=== PATIENT | male | born 1955 | race African-American/Black ===

== ENCOUNTER 2018-12-01 14:27 | Inpatient (IN) | payer MEDICARE, MEDICAID ==
[~2018-12-01] VITALS: Ht 172.7 cm; Wt 87.5 kg
[~2018-12-01 14:27] MED LIST: ALBU18HF2 IH; AMIT25TA9 PO; ASPI-1158 PO; ATEN-42 PO; BACL-141 PO; BENA1TAB19 PO; DORZ10DR8 EACHEYE; ELBA1TAB PO; GABA-290 PO; HUM100IN SUBCUT; KETO15CR2 TP; METF-414 PO
[2018-12-01 15:19] LABS: BASOPHILS % 0.2 % (0.0-2.0); EOSINOPHILS % 0.3 % (0.0-5.0); HEMATOCRIT. 34.9 % (42.0-52.0); HEMOGLOBIN. 11.4 g/dL (14.0-18.0); LYMPHOCYTES % 9.9 % (20.0-50.0); MEAN CORPUSCULAR HEMOGLOBIN 27.2 pg (28.0-32.0); MEAN CORPUSCULAR VOLUME 83.6 fL (80.0-94.0); MEAN PLATELET VOLUME 8.3 fl (7.4-10.4); NEUTROPHILS % 81.6 % (40.0-76.0); PLATELET 315 x1000/uL (130-400); RED BLOOD CELL COUNT 4.18 mill/uL (4.7-6.1); RED CELL DISTRIBUTION WIDTH 13.6 % (11.6-14.6)
[2018-12-01 15:20] LABS: CHLORIDE 111 mEq/L (98-107)
[2018-12-01] MEDS ORDERED: SODIUM CHLORIDE 0.9% 1,000 ML IV ONE (15:45)
[2018-12-01 16:19] LABS: CREATINE KINASE 1036 IU/L (39-308)
[2018-12-01 16:41] LABS: BG BASE EXCESS -9.4 mmol/L (-2.0-2.0); BG CARBOXYHEMOGLOBIN 0.4 % (0.5-1.5); BG DEOXYHEMOGLOBIN 6.4 % (0.0-5.0); BG FRACTION INSPIRED OXYGEN 21; BG HCO3 ACT 16.3 mmol/L (22.0-26.0); BG METHEMOGLOBIN 0.2 % (0.0-1.5); BG OXYGEN SATURATION 93.6 % (92.0-98.5); BG PCO2 34.9 mmHg (35.0-45.0); BG PH 7.288 (7.350-7.450); BG PO2 75.7 mmHg (75.0-100.0); BG SAMPLE SITE RIGHT RADIAL; BG VENT MODE ROOM AIR
[2018-12-01] MEDS ORDERED: ACETAMINOPHEN 325MG TABLET PO PRN (16:45)
[2018-12-01] MEDS ORDERED: NITROGLYCERIN 0.4MG TABLET SL SL PRN (16:45)
[2018-12-01] MEDS ORDERED: GUAIFENESIN 200MG/10ML SUGAR FREE UDC PO PRN (16:45)
[2018-12-01] MEDS ORDERED: DEXTROSE 50% WATER 50ML SYRINGE IV PRN (16:45)
[2018-12-01] MEDS ORDERED: DOCUSATE SODIUM 100MG CAPSULE PO PRN (16:45)
[2018-12-01] MEDS ORDERED: ONDANSETRON HCL 4MG/2ML INJ IV PRN (16:45)
[2018-12-01] MEDS ORDERED: IPRATROPIUM/ALBUTEROL 0.5-3(2.5)MG/3ML NEB HHN PRN (16:45)
[2018-12-01] MEDS ORDERED: MAGNESIUM/ALUMINUM HYDROXIDE/SIMETHICONE 30ML UDC PO PRN (16:45)
[2018-12-01 16:50] LABS: *AMPHETAMINES SCREEN URINE NEGATIVE (NEGATIVE); *BARBITURATES SCREEN URINE NEGATIVE (NEGATIVE)
[2018-12-01 16:51] LABS: *BENZODIAZEPINES SCREEN URINE NEGATIVE (NEGATIVE); *COCAINE SCREEN URINE NEGATIVE (NEGATIVE); CANNABINOID URINE SCREEN NEGATIVE (NEGATIVE); METHADONE URINE SCREEN NEGATIVE (NEGATIVE); OPIATES URINE SCREEN NEGATIVE (NEGATIVE); PHENCYCLIDINE URINE SCREEN NEGATIVE (NEGATIVE)
[2018-12-01 17:07] LABS: ETHANOL BLOOD < 10 mg/dL
[2018-12-01] MEDS ORDERED: MORPHINE SULFATE 2 MG/ML CPJ (NOT FOR IM USE) IV PRN (17:07)
[2018-12-01 17:09] LABS: LDL CHOLESTEROL 116 mg/dL (5-100); TOTAL IRON BINDING CAPACITY 389 ug/dL (250-450)
[2018-12-01 17:11] LABS: HDL CHOLESTEROL 48 mg/dL (40-59)
[2018-12-01 17:12] LABS: T4 FREE 0.73 ng/dL (0.76-1.46)
[2018-12-01 17:23] LABS: FOLIC ACID (FOLATE) SERUM >20 ng/mL ng/mL (>5.38)
[2018-12-01 17:34] LABS: VITAMIN B12 SERUM 1585 pg/mL (211-911)
[2018-12-01] MEDS ORDERED: LEVOFLOXACIN 500MG PREMIX 100 ML IV SCH (17:45)
[2018-12-01 18:53] LABS: HEPATITIS B SURFACE ANTIGEN NEGATIVE
[2018-12-01 19:23] LABS: HEPATITIS A AB IGM NEGATIVE (NEGATIVE)
[2018-12-01] MEDS: CLONIDINE 0.1MG TABLET PO PRN (20:46)
[2018-12-01] MEDS ORDERED: FAMOTIDINE 20MG TABLET PO SCH (21:00)
[2018-12-01] MEDS ORDERED: ZOLPIDEM TARTRATE 5MG TABLET PO PRN (21:00)
[2018-12-01] MEDS: BLOOD SUGAR DIAGNOSTIC STRIP TEST SCH (22:00)
[2018-12-01] MEDS: INSULIN LISPRO 100 UNITS/ML SUBCUT SCH (22:00)
[2018-12-01] MEDS ORDERED: CEFTRIAXONE 1 G PREMIX 50 ML IV SCH (22:00)
[2018-12-01] MEDS: SODIUM CHLORIDE 0.9% 1,000 ML IV SCH (23:25)
[2018-12-01] MEDS: FUROSEMIDE 40MG/4ML VIAL IVP SCH (23:25)
[2018-12-01] MEDS: ASCORBIC ACID 500 MG TABLET PO SCH (23:26)
[2018-12-01] MEDS: SPIRONOLACTONE 25MG TABLET PO SCH (23:47)
[2018-12-01] MEDS: LEVOFLOXACIN 250MG PREMIX 50 ML IV SCH (23:48)
[2018-12-02] VITALS (7 sets, daily range): BP systolic 141–184; BP diastolic 85–103
[2018-12-02 00:01] LABS: CREATINE KINASE MB FRACTION 16.6 ng/mL (0.5-3.6)
[2018-12-02 00:12] LABS: CREATINE KINASE 1262 IU/L (39-308)
[2018-12-02] MEDS: BLOOD SUGAR DIAGNOSTIC STRIP TEST SCH ×4 (07:20→21:00)
[2018-12-02 07:48] LABS: CREATINE KINASE MB FRACTION 14.3 ng/mL (0.5-3.6)
[2018-12-02] MEDS: INSULIN LISPRO 100 UNITS/ML SUBCUT SCH ×4 (07:50→21:00)
[2018-12-02 07:58] LABS: CREATINE KINASE 1316 IU/L (39-308)
[2018-12-02] MEDS: ASPIRIN 325MG EC TABLET PO SCH (09:21)
[2018-12-02] MEDS: FAMOTIDINE 20MG TABLET PO SCH (09:21)
[2018-12-02] MEDS: FUROSEMIDE 40MG/4ML VIAL IVP SCH ×2 (09:21→23:08)
[2018-12-02] MEDS: SPIRONOLACTONE 25MG TABLET PO SCH ×2 (09:21→23:07)
[2018-12-02] MEDS: AMLODIPINE 10MG TABLET PO SCH (09:22)
[2018-12-02] MEDS: ASCORBIC ACID 500 MG TABLET PO SCH ×2 (09:22→23:07)
[2018-12-02] MEDS: ZINC SULFATE 220 MG ( 50 ) CAPSULE PO SCH (09:23)
[2018-12-02] MEDS: ENOXAPARIN 40MG/0.4ML SYR SUBCUT SCH (09:25)
[2018-12-02] MEDS: GABAPENTIN 100MG CAPSULE PO SCH ×2 (13:12→23:07)
[2018-12-02] MEDS: LEVOFLOXACIN 250MG PREMIX 50 ML IV SCH (23:08)
[2018-12-02] MEDS: SODIUM CHLORIDE 0.9% 1,000 ML IV SCH (23:09)
[2018-12-03] VITALS (7 sets, daily range): BP systolic 130–167; BP diastolic 90–104
[2018-12-03] MEDS ORDERED: CEFTRIAXONE 1 G PREMIX 50 ML IV SCH
[2018-12-03] MEDS: CLONIDINE 0.1MG TABLET PO PRN (00:38)
[2018-12-03] MEDS: GABAPENTIN 100MG CAPSULE PO SCH ×2 (06:53→14:50)
[2018-12-03] MEDS: BLOOD SUGAR DIAGNOSTIC STRIP TEST SCH ×3 (06:53→17:52)
[2018-12-03 07:07] LABS: HIV SCREEN 4G Non Reactive (Non Reactive)
[2018-12-03] MEDS: INSULIN LISPRO 100 UNITS/ML SUBCUT SCH ×3 (07:50→17:50)
[2018-12-03] MEDS: ASCORBIC ACID 500 MG TABLET PO SCH (08:38)
[2018-12-03] MEDS: ZINC SULFATE 220 MG ( 50 ) CAPSULE PO SCH (08:39)
[2018-12-03] MEDS: ASPIRIN 325MG EC TABLET PO SCH (08:39)
[2018-12-03] MEDS: TRAMADOL 50MG TABLET PO PRN ×2 (08:39→17:08)
[2018-12-03] MEDS: AMLODIPINE 10MG TABLET PO SCH (08:39)
[2018-12-03] MEDS: FAMOTIDINE 20MG TABLET PO SCH (08:40)
[2018-12-03] MEDS: FUROSEMIDE 40MG/4ML VIAL IVP SCH (11:55)
[2018-12-03] MEDS ORDERED: XALAO EACHEYE ×2 (11:55)
[2018-12-03] MEDS: SPIRONOLACTONE 25MG TABLET PO SCH (12:00)
[2018-12-03] MEDS: ENOXAPARIN 40MG/0.4ML SYR SUBCUT SCH (12:04)
[2018-12-03] MEDS ORDERED: INFLUENZA VIRUS VACCINE(AFLURIA) 0.5ML SYR IM ONE (13:30)
[2018-12-03] MEDS ORDERED: THIAMINE HCL 100MG TABLET PO SCH (17:00)
[2018-12-03] MEDS ORDERED: FOLIC ACID 1MG TABLET PO SCH (17:00)
== END 2018-12-03 18:43 | disposition home health service (06) | DRG 871 ==
LOC: ER 14:27 → 6WST 15:53 → EDBEDREQ 16:03 → SUPCPDRO 16:33 → ENRESERV 20:19
PROVIDERS: ADMIT Internal Medicine; ATTEND Internal Medicine
DX: A41.9 Sepsis, unspecified organism (principal); G92 Toxic encephalopathy; N17.0 Acute kidney failure with tubular necrosis; I63.9 Cerebral infarction, unspecified; M62.82 Rhabdomyolysis; D64.9 Anemia, unspecified; E11.65 Type 2 diabetes mellitus with hyperglycemia; D50.9 Iron deficiency anemia, unspecified; E11.42 Type 2 diabetes mellitus with diabetic polyneuropathy; E78.00 Pure hypercholesterolemia, unspecified; I10 Essential (primary) hypertension; B19.20 Unspecified viral hepatitis C without hepatic coma; R26.9 Unspecified abnormalities of gait and mobility; Z79.899 Other long term (current) drug therapy; Z79.4 Long term (current) use of insulin; Z79.82 Long term (current) use of aspirin
CPT/HCPCS: 36415; 36600; 70551; 71045; 76770; 80048; 80061; 80305; 80320; 82140; 82375; 82550; 82553; 82607; 82746; 82805; 82962; 83036; 83540; 83550; 83605; 83880; 84439; 84443; 84484; 86705; 86709; 86803; 87340; 87389; 90686; 93005; 93306; 93970; 97162; 97166; 99291; J0696; J1650; J1815; J1940; J1956; J2405; J7030; G0480

== ENCOUNTER 2019-09-28 02:37 | Inpatient (IN) | payer MEDICARE, MEDICAID ==
[~2019-09-28] VITALS: Ht 182.9 cm; Wt 93.0 kg
[2019-09-28] VITALS (28 sets, daily range): BP systolic 107–186; BP diastolic 59–92
[~2019-09-28 02:37] MED LIST changes: -AMIT25TA9 PO; +AMLO5TAB88 PO; -BACL-141 PO; -BENA1TAB19 PO; +CLON0.2T12 PO; -ELBA1TAB PO; +HYDR100T26 PO; +LEVO500T2 MT; -METF-414 PO; +XALAO EACHEYE
[2019-09-28 03:13] LABS: BASOPHILS % 0.6 % (0.0-2.0); EOSINOPHILS % 2.1 % (0.0-5.0); HEMOGLOBIN. 9.2 g/dL (14.0-18.0); LYMPHOCYTES % 17.3 % (20.0-50.0); MEAN CORPUSCULAR VOLUME 82.3 fL (80.0-94.0); MEAN PLATELET VOLUME 7.3 fl (7.4-10.4); MONOCYTES % 11.2 % (2.0-8.0); NEUTROPHILS % 68.8 % (40.0-76.0); PLATELET 423 x1000/uL (130-400); RED CELL DISTRIBUTION WIDTH 14.1 % (11.6-14.6)
[2019-09-28 03:16] LABS: CHLORIDE 108 mEq/L (98-107)
[2019-09-28 03:19] LABS: PROTHROMBIN TIME 10.9 sec (9.6-11.0)
[2019-09-28 03:20] LABS: ETHANOL BLOOD < 10 mg/dL
[2019-09-28 03:22] LABS: CLARITY URINE CLOUDY (CLEAR); COLOR URINE DARK YELLOW (YELLOW); KETONES URINE TRACE (NEGATIVE); LEUKOCYTE ESTERASE URINE NEGATIVE (NEGATIVE); NITRITE URINE NEGATIVE (NEGATIVE); OCCULT BLOOD URINE NEGATIVE (NEGATIVE); PROTEIN URINE 3+ (NEGATIVE); UROBILINOGEN URINE 0.2 E.U./dL (0.2-1.0)
[2019-09-28 03:24] LABS: CREATINE KINASE 55 IU/L (39-308)
[2019-09-28 03:36] LABS: *AMPHETAMINES SCREEN URINE NEGATIVE (NEGATIVE); *BARBITURATES SCREEN URINE NEGATIVE (NEGATIVE)
[2019-09-28 03:37] LABS: *BENZODIAZEPINES SCREEN URINE NEGATIVE (NEGATIVE); *COCAINE SCREEN URINE NEGATIVE (NEGATIVE); CANNABINOID URINE SCREEN NEGATIVE (NEGATIVE); METHADONE URINE SCREEN NEGATIVE (NEGATIVE); OPIATES URINE SCREEN NEGATIVE (NEGATIVE); PHENCYCLIDINE URINE SCREEN NEGATIVE (NEGATIVE)
[2019-09-28] MEDS ORDERED: LORAZEPAM 2MG/ML CPJ ONE ×2 (10:27→10:33)
[2019-09-28] MEDS ORDERED: ATROPINE SULFATE 1MG/10ML SYR ONE (10:37)
[2019-09-28] MEDS ORDERED: SUCCINYLCHOLINE CHLORIDE 200MG/10ML IV ONE ×2 (10:37→10:45)
[2019-09-28] MEDS ORDERED: ETOMIDATE 2MG/ML 10ML VIAL IV ONE ×2 (10:37→10:45)
[2019-09-28] MEDS ORDERED: PROPOFOL 10MG/ML 100ML 100 ML IV ONE (10:45)
[2019-09-28] MEDS ORDERED: ONDANSETRON HCL 4MG/2ML INJ IV PRN (11:00)
[2019-09-28] MEDS: SODIUM CHLORIDE 0.45% 1,000 ML IV SCH ×2 (11:00→15:27)
[2019-09-28] MEDS ORDERED: DEXTROSE 50% WATER 50ML SYRINGE IV PRN (11:00)
[2019-09-28] MEDS: PANTOPRAZOLE SODIUM 40 MG/VIAL IV SCH ×2 (11:15→12:30)
[2019-09-28 11:22] LABS: BG BASE EXCESS -3.4 mmol/L (-2.0-2.0); BG CARBOXYHEMOGLOBIN 0.3 % (0.5-1.5); BG DEOXYHEMOGLOBIN 0.3 % (0.0-5.0); BG FRACTION INSPIRED OXYGEN 100; BG METHEMOGLOBIN 0.4 % (0.0-1.5); BG OXYGEN SATURATION 99.7 % (92.0-98.5); BG PCO2 41.2 mmHg (35.0-45.0); BG PH 7.346 (7.350-7.450); BG SAMPLE SITE RIGHT RADIAL; BG TIDAL VOLUME(mL) 500 mL; BG TOTAL HEMOGLOBIN 9.4 g/dL (12.0-18.0); BG VENT MODE VENT - A/C; BG VENT RATE 14 set
[2019-09-28] MEDS: IPRATROPIUM/ALBUTEROL 0.5-3(2.5)MG/3ML NEB HHN SCH ×3 (12:50→21:10)
[2019-09-28] MEDS: BLOOD SUGAR DIAGNOSTIC STRIP TEST SCH ×3 (13:00→21:11)
[2019-09-28] MEDS: INSULIN LISPRO 100 UNITS/ML SUBCUT SCH ×3 (13:20→21:00)
[2019-09-28 13:21] LABS: BASOPHILS % 0.7 % (0.0-2.0); EOSINOPHILS % 2.6 % (0.0-5.0); HEMATOCRIT. 27.7 % (42.0-52.0); HEMOGLOBIN. 9.2 g/dL (14.0-18.0); MEAN CORPUSCULAR HEMOGLOBIN 27.9 pg (28.0-32.0); MEAN CORPUSCULAR VOLUME 83.7 fL (80.0-94.0); MEAN PLATELET VOLUME 7.9 fl (7.4-10.4); MONOCYTES % 13.3 % (2.0-8.0); NEUTROPHILS % 50.4 % (40.0-76.0); PLATELET 386 x1000/uL (130-400); RED BLOOD CELL COUNT 3.31 mill/uL (4.7-6.1); RED CELL DISTRIBUTION WIDTH 14.5 % (11.6-14.6)
[2019-09-28] MEDS ORDERED: PIPERACILLIN/TAZ 3.375G PREMIX 50 ML IV SCH (15:15)
[2019-09-28] MEDS: LEVETIRACETAM 500MG PREMIX 100 ML IV SCH ×2 (15:27→22:37)
[2019-09-28 16:36] LABS: BG BASE EXCESS -2.1 mmol/L (-2.0-2.0); BG CARBOXYHEMOGLOBIN 0.1 % (0.5-1.5); BG DEOXYHEMOGLOBIN 5.5 % (0.0-5.0); BG FRACTION INSPIRED OXYGEN 40; BG HCO3 ACT 21.6 mmol/L (22.0-26.0); BG METHEMOGLOBIN 0.3 % (0.0-1.5); BG OXYGEN SATURATION 94.5 % (92.0-98.5); BG OXYHEMOGLOBIN 94.1 % (94.0-97.0); BG PCO2 32.5 mmHg (35.0-45.0); BG PEEP (cmH2O) 0 cmH2O; BG PO2 69.7 mmHg (75.0-100.0); BG SAMPLE SITE RIGHT RADIAL; BG TIDAL VOLUME(mL) 500 mL; BG TOTAL HEMOGLOBIN 9.5 g/dL (12.0-18.0); BG VENT MODE VENT - A/C; BG VENT RATE 18 set
[2019-09-28] MEDS: PIPERACILLIN/TAZOBACTAM 2.25 G in DEXTROSE 5% WATER 50 ML IV SCH ×2 (17:21→23:41)
[2019-09-28] MEDS: HYDRALAZINE 20MG/ML VIAL IV PRN (17:34)
[2019-09-29] VITALS (78 sets, daily range): BP systolic 106–185; BP diastolic 65–112
[2019-09-29] MEDS: IPRATROPIUM/ALBUTEROL 0.5-3(2.5)MG/3ML NEB HHN SCH ×4 (00:59→19:55)
[2019-09-29] MEDS: PROPOFOL 10MG/ML 100ML 100 ML IV PRN ×4 (02:57→20:59)
[2019-09-29] MEDS: PIPERACILLIN/TAZOBACTAM 2.25 G in DEXTROSE 5% WATER 50 ML IV SCH ×4 (05:09→23:48)
[2019-09-29 05:50] LABS: HEMATOCRIT. 29.3 % (42.0-52.0); HEMOGLOBIN. 9.5 g/dL (14.0-18.0); MEAN CORPUSCULAR VOLUME 83.1 fL (80.0-94.0); MEAN PLATELET VOLUME 7.4 fl (7.4-10.4); PLATELET 378 x1000/uL (130-400); RED BLOOD CELL COUNT 3.52 mill/uL (4.7-6.1); RED CELL DISTRIBUTION WIDTH 14.3 % (11.6-14.6)
[2019-09-29] MEDS: BLOOD SUGAR DIAGNOSTIC STRIP TEST SCH ×4 (06:07→21:04)
[2019-09-29] MEDS: HYDRALAZINE 20MG/ML VIAL IV PRN ×2 (06:08→16:16)
[2019-09-29] MEDS: INSULIN LISPRO 100 UNITS/ML SUBCUT SCH ×4 (06:47→21:00)
[2019-09-29 07:42] LABS: PLATELET ESTIMATE NORMAL
[2019-09-29 08:46] LABS: BG CARBOXYHEMOGLOBIN 0.2 % (0.5-1.5); BG FRACTION INSPIRED OXYGEN 50; BG OXYHEMOGLOBIN 98.8 % (94.0-97.0); BG PCO2 39.8 mmHg (35.0-45.0); BG PH 7.379 (7.350-7.450); BG PO2 198.8 mmHg (75.0-100.0); BG SAMPLE SITE RIGHT RADIAL; BG TIDAL VOLUME(mL) 500 mL; BG TOTAL HEMOGLOBIN 10.4 g/dL (12.0-18.0); BG VENT MODE VENT - A/C; BG VENT RATE 18 set
[2019-09-29] MEDS: PANTOPRAZOLE SODIUM 40 MG/VIAL IV SCH (08:50)
[2019-09-29] MEDS: LEVETIRACETAM 500MG PREMIX 100 ML IV SCH ×2 (08:50→21:04)
[2019-09-29] MEDS: SODIUM CHLORIDE 0.45% 1,000 ML IV SCH (10:32)
[2019-09-29] MEDS ORDERED: LORAZEPAM 2MG/ML CPJ IV PRN (13:45)
[2019-09-29] MEDS ORDERED: LEVETIRACETAM 500 MG in SODIUM CHLORIDE 0.9% 100 ML IV SCH (13:45)
[2019-09-30] VITALS (107 sets, daily range): BP systolic 88–193; BP diastolic 55–107
[2019-09-30] MEDS: HYDRALAZINE 20MG/ML VIAL IV PRN ×3 (00:27→21:10)
[2019-09-30] MEDS: PROPOFOL 10MG/ML 100ML 100 ML IV PRN ×6 (01:24→21:23)
[2019-09-30] MEDS: IPRATROPIUM/ALBUTEROL 0.5-3(2.5)MG/3ML NEB HHN SCH ×4 (05:24→20:35)
[2019-09-30] MEDS: PIPERACILLIN/TAZOBACTAM 2.25 G in DEXTROSE 5% WATER 50 ML IV SCH ×4 (05:32→23:45)
[2019-09-30 05:48] LABS: BASOPHILS % 0.5 % (0.0-2.0); EOSINOPHILS % 3.1 % (0.0-5.0); HEMATOCRIT. 28.6 % (42.0-52.0); HEMOGLOBIN. 9.5 g/dL (14.0-18.0); LYMPHOCYTES % 17.8 % (20.0-50.0); MEAN CORPUSCULAR HEMOGLOBIN 27.5 pg (28.0-32.0); MEAN CORPUSCULAR VOLUME 82.9 fL (80.0-94.0); MEAN PLATELET VOLUME 7.4 fl (7.4-10.4); MONOCYTES % 12.2 % (2.0-8.0); NEUTROPHILS % 66.4 % (40.0-76.0); PLATELET 402 x1000/uL (130-400); RED BLOOD CELL COUNT 3.45 mill/uL (4.7-6.1); RED CELL DISTRIBUTION WIDTH 14.1 % (11.6-14.6)
[2019-09-30] MEDS: BLOOD SUGAR DIAGNOSTIC STRIP TEST SCH ×4 (06:11→21:00)
[2019-09-30] MEDS: INSULIN LISPRO 100 UNITS/ML SUBCUT SCH ×4 (06:13→21:00)
[2019-09-30] MEDS: KCL 20MEQ/100ML PREMIX 100 ML IV SCH ×3 (08:24→12:06)
[2019-09-30] MEDS: LEVETIRACETAM 500MG PREMIX 100 ML IV SCH ×2 (08:24→20:40)
[2019-09-30] MEDS: PANTOPRAZOLE SODIUM 40 MG/VIAL IV SCH (08:24)
[2019-09-30 09:06] LABS: BG BASE EXCESS -3.8 mmol/L (-2.0-2.0); BG CARBOXYHEMOGLOBIN 0.3 % (0.5-1.5); BG DEOXYHEMOGLOBIN 1.5 % (0.0-5.0); BG FRACTION INSPIRED OXYGEN 40; BG HCO3 ACT 21.2 mmol/L (22.0-26.0); BG METHEMOGLOBIN 0.3 % (0.0-1.5); BG OXYGEN SATURATION 98.5 % (92.0-98.5); BG OXYHEMOGLOBIN 97.9 % (94.0-97.0); BG PCO2 38.3 mmHg (35.0-45.0); BG PH 7.361 (7.350-7.450); BG PO2 130.3 mmHg (75.0-100.0); BG SAMPLE SITE RIGHT RADIAL; BG TIDAL VOLUME(mL) 500 mL; BG TOTAL HEMOGLOBIN 10.2 g/dL (12.0-18.0); BG VENT MODE VENT - A/C; BG VENT RATE 16 set
[2019-09-30] MEDS ORDERED: POTASSIUM CHLORIDE 20MEQ TABLET SR PO NR (10:45)
[2019-09-30] MEDS: SODIUM CHLORIDE 0.45% 1,000 ML IV SCH (12:10)
[2019-09-30] MEDS: METOPROLOL TARTRATE 50MG TABLET NG SCH ×2 (15:04→23:41)
[2019-10-01] VITALS (90 sets, daily range): BP systolic 126–175; BP diastolic 67–122
[2019-10-01] MEDS: ACETAMINOPHEN 325MG TABLET PO PRN (00:01)
[2019-10-01] MEDS: IPRATROPIUM/ALBUTEROL 0.5-3(2.5)MG/3ML NEB HHN SCH ×4 (02:17→20:21)
[2019-10-01] MEDS: PROPOFOL 10MG/ML 100ML 100 ML IV PRN ×2 (05:13→08:53)
[2019-10-01 05:46] LABS: BASOPHILS % 0.6 % (0.0-2.0); EOSINOPHILS % 2.8 % (0.0-5.0); HEMATOCRIT. 26.4 % (42.0-52.0); HEMOGLOBIN. 8.6 g/dL (14.0-18.0); LYMPHOCYTES % 17.9 % (20.0-50.0); MEAN CORPUSCULAR HEMOGLOBIN 27.2 pg (28.0-32.0); MEAN CORPUSCULAR VOLUME 83.4 fL (80.0-94.0); MEAN PLATELET VOLUME 8.1 fl (7.4-10.4); NEUTROPHILS % 66.7 % (40.0-76.0); PLATELET 390 x1000/uL (130-400); RED BLOOD CELL COUNT 3.17 mill/uL (4.7-6.1); RED CELL DISTRIBUTION WIDTH 14.3 % (11.6-14.6)
[2019-10-01] MEDS: PIPERACILLIN/TAZOBACTAM 2.25 G in DEXTROSE 5% WATER 50 ML IV SCH ×3 (06:28→17:39)
[2019-10-01] MEDS: BLOOD SUGAR DIAGNOSTIC STRIP TEST SCH ×4 (06:28→20:37)
[2019-10-01] MEDS: INSULIN LISPRO 100 UNITS/ML SUBCUT SCH ×4 (06:29→20:38)
[2019-10-01] MEDS: LEVETIRACETAM 500MG PREMIX 100 ML IV SCH ×2 (08:50→20:37)
[2019-10-01] MEDS: PANTOPRAZOLE SODIUM 40 MG/VIAL IV SCH (08:50)
[2019-10-01 09:09] LABS: BG CARBOXYHEMOGLOBIN 0.3 % (0.5-1.5); BG DEOXYHEMOGLOBIN 6.5 % (0.0-5.0); BG FRACTION INSPIRED OXYGEN 40; BG HCO3 ACT 22.2 mmol/L (22.0-26.0); BG METHEMOGLOBIN 0.3 % (0.0-1.5); BG OXYGEN SATURATION 93.5 % (92.0-98.5); BG OXYHEMOGLOBIN 92.9 % (94.0-97.0); BG PCO2 35.8 mmHg (35.0-45.0); BG PH 7.411 (7.350-7.450); BG PO2 65.7 mmHg (75.0-100.0); BG SAMPLE SITE RIGHT RADIAL; BG TIDAL VOLUME(mL) 500 mL; BG TOTAL HEMOGLOBIN 9.1 g/dL (12.0-18.0); BG VENT MODE VENT - A/C; BG VENT RATE 16 set
[2019-10-01] MEDS: SODIUM CHLORIDE 0.45% 1,000 ML IV SCH (09:25)
[2019-10-01] MEDS: METOPROLOL TARTRATE 50MG TABLET NG SCH ×2 (09:25→20:47)
[2019-10-01] MEDS: AMLODIPINE 10MG TABLET PO SCH (11:59)
[2019-10-01] MEDS: HYDRALAZINE 20MG/ML VIAL IV PRN (18:13)
[2019-10-02] VITALS (85 sets, daily range): BP systolic 120–181; BP diastolic 68–107
[2019-10-02] MEDS: PIPERACILLIN/TAZOBACTAM 2.25 G in DEXTROSE 5% WATER 50 ML IV SCH ×4 (00:13→17:31)
[2019-10-02] MEDS: IPRATROPIUM/ALBUTEROL 0.5-3(2.5)MG/3ML NEB HHN SCH ×2 (02:10→08:50)
[2019-10-02] MEDS: ACETAMINOPHEN 325MG TABLET PO PRN ×2 (03:34→15:44)
[2019-10-02] MEDS: PROPOFOL 10MG/ML 100ML 100 ML IV PRN ×2 (03:43→08:32)
[2019-10-02] MEDS: BLOOD SUGAR DIAGNOSTIC STRIP TEST SCH ×4 (05:34→21:02)
[2019-10-02 05:47] LABS: BASOPHILS % 0.8 % (0.0-2.0); EOSINOPHILS % 3.6 % (0.0-5.0); HEMATOCRIT. 26.2 % (42.0-52.0); HEMOGLOBIN. 8.6 g/dL (14.0-18.0); LYMPHOCYTES % 15.1 % (20.0-50.0); MEAN CORPUSCULAR HEMOGLOBIN 27.3 pg (28.0-32.0); MEAN CORPUSCULAR VOLUME 83.2 fL (80.0-94.0); MEAN PLATELET VOLUME 7.7 fl (7.4-10.4); MONOCYTES % 11.3 % (2.0-8.0); NEUTROPHILS % 69.2 % (40.0-76.0); PLATELET 352 x1000/uL (130-400); RED BLOOD CELL COUNT 3.14 mill/uL (4.7-6.1); RED CELL DISTRIBUTION WIDTH 13.8 % (11.6-14.6)
[2019-10-02] MEDS: INSULIN LISPRO 100 UNITS/ML SUBCUT SCH ×4 (06:53→21:00)
[2019-10-02] MEDS: METOPROLOL TARTRATE 50MG TABLET NG SCH ×2 (08:31→21:01)
[2019-10-02] MEDS: LEVETIRACETAM 500MG PREMIX 100 ML IV SCH ×2 (08:31→20:59)
[2019-10-02] MEDS: PANTOPRAZOLE SODIUM 40 MG/VIAL IV SCH (08:32)
[2019-10-02] MEDS: AMLODIPINE 10MG TABLET PO SCH (08:32)
[2019-10-02] MEDS: LORAZEPAM 2MG/ML CPJ IV PRN (11:20)
[2019-10-02 13:35] LABS: BG CARBOXYHEMOGLOBIN 0.3 % (0.5-1.5); BG DEOXYHEMOGLOBIN 1.4 % (0.0-5.0); BG FRACTION INSPIRED OXYGEN 40; BG HCO3 ACT 22.6 mmol/L (22.0-26.0); BG METHEMOGLOBIN 0.1 % (0.0-1.5); BG OXYGEN SATURATION 98.6 % (92.0-98.5); BG OXYHEMOGLOBIN 98.2 % (94.0-97.0); BG PCO2 37.7 mmHg (35.0-45.0); BG PH 7.395 (7.350-7.450); BG PO2 143.9 mmHg (75.0-100.0); BG PRESSURE SUPPORT 8; BG SAMPLE SITE RIGHT RADIAL; BG TOTAL HEMOGLOBIN 9.8 g/dL (12.0-18.0); BG VENT MODE VENT - CPAP
[2019-10-02] MEDS: HYDRALAZINE 20MG/ML VIAL IV PRN (15:45)
[2019-10-02] MEDS: SODIUM CHLORIDE 0.45% 1,000 ML IV SCH (16:39)
[2019-10-03] VITALS (26 sets, daily range): BP systolic 141–181; BP diastolic 67–118
[2019-10-03] MEDS: IPRATROPIUM/ALBUTEROL 0.5-3(2.5)MG/3ML NEB HHN SCH ×4 (01:08→20:49)
[2019-10-03 05:13] LABS: BASOPHILS % 0.5 % (0.0-2.0); EOSINOPHILS % 2.5 % (0.0-5.0); HEMATOCRIT. 26.5 % (42.0-52.0); HEMOGLOBIN. 8.9 g/dL (14.0-18.0); LYMPHOCYTES % 14.1 % (20.0-50.0); MEAN CORPUSCULAR HEMOGLOBIN 27.6 pg (28.0-32.0); MEAN CORPUSCULAR VOLUME 82.2 fL (80.0-94.0); MEAN PLATELET VOLUME 7.5 fl (7.4-10.4); MONOCYTES % 11.8 % (2.0-8.0); NEUTROPHILS % 71.1 % (40.0-76.0); PLATELET 354 x1000/uL (130-400); RED BLOOD CELL COUNT 3.23 mill/uL (4.7-6.1); RED CELL DISTRIBUTION WIDTH 14.1 % (11.6-14.6)
[2019-10-03] MEDS: PIPERACILLIN/TAZOBACTAM 2.25 G in DEXTROSE 5% WATER 50 ML IV SCH ×5 (06:38→19:05)
[2019-10-03] MEDS: INSULIN LISPRO 100 UNITS/ML SUBCUT SCH ×4 (06:39→20:15)
[2019-10-03] MEDS: BLOOD SUGAR DIAGNOSTIC STRIP TEST SCH ×4 (06:39→20:15)
[2019-10-03] MEDS: LEVETIRACETAM 500MG PREMIX 100 ML IV SCH (08:24)
[2019-10-03] MEDS: PANTOPRAZOLE SODIUM 40 MG/VIAL IV SCH (08:24)
[2019-10-03] MEDS: AMLODIPINE 10MG TABLET PO SCH (08:53)
[2019-10-03] MEDS: METOPROLOL TARTRATE 50MG TABLET NG SCH ×2 (08:53→20:14)
[2019-10-03] MEDS: HYDRALAZINE 20MG/ML VIAL IV PRN (11:15)
[2019-10-03] MEDS ORDERED: HYDRALAZINE HCL 100MG TABLET PO NR (11:45)
[2019-10-03] MEDS: SODIUM CHLORIDE 0.45% 1,000 ML IV SCH (12:15)
[2019-10-03] MEDS: LEVETIRACETAM 250MG TABLET PO SCH (20:14)
[2019-10-03] MEDS: FAMOTIDINE 20MG TABLET PO SCH (20:14)
[2019-10-03] MEDS: HYDRALAZINE HCL 100MG TABLET PO SCH (21:35)
[2019-10-03] MEDS: GABAPENTIN 300MG CAPSULE PO SCH (21:35)
[2019-10-04] VITALS (12 sets, daily range): BP systolic 147–189; BP diastolic 76–101
[2019-10-04] MEDS: IPRATROPIUM/ALBUTEROL 0.5-3(2.5)MG/3ML NEB HHN SCH ×4 (00:53→21:10)
[2019-10-04] MEDS: HYDRALAZINE 20MG/ML VIAL IV PRN ×3 (02:50→17:36)
[2019-10-04] MEDS: GABAPENTIN 300MG CAPSULE PO SCH ×3 (05:44→21:31)
[2019-10-04] MEDS: HYDRALAZINE HCL 100MG TABLET PO SCH ×3 (05:45→21:31)
[2019-10-04] MEDS: SODIUM CHLORIDE 0.45% 1,000 ML IV SCH (07:22)
[2019-10-04] MEDS: FAMOTIDINE 20MG TABLET PO SCH ×2 (07:58→21:30)
[2019-10-04] MEDS: LEVETIRACETAM 250MG TABLET PO SCH ×2 (07:58→21:30)
[2019-10-04] MEDS: METOPROLOL TARTRATE 50MG TABLET NG SCH (07:59)
[2019-10-04] MEDS: AMLODIPINE 10MG TABLET PO SCH (07:59)
[2019-10-04] MEDS: INSULIN LISPRO 100 UNITS/ML SUBCUT SCH ×4 (08:00→21:00)
[2019-10-04] MEDS: BLOOD SUGAR DIAGNOSTIC STRIP TEST SCH ×4 (08:00→21:00)
[2019-10-04] MEDS ORDERED: POTASSIUM CHLORIDE 20MEQ TABLET SR PO SCH (13:45)
[2019-10-04] MEDS: ACETAMINOPHEN 325MG TABLET PO PRN (17:36)
[2019-10-04] MEDS: METOPROLOL TARTRATE 100MG TABLET NG SCH (21:31)
[2019-10-05] VITALS (12 sets, daily range): BP systolic 152–182; BP diastolic 75–101
[2019-10-05] MEDS: SODIUM CHLORIDE 0.45% 1,000 ML IV SCH (02:52)
[2019-10-05] MEDS: IPRATROPIUM/ALBUTEROL 0.5-3(2.5)MG/3ML NEB HHN SCH ×3 (02:59→14:18)
[2019-10-05] MEDS: LORAZEPAM 2MG/ML CPJ IV PRN (03:01)
[2019-10-05] MEDS: GABAPENTIN 300MG CAPSULE PO SCH ×3 (05:38→21:12)
[2019-10-05] MEDS: HYDRALAZINE HCL 100MG TABLET PO SCH ×3 (05:39→21:12)
[2019-10-05] MEDS: BLOOD SUGAR DIAGNOSTIC STRIP TEST SCH ×4 (07:30→20:37)
[2019-10-05] MEDS: INSULIN LISPRO 100 UNITS/ML SUBCUT SCH ×4 (08:00→20:48)
[2019-10-05] MEDS: AMLODIPINE 10MG TABLET PO SCH (08:45)
[2019-10-05] MEDS: METOPROLOL TARTRATE 100MG TABLET NG SCH ×2 (08:46→20:37)
[2019-10-05] MEDS: LEVETIRACETAM 250MG TABLET PO SCH ×2 (08:46→20:37)
[2019-10-05] MEDS: FAMOTIDINE 20MG TABLET PO SCH ×2 (08:46→20:37)
[2019-10-05] MEDS: HYDRALAZINE 20MG/ML VIAL IV PRN ×2 (11:00→17:11)
[2019-10-05] MEDS ORDERED: IPRATROPIUM/ALBUTEROL 0.5-3(2.5)MG/3ML NEB HHN PRN (15:15)
[2019-10-05] MEDS: CLONIDINE 0.1MG TABLET PO SCH (21:13)
[2019-10-06] VITALS (8 sets, daily range): BP systolic 144–195; BP diastolic 69–115
[2019-10-06] MEDS: GABAPENTIN 300MG CAPSULE PO SCH ×3 (05:48→20:52)
[2019-10-06] MEDS: HYDRALAZINE HCL 100MG TABLET PO SCH ×3 (05:49→20:52)
[2019-10-06] MEDS: CLONIDINE 0.1MG TABLET PO SCH (05:49)
[2019-10-06] MEDS: BLOOD SUGAR DIAGNOSTIC STRIP TEST SCH ×4 (06:45→19:48)
[2019-10-06] MEDS: INSULIN LISPRO 100 UNITS/ML SUBCUT SCH ×4 (06:45→19:49)
[2019-10-06] MEDS: LEVETIRACETAM 250MG TABLET PO SCH ×2 (09:15→19:54)
[2019-10-06] MEDS: FAMOTIDINE 20MG TABLET PO SCH ×2 (09:15→19:54)
[2019-10-06] MEDS: AMLODIPINE 10MG TABLET PO SCH (09:18)
[2019-10-06] MEDS: METOPROLOL TARTRATE 100MG TABLET NG SCH ×2 (12:17→19:54)
[2019-10-06] MEDS ORDERED: METO100T16 NG (12:21)
[2019-10-06] MEDS ORDERED: KEPP250 PO (12:21)
[2019-10-06] MEDS ORDERED: HYDR100T26 PO (12:21)
[2019-10-06] MEDS ORDERED: CLON0.2T12 PO (12:21)
[2019-10-06] MEDS ORDERED: AMLO10TA80 PO (12:21)
[2019-10-06] MEDS: CLONIDINE 0.2MG TABLET PO SCH ×2 (13:57→20:52)
[2019-10-06] MEDS: HYDRALAZINE 20MG/ML VIAL IV PRN (17:30)
[2019-10-07] MEDS ORDERED: MULTIVITAMINS,THER W-MINERALS TABLET PO SCH (09:00)
[2019-10-07] MEDS ORDERED: THIAMINE HCL 100MG TABLET PO SCH (09:00)
== END 2019-10-06 21:26 | disposition short-term general hospital (02) | DRG 870 ==
LOC: ER 02:37 → MICUNO 05:36 → EDBEDREQSVC 05:38 → EDBEDREQ 05:38 → EDBEDREQTM 05:38 → EDBEDREQSVC 10:46 → EDBEDREQTM 10:47 → ENRESERV 12:13 → 5EST 10-03 09:29 → 5WST 10-06 03:17
PROVIDERS: ADMIT Internal Medicine; ATTEND Internal Medicine
PROC: 5A1955Z Respiratory Ventilation, Greater than 96 Consecutive Hours (ICD-10-PCS; principal; 2019-09-28)
PROC: 0BH17EZ Insertion of Endotracheal Airway into Trachea, Via Natural or Artificial Opening (ICD-10-PCS; 2019-09-28)
PROC: B54BZZA Ultrasonography of Right Lower Extremity Veins, Guidance (ICD-10-PCS; 2019-09-28)
PROC: 06HY33Z Insertion of Infusion Device into Lower Vein, Percutaneous Approach (ICD-10-PCS; 2019-09-28)
PROC: 4A00X4Z Measurement of Central Nervous Electrical Activity, External Approach (ICD-10-PCS; 2019-09-29)
DX: A41.9 Sepsis, unspecified organism (principal); J96.00 Acute respiratory failure, unspecified whether with hypoxia or hypercapnia; J69.0 Pneumonitis due to inhalation of food and vomit; G93.41 Metabolic encephalopathy; N17.9 Acute kidney failure, unspecified; I50.32 Chronic diastolic (congestive) heart failure; E44.1 Mild protein-calorie malnutrition; I13.0 Hypertensive heart and chronic kidney disease with heart failure and stage 1 through stage 4 chronic kidney disease, or unspecified chronic kidney disease; G40.901 Epilepsy, unspecified, not intractable, with status epilepticus; E11.65 Type 2 diabetes mellitus with hyperglycemia; N18.3 Chronic kidney disease, stage 3 (moderate); D63.8 Anemia in other chronic diseases classified elsewhere; E66.9 Obesity, unspecified; E87.8 Other disorders of electrolyte and fluid balance, not elsewhere classified; E11.22 Type 2 diabetes mellitus with diabetic chronic kidney disease; Z79.2 Long term (current) use of antibiotics; Z79.4 Long term (current) use of insulin; Z79.899 Other long term (current) drug therapy; Z79.82 Long term (current) use of aspirin; Z68.27 Body mass index [BMI] 27.0-27.9, adult; F03.90 Unspecified dementia, unspecified severity, without behavioral disturbance, psychotic disturbance, mood disturbance, and anxiety
CPT/HCPCS: 36415; 36600; 70551; 71045; 74176; 80048; 80053; 80305; 80320; 81003; 82140; 82375; 82550; 82805; 82962; 83880; 84478; 84484; 85025; 87070; 92610; 93005; 94002; 94003; 94640; 97116; 97162; 97166; 97530; 99291; C9113; J0330; J0360; J0461; J1815; J1953; J2060; J2543; J2704; J3480; J3490; J7060; G0480

== ENCOUNTER 2019-10-29 15:45 | Inpatient (IN) | payer MEDICARE, MEDICAID ==
[~2019-10-29] VITALS: Ht 170.2 cm; Wt 97.1 kg
[~2019-10-29 15:45] MED LIST changes: +AMLO10TA80 PO; -ATEN-42 PO; +KEPP250 PO; -LEVO500T2 MT; +METO100T16 NG
[2019-10-29] MEDS ORDERED: LORAZEPAM 2MG/ML CPJ IV ONE (16:00)
[2019-10-29] MEDS ORDERED: LEVETIRACETAM 1000MG/100ML 100 ML IV ONE (16:00)
[2019-10-29 16:47] LABS: CHLORIDE 106 mEq/L (98-107)
[2019-10-29 16:48] LABS: BASOPHILS % 1.2 % (0.0-2.0); EOSINOPHILS % 1.5 % (0.0-5.0); HEMATOCRIT. 28.3 % (42.0-52.0); HEMOGLOBIN. 9.5 g/dL (14.0-18.0); LYMPHOCYTES % 21.1 % (20.0-50.0); MEAN CORPUSCULAR HEMOGLOBIN 27.2 pg (28.0-32.0); MEAN CORPUSCULAR VOLUME 80.8 fL (80.0-94.0); MEAN PLATELET VOLUME 7.7 fl (7.4-10.4); MONOCYTES % 10.1 % (2.0-8.0); NEUTROPHILS % 66.1 % (40.0-76.0); PLATELET 389 x1000/uL (130-400); RED CELL DISTRIBUTION WIDTH 14.4 % (11.6-14.6)
[2019-10-29 16:51] LABS: ETHANOL BLOOD < 10 mg/dL
[2019-10-29 17:33] LABS: CLARITY URINE CLEAR (CLEAR); COLOR URINE YELLOW (YELLOW); KETONES URINE NEGATIVE (NEGATIVE); LEUKOCYTE ESTERASE URINE NEGATIVE (NEGATIVE); NITRITE URINE NEGATIVE (NEGATIVE); OCCULT BLOOD URINE NEGATIVE (NEGATIVE); PROTEIN URINE 3+ (NEGATIVE); SPECIFIC GRAVITY URINE 1.021 (1.005-1.030); UROBILINOGEN URINE 0.2 E.U./dL (0.2-1.0)
[2019-10-29 17:56] LABS: *AMPHETAMINES SCREEN URINE NEGATIVE (NEGATIVE); *BARBITURATES SCREEN URINE NEGATIVE (NEGATIVE); *BENZODIAZEPINES SCREEN URINE NEGATIVE (NEGATIVE); *COCAINE SCREEN URINE NEGATIVE (NEGATIVE)
[2019-10-29 17:57] LABS: CANNABINOID URINE SCREEN NEGATIVE (NEGATIVE); METHADONE URINE SCREEN NEGATIVE (NEGATIVE); OPIATES URINE SCREEN NEGATIVE (NEGATIVE); PHENCYCLIDINE URINE SCREEN NEGATIVE (NEGATIVE)
[2019-10-29 21:40] VITALS: BP 199/114
[2019-10-29] MEDS ORDERED: ONDANSETRON HCL 4MG/2ML INJ IV PRN (22:30)
[2019-10-29] MEDS ORDERED: HYDROCODONE/ACETAMINOPHEN 5/325MG TABLET PO PRN (22:30)
[2019-10-29] MEDS ORDERED: DOCUSATE SODIUM 100MG CAPSULE PO PRN (22:30)
[2019-10-29] MEDS ORDERED: ACETAMINOPHEN 325MG TABLET PO PRN ×2 (22:30)
[2019-10-29] MEDS ORDERED: IPRATROPIUM/ALBUTEROL 0.5-3(2.5)MG/3ML NEB HHN PRN (22:30)
[2019-10-29] MEDS ORDERED: KEPPRA 750 MG XX SCH (22:30)
[2019-10-29] MEDS: HYDRALAZINE 20MG/ML VIAL IV PRN (22:57)
[2019-10-29] MEDS: LEVETIRACETAM 750 MG in SODIUM CHLORIDE 0.9% 100 ML IV SCH (23:22)
[2019-10-29] MEDS: SODIUM CHLORIDE 0.9% 1,000 ML IV SCH (23:26)
[2019-10-30] VITALS (7 sets, daily range): BP systolic 142–199; BP diastolic 101–112
[2019-10-30] MEDS: LORAZEPAM 2MG/ML CPJ IV PRN ×3 (01:32→13:24)
[2019-10-30 07:12] LABS: BASOPHILS % 0.7 % (0.0-2.0); HEMATOCRIT. 27.1 % (42.0-52.0); LYMPHOCYTES % 15.7 % (20.0-50.0); MEAN CORPUSCULAR VOLUME 81.2 fL (80.0-94.0); MEAN PLATELET VOLUME 7.7 fl (7.4-10.4); MONOCYTES % 9.1 % (2.0-8.0); NEUTROPHILS % 73.5 % (40.0-76.0); PLATELET 348 x1000/uL (130-400); RED BLOOD CELL COUNT 3.33 mill/uL (4.7-6.1); RED CELL DISTRIBUTION WIDTH 14.5 % (11.6-14.6)
[2019-10-30 07:38] LABS: PHOSPHORUS 3.9 mg/dL (2.5-4.9)
[2019-10-30] MEDS: AMLODIPINE 5MG TABLET PO SCH ×2 (08:02→21:19)
[2019-10-30] MEDS: HYDRALAZINE 20MG/ML VIAL IV PRN ×2 (08:15→14:21)
[2019-10-30] MEDS: SODIUM CHLORIDE 0.9% 1,000 ML IV SCH ×2 (08:15→17:38)
[2019-10-30] MEDS: LEVETIRACETAM 750 MG in SODIUM CHLORIDE 0.9% 100 ML IV SCH ×2 (09:22→22:34)
[2019-10-30] MEDS ORDERED: HALOPERIDOL LACTATE 5MG/ML VIAL IM PRN (10:45)
[2019-10-30] MEDS ORDERED: LABETALOL HCL 20MG/4ML CARPUJECT IV SCH (18:00)
[2019-10-31] VITALS: BP 116/70
[2019-10-31] MEDS: CLONIDINE 0.1MG TABLET PO PRN ×3 (00:34→16:58)
[2019-10-31] MEDS: HYDRALAZINE 20MG/ML VIAL IV PRN (02:01)
[2019-10-31 04:00] VITALS: BP 179/83
[2019-10-31] MEDS: SODIUM CHLORIDE 0.9% 1,000 ML IV SCH ×2 (05:51→15:40)
[2019-10-31 07:36] LABS: BASOPHILS % 0.9 % (0.0-2.0); EOSINOPHILS % 2.8 % (0.0-5.0); HEMATOCRIT. 27.8 % (42.0-52.0); HEMOGLOBIN. 9.3 g/dL (14.0-18.0); LYMPHOCYTES % 14.4 % (20.0-50.0); MEAN CORPUSCULAR VOLUME 80.6 fL (80.0-94.0); MEAN PLATELET VOLUME 7.9 fl (7.4-10.4); MONOCYTES % 9.4 % (2.0-8.0); NEUTROPHILS % 72.5 % (40.0-76.0); PLATELET 363 x1000/uL (130-400); RED BLOOD CELL COUNT 3.45 mill/uL (4.7-6.1); RED CELL DISTRIBUTION WIDTH 14.4 % (11.6-14.6)
[2019-10-31 08:00] VITALS: BP 176/103
[2019-10-31 08:18] LABS: CHLORIDE 115 mEq/L (98-107)
[2019-10-31] MEDS: LEVETIRACETAM 750 MG in SODIUM CHLORIDE 0.9% 100 ML IV SCH (09:49)
[2019-10-31] MEDS: ASPIRIN 81MG EC TABLET PO SCH (09:49)
[2019-10-31] MEDS: AMLODIPINE 5MG TABLET PO SCH ×2 (09:50→20:45)
[2019-10-31] MEDS: LEVETIRACETAM 250MG TABLET PO SCH ×2 (09:52→20:45)
[2019-10-31] MEDS: METOPROLOL TARTRATE 100MG TABLET NG SCH ×2 (09:52→20:45)
[2019-10-31] MEDS ORDERED: GABAPENTIN 300MG CAPSULE PO SCH (10:00)
[2019-10-31] MEDS: DORZOLAMIDE 2% OPHTH 10 ML BOTTLE EACHEYE SCH (11:39)
[2019-10-31 12:00] VITALS: BP 146/91
[2019-10-31] MEDS: CLONIDINE 0.2MG TABLET PO SCH (14:46)
[2019-10-31] MEDS: HYDRALAZINE HCL 100MG TABLET PO SCH (14:46)
[2019-10-31 16:00] VITALS: BP 169/92
[2019-10-31 20:00] VITALS: BP 143/78
[2019-10-31] MEDS: LATANOPROST 0.005% OPHTH DROPS 2.5ML EACHEYE SCH (20:44)
[2019-10-31] MEDS: GABAPENTIN 300MG CAPSULE PO SCH (21:59)
[2019-11-01] VITALS: BP 162/90
[2019-11-01] MEDS: HYDRALAZINE HCL 100MG TABLET PO SCH ×4 (00:45→21:54)
[2019-11-01] MEDS: SODIUM CHLORIDE 0.9% 1,000 ML IV SCH ×3 (00:46→21:55)
[2019-11-01] MEDS: CLONIDINE 0.2MG TABLET PO SCH ×4 (00:46→21:55)
[2019-11-01 04:00] VITALS: BP 166/94
[2019-11-01] MEDS: GABAPENTIN 300MG CAPSULE PO SCH ×3 (06:26→21:54)
[2019-11-01 08:00] VITALS: BP 151/87
[2019-11-01] MEDS: LEVETIRACETAM 250MG TABLET PO SCH ×2 (08:53→21:00)
[2019-11-01] MEDS: DORZOLAMIDE 2% OPHTH 10 ML BOTTLE EACHEYE SCH (08:54)
[2019-11-01] MEDS: AMLODIPINE 5MG TABLET PO SCH ×2 (08:54→21:00)
[2019-11-01] MEDS: ASPIRIN 81MG EC TABLET PO SCH (08:54)
[2019-11-01] MEDS: METOPROLOL TARTRATE 100MG TABLET NG SCH ×2 (08:54→21:00)
[2019-11-01 11:27] LABS: BASOPHILS % 0.7 % (0.0-2.0); EOSINOPHILS % 5.5 % (0.0-5.0); HEMATOCRIT. 27.9 % (42.0-52.0); HEMOGLOBIN. 9.2 g/dL (14.0-18.0); LYMPHOCYTES % 24.7 % (20.0-50.0); MEAN CORPUSCULAR HEMOGLOBIN 26.8 pg (28.0-32.0); MEAN CORPUSCULAR VOLUME 81.4 fL (80.0-94.0); MEAN PLATELET VOLUME 7.5 fl (7.4-10.4); MONOCYTES % 10.6 % (2.0-8.0); NEUTROPHILS % 58.5 % (40.0-76.0); PLATELET 323 x1000/uL (130-400); RED BLOOD CELL COUNT 3.43 mill/uL (4.7-6.1); RED CELL DISTRIBUTION WIDTH 14.7 % (11.6-14.6)
[2019-11-01 12:00] VITALS: BP 117/81
[2019-11-01 12:10] LABS: CHLORIDE 112 mEq/L (98-107)
[2019-11-01 16:00] VITALS: BP 132/78
[2019-11-01 20:00] VITALS: BP 156/85
[2019-11-01] MEDS: LATANOPROST 0.005% OPHTH DROPS 2.5ML EACHEYE SCH (21:01)
[2019-11-02] VITALS: BP 139/88
[2019-11-02 04:00] VITALS: BP 153/84
[2019-11-02] MEDS: GABAPENTIN 300MG CAPSULE PO SCH ×3 (05:21→20:47)
[2019-11-02] MEDS: CLONIDINE 0.2MG TABLET PO SCH ×3 (05:22→20:46)
[2019-11-02] MEDS: HYDRALAZINE HCL 100MG TABLET PO SCH ×3 (05:22→20:46)
[2019-11-02] MEDS: SODIUM CHLORIDE 0.9% 1,000 ML IV SCH (06:42)
[2019-11-02 08:00] VITALS: BP 159/86
[2019-11-02] MEDS: ASPIRIN 81MG EC TABLET PO SCH (08:46)
[2019-11-02] MEDS: METOPROLOL TARTRATE 100MG TABLET NG SCH ×2 (08:46→20:47)
[2019-11-02] MEDS: LEVETIRACETAM 250MG TABLET PO SCH ×2 (08:46→20:46)
[2019-11-02] MEDS: DORZOLAMIDE 2% OPHTH 10 ML BOTTLE EACHEYE SCH (08:47)
[2019-11-02] MEDS: AMLODIPINE 5MG TABLET PO SCH ×2 (08:47→20:49)
[2019-11-02 12:00] VITALS: BP 130/77
[2019-11-02 16:00] VITALS: BP 119/65
[2019-11-02 20:00] VITALS: BP 125/75
[2019-11-02] MEDS: LATANOPROST 0.005% OPHTH DROPS 2.5ML EACHEYE SCH (20:47)
[2019-11-03] VITALS: BP 134/74
[2019-11-03 04:00] VITALS: BP 138/74
[2019-11-03] MEDS: GABAPENTIN 300MG CAPSULE PO SCH ×2 (06:17→14:16)
[2019-11-03] MEDS: CLONIDINE 0.2MG TABLET PO SCH ×2 (06:18→14:17)
[2019-11-03] MEDS: HYDRALAZINE HCL 100MG TABLET PO SCH ×2 (06:18→14:17)
[2019-11-03 08:00] VITALS: BP 133/75
[2019-11-03] MEDS: LEVETIRACETAM 250MG TABLET PO SCH (09:27)
[2019-11-03] MEDS: DORZOLAMIDE 2% OPHTH 10 ML BOTTLE EACHEYE SCH (09:28)
[2019-11-03] MEDS: AMLODIPINE 5MG TABLET PO SCH (09:28)
[2019-11-03] MEDS: ASPIRIN 81MG EC TABLET PO SCH (09:28)
[2019-11-03] MEDS: METOPROLOL TARTRATE 100MG TABLET NG SCH (09:28)
[2019-11-03 12:00] VITALS: BP 138/78
[2019-11-03 16:00] VITALS: BP 148/75
[2019-11-03 18:53] VITALS: BP 148/75
[2019-11-03] MEDS: CLONIDINE 0.1MG TABLET PO PRN (19:58)
== END 2019-11-03 20:30 | DRG 77 ==
LOC: ER 15:45 → 5WST 17:27 → EDBEDREQ 17:55 → EDBEDREQTM 17:55 → ENRESERV 20:25
PROVIDERS: ADMIT Internal Medicine; ATTEND Internal Medicine
DX: I67.4 Hypertensive encephalopathy (principal); N17.0 Acute kidney failure with tubular necrosis; I16.0 Hypertensive urgency; G40.909 Epilepsy, unspecified, not intractable, without status epilepticus; N18.9 Chronic kidney disease, unspecified; D63.8 Anemia in other chronic diseases classified elsewhere; J44.9 Chronic obstructive pulmonary disease, unspecified; E11.22 Type 2 diabetes mellitus with diabetic chronic kidney disease; K72.90 Hepatic failure, unspecified without coma; Z20.828 Contact with and (suspected) exposure to other viral communicable diseases; F03.90 Unspecified dementia, unspecified severity, without behavioral disturbance, psychotic disturbance, mood disturbance, and anxiety; I12.9 Hypertensive chronic kidney disease with stage 1 through stage 4 chronic kidney disease, or unspecified chronic kidney disease; R26.89 Other abnormalities of gait and mobility; R94.4 Abnormal results of kidney function studies; Z79.4 Long term (current) use of insulin; Z78.1 Physical restraint status
CPT/HCPCS: 36415; 70551; 71045; 76700; 76937; 80048; 80053; 80061; 80305; 80320; 81003; 82542; 82962; 83605; 83735; 84100; 85025; 87635; 92610; 93005; 97162; 99285; C1725; J0360; J1630; J1953; J2060; J3490; J7030; J7050; G0480

== ENCOUNTER 2020-05-24 05:12 | Inpatient (IN) | payer MEDICARE, OTHER ==
[~2020-05-24] VITALS: Ht 154.9 cm; Wt 108.9 kg
[~2020-05-24 05:12] MED LIST changes: -AMLO10TA80 PO; -ASPI-1158 PO; +ASPI-1406 PO; +ATOR20TA MT; -METO100T16 NG
[2020-05-24 06:39] LABS: BASOPHILS % 0.4 % (0.0-2.0); EOSINOPHILS % 4.2 % (0.0-5.0); HEMATOCRIT. 30.9 % (42.0-52.0); MEAN CORPUSCULAR HEMOGLOBIN 27.3 pg (28.0-32.0); MEAN CORPUSCULAR VOLUME 84.8 fL (80.0-94.0); MEAN PLATELET VOLUME 7.9 fl (7.4-10.4); MONOCYTES % 10.3 % (2.0-8.0); NEUTROPHILS % 54.1 % (40.0-76.0); PLATELET 276 x1000/uL (130-400); RED BLOOD CELL COUNT 3.65 mill/uL (4.7-6.1); RED CELL DISTRIBUTION WIDTH 13.8 % (11.6-14.6)
[2020-05-24 06:49] LABS: CHLORIDE 108 mEq/L (98-107)
[2020-05-24 06:53] LABS: PROTHROMBIN TIME 10.6 sec (9.6-11.0)
[2020-05-24 08:59] LABS: BG BASE EXCESS -5.8 mmol/L (-2.0-2.0); BG CARBOXYHEMOGLOBIN 0.2 % (0.5-1.5); BG DEOXYHEMOGLOBIN 3.1 % (0.0-5.0); BG FRACTION INSPIRED OXYGEN 21; BG HCO3 ACT 20.8 mmol/L (22.0-26.0); BG METHEMOGLOBIN 0.3 % (0.0-1.5); BG OXYGEN SATURATION 96.9 % (92.0-98.5); BG OXYHEMOGLOBIN 96.4 % (94.0-97.0); BG PCO2 45.9 mmHg (35.0-45.0); BG PH 7.274 (7.350-7.450); BG PO2 105.2 mmHg (75.0-100.0); BG SAMPLE SITE RIGHT RADIAL; BG TOTAL HEMOGLOBIN 9.5 g/dL (12.0-18.0); BG VENT MODE ROOM AIR
[2020-05-24] MEDS: SODIUM CHLORIDE 0.45% 1,000 ML IV SCH (09:30)
[2020-05-24] MEDS ORDERED: ONDANSETRON HCL 4MG/2ML INJ IV PRN (09:30)
[2020-05-24] MEDS ORDERED: ACETAMINOPHEN 325MG TABLET PO PRN (09:30)
[2020-05-24] MEDS: LEVETIRACETAM 500MG TABLET PO SCH ×2 (10:00→21:55)
[2020-05-24 11:09] LABS: CREATINE KINASE 69 IU/L (39-308)
[2020-05-24 11:52] VITALS: BP 161/99
[2020-05-24 12:00] VITALS: BP 161/99
[2020-05-24] MEDS ORDERED: IPRATROPIUM/ALBUTEROL 0.5-3(2.5)MG/3ML NEB HHN PRN (13:45)
[2020-05-24 16:14] VITALS: BP 179/110
[2020-05-24] MEDS: CLONIDINE 0.1MG TABLET PO PRN (16:56)
[2020-05-24 17:07] LABS: VITAMIN B12 SERUM 1321 pg/mL (211-911)
[2020-05-24 20:00] VITALS: BP 163/99
[2020-05-24] MEDS: HYDRALAZINE HCL 100MG TABLET PO SCH (21:50)
[2020-05-25] MEDS: SODIUM CHLORIDE 0.45% 1,000 ML IV SCH (00:11)
[2020-05-25 00:19] VITALS: BP 155/81
[2020-05-25] MEDS: HYDRALAZINE HCL 100MG TABLET PO SCH ×3 (05:49→21:53)
[2020-05-25] MEDS: CLONIDINE 0.1MG TABLET PO PRN (05:56)
[2020-05-25 06:57] LABS: BASOPHILS % 0.4 % (0.0-2.0); EOSINOPHILS % 3.2 % (0.0-5.0); HEMATOCRIT. 31.6 % (42.0-52.0); HEMOGLOBIN. 10.4 g/dL (14.0-18.0); LYMPHOCYTES % 20.4 % (20.0-50.0); MEAN CORPUSCULAR HEMOGLOBIN 27.7 pg (28.0-32.0); MEAN CORPUSCULAR VOLUME 84.5 fL (80.0-94.0); MEAN PLATELET VOLUME 8.3 fl (7.4-10.4); MONOCYTES % 9.8 % (2.0-8.0); NEUTROPHILS % 66.2 % (40.0-76.0); PLATELET 272 x1000/uL (130-400); RED BLOOD CELL COUNT 3.74 mill/uL (4.7-6.1); RED CELL DISTRIBUTION WIDTH 13.9 % (11.6-14.6)
[2020-05-25 07:17] VITALS: BP 162/80
[2020-05-25 08:16] VITALS: BP 183/92
[2020-05-25 08:44] LABS: CLARITY URINE CLEAR (CLEAR); COLOR URINE YELLOW (YELLOW); KETONES URINE NEGATIVE (NEGATIVE); LEUKOCYTE ESTERASE URINE NEGATIVE (NEGATIVE); NITRITE URINE NEGATIVE (NEGATIVE); OCCULT BLOOD URINE NEGATIVE (NEGATIVE); PROTEIN URINE 2+ (NEGATIVE); SPECIFIC GRAVITY URINE 1.009 (1.005-1.030); UROBILINOGEN URINE 0.2 E.U./dL (0.2-1.0)
[2020-05-25] MEDS: LEVETIRACETAM 500MG TABLET PO SCH ×2 (09:10→21:54)
[2020-05-25] MEDS: AMLODIPINE 10MG TABLET PO SCH (09:13)
[2020-05-25 09:25] LABS: *BARBITURATES SCREEN URINE NEGATIVE (NEGATIVE); *BENZODIAZEPINES SCREEN URINE NEGATIVE (NEGATIVE); *COCAINE SCREEN URINE NEGATIVE (NEGATIVE); METHADONE URINE SCREEN NEGATIVE (NEGATIVE); OPIATES URINE SCREEN NEGATIVE (NEGATIVE)
[2020-05-25 09:26] LABS: *AMPHETAMINES SCREEN URINE NEGATIVE (NEGATIVE)
[2020-05-25 09:27] LABS: CANNABINOID URINE SCREEN NEGATIVE (NEGATIVE)
[2020-05-25 09:28] LABS: PHENCYCLIDINE URINE SCREEN NEGATIVE (NEGATIVE)
[2020-05-25 11:40] VITALS: BP 165/90
[2020-05-25] MEDS: CLONIDINE 0.1MG TABLET PO SCH ×2 (14:04→21:53)
[2020-05-25 16:03] VITALS: BP 138/80
[2020-05-25 20:00] VITALS: BP 184/92
[2020-05-26] VITALS (7 sets, daily range): BP systolic 155–192; BP diastolic 79–102
[2020-05-26] MEDS: HYDRALAZINE HCL 100MG TABLET PO SCH ×2 (06:29→16:20)
[2020-05-26] MEDS: CLONIDINE 0.1MG TABLET PO SCH (06:30)
[2020-05-26] MEDS: AMLODIPINE 10MG TABLET PO SCH (10:04)
[2020-05-26] MEDS: LEVETIRACETAM 500MG TABLET PO SCH (10:04)
[2020-05-26] MEDS ORDERED: CLON0.2T MT (12:49)
[2020-05-26] MEDS ORDERED: HYDR100T26 PO (12:49)
[2020-05-26] MEDS ORDERED: KEPP250 PO (12:49)
[2020-05-26] MEDS ORDERED: CLONIDINE 0.2MG TABLET PO SCH (14:00)
[2020-05-26] MEDS: CLONIDINE 0.1MG TABLET PO PRN (16:20)
[2020-05-26] MEDS ORDERED: RIVA20TA MT (18:04)
[2020-05-26] MEDS ORDERED: CLONIDINE 0.3MG TABLET PO SCH (22:00)
== END 2020-05-26 18:42 | disposition home or self-care (01) | DRG 70 ==
LOC: ER 05:12 → 6WST 08:58 → EDBEDREQSVC 09:35 → EDBEDREQTM 09:35 → EDBEDREQ 09:35 → ENRESERV 10:38
PROVIDERS: ADMIT Internal Medicine; ATTEND Internal Medicine
PROC: 4A10X4Z Monitoring of Central Nervous Electrical Activity, External Approach (ICD-10-PCS; principal; 2020-05-26)
DX: G93.41 Metabolic encephalopathy (principal); N17.0 Acute kidney failure with tubular necrosis; E44.1 Mild protein-calorie malnutrition; I50.32 Chronic diastolic (congestive) heart failure; Z68.42 Body mass index [BMI] 45.0-49.9, adult; F03.90 Unspecified dementia, unspecified severity, without behavioral disturbance, psychotic disturbance, mood disturbance, and anxiety; E11.9 Type 2 diabetes mellitus without complications; E87.5 Hyperkalemia; G40.909 Epilepsy, unspecified, not intractable, without status epilepticus; D64.9 Anemia, unspecified; I11.0 Hypertensive heart disease with heart failure; J44.9 Chronic obstructive pulmonary disease, unspecified; E78.00 Pure hypercholesterolemia, unspecified; E66.01 Morbid (severe) obesity due to excess calories
CPT/HCPCS: 36415; 36600; 71045; 80048; 80053; 80305; 81003; 82140; 82375; 82542; 82550; 82607; 82805; 82962; 83605; 83880; 84145; 84443; 84484; 85025; 93005; 93970; 95816; 97162; 99285

== ENCOUNTER 2020-08-02 16:46 | Inpatient (IN) | payer MEDICARE, OTHER ==
[~2020-08-02] VITALS: Ht 177.8 cm; Wt 87.7 kg
[~2020-08-02 16:46] MED LIST changes: -ASPI-1406 PO; +CLON0.2T MT; +DOCU250C14 MT; +FERR325T23 PO
[2020-08-02] MEDS ORDERED: MORPHINE SULFATE 4 MG/ML CPJ (NOT FOR IM USE) IV STA (16:50)
[2020-08-02] MEDS ORDERED: ONDANSETRON HCL 4MG/2ML INJ IV STA (16:50)
[2020-08-02] MEDS ORDERED: CLONIDINE 0.2MG TABLET PO ONE (17:00)
[2020-08-02] MEDS ORDERED: SODIUM CHLORIDE 0.9% 1,000 ML IV ONE (17:00)
[2020-08-02 17:44] LABS: BASOPHILS % 0.5 % (0.0-2.0); EOSINOPHILS % 3.9 % (0.0-5.0); HEMATOCRIT. 44.6 % (42.0-52.0); HEMOGLOBIN. 14.2 g/dL (14.0-18.0); LYMPHOCYTES % 24.8 % (20.0-50.0); MEAN CORPUSCULAR HEMOGLOBIN 26.2 pg (28.0-32.0); MEAN CORPUSCULAR VOLUME 82.1 fL (80.0-94.0); MEAN PLATELET VOLUME 7.4 fl (7.4-10.4); MONOCYTES % 14.4 % (2.0-8.0); NEUTROPHILS % 56.4 % (40.0-76.0); PLATELET 301 x1000/uL (130-400); RED BLOOD CELL COUNT 5.43 mill/uL (4.7-6.1); RED CELL DISTRIBUTION WIDTH 15.9 % (11.6-14.6)
[2020-08-02 17:51] LABS: CHLORIDE 117 mEq/L (98-107)
[2020-08-02 17:55] LABS: PARTIAL THROMBOPLASTIN TIME 29.1 sec (23.4-31.0); PROTHROMBIN TIME 10.9 sec (9.6-11.0)
[2020-08-02] MEDS ORDERED: ASPIRIN 325MG EC TABLET PO ONE (18:15)
[2020-08-02 20:00] VITALS: BP 195/130
[2020-08-02 22:00] VITALS: BP 195/130
[2020-08-02] MEDS ORDERED: DEXTROSE 50% WATER 50ML SYRINGE IV PRN (23:00)
[2020-08-03] VITALS (9 sets, daily range): BP systolic 108–196; BP diastolic 73–108
[2020-08-03] MEDS ORDERED: HYDRALAZINE 20MG/ML VIAL IV SCH
[2020-08-03] MEDS ORDERED: HYDRALAZINE 20MG/ML VIAL IV PRN (01:00)
[2020-08-03] MEDS: CLONIDINE 0.1MG TABLET PO SCH ×2 (05:27)
[2020-08-03] MEDS: BLOOD SUGAR DIAGNOSTIC STRIP TEST SCH ×4 (05:50→20:05)
[2020-08-03] MEDS: INSULIN LISPRO 100 UNITS/ML SUBCUT SCH ×4 (07:15→20:24)
[2020-08-03 07:18] LABS: BASOPHILS % 0.8 % (0.0-2.0); EOSINOPHILS % 3.6 % (0.0-5.0); HEMATOCRIT. 44.8 % (42.0-52.0); HEMOGLOBIN. 14.3 g/dL (14.0-18.0); LYMPHOCYTES % 21.1 % (20.0-50.0); MEAN CORPUSCULAR HEMOGLOBIN 26.2 pg (28.0-32.0); MEAN PLATELET VOLUME 7.9 fl (7.4-10.4); MONOCYTES % 12.8 % (2.0-8.0); NEUTROPHILS % 61.7 % (40.0-76.0); PLATELET 312 x1000/uL (130-400); RED BLOOD CELL COUNT 5.46 mill/uL (4.7-6.1)
[2020-08-03] MEDS: GABAPENTIN 300MG CAPSULE PO SCH (08:17)
[2020-08-03] MEDS: LEVETIRACETAM 250MG TABLET PO SCH ×2 (08:18→20:04)
[2020-08-03] MEDS: HEPARIN 5000 UNITS/ML VIAL SUBCUT SCH ×2 (08:18→20:05)
[2020-08-03] MEDS ORDERED: LABETALOL 5MG/ML SYR 20 MG/4 ML SYRINGE IV PRN (10:15)
[2020-08-03] MEDS: HYDRALAZINE HCL 100MG TABLET PO SCH ×2 (13:23→20:05)
[2020-08-03] MEDS: ATORVASTATIN CALCIUM 20MG TABLET PO SCH (13:24)
[2020-08-03] MEDS ORDERED: DILTIAZEM HCL 30MG TABLET PO SCH (14:00)
[2020-08-03] MEDS: DILTIAZEM HCL 90MG TABLET PO SCH ×2 (14:21→18:26)
[2020-08-03] MEDS: DORZOLAMIDE 2% OPHTH 10 ML BOTTLE EACHEYE SCH (14:21)
[2020-08-03] MEDS: METOPROLOL TARTRATE 25MG TABLET PO SCH (16:24)
[2020-08-03] MEDS: LABETALOL 5MG/ML SYR 20 MG/4 ML SYRINGE IV PRN (18:27)
[2020-08-03] MEDS ORDERED: METOPROLOL TARTRATE 25MG TABLET PO SCH (21:00)
[2020-08-04 04:00] VITALS: BP 176/92
[2020-08-04] MEDS: METOPROLOL TARTRATE 25MG TABLET PO SCH ×2 (04:46→16:34)
[2020-08-04] MEDS: HYDRALAZINE HCL 100MG TABLET PO SCH ×3 (05:55→20:35)
[2020-08-04] MEDS: DILTIAZEM HCL 90MG TABLET PO SCH ×4 (05:55→18:16)
[2020-08-04] MEDS: INSULIN LISPRO 100 UNITS/ML SUBCUT SCH ×4 (06:04→20:36)
[2020-08-04] MEDS: BLOOD SUGAR DIAGNOSTIC STRIP TEST SCH ×4 (06:04→20:36)
[2020-08-04 08:00] VITALS: BP 168/87
[2020-08-04] MEDS: GABAPENTIN 300MG CAPSULE PO SCH (08:52)
[2020-08-04] MEDS: CHLORTHALIDONE 25MG TABLET PO SCH (08:52)
[2020-08-04] MEDS: LEVETIRACETAM 250MG TABLET PO SCH ×2 (08:52→20:35)
[2020-08-04] MEDS: DORZOLAMIDE 2% OPHTH 10 ML BOTTLE EACHEYE SCH (08:53)
[2020-08-04] MEDS: HEPARIN 5000 UNITS/ML VIAL SUBCUT SCH ×2 (08:53→21:49)
[2020-08-04] MEDS ORDERED: CLONIDINE 0.1MG TABLET PO SCH (10:00)
[2020-08-04] MEDS: ATORVASTATIN CALCIUM 20MG TABLET PO SCH (10:22)
[2020-08-04] MEDS ORDERED: ATOR40TA70 MT (10:35)
[2020-08-04] MEDS ORDERED: CLON0.1T PO ×2 (10:35)
[2020-08-04] MEDS ORDERED: CHLO25TA2 PO (10:35)
[2020-08-04] MEDS ORDERED: METO25TA6 PO ×2 (10:35)
[2020-08-04] MEDS ORDERED: DILT360T13 MT ×2 (10:35)
[2020-08-04] MEDS ORDERED: HYDR100T26 PO (10:36)
[2020-08-04 12:00] VITALS: BP 185/97
[2020-08-04 15:04] VITALS: BP 177/87
[2020-08-04] MEDS ORDERED: LOSA50TA41 MT ×2 (15:57)
[2020-08-04] MEDS ORDERED: CLON0.2T MT ×2 (15:57)
[2020-08-04] MEDS ORDERED: CLONIDINE 0.1MG TABLET PO NR (16:00)
[2020-08-04] MEDS: LOSARTAN POTASSIUM 50 MG TABLET PO SCH (16:33)
[2020-08-04 18:40] VITALS: BP 159/85
[2020-08-04 20:00] VITALS: BP 187/96
[2020-08-04] MEDS: CLONIDINE 0.2MG TABLET PO SCH (21:24)
[2020-08-05] VITALS (9 sets, daily range): BP systolic 158–186; BP diastolic 83–98
[2020-08-05] MEDS: DILTIAZEM HCL 90MG TABLET PO SCH ×2 (00:31→05:24)
[2020-08-05] MEDS: METOPROLOL TARTRATE 25MG TABLET PO SCH (04:52)
[2020-08-05] MEDS: HYDRALAZINE HCL 100MG TABLET PO SCH ×3 (04:53→21:15)
[2020-08-05] MEDS: CLONIDINE 0.2MG TABLET PO SCH ×3 (05:24→21:15)
[2020-08-05] MEDS: BLOOD SUGAR DIAGNOSTIC STRIP TEST SCH ×4 (05:58→21:16)
[2020-08-05] MEDS: INSULIN LISPRO 100 UNITS/ML SUBCUT SCH ×4 (06:11→21:16)
[2020-08-05] MEDS: LABETALOL 5MG/ML SYR 20 MG/4 ML SYRINGE IV PRN ×2 (06:34→18:56)
[2020-08-05] MEDS: ATORVASTATIN CALCIUM 20MG TABLET PO SCH (09:35)
[2020-08-05] MEDS: LOSARTAN POTASSIUM 50 MG TABLET PO SCH (09:35)
[2020-08-05] MEDS: HEPARIN 5000 UNITS/ML VIAL SUBCUT SCH ×2 (09:35→21:16)
[2020-08-05] MEDS: CHLORTHALIDONE 25MG TABLET PO SCH (09:35)
[2020-08-05] MEDS: LEVETIRACETAM 250MG TABLET PO SCH ×2 (09:35→21:15)
[2020-08-05] MEDS: GABAPENTIN 300MG CAPSULE PO SCH (09:35)
[2020-08-05] MEDS: DILTIAZEM HCL 120MG CAPSULE CD 24HR PO SCH ×2 (11:52→17:03)
[2020-08-05] MEDS: FUROSEMIDE 40MG TABLET PO SCH (11:53)
[2020-08-05] MEDS: DORZOLAMIDE 2% OPHTH 10 ML BOTTLE EACHEYE SCH (13:58)
[2020-08-06] VITALS (8 sets, daily range): BP systolic 154–172; BP diastolic 82–96
[2020-08-06] MEDS: CLONIDINE 0.2MG TABLET PO SCH ×2 (06:38→13:03)
[2020-08-06] MEDS: HYDRALAZINE HCL 100MG TABLET PO SCH ×3 (06:38→22:49)
[2020-08-06] MEDS: BLOOD SUGAR DIAGNOSTIC STRIP TEST SCH ×4 (06:38→21:00)
[2020-08-06] MEDS: INSULIN LISPRO 100 UNITS/ML SUBCUT SCH ×4 (06:38→21:00)
[2020-08-06] MEDS: LOSARTAN POTASSIUM 100 MG TABLET PO SCH (09:03)
[2020-08-06] MEDS: LEVETIRACETAM 250MG TABLET PO SCH ×2 (09:03→20:57)
[2020-08-06] MEDS: ATORVASTATIN CALCIUM 20MG TABLET PO SCH (09:03)
[2020-08-06] MEDS: FUROSEMIDE 40MG TABLET PO SCH (09:04)
[2020-08-06] MEDS: DILTIAZEM HCL 120MG CAPSULE CD 24HR PO SCH ×2 (09:04→20:57)
[2020-08-06] MEDS: GABAPENTIN 300MG CAPSULE PO SCH (09:04)
[2020-08-06] MEDS: DORZOLAMIDE 2% OPHTH 10 ML BOTTLE EACHEYE SCH (09:04)
[2020-08-06] MEDS: HEPARIN 5000 UNITS/ML VIAL SUBCUT SCH ×2 (09:05→21:00)
[2020-08-06] MEDS: HYDROCODONE/ACETAMINOPHEN 5/325MG TABLET PO PRN (13:03)
[2020-08-06] MEDS: CLONIDINE 0.3MG TABLET PO SCH ×2 (15:56→22:49)
[2020-08-07] VITALS: BP 131/77
[2020-08-07] MEDS: HYDROCODONE/ACETAMINOPHEN 5/325MG TABLET PO PRN ×2 (00:18→18:19)
[2020-08-07 04:00] VITALS: BP 147/82
[2020-08-07] MEDS: CLONIDINE 0.3MG TABLET PO SCH ×3 (06:15→22:34)
[2020-08-07] MEDS: HYDRALAZINE HCL 100MG TABLET PO SCH ×3 (06:15→22:34)
[2020-08-07] MEDS: BLOOD SUGAR DIAGNOSTIC STRIP TEST SCH ×4 (06:15→21:09)
[2020-08-07] MEDS: INSULIN LISPRO 100 UNITS/ML SUBCUT SCH ×4 (06:16→21:00)
[2020-08-07 07:14] LABS: BASOPHILS % 0.5 % (0.0-2.0); EOSINOPHILS % 5.8 % (0.0-5.0); HEMATOCRIT. 43.3 % (42.0-52.0); HEMOGLOBIN. 14.1 g/dL (14.0-18.0); LYMPHOCYTES % 18.3 % (20.0-50.0); MEAN CORPUSCULAR HEMOGLOBIN 26.1 pg (28.0-32.0); MEAN CORPUSCULAR VOLUME 80.3 fL (80.0-94.0); MEAN PLATELET VOLUME 8.3 fl (7.4-10.4); MONOCYTES % 12.2 % (2.0-8.0); NEUTROPHILS % 63.2 % (40.0-76.0); PLATELET 253 x1000/uL (130-400); RED BLOOD CELL COUNT 5.39 mill/uL (4.7-6.1); RED CELL DISTRIBUTION WIDTH 15.8 % (11.6-14.6)
[2020-08-07 08:00] VITALS: BP 171/91
[2020-08-07] MEDS: LOSARTAN POTASSIUM 100 MG TABLET PO SCH (08:33)
[2020-08-07] MEDS: FUROSEMIDE 40MG TABLET PO SCH (08:33)
[2020-08-07] MEDS: ATORVASTATIN CALCIUM 20MG TABLET PO SCH (08:33)
[2020-08-07] MEDS: GABAPENTIN 300MG CAPSULE PO SCH (08:33)
[2020-08-07] MEDS: DILTIAZEM HCL 120MG CAPSULE CD 24HR PO SCH ×2 (08:34→21:17)
[2020-08-07] MEDS: HEPARIN 5000 UNITS/ML VIAL SUBCUT SCH ×2 (08:34→21:19)
[2020-08-07] MEDS: DORZOLAMIDE 2% OPHTH 10 ML BOTTLE EACHEYE SCH (08:35)
[2020-08-07] MEDS ORDERED: POTASSIUM CHLORIDE 20MEQ/PACKET PO NR (09:00)
[2020-08-07] MEDS: LEVETIRACETAM 250MG TABLET PO SCH ×2 (10:24→21:17)
[2020-08-07] MEDS: LABETALOL 5MG/ML SYR 20 MG/4 ML SYRINGE IV PRN (11:55)
[2020-08-07 12:00] VITALS: BP 163/85
[2020-08-07 16:00] VITALS: BP 147/82
[2020-08-07 20:00] VITALS: BP 151/72
[2020-08-07] MEDS ORDERED: ZOLPIDEM TARTRATE 5MG TABLET PO PRN (22:00)
[2020-08-08] VITALS: BP 135/74
[2020-08-08 04:00] VITALS: BP 147/83
[2020-08-08 05:29] LABS: BASOPHILS % 0.6 % (0.0-2.0); EOSINOPHILS % 6.5 % (0.0-5.0); HEMATOCRIT. 49.5 % (42.0-52.0); HEMOGLOBIN. 15.7 g/dL (14.0-18.0); LYMPHOCYTES % 14.3 % (20.0-50.0); MEAN CORPUSCULAR HEMOGLOBIN 25.7 pg (28.0-32.0); MEAN CORPUSCULAR VOLUME 80.9 fL (80.0-94.0); MONOCYTES % 9.3 % (2.0-8.0); NEUTROPHILS % 69.3 % (40.0-76.0); PLATELET 288 x1000/uL (130-400); RED BLOOD CELL COUNT 6.12 mill/uL (4.7-6.1); RED CELL DISTRIBUTION WIDTH 16.1 % (11.6-14.6)
[2020-08-08] MEDS: BLOOD SUGAR DIAGNOSTIC STRIP TEST SCH ×4 (06:01→20:53)
[2020-08-08] MEDS: INSULIN LISPRO 100 UNITS/ML SUBCUT SCH ×4 (06:02→20:55)
[2020-08-08] MEDS: HYDRALAZINE HCL 100MG TABLET PO SCH ×3 (06:07→22:23)
[2020-08-08] MEDS: CLONIDINE 0.3MG TABLET PO SCH ×3 (06:07→22:22)
[2020-08-08 08:00] VITALS: BP 150/76
[2020-08-08] MEDS ORDERED: POTASSIUM CHLORIDE 20MEQ TABLET SR PO NR (08:15)
[2020-08-08] MEDS: DILTIAZEM HCL 120MG CAPSULE CD 24HR PO SCH ×2 (08:59→20:52)
[2020-08-08] MEDS: FUROSEMIDE 40MG TABLET PO SCH (08:59)
[2020-08-08] MEDS: GABAPENTIN 300MG CAPSULE PO SCH ×3 (08:59→22:22)
[2020-08-08] MEDS: HEPARIN 5000 UNITS/ML VIAL SUBCUT SCH ×2 (09:00→20:53)
[2020-08-08] MEDS: ATORVASTATIN CALCIUM 20MG TABLET PO SCH (09:00)
[2020-08-08] MEDS: LEVETIRACETAM 250MG TABLET PO SCH ×2 (09:00→20:51)
[2020-08-08] MEDS: DORZOLAMIDE 2% OPHTH 10 ML BOTTLE EACHEYE SCH (09:01)
[2020-08-08] MEDS: LOSARTAN POTASSIUM 100 MG TABLET PO SCH (09:08)
[2020-08-08 11:30] LABS: CLARITY URINE CLEAR (CLEAR); COLOR URINE YELLOW (YELLOW); KETONES URINE TRACE (NEGATIVE); LEUKOCYTE ESTERASE URINE NEGATIVE (NEGATIVE); NITRITE URINE NEGATIVE (NEGATIVE); OCCULT BLOOD URINE NEGATIVE (NEGATIVE); PH URINE 5.5 (4.5-8.0); PROTEIN URINE 3+ (NEGATIVE); SPECIFIC GRAVITY URINE 1.016 (1.005-1.030)
[2020-08-08 12:00] VITALS: BP 153/83
[2020-08-08 16:00] VITALS: BP 152/81
[2020-08-08 20:00] VITALS: BP 135/64
[2020-08-09] VITALS: BP 125/72
[2020-08-09 04:00] VITALS: BP 143/79
[2020-08-09] MEDS: CLONIDINE 0.3MG TABLET PO SCH (06:40)
[2020-08-09] MEDS: HYDRALAZINE HCL 100MG TABLET PO SCH (06:40)
[2020-08-09] MEDS: GABAPENTIN 300MG CAPSULE PO SCH (06:40)
[2020-08-09] MEDS: BLOOD SUGAR DIAGNOSTIC STRIP TEST SCH ×2 (06:55→11:36)
[2020-08-09] MEDS: INSULIN LISPRO 100 UNITS/ML SUBCUT SCH ×2 (06:56→11:36)
[2020-08-09 07:04] LABS: BASOPHILS % 0.6 % (0.0-2.0); EOSINOPHILS % 5.8 % (0.0-5.0); HEMATOCRIT. 45.6 % (42.0-52.0); HEMOGLOBIN. 14.7 g/dL (14.0-18.0); LYMPHOCYTES % 19.3 % (20.0-50.0); MEAN CORPUSCULAR HEMOGLOBIN 25.6 pg (28.0-32.0); MEAN PLATELET VOLUME 8.9 fl (7.4-10.4); MONOCYTES % 12.9 % (2.0-8.0); NEUTROPHILS % 61.4 % (40.0-76.0); PLATELET 260 x1000/uL (130-400); RED BLOOD CELL COUNT 5.77 mill/uL (4.7-6.1); RED CELL DISTRIBUTION WIDTH 15.4 % (11.6-14.6)
[2020-08-09 08:00] VITALS: BP 139/83
[2020-08-09] MEDS: DORZOLAMIDE 2% OPHTH 10 ML BOTTLE EACHEYE SCH (09:08)
[2020-08-09] MEDS: LEVETIRACETAM 250MG TABLET PO SCH (09:08)
[2020-08-09] MEDS: LOSARTAN POTASSIUM 100 MG TABLET PO SCH (09:09)
[2020-08-09] MEDS: DILTIAZEM HCL 120MG CAPSULE CD 24HR PO SCH (09:09)
[2020-08-09] MEDS: FUROSEMIDE 40MG TABLET PO SCH (09:09)
[2020-08-09] MEDS: ATORVASTATIN CALCIUM 20MG TABLET PO SCH (09:09)
[2020-08-09] MEDS: HEPARIN 5000 UNITS/ML VIAL SUBCUT SCH (09:10)
[2020-08-09] MEDS ORDERED: DILT120C88 PO (11:53)
[2020-08-09] MEDS ORDERED: LOSA100T3 PO (11:53)
[2020-08-09] MEDS ORDERED: CLON0.3T PO (11:53)
[2020-08-09 12:00] VITALS: BP 121/75
[2020-08-09 14:06] VITALS: BP 121/75
== END 2020-08-09 13:00 | disposition home or self-care (01) | DRG 305 ==
LOC: ER 16:46 → 5WST 19:26 → EDBEDREQ 19:46 → EDBEDREQTM 19:46 → ENRESERV 21:08
PROVIDERS: ADMIT Internal Medicine; ATTEND Internal Medicine
DX: I16.1 Hypertensive emergency (principal); N17.9 Acute kidney failure, unspecified; I12.9 Hypertensive chronic kidney disease with stage 1 through stage 4 chronic kidney disease, or unspecified chronic kidney disease; E11.42 Type 2 diabetes mellitus with diabetic polyneuropathy; I07.1 Rheumatic tricuspid insufficiency; R00.0 Tachycardia, unspecified; N18.2 Chronic kidney disease, stage 2 (mild); M79.604 Pain in right leg; I27.20 Pulmonary hypertension, unspecified; R56.9 Unspecified convulsions; B18.2 Chronic viral hepatitis C; E11.22 Type 2 diabetes mellitus with diabetic chronic kidney disease; F03.90 Unspecified dementia, unspecified severity, without behavioral disturbance, psychotic disturbance, mood disturbance, and anxiety; Z86.718 Personal history of other venous thrombosis and embolism; Z91.19 Patient's noncompliance with other medical treatment and regimen; Z86.19 Personal history of other infectious and parasitic diseases; Z79.4 Long term (current) use of insulin; Z79.01 Long term (current) use of anticoagulants; M79.605 Pain in left leg; R77.8 Other specified abnormalities of plasma proteins
CPT/HCPCS: 36415; 71045; 76770; 80048; 80053; 80061; 81003; 82088; 82575; 82962; 83036; 83880; 84244; 84443; 84484; 85025; 85379; 93005; 93306; 93970; 93976; 99285; J0360; J1644; J1815; J2270; J2405; J3490; J7030

== ENCOUNTER 2020-12-09 09:42 | Inpatient (IN) | payer MEDICARE, OTHER ==
[~2020-12-09] VITALS: Ht 165.1 cm; Wt 84.5 kg
[~2020-12-09 09:42] MED LIST changes: -AMLO5TAB88 PO; -ATOR20TA MT; +ATOR40TA70 MT; +CHLO25TA2 PO; -CLON0.2T MT; -CLON0.2T12 PO; +CLON0.3T PO; +DILT120C88 PO; +LOSA100T3 PO
[2020-12-09 10:14] LABS: BASOPHILS % 0.7 % (0.0-2.0); EOSINOPHILS % 3.6 % (0.0-5.0); HEMATOCRIT. 27.8 % (42.0-52.0); HEMOGLOBIN. 9.3 g/dL (14.0-18.0); LYMPHOCYTES % 33.7 % (20.0-50.0); MEAN CORPUSCULAR HEMOGLOBIN 27.5 pg (28.0-32.0); MEAN CORPUSCULAR VOLUME 81.8 fL (80.0-94.0); MEAN PLATELET VOLUME 7.1 fl (7.4-10.4); MONOCYTES % 12.9 % (2.0-8.0); NEUTROPHILS % 49.1 % (40.0-76.0); PLATELET 319 x1000/uL (130-400); RED CELL DISTRIBUTION WIDTH 17.2 % (11.6-14.6)
[2020-12-09] MEDS ORDERED: NALOXONE HCL 1 MG/ML 2ML VIAL IV ONE (10:15)
[2020-12-09 10:21] LABS: CHLORIDE 115 mEq/L (98-107)
[2020-12-09 10:25] LABS: INR 1.1; PROTHROMBIN TIME 11.3 sec (9.6-11.0)
[2020-12-09 10:48] LABS: BG BASE EXCESS -7.5 mmol/L (-2.0-2.0); BG CARBOXYHEMOGLOBIN 0.2 % (0.5-1.5); BG DEOXYHEMOGLOBIN 1.1 % (0.0-5.0); BG FRACTION INSPIRED OXYGEN 28; BG HCO3 ACT 18.4 mmol/L (22.0-26.0); BG METHEMOGLOBIN 0.4 % (0.0-1.5); BG OXYGEN SATURATION 98.9 % (92.0-98.5); BG OXYHEMOGLOBIN 98.3 % (94.0-97.0); BG PCO2 38.5 mmHg (35.0-45.0); BG PH 7.297 (7.350-7.450); BG PO2 193.6 mmHg (75.0-100.0); BG SAMPLE SITE LEFT RADIAL; BG TOTAL HEMOGLOBIN 10.5 g/dL (12.0-18.0); BG VENT MODE NASAL CANNULA
[2020-12-09] MEDS ORDERED: SODIUM CHLORIDE 0.9% 1,000 ML IV ONE (11:00)
[2020-12-09 11:31] LABS: CLARITY URINE CLEAR (CLEAR); COLOR URINE YELLOW (YELLOW); KETONES URINE NEGATIVE (NEGATIVE); LEUKOCYTE ESTERASE URINE NEGATIVE (NEGATIVE); NITRITE URINE NEGATIVE (NEGATIVE); OCCULT BLOOD URINE NEGATIVE (NEGATIVE); PH URINE 5.5 (4.5-8.0); PROTEIN URINE 2+ (NEGATIVE); UROBILINOGEN URINE 0.2 E.U./dL (0.2-1.0)
[2020-12-09 11:59] LABS: *AMPHETAMINES SCREEN URINE NEGATIVE (NEGATIVE); *BARBITURATES SCREEN URINE NEGATIVE (NEGATIVE); *BENZODIAZEPINES SCREEN URINE NEGATIVE (NEGATIVE); *COCAINE SCREEN URINE NEGATIVE (NEGATIVE); CANNABINOID URINE SCREEN NEGATIVE (NEGATIVE); METHADONE URINE SCREEN NEGATIVE (NEGATIVE); OPIATES URINE SCREEN NEGATIVE (NEGATIVE); PHENCYCLIDINE URINE SCREEN NEGATIVE (NEGATIVE)
[2020-12-09] MEDS ORDERED: HYDRALAZINE 20MG/ML VIAL IV PRN (13:45)
[2020-12-09] MEDS ORDERED: HYDRALAZINE HCL 100MG TABLET PO NR (16:00)
[2020-12-09] MEDS ORDERED: ONDANSETRON HCL 4MG/2ML INJ IV PRN (16:00)
[2020-12-09] MEDS: AMLODIPINE 10MG TABLET PO SCH (16:00)
[2020-12-09] MEDS ORDERED: ACETAMINOPHEN 325MG TABLET PO PRN (16:00)
[2020-12-09] MEDS: SODIUM CHLORIDE 0.45% 1,000 ML IV SCH (17:01)
[2020-12-09] MEDS: HYDRALAZINE 20MG/ML VIAL IV SCH (18:12)
[2020-12-09 22:00] VITALS: BP 135/91
[2020-12-09] MEDS ORDERED: HYDRALAZINE HCL 100MG TABLET PO SCH (22:00)
[2020-12-09] MEDS: LEVETIRACETAM 500MG TABLET PO SCH (22:12)
[2020-12-10] VITALS (12 sets, daily range): BP systolic 132–196; BP diastolic 68–106
[2020-12-10] MEDS: HYDRALAZINE 20MG/ML VIAL IV SCH ×5 (01:17→23:45)
[2020-12-10 09:59] LABS: BASOPHILS % 0.4 % (0.0-2.0); EOSINOPHILS % 1.3 % (0.0-5.0); HEMATOCRIT. 30.3 % (42.0-52.0); HEMOGLOBIN. 10.5 g/dL (14.0-18.0); LYMPHOCYTES % 12.4 % (20.0-50.0); MEAN CORPUSCULAR HEMOGLOBIN 27.8 pg (28.0-32.0); MEAN CORPUSCULAR VOLUME 80.4 fL (80.0-94.0); MEAN PLATELET VOLUME 7.3 fl (7.4-10.4); NEUTROPHILS % 74.9 % (40.0-76.0); PLATELET 377 x1000/uL (130-400); RED BLOOD CELL COUNT 3.77 mill/uL (4.7-6.1); RED CELL DISTRIBUTION WIDTH 17.1 % (11.6-14.6)
[2020-12-10] MEDS: LEVETIRACETAM 500MG TABLET PO SCH ×2 (10:00→20:04)
[2020-12-10] MEDS: AMLODIPINE 10MG TABLET PO SCH (10:00)
[2020-12-10 10:58] LABS: VITAMIN B12 SERUM 1833 pg/mL (211-911)
[2020-12-10] MEDS: SODIUM CHLORIDE 0.45% 1,000 ML IV SCH (13:21)
[2020-12-10] MEDS: CLONIDINE 0.1MG TABLET PO PRN (20:32)
[2020-12-10] MEDS ORDERED: HYDRALAZINE 20MG/ML VIAL IV PRN (21:15)
[2020-12-11] VITALS (9 sets, daily range): BP systolic 155–190; BP diastolic 86–105
[2020-12-11] MEDS: HYDRALAZINE 20MG/ML VIAL IV SCH (06:08)
[2020-12-11] MEDS: AMLODIPINE 10MG TABLET PO SCH (08:35)
[2020-12-11] MEDS: LEVETIRACETAM 500MG TABLET PO SCH (08:35)
[2020-12-11] MEDS: CLONIDINE 0.1MG TABLET PO PRN (08:36)
[2020-12-11] MEDS: SODIUM CHLORIDE 0.45% 1,000 ML IV SCH (08:37)
[2020-12-11] MEDS ORDERED: CLONIDINE 0.2MG TABLET PO NR (10:15)
[2020-12-11] MEDS ORDERED: LOSARTAN POTASSIUM 100 MG TABLET PO SCH (12:30)
[2020-12-11] MEDS ORDERED: LABETALOL 5MG/ML SYR 20 MG/4 ML SYRINGE IV NR (12:30)
[2020-12-11] MEDS ORDERED: CLONIDINE 0.2MG TABLET PO SCH (14:00)
[2020-12-14] MEDS ORDERED: LEVE750T4 MT (10:29)
[2020-12-20] MEDS ORDERED: NIFE60TA78 MT (12:26)
[2020-12-20] MEDS ORDERED: CEPH500T MT (12:26)
[2020-12-20] MEDS ORDERED: ZONI100C34 PO (12:27)
== END 2020-12-11 15:04 | disposition home health service (06) | DRG 70 ==
LOC: ER 09:42 → EDBEDREQSVC 11:00 → EDBEDREQTM 11:00 → EDBEDREQ 11:00 → 3WST 12:21 → EDBEDREQSVC 12:30 → EDBEDREQ 12:30 → EDBEDREQTM 12:30 → ENRESERV 20:14
PROVIDERS: ADMIT Internal Medicine; ATTEND Internal Medicine
PROC: 4A00X4Z Measurement of Central Nervous Electrical Activity, External Approach (ICD-10-PCS; principal; 2020-12-10)
DX: G93.41 Metabolic encephalopathy (principal); N17.0 Acute kidney failure with tubular necrosis; E44.1 Mild protein-calorie malnutrition; G40.909 Epilepsy, unspecified, not intractable, without status epilepticus; D64.9 Anemia, unspecified; I10 Essential (primary) hypertension; E11.9 Type 2 diabetes mellitus without complications; E66.9 Obesity, unspecified; E87.8 Other disorders of electrolyte and fluid balance, not elsewhere classified; Z68.31 Body mass index [BMI] 31.0-31.9, adult; Z91.011 Allergy to milk products
CPT/HCPCS: 36415; 36600; 70551; 71045; 80048; 80053; 80305; 81003; 82375; 82542; 82607; 82805; 82962; 83605; 84145; 84443; 84484; 85025; 92610; 93005; 95816; 97162; 99285; J0360; J2310; J3490; J7030

== ENCOUNTER 2020-12-27 09:21 | Inpatient (IN) | payer MEDICARE, MEDICAID ==
[~2020-12-27] VITALS: Ht 182.9 cm; Wt 84.8 kg
[~2020-12-27 09:21] MED LIST changes: +CEPH500T MT; +LEVE750T4 MT; +NIFE60TA78 MT; +ZONI100C34 PO
[2020-12-27] MEDS ORDERED: LORAZEPAM 2MG/ML CPJ IM STA (09:27)
[2020-12-27] MEDS ORDERED: LEVETIRACETAM 1000MG PREMIX 100 ML IV ONE (09:30)
[2020-12-27 10:17] LABS: BASOPHILS % 0.7 % (0.0-2.0); EOSINOPHILS % 2.9 % (0.0-5.0); HEMATOCRIT. 31.3 % (42.0-52.0); HEMOGLOBIN. 10.5 g/dL (14.0-18.0); LYMPHOCYTES % 18.5 % (20.0-50.0); MEAN CORPUSCULAR VOLUME 83.7 fL (80.0-94.0); MEAN PLATELET VOLUME 7.7 fl (7.4-10.4); MONOCYTES % 8.7 % (2.0-8.0); NEUTROPHILS % 69.2 % (40.0-76.0); PLATELET 440 x1000/uL (130-400); RED BLOOD CELL COUNT 3.74 mill/uL (4.7-6.1); RED CELL DISTRIBUTION WIDTH 15.1 % (11.6-14.6)
[2020-12-27 10:53] LABS: CHLORIDE 114 mEq/L (98-107)
[2020-12-27 10:54] LABS: ETHANOL BLOOD < 10 mg/dL
[2020-12-27 15:45] LABS: CLARITY URINE CLEAR (CLEAR); COLOR URINE YELLOW (YELLOW); KETONES URINE NEGATIVE (NEGATIVE); LEUKOCYTE ESTERASE URINE NEGATIVE (NEGATIVE); NITRITE URINE NEGATIVE (NEGATIVE); OCCULT BLOOD URINE TRACE (NEGATIVE); PROTEIN URINE 1+ (NEGATIVE); SPECIFIC GRAVITY URINE 1.012 (1.005-1.030); UROBILINOGEN URINE 0.2 E.U./dL (0.2-1.0)
[2020-12-27] MEDS ORDERED: LEVETIRACETAM 500MG PREMIX 100 ML IV ONE (15:45)
[2020-12-27 16:17] LABS: *AMPHETAMINES SCREEN URINE NEGATIVE (NEGATIVE); CANNABINOID URINE SCREEN NEGATIVE (NEGATIVE); OPIATES URINE SCREEN NEGATIVE (NEGATIVE); PHENCYCLIDINE URINE SCREEN NEGATIVE (NEGATIVE)
[2020-12-27 16:18] LABS: *BARBITURATES SCREEN URINE NEGATIVE (NEGATIVE); *BENZODIAZEPINES SCREEN URINE NEGATIVE (NEGATIVE); *COCAINE SCREEN URINE NEGATIVE (NEGATIVE); METHADONE URINE SCREEN NEGATIVE (NEGATIVE)
[2020-12-27 16:45] VITALS: BP 141/100
[2020-12-27] MEDS ORDERED: LACOSAMIDE 100 MG TABLET PO SCH (17:00)
[2020-12-27] MEDS ORDERED: LORAZEPAM 2MG/ML CPJ IV PRN (18:30)
[2020-12-27 18:48] VITALS: BP 153/99
[2020-12-27 20:00] VITALS: BP 180/105
[2020-12-27] MEDS ORDERED: MAGNESIUM/ALUMINUM HYDROXIDE/SIMETHICONE 30ML UDC PO PRN (20:00)
[2020-12-27] MEDS ORDERED: HYDROCODONE/ACETAMINOPHEN 5/325MG TABLET PO PRN (20:00)
[2020-12-27] MEDS ORDERED: ACETAMINOPHEN 325MG TABLET PO PRN (20:00)
[2020-12-27] MEDS ORDERED: DEXTROSE 50% WATER 50ML SYRINGE IV PRN ×2 (20:00)
[2020-12-27] MEDS ORDERED: DOCUSATE SODIUM 100MG CAPSULE PO PRN (20:00)
[2020-12-27] MEDS ORDERED: ENOXAPARIN 40MG/0.4ML SYR SUBCUT SCH (20:00)
[2020-12-27] MEDS ORDERED: ONDANSETRON HCL 4MG/2ML INJ IV PRN (20:00)
[2020-12-27] MEDS ORDERED: LEVETIRACETAM 1,000 MG in SODIUM CHLORIDE 0.9% 100 ML IV SCH (21:00)
[2020-12-27] MEDS: LACOSAMIDE 100 MG TABLET PO SCH (21:00)
[2020-12-27] MEDS ORDERED: ENOXAPARIN 30MG/0.3ML SYR SUBCUT SCH (21:00)
[2020-12-27] MEDS: BLOOD SUGAR DIAGNOSTIC STRIP TEST SCH (21:00)
[2020-12-27] MEDS ORDERED: LORAZEPAM 2MG/ML CPJ IV NR (21:00)
[2020-12-27] MEDS: INSULIN LISPRO 100 UNITS/ML SUBCUT SCH (21:00)
[2020-12-27] MEDS: HYDRALAZINE 20MG/ML VIAL IV PRN (21:24)
[2020-12-28] VITALS (7 sets, daily range): BP systolic 135–198; BP diastolic 94–106
[2020-12-28] MEDS: INSULIN LISPRO 100 UNITS/ML SUBCUT SCH ×4 (05:58→21:00)
[2020-12-28] MEDS: BLOOD SUGAR DIAGNOSTIC STRIP TEST SCH ×4 (05:58→21:02)
[2020-12-28] MEDS: HYDRALAZINE 20MG/ML VIAL IV PRN (06:21)
[2020-12-28 06:31] LABS: BASOPHILS % 0.5 % (0.0-2.0); EOSINOPHILS % 1.4 % (0.0-5.0); HEMOGLOBIN. 11.9 g/dL (14.0-18.0); LYMPHOCYTES % 12.4 % (20.0-50.0); MEAN CORPUSCULAR HEMOGLOBIN 27.7 pg (28.0-32.0); MEAN CORPUSCULAR VOLUME 85.6 fL (80.0-94.0); MEAN PLATELET VOLUME 7.9 fl (7.4-10.4); MONOCYTES % 9.5 % (2.0-8.0); NEUTROPHILS % 76.2 % (40.0-76.0); PLATELET 452 x1000/uL (130-400); RED BLOOD CELL COUNT 4.31 mill/uL (4.7-6.1); RED CELL DISTRIBUTION WIDTH 15.2 % (11.6-14.6)
[2020-12-28 06:51] LABS: PHOSPHORUS 3.8 mg/dL (2.5-4.9)
[2020-12-28] MEDS: LACOSAMIDE 100 MG TABLET PO SCH ×2 (09:36→21:02)
[2020-12-28] MEDS: CLONIDINE 0.1MG TABLET PO PRN ×2 (09:37→20:38)
[2020-12-28] MEDS: PANTOPRAZOLE SODIUM 40 MG/VIAL IV SCH (09:37)
[2020-12-28] MEDS ORDERED: NALOXONE HCL 0.4MG/ML VIAL IV PRN (10:00)
[2020-12-28] MEDS ORDERED: SODIUM CHLORIDE 0.45% 1,000 ML IV SCH (10:00)
[2020-12-28] MEDS ORDERED: LEVETIRACETAM 1,000 MG in SODIUM CHLORIDE 0.9% 100 ML IV SCH (11:30)
[2020-12-28] MEDS: CITRIC ACID/SODIUM CITRATE SOLN 30ML UDC PO SCH ×2 (15:49→18:36)
[2020-12-28] MEDS: LEVETIRACETAM 500MG TABLET PO SCH ×2 (15:49→21:01)
[2020-12-28] MEDS ORDERED: CHLORTHALIDONE 25MG TABLET PO SCH (18:00)
[2020-12-28] MEDS: LOSARTAN POTASSIUM 100 MG TABLET PO SCH (18:36)
[2020-12-28] MEDS: ZONISAMIDE 100MG CAPSULE PO SCH (18:36)
[2020-12-28] MEDS ORDERED: ENOXAPARIN 40MG/0.4ML SYR SUBCUT SCH (21:00)
[2020-12-28] MEDS ORDERED: LATANOPROST 0.005% OPHTH DROPS 2.5ML EACHEYE SCH (21:00)
[2020-12-28] MEDS: ATORVASTATIN CALCIUM 40MG TABLET PO SCH (21:01)
[2020-12-28] MEDS: HYDRALAZINE HCL 100MG TABLET PO SCH (22:25)
[2020-12-28] MEDS: CLONIDINE 0.3MG TABLET PO SCH (22:26)
[2020-12-29] VITALS (7 sets, daily range): BP systolic 142–189; BP diastolic 89–112
[2020-12-29] MEDS: CLONIDINE 0.3MG TABLET PO SCH ×2 (05:14→13:20)
[2020-12-29] MEDS: HYDRALAZINE HCL 100MG TABLET PO SCH ×2 (05:14→13:21)
[2020-12-29] MEDS: BLOOD SUGAR DIAGNOSTIC STRIP TEST SCH ×3 (05:40→16:27)
[2020-12-29 06:11] LABS: BASOPHILS % 0.8 % (0.0-2.0); EOSINOPHILS % 2.2 % (0.0-5.0); HEMATOCRIT. 36.2 % (42.0-52.0); HEMOGLOBIN. 11.5 g/dL (14.0-18.0); LYMPHOCYTES % 25.9 % (20.0-50.0); MEAN CORPUSCULAR HEMOGLOBIN 27.5 pg (28.0-32.0); MEAN CORPUSCULAR VOLUME 86.3 fL (80.0-94.0); MEAN PLATELET VOLUME 7.6 fl (7.4-10.4); MONOCYTES % 13.5 % (2.0-8.0); NEUTROPHILS % 57.6 % (40.0-76.0); PLATELET 441 x1000/uL (130-400); RED BLOOD CELL COUNT 4.19 mill/uL (4.7-6.1); RED CELL DISTRIBUTION WIDTH 15.4 % (11.6-14.6)
[2020-12-29] MEDS: INSULIN LISPRO 100 UNITS/ML SUBCUT SCH ×3 (06:23→16:27)
[2020-12-29] MEDS: FERROUS SULFATE 325MG TABLET PO SCH ×3 (06:28→16:17)
[2020-12-29 06:32] LABS: PHOSPHORUS 3.6 mg/dL (2.5-4.9)
[2020-12-29] MEDS: DOCUSATE SODIUM 250MG CAPSULE PO SCH ×2 (08:57→16:17)
[2020-12-29] MEDS: CITRIC ACID/SODIUM CITRATE SOLN 30ML UDC PO SCH ×3 (08:57→16:16)
[2020-12-29] MEDS: LEVETIRACETAM 500MG TABLET PO SCH (08:57)
[2020-12-29] MEDS: LOSARTAN POTASSIUM 100 MG TABLET PO SCH (08:57)
[2020-12-29] MEDS: LACOSAMIDE 100 MG TABLET PO SCH (08:58)
[2020-12-29] MEDS: ZONISAMIDE 100MG CAPSULE PO SCH (08:58)
[2020-12-29] MEDS: PANTOPRAZOLE SODIUM 40 MG/VIAL IV SCH (08:59)
[2020-12-29] MEDS ORDERED: GABAPENTIN 300MG CAPSULE PO SCH (09:00)
[2020-12-29] MEDS ORDERED: DORZOLAMIDE 2% OPHTH 10 ML BOTTLE EACHEYE SCH (09:00)
[2020-12-29] MEDS ORDERED: NIFEDIPINE XL 60MG TAB PO SCH (09:00)
[2020-12-29] MEDS: ATORVASTATIN CALCIUM 40MG TABLET PO SCH (09:02)
[2020-12-29] MEDS ORDERED: DILTIAZEM HCL 120MG CAPSULE CD 24HR PO SCH (10:17)
[2020-12-29] MEDS: HYDRALAZINE 20MG/ML VIAL IV PRN (16:19)
[2020-12-30] MEDS ORDERED: FAMOTIDINE 20MG TABLET PO SCH (09:00)
== END 2020-12-29 20:45 | disposition home health service (06) | DRG 682 ==
LOC: ER 09:21 → 7EST 11:37 → CANRESERV 14:08 → ENRESERV 14:08
PROVIDERS: ADMIT Internal Medicine; ATTEND Internal Medicine
DX: N17.9 Acute kidney failure, unspecified (principal); R65.11 Systemic inflammatory response syndrome (SIRS) of non-infectious origin with acute organ dysfunction; G40.419 Other generalized epilepsy and epileptic syndromes, intractable, without status epilepticus; I12.9 Hypertensive chronic kidney disease with stage 1 through stage 4 chronic kidney disease, or unspecified chronic kidney disease; D64.9 Anemia, unspecified; E11.22 Type 2 diabetes mellitus with diabetic chronic kidney disease; E87.5 Hyperkalemia; N18.30 Chronic kidney disease, stage 3 unspecified; B19.20 Unspecified viral hepatitis C without hepatic coma; Z87.01 Personal history of pneumonia (recurrent); Z91.011 Allergy to milk products; Z79.4 Long term (current) use of insulin; Z79.899 Other long term (current) drug therapy; R00.1 Bradycardia, unspecified
CPT/HCPCS: 36415; 80048; 80053; 80305; 80320; 80339; 81003; 82962; 83036; 83735; 84100; 84132; 85025; 93970; 99291; C1893; C9113; J0360; J1650; J1953; J2060; J7040; J7050; G0480

== ENCOUNTER 2020-12-30 15:11 | Inpatient (IN) | payer MEDICARE, MEDICAID ==
[~2020-12-30] VITALS: Ht 167.6 cm; Wt 120.3 kg
[2020-12-30 16:14] LABS: BASOPHILS % 0.4 % (0.0-2.0); EOSINOPHILS % 2.1 % (0.0-5.0); HEMATOCRIT. 26.1 % (42.0-52.0); HEMOGLOBIN. 8.8 g/dL (14.0-18.0); LYMPHOCYTES % 16.3 % (20.0-50.0); MEAN CORPUSCULAR HEMOGLOBIN 28.8 pg (28.0-32.0); MEAN CORPUSCULAR VOLUME 85.2 fL (80.0-94.0); MEAN PLATELET VOLUME 7.5 fl (7.4-10.4); MONOCYTES % 12.5 % (2.0-8.0); NEUTROPHILS % 68.7 % (40.0-76.0); PLATELET 348 x1000/uL (130-400); RED BLOOD CELL COUNT 3.07 mill/uL (4.7-6.1); RED CELL DISTRIBUTION WIDTH 14.7 % (11.6-14.6)
[2020-12-30 16:16] LABS: CHLORIDE 112 mEq/L (98-107)
[2020-12-30 19:25] LABS: CLARITY URINE CLEAR (CLEAR); COLOR URINE YELLOW (YELLOW); KETONES URINE NEGATIVE (NEGATIVE); LEUKOCYTE ESTERASE URINE NEGATIVE (NEGATIVE); NITRITE URINE NEGATIVE (NEGATIVE); OCCULT BLOOD URINE NEGATIVE (NEGATIVE); PROTEIN URINE 3+ (NEGATIVE); SPECIFIC GRAVITY URINE 1.019 (1.005-1.030); UROBILINOGEN URINE 0.2 E.U./dL (0.2-1.0)
[2020-12-30 20:18] LABS: BG BASE EXCESS -6.6 mmol/L (-2.0-2.0); BG CARBOXYHEMOGLOBIN 0.3 % (0.5-1.5); BG DEOXYHEMOGLOBIN 6.4 % (0.0-5.0); BG FRACTION INSPIRED OXYGEN 21; BG HCO3 ACT 19.6 mmol/L (22.0-26.0); BG METHEMOGLOBIN 0.2 % (0.0-1.5); BG OXYGEN SATURATION 93.6 % (92.0-98.5); BG OXYHEMOGLOBIN 93.1 % (94.0-97.0); BG PCO2 42.3 mmHg (35.0-45.0); BG PH 7.284 (7.350-7.450); BG PO2 78.7 mmHg (75.0-100.0); BG SAMPLE SITE LEFT RADIAL; BG TOTAL HEMOGLOBIN 8.8 g/dL (12.0-18.0)
[2020-12-30] MEDS ORDERED: LORAZEPAM 2MG/ML CPJ IV PRN (21:15)
[2020-12-30] MEDS ORDERED: DOCUSATE SODIUM 100MG CAPSULE PO PRN (21:15)
[2020-12-30] MEDS ORDERED: HYDROCODONE/ACETAMINOPHEN 5/325MG TABLET PO PRN (21:15)
[2020-12-30] MEDS ORDERED: IPRATROPIUM/ALBUTEROL 0.5-3(2.5)MG/3ML NEB NEB PRN (21:15)
[2020-12-30] MEDS ORDERED: GUAIFENESIN 200MG/10ML SUGAR FREE UDC PO PRN (21:15)
[2020-12-30] MEDS ORDERED: MAGNESIUM/ALUMINUM HYDROXIDE/SIMETHICONE 30ML UDC PO PRN (21:15)
[2020-12-30] MEDS ORDERED: ALBUMIN HUMAN 25GM/500ML (5%) IV NR (21:45)
[2020-12-30] MEDS: NALOXONE HCL 0.4MG/ML VIAL IV PRN (22:01)
[2020-12-30 23:48] LABS: CHLORIDE 114 mEq/L (98-107)
[2020-12-30 23:57] LABS: CREATINE KINASE MB FRACTION 1.1 ng/mL (0.5-3.6)
[2020-12-30 23:59] LABS: CREATINE KINASE 190 IU/L (39-308)
[2020-12-31] MEDS ORDERED: LEVETIRACETAM 1,000 MG in SODIUM CHLORIDE 0.9% 100 ML IV SCH (01:00)
[2020-12-31] MEDS ORDERED: LEVETIRACETAM 1000MG PREMIX 100 ML IV NR (01:15)
[2020-12-31] MEDS: NALOXONE HCL 0.4MG/ML VIAL IV PRN ×3 (02:14→02:45)
[2020-12-31] MEDS ORDERED: NALOXONE 8 MG in DEXT 5% WATER 242 ML IV PRN (03:30)
[2020-12-31] MEDS ORDERED: SODIUM CHLORIDE 0.9% 10ML VIAL ONE (09:05)
[2020-12-31] MEDS ORDERED: VECURONIUM BROMIDE 10 MG/VIAL IV ONE (09:05)
[2020-12-31] MEDS ORDERED: ETOMIDATE 2MG/ML 10ML VIAL IV ONE (09:05)
[2020-12-31 09:40] LABS: *AMPHETAMINES SCREEN URINE NEGATIVE (NEGATIVE); *BARBITURATES SCREEN URINE NEGATIVE (NEGATIVE); *BENZODIAZEPINES SCREEN URINE NEGATIVE (NEGATIVE); *COCAINE SCREEN URINE NEGATIVE (NEGATIVE); METHADONE URINE SCREEN NEGATIVE (NEGATIVE)
[2020-12-31 09:41] LABS: CANNABINOID URINE SCREEN NEGATIVE (NEGATIVE); OPIATES URINE SCREEN NEGATIVE (NEGATIVE); PHENCYCLIDINE URINE SCREEN NEGATIVE (NEGATIVE)
[2020-12-31] MEDS ORDERED: DEXTROSE 50% WATER 50ML SYRINGE IV NR (11:31)
[2020-12-31] MEDS ORDERED: INSULIN REGULAR (HUMULIN R) 300UNITS/3ML VIAL IV NR (11:32)
[2020-12-31] MEDS ORDERED: SODIUM BICARBONATE 8.4% 1 MEQ/ML 50ML SYR IV NR (11:33)
[2020-12-31] MEDS ORDERED: SODIUM POLYSTYRENE SULFONATE 15 G/60 ML BOT PR NR (11:35)
[2020-12-31] MEDS: HYDRALAZINE 20MG/ML VIAL IV PRN ×2 (11:45→16:21)
[2020-12-31] MEDS ORDERED: SODIUM BICARBONATE 100 MEQ in DEXTROSE 5% WATER 1,000 ML IV SCH (12:00)
[2020-12-31] MEDS ORDERED: LORAZEPAM 2MG/ML CPJ IV SCH (12:15)
[2020-12-31] MEDS: ONDANSETRON HCL 4MG/2ML INJ IV PRN ×2 (16:08→23:52)
[2020-12-31] MEDS ORDERED: LABETALOL HCL 20MG/4ML CARPUJECT IV PRN (21:00)
[2020-12-31] MEDS ORDERED: FENTANYL CITRATE/PF 500 MCG in SODIUM CHLORIDE 0.9% 40 ML IV PRN (21:45)
[2020-12-31] MEDS ORDERED: PROPOFOL 10MG/ML 100ML 100 ML IV NR (21:45)
[2020-12-31] MEDS ORDERED: FENTANYL CITRATE 2,500 MCG in SODIUM CHLORIDE 0.9% 200 ML IV PRN (22:00)
[2020-12-31 22:51] LABS: BG BASE EXCESS 1.2 mmol/L (-2.0-2.0); BG CARBOXYHEMOGLOBIN 0.3 % (0.5-1.5); BG DEOXYHEMOGLOBIN 1.1 % (0.0-5.0); BG FRACTION INSPIRED OXYGEN 60; BG HCO3 ACT 26.2 mmol/L (22.0-26.0); BG METHEMOGLOBIN 0.3 % (0.0-1.5); BG OXYGEN SATURATION 98.9 % (92.0-98.5); BG OXYHEMOGLOBIN 98.3 % (94.0-97.0); BG PCO2 43.2 mmHg (35.0-45.0); BG PH 7.401 (7.350-7.450); BG PO2 175.9 mmHg (75.0-100.0); BG SAMPLE SITE LEFT RADIAL; BG TOTAL HEMOGLOBIN 12.6 g/dL (12.0-18.0); BG VENT MODE VENT - AC
[2020-12-31 23:22] LABS: BASOPHILS % 0.4 % (0.0-2.0); EOSINOPHILS % 1.2 % (0.0-5.0); HEMATOCRIT. 29.4 % (42.0-52.0); HEMOGLOBIN. 9.9 g/dL (14.0-18.0); LYMPHOCYTES % 7.1 % (20.0-50.0); MEAN CORPUSCULAR HEMOGLOBIN 27.8 pg (28.0-32.0); MEAN CORPUSCULAR VOLUME 82.9 fL (80.0-94.0); MONOCYTES % 7.2 % (2.0-8.0); NEUTROPHILS % 84.1 % (40.0-76.0); PLATELET 369 x1000/uL (130-400); RED BLOOD CELL COUNT 3.55 mill/uL (4.7-6.1); RED CELL DISTRIBUTION WIDTH 14.7 % (11.6-14.6)
[2020-12-31 23:32] LABS: CHLORIDE 109 mEq/L (98-107)
[2021-01-01] VITALS (65 sets, daily range): BP systolic 116–187; BP diastolic 71–118
[2021-01-01] MEDS ORDERED: SODIUM CHLORIDE 0.45% 1,000 ML IV SCH (01:15)
[2021-01-01] MEDS ORDERED: LEVETIRACETAM 500MG PREMIX 100 ML IV NR (01:15)
[2021-01-01] MEDS ORDERED: LEVETIRACETAM 1000MG PREMIX 100 ML IV NR (01:30)
[2021-01-01] MEDS ORDERED: LEVETIRACETAM 500MG PREMIX 100 ML IV ONE (01:44)
[2021-01-01] MEDS: HYDRALAZINE 20MG/ML VIAL IV PRN (02:25)
[2021-01-01 03:25] LABS: HEMATOCRIT. 29.9 % (42.0-52.0); HEMOGLOBIN. 9.8 g/dL (14.0-18.0); MEAN CORPUSCULAR HEMOGLOBIN 27.5 pg (28.0-32.0); MEAN CORPUSCULAR VOLUME 83.9 fL (80.0-94.0); MEAN PLATELET VOLUME 7.1 fl (7.4-10.4); PLATELET 370 x1000/uL (130-400); RED BLOOD CELL COUNT 3.56 mill/uL (4.7-6.1); RED CELL DISTRIBUTION WIDTH 14.6 % (11.6-14.6)
[2021-01-01 03:55] LABS: PLATELET ESTIMATE NORMAL
[2021-01-01] MEDS ORDERED: NICARDIPINE 40MG/200ML PREMIX 200 ML IV PRN (04:15)
[2021-01-01] MEDS ORDERED: NICARDIPINE 40MG/200ML PREMIX 200 ML IV ONE (07:52)
[2021-01-01] MEDS: KCL 20MEQ/100ML PREMIX 100 ML IV SCH ×2 (08:56→10:04)
[2021-01-01] MEDS ORDERED: POTASSIUM CHLORIDE INJ 40 MEQ in DEXT 5% WATER 250 ML IV SCH (09:00)
[2021-01-01] MEDS: PROPOFOL 10MG/ML 100ML 100 ML IV PRN ×4 (10:03→23:28)
[2021-01-01] MEDS ORDERED: PANTOPRAZOLE SODIUM 40 MG/VIAL IV SCH (10:30)
[2021-01-01] MEDS: NICARDIPINE 50 MG in SODIUM CHLORIDE 0.9% 250 ML IV PRN ×2 (10:47→18:33)
[2021-01-01 12:01] LABS: CREATINE KINASE MB FRACTION 1.4 ng/mL (0.5-3.6)
[2021-01-01] MEDS: PANTOPRAZOLE SODIUM 40 MG/VIAL IV SCH ×2 (12:54→17:48)
[2021-01-01] MEDS ORDERED: DEXTROSE 50% WATER 50ML SYRINGE IV PRN (14:15)
[2021-01-01] MEDS: DEXT 5%/0.45% NACL 1000ML 1,000 ML IV SCH (14:29)
[2021-01-01 16:46] LABS: FOLIC ACID (FOLATE) SERUM >20 ng/mL ng/mL (>5.38)
[2021-01-01 16:47] LABS: FERRITIN 162 ng/mL (22-322)
[2021-01-01 16:49] LABS: TOTAL IRON BINDING CAPACITY 234 ug/dL (250-450)
[2021-01-01 16:53] LABS: BG BASE EXCESS -1.1 mmol/L (-2.0-2.0); BG CARBOXYHEMOGLOBIN 0.3 % (0.5-1.5); BG DEOXYHEMOGLOBIN 2.2 % (0.0-5.0); BG FRACTION INSPIRED OXYGEN 40; BG HCO3 ACT 23.8 mmol/L (22.0-26.0); BG METHEMOGLOBIN 0.3 % (0.0-1.5); BG OXYGEN SATURATION 97.8 % (92.0-98.5); BG OXYHEMOGLOBIN 97.2 % (94.0-97.0); BG PCO2 40.5 mmHg (35.0-45.0); BG PH 7.387 (7.350-7.450); BG PO2 113.5 mmHg (75.0-100.0); BG SAMPLE SITE LEFT RADIAL; BG TOTAL HEMOGLOBIN 10.1 g/dL (12.0-18.0); BG TOTAL RESPIRATORY RATE 14 b/min; BG VENT MODE VENT - AC
[2021-01-01 16:57] LABS: VITAMIN B12 SERUM >2000 pg/mL pg/mL (211-911)
[2021-01-01] MEDS: INSULIN LISPRO 100 UNITS/ML SUBCUT SCH (17:47)
[2021-01-01] MEDS: BLOOD SUGAR DIAGNOSTIC STRIP TEST SCH (17:47)
[2021-01-01] MEDS: LEVETIRACETAM 1,500 MG in SODIUM CHLORIDE 0.9% 100 ML IV SCH (17:55)
[2021-01-01 18:45] LABS: HEMATOCRIT 29.8 % (42.0-52.0)
[2021-01-01] MEDS: PHENYTOIN SODIUM 100MG/2ML VIAL IV SCH (21:38)
[2021-01-02] VITALS (92 sets, daily range): BP systolic 120–175; BP diastolic 75–97
[2021-01-02] MEDS: BLOOD SUGAR DIAGNOSTIC STRIP TEST SCH ×4 (00:08→17:21)
[2021-01-02 01:32] LABS: HEMATOCRIT 27.7 % (42.0-52.0); HEMOGLOBIN 9.2 g/dL (14.0-18.0)
[2021-01-02] MEDS: HYDRALAZINE 20MG/ML VIAL IV PRN ×2 (02:34→16:20)
[2021-01-02] MEDS: PROPOFOL 10MG/ML 100ML 100 ML IV PRN ×3 (04:19→12:56)
[2021-01-02] MEDS: LABETALOL 5MG/ML SYR 20 MG/4 ML SYRINGE IV PRN (04:32)
[2021-01-02] MEDS: NICARDIPINE 50 MG in SODIUM CHLORIDE 0.9% 250 ML IV PRN ×2 (05:14→12:28)
[2021-01-02] MEDS: DEXT 5%/0.45% NACL 1000ML 1,000 ML IV SCH ×2 (05:19→16:29)
[2021-01-02] MEDS: INSULIN LISPRO 100 UNITS/ML SUBCUT SCH ×4 (06:00→17:20)
[2021-01-02 06:06] LABS: HEMATOCRIT. 27.4 % (42.0-52.0); MEAN CORPUSCULAR VOLUME 85.1 fL (80.0-94.0); MEAN PLATELET VOLUME 7.7 fl (7.4-10.4); PLATELET 343 x1000/uL (130-400); RED BLOOD CELL COUNT 3.23 mill/uL (4.7-6.1); RED CELL DISTRIBUTION WIDTH 14.9 % (11.6-14.6)
[2021-01-02 06:23] LABS: PHOSPHORUS 4.4 mg/dL (2.5-4.9)
[2021-01-02] MEDS: PHENYTOIN SODIUM 100MG/2ML VIAL IV SCH ×3 (06:31→21:14)
[2021-01-02] MEDS: LEVETIRACETAM 1,500 MG in SODIUM CHLORIDE 0.9% 100 ML IV SCH ×2 (07:15→17:22)
[2021-01-02] MEDS: PANTOPRAZOLE SODIUM 40 MG/VIAL IV SCH ×2 (08:45→16:28)
[2021-01-02] MEDS: POLYETHYLENE GLYCOL 3350 (17GM) 1 DOSE PACK PO SCH (08:46)
[2021-01-02] MEDS: DOCUSATE SODIUM SUGAR FREE 100MG/10ML UDC NG SCH (08:47)
[2021-01-02 08:56] LABS: BG BASE EXCESS 2.7 mmol/L (-2.0-2.0); BG CARBOXYHEMOGLOBIN 0.3 % (0.5-1.5); BG DEOXYHEMOGLOBIN 2.5 % (0.0-5.0); BG FRACTION INSPIRED OXYGEN 40; BG HCO3 ACT 27.9 mmol/L (22.0-26.0); BG METHEMOGLOBIN 0.3 % (0.0-1.5); BG OXYGEN SATURATION 97.5 % (92.0-98.5); BG OXYHEMOGLOBIN 96.9 % (94.0-97.0); BG PCO2 45.8 mmHg (35.0-45.0); BG PH 7.402 (7.350-7.450); BG PO2 100.1 mmHg (75.0-100.0); BG SAMPLE SITE LEFT RADIAL; BG TOTAL HEMOGLOBIN 9.6 g/dL (12.0-18.0); BG TOTAL RESPIRATORY RATE 14 b/min; BG VENT MODE VENT - AC
[2021-01-02] MEDS ORDERED: PROPOFOL 10MG/ML 100ML 100 ML IV PRN (12:00)
[2021-01-02 13:07] LABS: PLATELET ESTIMATE NORMAL
[2021-01-02] MEDS: CLONIDINE 0.1MG TABLET PO PRN (19:10)
[2021-01-02 21:00] LABS: HEMATOCRIT 27.9 % (42.0-52.0); HEMOGLOBIN 9.1 g/dL (14.0-18.0)
[2021-01-02] MEDS: IRON SUCROSE COMPLEX 100 MG/5 ML ML IV SCH (21:14)
[2021-01-03] VITALS (89 sets, daily range): BP systolic 109–182; BP diastolic 54–99
[2021-01-03] MEDS: NICARDIPINE 50 MG in SODIUM CHLORIDE 0.9% 250 ML IV PRN ×3 (00:49→08:26)
[2021-01-03 02:03] LABS: HEMATOCRIT 28.3 % (42.0-52.0)
[2021-01-03] MEDS: HYDRALAZINE 20MG/ML VIAL IV PRN (02:36)
[2021-01-03] MEDS: PROPOFOL 10MG/ML 100ML 100 ML IV PRN ×2 (02:41→09:11)
[2021-01-03] MEDS: CLONIDINE 0.1MG TABLET PO PRN (04:38)
[2021-01-03] MEDS: DEXT 5%/0.45% NACL 1000ML 1,000 ML IV SCH ×2 (05:50→19:50)
[2021-01-03 05:55] LABS: HEMATOCRIT 27.6 % (42.0-52.0); HEMOGLOBIN 8.9 g/dL (14.0-18.0)
[2021-01-03] MEDS: INSULIN LISPRO 100 UNITS/ML SUBCUT SCH ×4 (06:00→17:47)
[2021-01-03] MEDS: BLOOD SUGAR DIAGNOSTIC STRIP TEST SCH ×4 (06:01→17:47)
[2021-01-03] MEDS: PHENYTOIN SODIUM 100MG/2ML VIAL IV SCH ×3 (06:03→21:42)
[2021-01-03] MEDS: LEVETIRACETAM 1,500 MG in SODIUM CHLORIDE 0.9% 100 ML IV SCH ×2 (06:57→17:55)
[2021-01-03] MEDS: PANTOPRAZOLE SODIUM 40 MG/VIAL IV SCH ×2 (08:00→16:23)
[2021-01-03] MEDS: DOCUSATE SODIUM SUGAR FREE 100MG/10ML UDC NG SCH (08:00)
[2021-01-03] MEDS: POLYETHYLENE GLYCOL 3350 (17GM) 1 DOSE PACK PO SCH (08:01)
[2021-01-03 08:44] LABS: BG BASE EXCESS -1.6 mmol/L (-2.0-2.0); BG CARBOXYHEMOGLOBIN 0.3 % (0.5-1.5); BG DEOXYHEMOGLOBIN 1.4 % (0.0-5.0); BG FRACTION INSPIRED OXYGEN 40; BG METHEMOGLOBIN 0.6 % (0.0-1.5); BG OXYGEN SATURATION 98.6 % (92.0-98.5); BG OXYHEMOGLOBIN 97.7 % (94.0-97.0); BG PO2 146.1 mmHg (75.0-100.0); BG SAMPLE SITE RIGHT RADIAL; BG TOTAL HEMOGLOBIN 9.5 g/dL (12.0-18.0); BG VENT MODE VENT - AC
[2021-01-03 10:51] LABS: BASOPHILS % 0.1 % (0.0-2.0); HEMATOCRIT. 25.5 % (42.0-52.0); HEMOGLOBIN. 8.1 g/dL (14.0-18.0); LYMPHOCYTES % 8.1 % (20.0-50.0); MEAN CORPUSCULAR HEMOGLOBIN 27.5 pg (28.0-32.0); MEAN CORPUSCULAR VOLUME 86.3 fL (80.0-94.0); MEAN PLATELET VOLUME 7.5 fl (7.4-10.4); MONOCYTES % 7.9 % (2.0-8.0); NEUTROPHILS % 82.9 % (40.0-76.0); PLATELET 339 x1000/uL (130-400); RED BLOOD CELL COUNT 2.95 mill/uL (4.7-6.1); RED CELL DISTRIBUTION WIDTH 14.6 % (11.6-14.6)
[2021-01-03] MEDS ORDERED: LIDOCAINE HCL 1% 10 MG/ML 10ML VIAL ONE (10:57)
[2021-01-03 12:52] LABS: HEMATOCRIT 24.5 % (42.0-52.0); HEMOGLOBIN 7.9 g/dL (14.0-18.0)
[2021-01-03] MEDS: MIDAZOLAM HCL 100 MG in SODIUM CHLORIDE 0.9% 80 ML IV PRN (13:37)
[2021-01-03] MEDS: FENTANYL CITRATE/PF 2,500 MCG in SODIUM CHLORIDE 0.9% 200 ML IV PRN (13:38)
[2021-01-03] MEDS: CEFEPIME 1,000 MG in DEXTROSE 5% WATER 50 ML IV SCH (13:56)
[2021-01-03] MEDS: METRONIDAZOLE 500MG TABLET PO SCH ×2 (13:56→21:42)
[2021-01-03] MEDS: IRON SUCROSE COMPLEX 100 MG/5 ML ML IV SCH (17:55)
[2021-01-03 19:13] LABS: HEMATOCRIT 24.5 % (42.0-52.0); HEMOGLOBIN 7.9 g/dL (14.0-18.0)
[2021-01-03] MEDS: IPRATROPIUM/ALBUTEROL 0.5-3(2.5)MG/3ML NEB HHN SCH (20:36)
[2021-01-04] VITALS (94 sets, daily range): BP systolic 122–166; BP diastolic 63–87
[2021-01-04] MEDS: IPRATROPIUM/ALBUTEROL 0.5-3(2.5)MG/3ML NEB HHN SCH ×6 (00:20→20:07)
[2021-01-04] MEDS: METOCLOPRAMIDE HCL 10MG/2ML VIAL IV SCH ×4 (00:36→17:17)
[2021-01-04] MEDS: CEFEPIME 1,000 MG in DEXTROSE 5% WATER 50 ML IV SCH ×2 (01:03→12:14)
[2021-01-04] MEDS: NICARDIPINE 50 MG in SODIUM CHLORIDE 0.9% 250 ML IV PRN ×6 (01:52→23:07)
[2021-01-04 02:17] LABS: HEMATOCRIT 22.7 % (42.0-52.0); HEMOGLOBIN 7.2 g/dL (14.0-18.0)
[2021-01-04] MEDS: METRONIDAZOLE 500MG TABLET PO SCH ×3 (05:27→21:57)
[2021-01-04] MEDS: PHENYTOIN SODIUM 100MG/2ML VIAL IV SCH ×3 (05:27→21:57)
[2021-01-04] MEDS: LEVETIRACETAM 1,500 MG in SODIUM CHLORIDE 0.9% 100 ML IV SCH ×2 (05:38→17:17)
[2021-01-04] MEDS: BLOOD SUGAR DIAGNOSTIC STRIP TEST SCH ×4 (05:38→17:16)
[2021-01-04] MEDS: INSULIN LISPRO 100 UNITS/ML SUBCUT SCH ×4 (05:47→17:16)
[2021-01-04 06:05] LABS: HEMATOCRIT. 25.7 % (42.0-52.0); HEMOGLOBIN. 8.3 g/dL (14.0-18.0); MEAN CORPUSCULAR HEMOGLOBIN 28.4 pg (28.0-32.0); MEAN CORPUSCULAR VOLUME 87.6 fL (80.0-94.0); MEAN PLATELET VOLUME 7.5 fl (7.4-10.4); PLATELET 301 x1000/uL (130-400); RED BLOOD CELL COUNT 2.93 mill/uL (4.7-6.1); RED CELL DISTRIBUTION WIDTH 14.1 % (11.6-14.6)
[2021-01-04] MEDS: PANTOPRAZOLE SODIUM 40 MG/VIAL IV SCH ×2 (08:55→17:17)
[2021-01-04] MEDS: POLYETHYLENE GLYCOL 3350 (17GM) 1 DOSE PACK PO SCH (08:55)
[2021-01-04] MEDS: DOCUSATE SODIUM SUGAR FREE 100MG/10ML UDC NG SCH (08:55)
[2021-01-04] MEDS: DEXT 5%/0.45% NACL 1000ML 1,000 ML IV SCH (08:56)
[2021-01-04] MEDS: MIDAZOLAM HCL 100 MG in SODIUM CHLORIDE 0.9% 80 ML IV PRN (09:06)
[2021-01-04 12:18] LABS: BG BASE EXCESS -2.4 mmol/L (-2.0-2.0); BG CARBOXYHEMOGLOBIN 0.2 % (0.5-1.5); BG DEOXYHEMOGLOBIN 2.3 % (0.0-5.0); BG FRACTION INSPIRED OXYGEN 40; BG HCO3 ACT 23.6 mmol/L (22.0-26.0); BG METHEMOGLOBIN 0.6 % (0.0-1.5); BG OXYGEN SATURATION 97.7 % (92.0-98.5); BG OXYHEMOGLOBIN 96.9 % (94.0-97.0); BG PCO2 45.8 mmHg (35.0-45.0); BG PH 7.329 (7.350-7.450); BG PO2 115.4 mmHg (75.0-100.0); BG SAMPLE SITE LEFT RADIAL; BG TOTAL HEMOGLOBIN 9.8 g/dL (12.0-18.0); BG VENT MODE VENT - AC
[2021-01-04 17:26] LABS: PLATELET ESTIMATE NORMAL
[2021-01-04] MEDS: IRON SUCROSE COMPLEX 100 MG/5 ML ML IV SCH (18:58)
[2021-01-04] MEDS: PHENYTOIN 100 MG/4 ML UDC NG SCH ×2 (19:54→21:57)
[2021-01-05] VITALS (97 sets, daily range): BP systolic 122–183; BP diastolic 67–108
[2021-01-05] MEDS: IPRATROPIUM/ALBUTEROL 0.5-3(2.5)MG/3ML NEB HHN SCH ×6 (00:18→20:28)
[2021-01-05] MEDS: BLOOD SUGAR DIAGNOSTIC STRIP TEST SCH ×4 (00:42→17:38)
[2021-01-05] MEDS: CEFEPIME 1,000 MG in DEXTROSE 5% WATER 50 ML IV SCH ×2 (00:45→13:36)
[2021-01-05] MEDS: METOCLOPRAMIDE HCL 10MG/2ML VIAL IV SCH ×4 (00:45→17:38)
[2021-01-05] MEDS: NICARDIPINE 50 MG in SODIUM CHLORIDE 0.9% 250 ML IV PRN ×3 (04:42→16:30)
[2021-01-05] MEDS: METRONIDAZOLE 500MG TABLET PO SCH ×3 (05:10→22:18)
[2021-01-05] MEDS: PHENYTOIN SODIUM 100MG/2ML VIAL IV SCH ×3 (05:10→22:18)
[2021-01-05] MEDS: LEVETIRACETAM 1,500 MG in SODIUM CHLORIDE 0.9% 100 ML IV SCH ×2 (05:10→19:00)
[2021-01-05] MEDS: INSULIN LISPRO 100 UNITS/ML SUBCUT SCH ×4 (05:33→17:38)
[2021-01-05 06:10] LABS: BASOPHILS % 0.4 % (0.0-2.0); EOSINOPHILS % 3.1 % (0.0-5.0); HEMATOCRIT. 24.5 % (42.0-52.0); LYMPHOCYTES % 8.8 % (20.0-50.0); MEAN CORPUSCULAR HEMOGLOBIN 27.9 pg (28.0-32.0); MEAN CORPUSCULAR VOLUME 85.8 fL (80.0-94.0); MEAN PLATELET VOLUME 7.4 fl (7.4-10.4); MONOCYTES % 13.3 % (2.0-8.0); NEUTROPHILS % 74.4 % (40.0-76.0); PLATELET 315 x1000/uL (130-400); RED BLOOD CELL COUNT 2.86 mill/uL (4.7-6.1)
[2021-01-05] MEDS: LORAZEPAM 2MG/ML CPJ IV PRN ×2 (07:03→18:38)
[2021-01-05] MEDS: FENTANYL CITRATE/PF 2,500 MCG in SODIUM CHLORIDE 0.9% 200 ML IV PRN (08:05)
[2021-01-05 08:21] LABS: BG BASE EXCESS -3.8 mmol/L (-2.0-2.0); BG CARBOXYHEMOGLOBIN 0.3 % (0.5-1.5); BG DEOXYHEMOGLOBIN 1.6 % (0.0-5.0); BG FRACTION INSPIRED OXYGEN 40; BG HCO3 ACT 22.4 mmol/L (22.0-26.0); BG METHEMOGLOBIN 0.7 % (0.0-1.5); BG OXYGEN SATURATION 98.4 % (92.0-98.5); BG OXYHEMOGLOBIN 97.4 % (94.0-97.0); BG PCO2 46.3 mmHg (35.0-45.0); BG PH 7.303 (7.350-7.450); BG PO2 140.1 mmHg (75.0-100.0); BG SAMPLE SITE RIGHT RADIAL; BG TOTAL HEMOGLOBIN 8.2 g/dL (12.0-18.0); BG VENT MODE VENT - AC
[2021-01-05] MEDS: POLYETHYLENE GLYCOL 3350 (17GM) 1 DOSE PACK PO SCH (08:54)
[2021-01-05] MEDS: PANTOPRAZOLE SODIUM 40 MG/VIAL IV SCH ×2 (08:54→17:38)
[2021-01-05] MEDS: DOCUSATE SODIUM SUGAR FREE 100MG/10ML UDC NG SCH (08:54)
[2021-01-05] MEDS: AMLODIPINE 10MG TABLET PO SCH (11:57)
[2021-01-05] MEDS: HYDRALAZINE HCL 25MG TABLET PO SCH ×2 (13:16→22:19)
[2021-01-05] MEDS: LABETALOL 5MG/ML SYR 20 MG/4 ML SYRINGE IV PRN (21:01)
[2021-01-06] VITALS (60 sets, daily range): BP systolic 129–175; BP diastolic 63–110
[2021-01-06] MEDS: METOCLOPRAMIDE HCL 10MG/2ML VIAL IV SCH ×4 (00:12→18:48)
[2021-01-06] MEDS: CEFEPIME 1,000 MG in DEXTROSE 5% WATER 50 ML IV SCH ×2 (00:12→12:59)
[2021-01-06] MEDS: CLONIDINE 0.1MG TABLET PO PRN ×2 (00:12→05:50)
[2021-01-06] MEDS: IPRATROPIUM/ALBUTEROL 0.5-3(2.5)MG/3ML NEB HHN SCH ×6 (00:17→20:52)
[2021-01-06] MEDS: BLOOD SUGAR DIAGNOSTIC STRIP TEST SCH ×4 (00:28→17:58)
[2021-01-06] MEDS: LORAZEPAM 2MG/ML CPJ IV PRN ×3 (00:55→23:47)
[2021-01-06] MEDS: PHENYTOIN SODIUM 100MG/2ML VIAL IV SCH ×3 (05:43→22:00)
[2021-01-06] MEDS: METRONIDAZOLE 500MG TABLET PO SCH ×3 (05:43→22:00)
[2021-01-06] MEDS: LEVETIRACETAM 1,500 MG in SODIUM CHLORIDE 0.9% 100 ML IV SCH ×2 (05:43→19:38)
[2021-01-06] MEDS: HYDRALAZINE HCL 25MG TABLET PO SCH ×3 (05:44→22:00)
[2021-01-06] MEDS: HYDRALAZINE 20MG/ML VIAL IV PRN (05:51)
[2021-01-06] MEDS: INSULIN LISPRO 100 UNITS/ML SUBCUT SCH ×4 (06:10→17:58)
[2021-01-06 07:43] LABS: BASOPHILS % 0.7 % (0.0-2.0); EOSINOPHILS % 3.7 % (0.0-5.0); HEMATOCRIT. 26.4 % (42.0-52.0); HEMOGLOBIN. 8.6 g/dL (14.0-18.0); LYMPHOCYTES % 11.2 % (20.0-50.0); MEAN CORPUSCULAR HEMOGLOBIN 28.1 pg (28.0-32.0); MEAN CORPUSCULAR VOLUME 85.7 fL (80.0-94.0); MEAN PLATELET VOLUME 7.4 fl (7.4-10.4); NEUTROPHILS % 72.4 % (40.0-76.0); PLATELET 387 x1000/uL (130-400); RED BLOOD CELL COUNT 3.07 mill/uL (4.7-6.1); RED CELL DISTRIBUTION WIDTH 13.7 % (11.6-14.6)
[2021-01-06 08:01] LABS: BG BASE EXCESS -2.2 mmol/L (-2.0-2.0); BG CARBOXYHEMOGLOBIN 0.3 % (0.5-1.5); BG DEOXYHEMOGLOBIN 1.7 % (0.0-5.0); BG FRACTION INSPIRED OXYGEN 40; BG HCO3 ACT 24.2 mmol/L (22.0-26.0); BG METHEMOGLOBIN 0.4 % (0.0-1.5); BG OXYGEN SATURATION 98.3 % (92.0-98.5); BG OXYHEMOGLOBIN 97.6 % (94.0-97.0); BG PCO2 49.4 mmHg (35.0-45.0); BG PH 7.308 (7.350-7.450); BG PO2 121.4 mmHg (75.0-100.0); BG SAMPLE SITE LEFT RADIAL; BG TOTAL HEMOGLOBIN 9.3 g/dL (12.0-18.0); BG TOTAL RESPIRATORY RATE 19 b/min; BG VENT MODE VENT - AC
[2021-01-06] MEDS: FENTANYL CITRATE/PF 2,500 MCG in SODIUM CHLORIDE 0.9% 200 ML IV PRN ×2 (08:06→22:18)
[2021-01-06] MEDS: PANTOPRAZOLE SODIUM 40 MG/VIAL IV SCH ×2 (09:17→18:47)
[2021-01-06] MEDS: DOCUSATE SODIUM SUGAR FREE 100MG/10ML UDC NG SCH (09:17)
[2021-01-06] MEDS: AMLODIPINE 10MG TABLET PO SCH (09:18)
[2021-01-06] MEDS: POLYETHYLENE GLYCOL 3350 (17GM) 1 DOSE PACK PO SCH (09:22)
[2021-01-06] MEDS: LABETALOL 5MG/ML SYR 20 MG/4 ML SYRINGE IV PRN (09:32)
[2021-01-06] MEDS: DILTIAZEM HCL 90MG TABLET PO SCH ×2 (12:59→18:47)
[2021-01-06] MEDS: NICARDIPINE 50 MG in SODIUM CHLORIDE 0.9% 250 ML IV PRN ×2 (13:03→22:20)
[2021-01-06] MEDS: LACTULOSE 20G/30ML UDC PO SCH ×2 (14:55→22:00)
[2021-01-06] MEDS: CLONIDINE 0.1MG TABLET PO SCH ×2 (14:56→22:00)
[2021-01-06] MEDS: METOPROLOL TARTRATE 25MG TABLET PO SCH ×2 (14:57→21:00)
[2021-01-07] VITALS (75 sets, daily range): BP systolic 109–198; BP diastolic 34–136
[2021-01-07] MEDS: IPRATROPIUM/ALBUTEROL 0.5-3(2.5)MG/3ML NEB HHN SCH ×6 (00:35→20:33)
[2021-01-07] MEDS: CEFEPIME 1,000 MG in DEXTROSE 5% WATER 50 ML IV SCH ×2 (00:59→12:12)
[2021-01-07] MEDS: NICARDIPINE 50 MG in SODIUM CHLORIDE 0.9% 250 ML IV PRN ×4 (03:08→23:08)
[2021-01-07] MEDS: INSULIN LISPRO 100 UNITS/ML SUBCUT SCH ×4 (06:00→17:41)
[2021-01-07] MEDS: BLOOD SUGAR DIAGNOSTIC STRIP TEST SCH ×5 (06:00→23:51)
[2021-01-07] MEDS: PHENYTOIN SODIUM 100MG/2ML VIAL IV SCH ×3 (06:03→20:45)
[2021-01-07] MEDS: METOCLOPRAMIDE HCL 10MG/2ML VIAL IV SCH ×5 (06:03→23:50)
[2021-01-07] MEDS: HYDRALAZINE HCL 25MG TABLET PO SCH ×3 (06:04→20:45)
[2021-01-07] MEDS: DILTIAZEM HCL 90MG TABLET PO SCH ×5 (06:05→23:50)
[2021-01-07] MEDS: CLONIDINE 0.1MG TABLET PO SCH ×2 (06:05→13:12)
[2021-01-07] MEDS: METRONIDAZOLE 500MG TABLET PO SCH ×3 (06:06→20:45)
[2021-01-07] MEDS: LACTULOSE 20G/30ML UDC PO SCH ×3 (06:06→17:40)
[2021-01-07] MEDS: LEVETIRACETAM 1,500 MG in SODIUM CHLORIDE 0.9% 100 ML IV SCH ×2 (06:07→17:41)
[2021-01-07 06:42] LABS: BASOPHILS % 0.8 % (0.0-2.0); EOSINOPHILS % 3.7 % (0.0-5.0); HEMATOCRIT. 24.8 % (42.0-52.0); LYMPHOCYTES % 9.3 % (20.0-50.0); MEAN CORPUSCULAR HEMOGLOBIN 27.4 pg (28.0-32.0); MONOCYTES % 12.3 % (2.0-8.0); NEUTROPHILS % 73.9 % (40.0-76.0); PLATELET 353 x1000/uL (130-400); RED BLOOD CELL COUNT 2.91 mill/uL (4.7-6.1); RED CELL DISTRIBUTION WIDTH 13.6 % (11.6-14.6)
[2021-01-07 08:34] LABS: BG BASE EXCESS -4.6 mmol/L (-2.0-2.0); BG CARBOXYHEMOGLOBIN 0.3 % (0.5-1.5); BG DEOXYHEMOGLOBIN 3.7 % (0.0-5.0); BG FRACTION INSPIRED OXYGEN 40; BG HCO3 ACT 21.9 mmol/L (22.0-26.0); BG METHEMOGLOBIN 0.5 % (0.0-1.5); BG OXYGEN SATURATION 96.3 % (92.0-98.5); BG OXYHEMOGLOBIN 95.5 % (94.0-97.0); BG PCO2 47.4 mmHg (35.0-45.0); BG PH 7.283 (7.350-7.450); BG PO2 89.7 mmHg (75.0-100.0); BG SAMPLE SITE LEFT RADIAL; BG TOTAL HEMOGLOBIN 8.2 g/dL (12.0-18.0); BG TOTAL RESPIRATORY RATE 14 b/min; BG VENT MODE VENT - AC
[2021-01-07] MEDS: FENTANYL CITRATE/PF 2,500 MCG in SODIUM CHLORIDE 0.9% 200 ML IV PRN (08:42)
[2021-01-07] MEDS: POLYETHYLENE GLYCOL 3350 (17GM) 1 DOSE PACK PO SCH (09:37)
[2021-01-07] MEDS: METOPROLOL TARTRATE 25MG TABLET PO SCH (09:37)
[2021-01-07] MEDS: PANTOPRAZOLE SODIUM 40 MG/VIAL IV SCH ×2 (09:37→16:44)
[2021-01-07] MEDS: DOCUSATE SODIUM SUGAR FREE 100MG/10ML UDC NG SCH (09:37)
[2021-01-07] MEDS: ENOXAPARIN 40MG/0.4ML SYR SUBCUT SCH (09:38)
[2021-01-07] MEDS ORDERED: NA PHOS,M-B/NA PHOS,DI-BA ENEMA 118ML PR NR (09:45)
[2021-01-07 13:17] LABS: BG BASE EXCESS -4.3 mmol/L (-2.0-2.0); BG CARBOXYHEMOGLOBIN 0.3 % (0.5-1.5); BG DEOXYHEMOGLOBIN 3.9 % (0.0-5.0); BG HCO3 ACT 22.7 mmol/L (22.0-26.0); BG METHEMOGLOBIN 0.5 % (0.0-1.5); BG OXYGEN SATURATION 96.1 % (92.0-98.5); BG OXYHEMOGLOBIN 95.3 % (94.0-97.0); BG PCO2 51.1 mmHg (35.0-45.0); BG PH 7.266 (7.350-7.450); BG PO2 88.7 mmHg (75.0-100.0); BG SAMPLE SITE RIGHT RADIAL; BG TOTAL HEMOGLOBIN 9.6 g/dL (12.0-18.0); BG VENT MODE VENT - CPAP
[2021-01-07] MEDS: CLONIDINE 0.2MG TABLET PO SCH ×2 (14:00→21:02)
[2021-01-07] MEDS ORDERED: BISACODYL 10MG SUPP PR NR (16:00)
[2021-01-07] MEDS: LABETALOL 5MG/ML SYR 20 MG/4 ML SYRINGE IV PRN (17:40)
[2021-01-07] MEDS: METOPROLOL TARTRATE 50MG TABLET PO SCH (20:44)
[2021-01-07] MEDS: SENNOSIDES/DOCUSATE SOD 8.6/50MG TABLET PO SCH (20:45)
[2021-01-07] MEDS: LORAZEPAM 2MG/ML CPJ IV PRN (20:49)
[2021-01-08] VITALS (96 sets, daily range): BP systolic 104–184; BP diastolic 49–107
[2021-01-08] MEDS: CEFEPIME 1,000 MG in DEXTROSE 5% WATER 50 ML IV SCH ×2 (00:07→12:14)
[2021-01-08] MEDS: LACTULOSE 20G/30ML UDC PO SCH ×4 (00:07→17:12)
[2021-01-08] MEDS: IPRATROPIUM/ALBUTEROL 0.5-3(2.5)MG/3ML NEB HHN SCH ×6 (01:04→23:52)
[2021-01-08] MEDS: FENTANYL CITRATE/PF 2,500 MCG in SODIUM CHLORIDE 0.9% 200 ML IV PRN ×3 (01:52→14:42)
[2021-01-08] MEDS: LORAZEPAM 2MG/ML CPJ IV PRN ×4 (03:30→23:56)
[2021-01-08] MEDS: CLONIDINE 0.2MG TABLET PO SCH ×3 (05:11→21:26)
[2021-01-08] MEDS: METOCLOPRAMIDE HCL 10MG/2ML VIAL IV SCH ×3 (05:11→17:12)
[2021-01-08] MEDS: BLOOD SUGAR DIAGNOSTIC STRIP TEST SCH ×3 (05:11→17:24)
[2021-01-08] MEDS: DILTIAZEM HCL 90MG TABLET PO SCH ×3 (05:11→17:13)
[2021-01-08] MEDS: HYDRALAZINE HCL 25MG TABLET PO SCH ×3 (05:11→21:26)
[2021-01-08] MEDS: PHENYTOIN SODIUM 100MG/2ML VIAL IV SCH ×3 (05:11→21:26)
[2021-01-08] MEDS: METRONIDAZOLE 500MG TABLET PO SCH (05:13)
[2021-01-08] MEDS: INSULIN LISPRO 100 UNITS/ML SUBCUT SCH ×4 (06:00→17:24)
[2021-01-08] MEDS: LEVETIRACETAM 1,500 MG in SODIUM CHLORIDE 0.9% 100 ML IV SCH ×2 (06:32→21:41)
[2021-01-08] MEDS: NICARDIPINE 50 MG in SODIUM CHLORIDE 0.9% 250 ML IV PRN ×3 (06:32→23:57)
[2021-01-08 06:52] LABS: BASOPHILS % 0.7 % (0.0-2.0); EOSINOPHILS % 1.1 % (0.0-5.0); HEMATOCRIT. 24.2 % (42.0-52.0); HEMOGLOBIN. 7.9 g/dL (14.0-18.0); LYMPHOCYTES % 10.2 % (20.0-50.0); MEAN CORPUSCULAR HEMOGLOBIN 27.8 pg (28.0-32.0); MEAN CORPUSCULAR VOLUME 85.3 fL (80.0-94.0); PLATELET 395 x1000/uL (130-400); RED BLOOD CELL COUNT 2.84 mill/uL (4.7-6.1); RED CELL DISTRIBUTION WIDTH 13.8 % (11.6-14.6)
[2021-01-08 07:17] LABS: PHOSPHORUS 5.6 mg/dL (2.5-4.9)
[2021-01-08 08:17] LABS: BG BASE EXCESS -8.3 mmol/L (-2.0-2.0); BG CARBOXYHEMOGLOBIN 0.3 % (0.5-1.5); BG DEOXYHEMOGLOBIN 13.1 % (0.0-5.0); BG FRACTION INSPIRED OXYGEN 40; BG HCO3 ACT 18.4 mmol/L (22.0-26.0); BG METHEMOGLOBIN 0.6 % (0.0-1.5); BG OXYGEN SATURATION 86.8 % (92.0-98.5); BG PCO2 43.3 mmHg (35.0-45.0); BG PH 7.246 (7.350-7.450); BG PO2 56.6 mmHg (75.0-100.0); BG SAMPLE SITE RIGHT RADIAL; BG TOTAL HEMOGLOBIN 8.6 g/dL (12.0-18.0); BG VENT MODE VENT - AC
[2021-01-08] MEDS: POLYETHYLENE GLYCOL 3350 (17GM) 1 DOSE PACK PO SCH (09:02)
[2021-01-08] MEDS: PANTOPRAZOLE SODIUM 40 MG/VIAL IV SCH ×2 (09:02→17:23)
[2021-01-08] MEDS: ENOXAPARIN 40MG/0.4ML SYR SUBCUT SCH (09:03)
[2021-01-08] MEDS: METOPROLOL TARTRATE 50MG TABLET PO SCH ×3 (09:03→21:20)
[2021-01-08] MEDS: DOCUSATE SODIUM SUGAR FREE 100MG/10ML UDC NG SCH (09:13)
[2021-01-08 13:57] LABS: BG BASE EXCESS -8.4 mmol/L (-2.0-2.0); BG CARBOXYHEMOGLOBIN 0.3 % (0.5-1.5); BG DEOXYHEMOGLOBIN 8.5 % (0.0-5.0); BG FRACTION INSPIRED OXYGEN 40; BG HCO3 ACT 18.2 mmol/L (22.0-26.0); BG METHEMOGLOBIN 0.6 % (0.0-1.5); BG OXYGEN SATURATION 91.4 % (92.0-98.5); BG OXYHEMOGLOBIN 90.6 % (94.0-97.0); BG PCO2 42.4 mmHg (35.0-45.0); BG PH 7.251 (7.350-7.450); BG PO2 70.5 mmHg (75.0-100.0); BG SAMPLE SITE LEFT RADIAL; BG TOTAL HEMOGLOBIN 8.7 g/dL (12.0-18.0); BG VENT MODE VENT - AC
[2021-01-08] MEDS: DEXT 5%/0.45% NACL 1000ML 1,000 ML IV SCH (17:12)
[2021-01-08] MEDS: SENNOSIDES/DOCUSATE SOD 8.6/50MG TABLET PO SCH (21:04)
[2021-01-09] VITALS (89 sets, daily range): BP systolic 130–195; BP diastolic 71–110
[2021-01-09] MEDS: FENTANYL CITRATE/PF 2,500 MCG in SODIUM CHLORIDE 0.9% 200 ML IV PRN ×3 (00:10→17:39)
[2021-01-09] MEDS: METOCLOPRAMIDE HCL 10MG/2ML VIAL IV SCH ×3 (00:22→12:56)
[2021-01-09] MEDS: BISACODYL 10MG SUPP PR PRN (00:23)
[2021-01-09] MEDS: DILTIAZEM HCL 90MG TABLET PO SCH ×5 (00:23→18:17)
[2021-01-09] MEDS: LACTULOSE 20G/30ML UDC PO SCH ×4 (00:23→12:55)
[2021-01-09] MEDS: BLOOD SUGAR DIAGNOSTIC STRIP TEST SCH ×4 (00:28→18:18)
[2021-01-09] MEDS: IPRATROPIUM/ALBUTEROL 0.5-3(2.5)MG/3ML NEB HHN SCH ×4 (04:06→20:51)
[2021-01-09] MEDS: LORAZEPAM 2MG/ML CPJ IV PRN ×2 (05:10→18:51)
[2021-01-09] MEDS: HYDRALAZINE HCL 25MG TABLET PO SCH ×2 (06:00→06:10)
[2021-01-09] MEDS: CLONIDINE 0.2MG TABLET PO SCH ×4 (06:00→21:20)
[2021-01-09] MEDS: INSULIN LISPRO 100 UNITS/ML SUBCUT SCH ×4 (06:00→18:00)
[2021-01-09] MEDS: PHENYTOIN SODIUM 100MG/2ML VIAL IV SCH ×3 (06:09→21:20)
[2021-01-09 06:28] LABS: BASOPHILS % 0.6 % (0.0-2.0); EOSINOPHILS % 2.9 % (0.0-5.0); HEMATOCRIT. 23.5 % (42.0-52.0); HEMOGLOBIN. 7.9 g/dL (14.0-18.0); LYMPHOCYTES % 10.8 % (20.0-50.0); MEAN CORPUSCULAR HEMOGLOBIN 28.4 pg (28.0-32.0); MEAN PLATELET VOLUME 7.2 fl (7.4-10.4); MONOCYTES % 11.1 % (2.0-8.0); NEUTROPHILS % 74.6 % (40.0-76.0); PLATELET 413 x1000/uL (130-400); RED BLOOD CELL COUNT 2.77 mill/uL (4.7-6.1); RED CELL DISTRIBUTION WIDTH 13.7 % (11.6-14.6)
[2021-01-09] MEDS: LABETALOL 5MG/ML SYR 20 MG/4 ML SYRINGE IV PRN (06:43)
[2021-01-09] MEDS: LEVETIRACETAM 1,500 MG in SODIUM CHLORIDE 0.9% 100 ML IV SCH ×2 (09:43→21:20)
[2021-01-09] MEDS: POLYETHYLENE GLYCOL 3350 (17GM) 1 DOSE PACK PO SCH (09:44)
[2021-01-09] MEDS: DOCUSATE SODIUM SUGAR FREE 100MG/10ML UDC NG SCH (09:44)
[2021-01-09] MEDS: PANTOPRAZOLE SODIUM 40 MG/VIAL IV SCH ×2 (09:44→17:00)
[2021-01-09] MEDS: ENOXAPARIN 40MG/0.4ML SYR SUBCUT SCH (09:45)
[2021-01-09] MEDS: METOPROLOL TARTRATE 50MG TABLET PO SCH ×2 (09:45→20:02)
[2021-01-09] MEDS: NICARDIPINE 50 MG in SODIUM CHLORIDE 0.9% 250 ML IV PRN ×2 (09:57→17:38)
[2021-01-09] MEDS: HYDRALAZINE HCL 100MG TABLET PO SCH ×2 (14:05→21:20)
[2021-01-09 16:18] LABS: BG BASE EXCESS -7.1 mmol/L (-2.0-2.0); BG CARBOXYHEMOGLOBIN 0.3 % (0.5-1.5); BG DEOXYHEMOGLOBIN 4.4 % (0.0-5.0); BG FRACTION INSPIRED OXYGEN 40; BG HCO3 ACT 18.9 mmol/L (22.0-26.0); BG METHEMOGLOBIN 0.3 % (0.0-1.5); BG OXYGEN SATURATION 95.6 % (92.0-98.5); BG PCO2 40.5 mmHg (35.0-45.0); BG PH 7.288 (7.350-7.450); BG PO2 86.6 mmHg (75.0-100.0); BG SAMPLE SITE LEFT RADIAL; BG TOTAL HEMOGLOBIN 8.6 g/dL (12.0-18.0); BG VENT MODE VENT - AC
[2021-01-09] MEDS: DEXT 5%/0.45% NACL 1000ML 1,000 ML IV SCH (16:22)
[2021-01-09] MEDS: NEO/POLYMYX B SULF/DEXAMETH OPHTH OINT 3.5GM LEFTEYE SCH (17:00)
[2021-01-09] MEDS: POLYVINYL ALCOHOL OPHTH DROPS 15ML BOTHEYE SCH (18:16)
[2021-01-09] MEDS: PREDNISOLONE ACETATE 1% OPHTH DROPS 5ML LEFTEYE SCH (18:16)
[2021-01-09] MEDS: CLONIDINE 0.1MG TABLET PO PRN (18:52)
[2021-01-10] VITALS (88 sets, daily range): BP systolic 108–187; BP diastolic 58–97
[2021-01-10] MEDS: PREDNISOLONE ACETATE 1% OPHTH DROPS 5ML LEFTEYE SCH ×4 (00:27→17:05)
[2021-01-10] MEDS: POLYVINYL ALCOHOL OPHTH DROPS 15ML BOTHEYE SCH ×4 (00:27→17:05)
[2021-01-10] MEDS: DILTIAZEM HCL 90MG TABLET PO SCH ×4 (00:27→17:04)
[2021-01-10] MEDS: BLOOD SUGAR DIAGNOSTIC STRIP TEST SCH ×4 (00:31→17:01)
[2021-01-10] MEDS: LABETALOL 5MG/ML SYR 20 MG/4 ML SYRINGE IV PRN ×2 (00:34→07:10)
[2021-01-10] MEDS: IPRATROPIUM/ALBUTEROL 0.5-3(2.5)MG/3ML NEB HHN SCH ×6 (00:52→20:30)
[2021-01-10] MEDS: NICARDIPINE 50 MG in SODIUM CHLORIDE 0.9% 250 ML IV PRN ×3 (00:52→08:04)
[2021-01-10] MEDS: FENTANYL CITRATE/PF 2,500 MCG in SODIUM CHLORIDE 0.9% 200 ML IV PRN ×3 (01:34→20:46)
[2021-01-10] MEDS: CLONIDINE 0.1MG TABLET PO PRN ×2 (02:29→16:29)
[2021-01-10] MEDS: LORAZEPAM 2MG/ML CPJ IV PRN (02:29)
[2021-01-10] MEDS: PHENYTOIN SODIUM 100MG/2ML VIAL IV SCH ×2 (05:45→13:59)
[2021-01-10] MEDS: CLONIDINE 0.2MG TABLET PO SCH ×3 (05:46→21:53)
[2021-01-10] MEDS: INSULIN LISPRO 100 UNITS/ML SUBCUT SCH ×4 (05:47→17:01)
[2021-01-10] MEDS: HYDRALAZINE HCL 100MG TABLET PO SCH ×3 (05:47→21:48)
[2021-01-10 05:55] LABS: BASOPHILS % 0.6 % (0.0-2.0); EOSINOPHILS % 1.7 % (0.0-5.0); HEMATOCRIT. 22.9 % (42.0-52.0); HEMOGLOBIN. 7.5 g/dL (14.0-18.0); LYMPHOCYTES % 8.6 % (20.0-50.0); MEAN CORPUSCULAR HEMOGLOBIN 28.5 pg (28.0-32.0); MEAN CORPUSCULAR VOLUME 86.3 fL (80.0-94.0); MONOCYTES % 8.7 % (2.0-8.0); NEUTROPHILS % 80.4 % (40.0-76.0); PLATELET 394 x1000/uL (130-400); RED BLOOD CELL COUNT 2.65 mill/uL (4.7-6.1); RED CELL DISTRIBUTION WIDTH 13.6 % (11.6-14.6)
[2021-01-10] MEDS: PROPOFOL 10MG/ML 100ML 100 ML IV PRN ×3 (08:04→18:06)
[2021-01-10] MEDS: PANTOPRAZOLE SODIUM 40 MG/VIAL IV SCH ×2 (09:00→17:04)
[2021-01-10] MEDS ORDERED: KCL 20MEQ/100ML PREMIX 100 ML IV ONE (10:00)
[2021-01-10] MEDS: LEVETIRACETAM 1,500 MG in SODIUM CHLORIDE 0.9% 100 ML IV SCH (10:59)
[2021-01-10] MEDS: DEXTROSE 5% WATER 1,000 ML IV SCH (10:59)
[2021-01-10] MEDS: NEO/POLYMYX B SULF/DEXAMETH OPHTH OINT 3.5GM LEFTEYE SCH ×2 (11:01→17:05)
[2021-01-10] MEDS: METOPROLOL TARTRATE 50MG TABLET PO SCH ×2 (11:02→20:25)
[2021-01-10] MEDS: DOCUSATE SODIUM SUGAR FREE 100MG/10ML UDC NG SCH (11:02)
[2021-01-10] MEDS: ENOXAPARIN 40MG/0.4ML SYR SUBCUT SCH (11:02)
[2021-01-10] MEDS ORDERED: PROPOFOL 10MG/ML 100ML 100 ML IV PRN (14:15)
[2021-01-10] MEDS: LEVETIRACETAM 500MG/5ML CUP PO SCH (20:24)
[2021-01-11] VITALS (88 sets, daily range): BP systolic 125–183; BP diastolic 70–111
[2021-01-11] MEDS: POLYVINYL ALCOHOL OPHTH DROPS 15ML BOTHEYE SCH ×5 (00:11→23:55)
[2021-01-11] MEDS: DILTIAZEM HCL 90MG TABLET PO SCH ×5 (00:11→23:56)
[2021-01-11] MEDS: PREDNISOLONE ACETATE 1% OPHTH DROPS 5ML LEFTEYE SCH ×5 (00:11→23:56)
[2021-01-11] MEDS: BLOOD SUGAR DIAGNOSTIC STRIP TEST SCH ×5 (00:12→23:56)
[2021-01-11] MEDS: IPRATROPIUM/ALBUTEROL 0.5-3(2.5)MG/3ML NEB HHN SCH ×6 (00:21→20:16)
[2021-01-11] MEDS: CLONIDINE 0.1MG TABLET PO PRN (01:19)
[2021-01-11] MEDS: HYDRALAZINE HCL 100MG TABLET PO SCH ×3 (05:11→21:30)
[2021-01-11] MEDS: CLONIDINE 0.2MG TABLET PO SCH ×3 (05:11→21:31)
[2021-01-11] MEDS: INSULIN LISPRO 100 UNITS/ML SUBCUT SCH ×5 (05:39→23:56)
[2021-01-11 06:23] LABS: CHLORIDE 115 mEq/L (98-107)
[2021-01-11 06:25] LABS: MEAN CORPUSCULAR HEMOGLOBIN 28.9 pg (28.0-32.0); MEAN CORPUSCULAR VOLUME 84.9 fL (80.0-94.0); MEAN PLATELET VOLUME 7.3 fl (7.4-10.4); PLATELET 407 x1000/uL (130-400); RED BLOOD CELL COUNT 2.39 mill/uL (4.7-6.1); RED CELL DISTRIBUTION WIDTH 13.8 % (11.6-14.6)
[2021-01-11 06:46] LABS: HEMATOCRIT. 20.3 % (42.0-52.0); HEMOGLOBIN. 6.9 g/dL (14.0-18.0)
[2021-01-11] MEDS: FENTANYL CITRATE/PF 2,500 MCG in SODIUM CHLORIDE 0.9% 200 ML IV PRN ×2 (07:30→16:38)
[2021-01-11] MEDS ORDERED: POTASSIUM CHLORIDE 20MEQ/PACKET PO NR (08:00)
[2021-01-11 08:06] LABS: BG BASE EXCESS -5.1 mmol/L (-2.0-2.0); BG CARBOXYHEMOGLOBIN 0.3 % (0.5-1.5); BG DEOXYHEMOGLOBIN 1.3 % (0.0-5.0); BG FRACTION INSPIRED OXYGEN 40; BG METHEMOGLOBIN 0.5 % (0.0-1.5); BG OXYGEN SATURATION 98.7 % (92.0-98.5); BG OXYHEMOGLOBIN 97.9 % (94.0-97.0); BG PCO2 25.9 mmHg (35.0-45.0); BG PH 7.459 (7.350-7.450); BG PO2 137.8 mmHg (75.0-100.0); BG SAMPLE SITE LEFT RADIAL; BG TOTAL HEMOGLOBIN 7.6 g/dL (12.0-18.0); BG TOTAL RESPIRATORY RATE 26 b/min; BG VENT MODE VENT - AC
[2021-01-11] MEDS: METOPROLOL TARTRATE 50MG TABLET PO SCH (09:02)
[2021-01-11] MEDS: LEVETIRACETAM 500MG/5ML CUP PO SCH ×2 (09:03→21:02)
[2021-01-11] MEDS: DOCUSATE SODIUM SUGAR FREE 100MG/10ML UDC NG SCH (09:03)
[2021-01-11] MEDS: PHENYTOIN 100 MG/4 ML UDC NG SCH ×2 (09:04→18:38)
[2021-01-11] MEDS: NEO/POLYMYX B SULF/DEXAMETH OPHTH OINT 3.5GM LEFTEYE SCH ×2 (09:07→18:39)
[2021-01-11] MEDS: PANTOPRAZOLE SODIUM 40 MG/VIAL IV SCH ×2 (09:07→18:39)
[2021-01-11] MEDS ORDERED: POTASSIUM CHLORIDE INJ 40 MEQ in DEXT 5% WATER 250 ML IV SCH (10:00)
[2021-01-11] MEDS ORDERED: DIATR MEGLU/DIATRIZOATE SOLN 30ML PO SCH (12:00)
[2021-01-11] MEDS: NICARDIPINE 50 MG in SODIUM CHLORIDE 0.9% 250 ML IV PRN ×2 (12:38→23:38)
[2021-01-11] MEDS: DEXTROSE 5% WATER 1,000 ML IV SCH (12:50)
[2021-01-11] MEDS: PROPOFOL 10MG/ML 100ML 100 ML IV PRN ×3 (13:08→23:23)
[2021-01-11] MEDS ORDERED: DIATR MEGLU/DIATRIZOATE SOLN 30ML PO NR (13:45)
[2021-01-11 15:26] LABS: PLATELET ESTIMATE NORMAL
[2021-01-11] MEDS: METOPROLOL TARTRATE 100MG TABLET PO SCH (21:00)
[2021-01-12] VITALS (95 sets, daily range): BP systolic 131–186; BP diastolic 66–152
[2021-01-12] MEDS: IPRATROPIUM/ALBUTEROL 0.5-3(2.5)MG/3ML NEB HHN SCH ×6 (00:25→20:44)
[2021-01-12] MEDS: FENTANYL CITRATE/PF 2,500 MCG in SODIUM CHLORIDE 0.9% 200 ML IV PRN ×3 (02:38→21:16)
[2021-01-12] MEDS: PROPOFOL 10MG/ML 100ML 100 ML IV PRN ×5 (04:45→21:15)
[2021-01-12] MEDS: NICARDIPINE 50 MG in SODIUM CHLORIDE 0.9% 250 ML IV PRN ×3 (05:42→21:17)
[2021-01-12] MEDS: DILTIAZEM HCL 90MG TABLET PO SCH ×3 (05:53→17:53)
[2021-01-12] MEDS: BLOOD SUGAR DIAGNOSTIC STRIP TEST SCH ×3 (05:54→18:00)
[2021-01-12] MEDS: CLONIDINE 0.2MG TABLET PO SCH ×3 (05:54→21:22)
[2021-01-12] MEDS: HYDRALAZINE HCL 100MG TABLET PO SCH ×3 (05:54→21:18)
[2021-01-12] MEDS: INSULIN LISPRO 100 UNITS/ML SUBCUT SCH ×3 (05:54→18:00)
[2021-01-12] MEDS: PREDNISOLONE ACETATE 1% OPHTH DROPS 5ML LEFTEYE SCH ×3 (05:56→17:53)
[2021-01-12] MEDS: POLYVINYL ALCOHOL OPHTH DROPS 15ML BOTHEYE SCH ×3 (05:56→17:53)
[2021-01-12 06:02] LABS: BASOPHILS % 0.6 % (0.0-2.0); CHLORIDE 114 mEq/L (98-107); EOSINOPHILS % 3.7 % (0.0-5.0); HEMATOCRIT. 23.3 % (42.0-52.0); HEMOGLOBIN. 7.6 g/dL (14.0-18.0); LYMPHOCYTES % 8.6 % (20.0-50.0); MEAN CORPUSCULAR HEMOGLOBIN 27.2 pg (28.0-32.0); MEAN CORPUSCULAR VOLUME 83.4 fL (80.0-94.0); MEAN PLATELET VOLUME 7.1 fl (7.4-10.4); MONOCYTES % 9.1 % (2.0-8.0); PLATELET 524 x1000/uL (130-400); RED BLOOD CELL COUNT 2.79 mill/uL (4.7-6.1); RED CELL DISTRIBUTION WIDTH 13.7 % (11.6-14.6)
[2021-01-12 06:12] LABS: PHOSPHORUS 2.8 mg/dL (2.5-4.9)
[2021-01-12 08:12] LABS: BG BASE EXCESS -8.5 mmol/L (-2.0-2.0); BG CARBOXYHEMOGLOBIN 0.3 % (0.5-1.5); BG FRACTION INSPIRED OXYGEN 40; BG HCO3 ACT 16.3 mmol/L (22.0-26.0); BG METHEMOGLOBIN 0.3 % (0.0-1.5); BG OXYHEMOGLOBIN 96.4 % (94.0-97.0); BG PCO2 30.6 mmHg (35.0-45.0); BG PH 7.343 (7.350-7.450); BG PO2 99.6 mmHg (75.0-100.0); BG SAMPLE SITE LEFT RADIAL; BG TOTAL HEMOGLOBIN 8.7 g/dL (12.0-18.0); BG TOTAL RESPIRATORY RATE 21 b/min; BG VENT MODE VENT - AC
[2021-01-12] MEDS: PANTOPRAZOLE SODIUM 40 MG/VIAL IV SCH ×2 (10:13→17:51)
[2021-01-12] MEDS: LEVETIRACETAM 500MG/5ML CUP PO SCH ×2 (10:13→21:18)
[2021-01-12] MEDS: DOCUSATE SODIUM SUGAR FREE 100MG/10ML UDC NG SCH (10:13)
[2021-01-12] MEDS: PHENYTOIN 100 MG/4 ML UDC NG SCH ×2 (10:13→17:50)
[2021-01-12] MEDS: METOPROLOL TARTRATE 100MG TABLET PO SCH ×2 (10:14→21:19)
[2021-01-12] MEDS: DEXTROSE 5% WATER 1,000 ML IV SCH (10:14)
[2021-01-12] MEDS: NEO/POLYMYX B SULF/DEXAMETH OPHTH OINT 3.5GM LEFTEYE SCH ×2 (10:15→17:53)
[2021-01-12] MEDS: DOXAZOSIN MESYLATE 2MG TABLET PO SCH ×2 (10:33→21:18)
[2021-01-12] MEDS: BISACODYL 10MG SUPP PR PRN (17:03)
[2021-01-12] MEDS: LACTULOSE 20G/30ML UDC PO SCH (21:29)
[2021-01-13] VITALS (96 sets, daily range): BP systolic 119–196; BP diastolic 62–129
[2021-01-13] MEDS: BLOOD SUGAR DIAGNOSTIC STRIP TEST SCH ×4 (00:03→17:39)
[2021-01-13] MEDS: DILTIAZEM HCL 90MG TABLET PO SCH ×4 (00:15→17:37)
[2021-01-13] MEDS: METOCLOPRAMIDE HCL 10MG/2ML VIAL IV SCH ×4 (00:15→17:37)
[2021-01-13] MEDS: PROPOFOL 10MG/ML 100ML 100 ML IV PRN ×4 (00:16→22:52)
[2021-01-13] MEDS: PREDNISOLONE ACETATE 1% OPHTH DROPS 5ML LEFTEYE SCH ×4 (00:17→17:38)
[2021-01-13] MEDS: POLYVINYL ALCOHOL OPHTH DROPS 15ML BOTHEYE SCH ×4 (00:17→17:38)
[2021-01-13] MEDS: IPRATROPIUM/ALBUTEROL 0.5-3(2.5)MG/3ML NEB HHN SCH ×6 (00:23→20:03)
[2021-01-13] MEDS: INSULIN LISPRO 100 UNITS/ML SUBCUT SCH ×4 (05:39→17:39)
[2021-01-13] MEDS: LACTULOSE 20G/30ML UDC PO SCH ×3 (06:05→21:20)
[2021-01-13] MEDS: FENTANYL CITRATE/PF 2,500 MCG in SODIUM CHLORIDE 0.9% 200 ML IV PRN ×2 (06:06→14:11)
[2021-01-13] MEDS: CLONIDINE 0.2MG TABLET PO SCH ×3 (06:07→21:21)
[2021-01-13] MEDS: HYDRALAZINE HCL 100MG TABLET PO SCH ×3 (06:07→21:21)
[2021-01-13 06:20] LABS: CHLORIDE 120 mEq/L (98-107)
[2021-01-13 06:24] LABS: HEMOGLOBIN. 7.4 g/dL (14.0-18.0)
[2021-01-13 06:31] LABS: BASOPHILS % 0.7 % (0.0-2.0); EOSINOPHILS % 3.1 % (0.0-5.0); HEMATOCRIT. 22.5 % (42.0-52.0); MEAN CORPUSCULAR HEMOGLOBIN 27.3 pg (28.0-32.0); MEAN CORPUSCULAR VOLUME 83.3 fL (80.0-94.0); MEAN PLATELET VOLUME 6.9 fl (7.4-10.4); MONOCYTES % 9.9 % (2.0-8.0); NEUTROPHILS % 73.3 % (40.0-76.0); PLATELET 503 x1000/uL (130-400); RED CELL DISTRIBUTION WIDTH 13.8 % (11.6-14.6)
[2021-01-13] MEDS ORDERED: POTASSIUM CHLORIDE 20MEQ/PACKET PO SCH (08:15)
[2021-01-13 08:20] LABS: BG BASE EXCESS -6.3 mmol/L (-2.0-2.0); BG CARBOXYHEMOGLOBIN 0.3 % (0.5-1.5); BG FRACTION INSPIRED OXYGEN 30; BG HCO3 ACT 18.1 mmol/L (22.0-26.0); BG METHEMOGLOBIN 0.4 % (0.0-1.5); BG OXYHEMOGLOBIN 97.3 % (94.0-97.0); BG PCO2 31.4 mmHg (35.0-45.0); BG PH 7.378 (7.350-7.450); BG SAMPLE SITE RIGHT RADIAL; BG TOTAL HEMOGLOBIN 8.1 g/dL (12.0-18.0); BG VENT MODE VENT - AC
[2021-01-13] MEDS: PANTOPRAZOLE SODIUM 40 MG/VIAL IV SCH ×2 (08:43→17:37)
[2021-01-13] MEDS: METOPROLOL TARTRATE 100MG TABLET PO SCH ×2 (08:43→21:21)
[2021-01-13] MEDS: DOXAZOSIN MESYLATE 2MG TABLET PO SCH (08:43)
[2021-01-13] MEDS: PHENYTOIN 100 MG/4 ML UDC NG SCH ×2 (08:44→17:37)
[2021-01-13] MEDS: DOCUSATE SODIUM SUGAR FREE 100MG/10ML UDC NG SCH (08:44)
[2021-01-13] MEDS: LEVETIRACETAM 500MG/5ML CUP PO SCH ×2 (08:44→21:20)
[2021-01-13] MEDS: DEXTROSE 5% WATER 1,000 ML IV SCH (08:45)
[2021-01-13] MEDS: NEO/POLYMYX B SULF/DEXAMETH OPHTH OINT 3.5GM LEFTEYE SCH ×2 (08:45→17:38)
[2021-01-13] MEDS: CITRIC ACID/SODIUM CITRATE SOLN 30ML UDC PO SCH ×3 (09:20→17:37)
[2021-01-13] MEDS: NICARDIPINE 50 MG in SODIUM CHLORIDE 0.9% 250 ML IV PRN ×3 (11:21→22:26)
[2021-01-13] MEDS: QUETIAPINE FUMARATE 25MG TABLET PO SCH (14:19)
[2021-01-13 14:21] LABS: BG BASE EXCESS -9.1 mmol/L (-2.0-2.0); BG CARBOXYHEMOGLOBIN 0.3 % (0.5-1.5); BG DEOXYHEMOGLOBIN 2.9 % (0.0-5.0); BG HCO3 ACT 15.6 mmol/L (22.0-26.0); BG OXYGEN SATURATION 97.1 % (92.0-98.5); BG OXYHEMOGLOBIN 96.8 % (94.0-97.0); BG PCO2 29.7 mmHg (35.0-45.0); BG PH 7.339 (7.350-7.450); BG PO2 106.7 mmHg (75.0-100.0); BG SAMPLE SITE RIGHT RADIAL; BG VENT MODE VENT - CPAP
[2021-01-13] MEDS ORDERED: RACEPINEPHRINE 2.25% 0.5ML NEB VIAL HHN PRN (17:30)
[2021-01-13] MEDS: METHYLPREDNISOLONE SOD SUCC 125 MG/2 ML VIAL IV SCH (17:54)
[2021-01-13] MEDS: SENNOSIDES/DOCUSATE SOD 8.6/50MG TABLET PO SCH (21:21)
[2021-01-13] MEDS: DOXAZOSIN MESYLATE 4MG TABLET PO SCH (21:21)
[2021-01-13] MEDS ORDERED: FENTANYL CITRATE/PF 2,500 MCG in SODIUM CHLORIDE 0.9% 200 ML IV PRN (22:45)
[2021-01-14] VITALS (93 sets, daily range): BP systolic 119–171; BP diastolic 57–95
[2021-01-14] MEDS: IPRATROPIUM/ALBUTEROL 0.5-3(2.5)MG/3ML NEB HHN SCH ×6 (00:35→20:24)
[2021-01-14] MEDS: METHYLPREDNISOLONE SOD SUCC 125 MG/2 ML VIAL IV SCH ×4 (01:19→18:15)
[2021-01-14] MEDS: POLYVINYL ALCOHOL OPHTH DROPS 15ML BOTHEYE SCH ×4 (01:19→18:16)
[2021-01-14] MEDS: DILTIAZEM HCL 90MG TABLET PO SCH ×4 (01:19→18:15)
[2021-01-14] MEDS: METOCLOPRAMIDE HCL 10MG/2ML VIAL IV SCH ×4 (01:19→18:15)
[2021-01-14] MEDS: PREDNISOLONE ACETATE 1% OPHTH DROPS 5ML LEFTEYE SCH ×4 (01:20→18:16)
[2021-01-14] MEDS: DEXTROSE 5% WATER 1,000 ML IV SCH ×2 (01:22→18:16)
[2021-01-14] MEDS: PROPOFOL 10MG/ML 100ML 100 ML IV PRN ×3 (02:24→10:49)
[2021-01-14] MEDS: NICARDIPINE 50 MG in SODIUM CHLORIDE 0.9% 250 ML IV PRN ×4 (02:28→21:06)
[2021-01-14] MEDS: LACTULOSE 20G/30ML UDC PO SCH ×3 (05:48→22:41)
[2021-01-14] MEDS: CLONIDINE 0.2MG TABLET PO SCH ×3 (05:49→22:41)
[2021-01-14] MEDS: HYDRALAZINE HCL 100MG TABLET PO SCH ×3 (05:49→22:41)
[2021-01-14] MEDS: BLOOD SUGAR DIAGNOSTIC STRIP TEST SCH ×5 (06:00→23:55)
[2021-01-14] MEDS: INSULIN LISPRO 100 UNITS/ML SUBCUT SCH ×4 (06:00→18:00)
[2021-01-14 06:45] LABS: HEMATOCRIT. 24.2 % (42.0-52.0); HEMOGLOBIN. 7.9 g/dL (14.0-18.0); MEAN CORPUSCULAR HEMOGLOBIN 27.9 pg (28.0-32.0); MEAN CORPUSCULAR VOLUME 85.3 fL (80.0-94.0); MEAN PLATELET VOLUME 7.1 fl (7.4-10.4); PLATELET 612 x1000/uL (130-400); RED BLOOD CELL COUNT 2.84 mill/uL (4.7-6.1)
[2021-01-14 06:48] LABS: CHLORIDE 117 mEq/L (98-107)
[2021-01-14 06:56] LABS: PHOSPHORUS 4.2 mg/dL (2.5-4.9)
[2021-01-14] MEDS: CITRIC ACID/SODIUM CITRATE SOLN 30ML UDC PO SCH ×3 (09:22→18:14)
[2021-01-14] MEDS: LEVETIRACETAM 500MG/5ML CUP PO SCH ×2 (09:22→20:13)
[2021-01-14] MEDS: PANTOPRAZOLE SODIUM 40 MG/VIAL IV SCH ×2 (09:22→18:15)
[2021-01-14] MEDS: METOPROLOL TARTRATE 100MG TABLET PO SCH ×2 (09:23→20:15)
[2021-01-14] MEDS: DOCUSATE SODIUM SUGAR FREE 100MG/10ML UDC NG SCH (09:23)
[2021-01-14] MEDS: DOXAZOSIN MESYLATE 4MG TABLET PO SCH ×2 (09:24→20:14)
[2021-01-14] MEDS: QUETIAPINE FUMARATE 25MG TABLET PO SCH (09:24)
[2021-01-14] MEDS: PHENYTOIN 100 MG/4 ML UDC NG SCH ×2 (09:28→18:15)
[2021-01-14] MEDS: NEO/POLYMYX B SULF/DEXAMETH OPHTH OINT 3.5GM LEFTEYE SCH ×2 (09:31→18:16)
[2021-01-14 10:33] LABS: PLATELET ESTIMATE INCREASED
[2021-01-14 14:40] LABS: BG CARBOXYHEMOGLOBIN 0.3 % (0.5-1.5); BG DEOXYHEMOGLOBIN 1.5 % (0.0-5.0); BG FRACTION INSPIRED OXYGEN 40; BG HCO3 ACT 17.1 mmol/L (22.0-26.0); BG METHEMOGLOBIN 0.3 % (0.0-1.5); BG OXYGEN SATURATION 98.5 % (92.0-98.5); BG OXYHEMOGLOBIN 97.9 % (94.0-97.0); BG PCO2 28.8 mmHg (35.0-45.0); BG PH 7.391 (7.350-7.450); BG SAMPLE SITE RIGHT RADIAL; BG TOTAL HEMOGLOBIN 8.2 g/dL (12.0-18.0); BG VENT MODE VENT - CPAP
[2021-01-14] MEDS: SENNOSIDES/DOCUSATE SOD 8.6/50MG TABLET PO SCH (20:14)
[2021-01-14] MEDS: ACETAMINOPHEN 325MG TABLET PO PRN (20:15)
[2021-01-15] VITALS (89 sets, daily range): BP systolic 134–210; BP diastolic 69–120
[2021-01-15] MEDS: IPRATROPIUM/ALBUTEROL 0.5-3(2.5)MG/3ML NEB HHN SCH ×6 (00:06→21:12)
[2021-01-15] MEDS: METOCLOPRAMIDE HCL 10MG/2ML VIAL IV SCH ×4 (00:07→17:00)
[2021-01-15] MEDS: POLYVINYL ALCOHOL OPHTH DROPS 15ML BOTHEYE SCH ×4 (00:08→18:00)
[2021-01-15] MEDS: DILTIAZEM HCL 90MG TABLET PO SCH ×4 (00:08→17:01)
[2021-01-15] MEDS: METHYLPREDNISOLONE SOD SUCC 125 MG/2 ML VIAL IV SCH ×2 (00:08→05:34)
[2021-01-15] MEDS: PREDNISOLONE ACETATE 1% OPHTH DROPS 5ML LEFTEYE SCH ×4 (00:09→18:00)
[2021-01-15] MEDS: INSULIN LISPRO 100 UNITS/ML SUBCUT SCH ×4 (00:17→18:00)
[2021-01-15] MEDS: NICARDIPINE 50 MG in SODIUM CHLORIDE 0.9% 250 ML IV PRN ×3 (03:54→21:01)
[2021-01-15] MEDS: LACTULOSE 20G/30ML UDC PO SCH ×3 (05:33→22:53)
[2021-01-15] MEDS: HYDRALAZINE HCL 100MG TABLET PO SCH ×3 (05:34→22:46)
[2021-01-15] MEDS: CLONIDINE 0.2MG TABLET PO SCH ×3 (05:34→22:46)
[2021-01-15 05:41] LABS: CHLORIDE 113 mEq/L (98-107)
[2021-01-15 05:46] LABS: HEMOGLOBIN. 7.5 g/dL (14.0-18.0); MEAN CORPUSCULAR HEMOGLOBIN 28.1 pg (28.0-32.0); MEAN CORPUSCULAR VOLUME 82.9 fL (80.0-94.0); MEAN PLATELET VOLUME 7.1 fl (7.4-10.4); PLATELET 659 x1000/uL (130-400); RED BLOOD CELL COUNT 2.65 mill/uL (4.7-6.1); RED CELL DISTRIBUTION WIDTH 13.7 % (11.6-14.6)
[2021-01-15] MEDS: BLOOD SUGAR DIAGNOSTIC STRIP TEST SCH ×3 (06:41→18:00)
[2021-01-15 08:25] LABS: PLATELET ESTIMATE INCREASED
[2021-01-15] MEDS: NEO/POLYMYX B SULF/DEXAMETH OPHTH OINT 3.5GM LEFTEYE SCH ×2 (09:00→17:00)
[2021-01-15] MEDS: DOCUSATE SODIUM SUGAR FREE 100MG/10ML UDC NG SCH (09:42)
[2021-01-15] MEDS: QUETIAPINE FUMARATE 25MG TABLET PO SCH (09:43)
[2021-01-15] MEDS: CITRIC ACID/SODIUM CITRATE SOLN 30ML UDC PO SCH ×3 (09:43→17:00)
[2021-01-15] MEDS: PHENYTOIN 100 MG/4 ML UDC NG SCH ×2 (09:43→17:00)
[2021-01-15] MEDS: DOXAZOSIN MESYLATE 4MG TABLET PO SCH ×2 (09:43→21:02)
[2021-01-15] MEDS: PANTOPRAZOLE SODIUM 40 MG/VIAL IV SCH ×2 (09:43→16:59)
[2021-01-15] MEDS: LEVETIRACETAM 500MG/5ML CUP PO SCH ×2 (09:44→21:02)
[2021-01-15] MEDS: METOPROLOL TARTRATE 100MG TABLET PO SCH ×2 (09:44→21:03)
[2021-01-15] MEDS ORDERED: POTASSIUM CHLORIDE INJ 40 MEQ in DEXT 5% WATER 250 ML IV SCH (10:00)
[2021-01-15] MEDS: CEFEPIME 1,000 MG in DEXTROSE 5% WATER 50 ML IV SCH ×2 (10:53→21:01)
[2021-01-15] MEDS ORDERED: POTASSIUM CHLORIDE 20MEQ/PACKET PO NR (13:45)
[2021-01-15] MEDS: METHYLPREDNISOLONE SOD SUCC 40 MG/ML VIAL IV SCH ×2 (14:12→22:46)
[2021-01-15] MEDS: SODIUM CHLORIDE 0.9% 1,000 ML IV SCH (14:22)
[2021-01-15 16:01] LABS: PHOSPHORUS 3.5 mg/dL (2.5-4.9)
[2021-01-15] MEDS: ACETAMINOPHEN 325MG TABLET PO PRN (16:59)
[2021-01-15] MEDS: SENNOSIDES/DOCUSATE SOD 8.6/50MG TABLET PO SCH (21:00)
[2021-01-16] VITALS (98 sets, daily range): BP systolic 141–208; BP diastolic 73–114
[2021-01-16] MEDS: METOCLOPRAMIDE HCL 10MG/2ML VIAL IV SCH ×4 (00:04→17:14)
[2021-01-16] MEDS: DILTIAZEM HCL 90MG TABLET PO SCH ×4 (00:04→17:22)
[2021-01-16] MEDS: PREDNISOLONE ACETATE 1% OPHTH DROPS 5ML LEFTEYE SCH ×4 (00:05→17:22)
[2021-01-16] MEDS: POLYVINYL ALCOHOL OPHTH DROPS 15ML BOTHEYE SCH ×4 (00:06→17:23)
[2021-01-16] MEDS: BLOOD SUGAR DIAGNOSTIC STRIP TEST SCH ×5 (00:06→23:58)
[2021-01-16] MEDS: INSULIN LISPRO 100 UNITS/ML SUBCUT SCH ×5 (00:24→23:58)
[2021-01-16] MEDS: IPRATROPIUM/ALBUTEROL 0.5-3(2.5)MG/3ML NEB HHN SCH ×6 (01:04→20:25)
[2021-01-16] MEDS: SODIUM CHLORIDE 0.9% 1,000 ML IV SCH (02:28)
[2021-01-16] MEDS: LABETALOL 5MG/ML SYR 20 MG/4 ML SYRINGE IV PRN ×2 (04:11→12:38)
[2021-01-16] MEDS: HYDRALAZINE HCL 100MG TABLET PO SCH ×3 (05:24→21:04)
[2021-01-16] MEDS: LACTULOSE 20G/30ML UDC PO SCH ×3 (05:24→21:03)
[2021-01-16] MEDS: METHYLPREDNISOLONE SOD SUCC 40 MG/ML VIAL IV SCH ×2 (05:24→17:17)
[2021-01-16] MEDS: CLONIDINE 0.2MG TABLET PO SCH ×3 (05:24→21:04)
[2021-01-16 05:43] LABS: HEMATOCRIT. 21.3 % (42.0-52.0); MEAN CORPUSCULAR HEMOGLOBIN 27.5 pg (28.0-32.0); MEAN CORPUSCULAR VOLUME 83.3 fL (80.0-94.0); PLATELET 526 x1000/uL (130-400); RED BLOOD CELL COUNT 2.56 mill/uL (4.7-6.1); RED CELL DISTRIBUTION WIDTH 13.6 % (11.6-14.6)
[2021-01-16 06:06] LABS: CHLORIDE 115 mEq/L (98-107)
[2021-01-16 06:14] LABS: PHOSPHORUS 2.8 mg/dL (2.5-4.9)
[2021-01-16] MEDS ORDERED: POTASSIUM CHLORIDE 20MEQ/PACKET PO SCH ×2 (08:15→08:30)
[2021-01-16] MEDS ORDERED: KCL 20MEQ/100ML PREMIX 100 ML IV SCH ×2 (08:15→08:30)
[2021-01-16 08:27] LABS: PLATELET ESTIMATE INCREASED
[2021-01-16] MEDS: CEFEPIME 1,000 MG in DEXTROSE 5% WATER 50 ML IV SCH ×2 (09:00→21:03)
[2021-01-16] MEDS: KCL 20MEQ/100ML PREMIX 100 ML IV SCH ×3 (09:00→13:09)
[2021-01-16] MEDS: NEO/POLYMYX B SULF/DEXAMETH OPHTH OINT 3.5GM LEFTEYE SCH ×2 (09:00→17:24)
[2021-01-16] MEDS: DOCUSATE SODIUM SUGAR FREE 100MG/10ML UDC NG SCH (09:58)
[2021-01-16] MEDS: LEVETIRACETAM 500MG/5ML CUP PO SCH ×2 (09:59→21:03)
[2021-01-16] MEDS: PANTOPRAZOLE SODIUM 40 MG/VIAL IV SCH ×2 (09:59→16:44)
[2021-01-16] MEDS: DOXAZOSIN MESYLATE 4MG TABLET PO SCH ×2 (10:00→21:04)
[2021-01-16] MEDS: QUETIAPINE FUMARATE 25MG TABLET PO SCH (10:00)
[2021-01-16] MEDS: CITRIC ACID/SODIUM CITRATE SOLN 30ML UDC PO SCH ×3 (10:00→17:25)
[2021-01-16] MEDS: METOPROLOL TARTRATE 100MG TABLET PO SCH ×2 (10:00→21:04)
[2021-01-16] MEDS: PHENYTOIN 100 MG/4 ML UDC NG SCH ×2 (10:01→17:25)
[2021-01-16] MEDS: NICARDIPINE 50 MG in SODIUM CHLORIDE 0.9% 250 ML IV PRN ×3 (10:13→21:05)
[2021-01-16 10:54] LABS: BG BASE EXCESS -3.9 mmol/L (-2.0-2.0); BG CARBOXYHEMOGLOBIN 0.3 % (0.5-1.5); BG DEOXYHEMOGLOBIN 18.6 % (0.0-5.0); BG FRACTION INSPIRED OXYGEN 36; BG HCO3 ACT 20.6 mmol/L (22.0-26.0); BG METHEMOGLOBIN 0.4 % (0.0-1.5); BG OXYGEN SATURATION 81.3 % (92.0-98.5); BG OXYHEMOGLOBIN 80.7 % (94.0-97.0); BG PCO2 34.7 mmHg (35.0-45.0); BG PH 7.391 (7.350-7.450); BG PO2 47.1 mmHg (75.0-100.0); BG SAMPLE SITE LEFT RADIAL; BG TOTAL HEMOGLOBIN 8.7 g/dL (12.0-18.0); BG VENT MODE NASAL CANNULA
[2021-01-16] MEDS ORDERED: SORBITOL 70% SOLN 30ML NG NR (11:15)
[2021-01-16] MEDS: GUAIFENESIN 200MG/10ML SUGAR FREE UDC PO SCH ×2 (15:00→21:03)
[2021-01-16] MEDS: BISACODYL 10MG SUPP PR SCH (18:29)
[2021-01-16] MEDS: SENNOSIDES/DOCUSATE SOD 8.6/50MG TABLET PO SCH (21:04)
[2021-01-16] MEDS: CLONIDINE 0.1MG TABLET PO PRN (23:15)
[2021-01-17] VITALS (96 sets, daily range): BP systolic 129–189; BP diastolic 52–124
[2021-01-17] MEDS: PREDNISOLONE ACETATE 1% OPHTH DROPS 5ML LEFTEYE SCH ×5 (00:03→23:36)
[2021-01-17] MEDS: METOCLOPRAMIDE HCL 10MG/2ML VIAL IV SCH ×5 (00:03→23:36)
[2021-01-17] MEDS: DILTIAZEM HCL 90MG TABLET PO SCH ×5 (00:03→23:36)
[2021-01-17] MEDS: IPRATROPIUM/ALBUTEROL 0.5-3(2.5)MG/3ML NEB HHN SCH ×6 (00:45→20:10)
[2021-01-17] MEDS: POLYVINYL ALCOHOL OPHTH DROPS 15ML BOTHEYE SCH ×5 (00:54→23:36)
[2021-01-17] MEDS: NICARDIPINE 50 MG in SODIUM CHLORIDE 0.9% 250 ML IV PRN ×5 (01:30→20:57)
[2021-01-17] MEDS: LABETALOL 5MG/ML SYR 20 MG/4 ML SYRINGE IV PRN (03:37)
[2021-01-17] MEDS: GUAIFENESIN 200MG/10ML SUGAR FREE UDC PO SCH ×4 (03:38→21:57)
[2021-01-17] MEDS: LACTULOSE 20G/30ML UDC PO SCH ×3 (05:21→21:58)
[2021-01-17] MEDS: METHYLPREDNISOLONE SOD SUCC 40 MG/ML VIAL IV SCH ×2 (05:21→17:36)
[2021-01-17] MEDS: ACETAMINOPHEN 325MG TABLET PO PRN ×2 (05:21→23:46)
[2021-01-17] MEDS: HYDRALAZINE HCL 100MG TABLET PO SCH ×3 (05:21→21:58)
[2021-01-17] MEDS: BLOOD SUGAR DIAGNOSTIC STRIP TEST SCH ×4 (05:22→23:31)
[2021-01-17] MEDS: CLONIDINE 0.2MG TABLET PO SCH (05:22)
[2021-01-17] MEDS: INSULIN LISPRO 100 UNITS/ML SUBCUT SCH ×4 (05:22→23:37)
[2021-01-17 06:00] LABS: HEMATOCRIT. 23.4 % (42.0-52.0); HEMOGLOBIN. 7.4 g/dL (14.0-18.0); MEAN CORPUSCULAR HEMOGLOBIN 26.7 pg (28.0-32.0); MEAN CORPUSCULAR VOLUME 84.7 fL (80.0-94.0); MEAN PLATELET VOLUME 7.1 fl (7.4-10.4); PLATELET 544 x1000/uL (130-400); RED BLOOD CELL COUNT 2.76 mill/uL (4.7-6.1); RED CELL DISTRIBUTION WIDTH 14.3 % (11.6-14.6)
[2021-01-17 06:19] LABS: CHLORIDE 116 mEq/L (98-107)
[2021-01-17] MEDS ORDERED: POTASSIUM CHLORIDE INJ 60 MEQ in DEXT 5% WATER 250 ML IV ONE (07:15)
[2021-01-17] MEDS ORDERED: KCL 20MEQ/100ML PREMIX 100 ML IV ONE (07:15)
[2021-01-17 07:24] LABS: PLATELET ESTIMATE INCREASED
[2021-01-17] MEDS: CEFEPIME 1,000 MG in DEXTROSE 5% WATER 50 ML IV SCH ×2 (08:31→21:55)
[2021-01-17] MEDS: BISACODYL 10MG SUPP PR SCH (08:33)
[2021-01-17] MEDS: DOCUSATE SODIUM SUGAR FREE 100MG/10ML UDC NG SCH (08:34)
[2021-01-17] MEDS: PHENYTOIN 100 MG/4 ML UDC NG SCH ×2 (08:34→16:25)
[2021-01-17] MEDS: QUETIAPINE FUMARATE 25MG TABLET PO SCH (08:34)
[2021-01-17] MEDS: LEVETIRACETAM 500MG/5ML CUP PO SCH ×2 (08:34→21:57)
[2021-01-17] MEDS: METOPROLOL TARTRATE 100MG TABLET PO SCH ×2 (08:35→21:57)
[2021-01-17] MEDS: PANTOPRAZOLE SODIUM 40 MG/VIAL IV SCH ×2 (08:35→16:26)
[2021-01-17] MEDS: DOXAZOSIN MESYLATE 4MG TABLET PO SCH ×2 (08:35→21:57)
[2021-01-17] MEDS: KCL 20MEQ/100ML PREMIX 100 ML IV SCH ×5 (08:36→17:36)
[2021-01-17] MEDS: CITRIC ACID/SODIUM CITRATE SOLN 30ML UDC PO SCH ×3 (08:37→16:41)
[2021-01-17] MEDS ORDERED: VANCOMYCIN 1,750 MG in DEXT 5% WATER 250 ML IV NR (12:00)
[2021-01-17] MEDS: CLONIDINE 0.3MG TABLET PO SCH ×2 (14:29→21:58)
[2021-01-17] MEDS: SENNOSIDES/DOCUSATE SOD 8.6/50MG TABLET PO SCH (21:57)
[2021-01-17] MEDS: VANCOMYCIN 750 MG PREMIX 150 ML IV SCH (23:35)
[2021-01-18] VITALS (90 sets, daily range): BP systolic 133–168; BP diastolic 53–99
[2021-01-18] MEDS: IPRATROPIUM/ALBUTEROL 0.5-3(2.5)MG/3ML NEB HHN SCH ×6 (00:33→20:05)
[2021-01-18] MEDS: NICARDIPINE 50 MG in SODIUM CHLORIDE 0.9% 250 ML IV PRN ×5 (00:42→22:47)
[2021-01-18] MEDS: GUAIFENESIN 200MG/10ML SUGAR FREE UDC PO SCH ×4 (03:08→20:07)
[2021-01-18] MEDS: LACTULOSE 20G/30ML UDC PO SCH ×3 (05:24→21:32)
[2021-01-18] MEDS: CLONIDINE 0.3MG TABLET PO SCH ×3 (05:25→21:32)
[2021-01-18] MEDS: PREDNISOLONE ACETATE 1% OPHTH DROPS 5ML LEFTEYE SCH ×4 (05:25→23:13)
[2021-01-18] MEDS: METOCLOPRAMIDE HCL 10MG/2ML VIAL IV SCH ×4 (05:25→23:13)
[2021-01-18] MEDS: DILTIAZEM HCL 90MG TABLET PO SCH ×4 (05:25→23:13)
[2021-01-18] MEDS: HYDRALAZINE HCL 100MG TABLET PO SCH ×3 (05:25→21:32)
[2021-01-18] MEDS: POLYVINYL ALCOHOL OPHTH DROPS 15ML BOTHEYE SCH ×4 (05:26→23:13)
[2021-01-18] MEDS: BLOOD SUGAR DIAGNOSTIC STRIP TEST SCH ×4 (05:26→23:13)
[2021-01-18] MEDS: METHYLPREDNISOLONE SOD SUCC 40 MG/ML VIAL IV SCH (05:27)
[2021-01-18] MEDS: INSULIN LISPRO 100 UNITS/ML SUBCUT SCH ×4 (05:55→23:14)
[2021-01-18 06:29] LABS: HEMATOCRIT. 21.7 % (42.0-52.0); HEMOGLOBIN. 7.1 g/dL (14.0-18.0); MEAN CORPUSCULAR HEMOGLOBIN 27.3 pg (28.0-32.0); MEAN PLATELET VOLUME 7.3 fl (7.4-10.4); PLATELET 531 x1000/uL (130-400); RED BLOOD CELL COUNT 2.61 mill/uL (4.7-6.1); RED CELL DISTRIBUTION WIDTH 13.7 % (11.6-14.6)
[2021-01-18 06:52] LABS: CHLORIDE 118 mEq/L (98-107)
[2021-01-18 07:06] LABS: PHOSPHORUS 1.3 mg/dL (2.5-4.9)
[2021-01-18] MEDS: BISACODYL 10MG SUPP PR SCH (08:18)
[2021-01-18] MEDS: DOCUSATE SODIUM SUGAR FREE 100MG/10ML UDC NG SCH (08:18)
[2021-01-18] MEDS: DOXAZOSIN MESYLATE 4MG TABLET PO SCH ×2 (08:50→20:07)
[2021-01-18] MEDS: QUETIAPINE FUMARATE 25MG TABLET PO SCH (08:50)
[2021-01-18] MEDS: PANTOPRAZOLE SODIUM 40 MG/VIAL IV SCH ×2 (08:50→17:31)
[2021-01-18] MEDS: LEVETIRACETAM 500MG/5ML CUP PO SCH ×2 (08:50→20:07)
[2021-01-18] MEDS: PHENYTOIN 100 MG/4 ML UDC NG SCH ×2 (08:50→17:31)
[2021-01-18] MEDS: CITRIC ACID/SODIUM CITRATE SOLN 30ML UDC PO SCH ×3 (08:50→17:30)
[2021-01-18] MEDS: METOPROLOL TARTRATE 100MG TABLET PO SCH ×2 (08:51→20:07)
[2021-01-18] MEDS: CEFEPIME 1,000 MG in DEXTROSE 5% WATER 50 ML IV SCH ×2 (08:55→20:07)
[2021-01-18] MEDS ORDERED: POTASSIUM PHOS,M-BASIC-D-BASIC 30 MMOL in DEXT 5% WATER 500 ML IV NR (10:00)
[2021-01-18 12:06] LABS: PLATELET ESTIMATE INCREASED
[2021-01-18] MEDS: VANCOMYCIN 750 MG PREMIX 150 ML IV SCH ×2 (12:13→23:13)
[2021-01-18] MEDS: ACETAMINOPHEN 325MG TABLET PO PRN (14:53)
[2021-01-18] MEDS: SENNOSIDES/DOCUSATE SOD 8.6/50MG TABLET PO SCH (20:07)
[2021-01-19] VITALS (95 sets, daily range): BP systolic 100–179; BP diastolic 57–119
[2021-01-19] MEDS: IPRATROPIUM/ALBUTEROL 0.5-3(2.5)MG/3ML NEB HHN SCH ×5 (00:21→20:20)
[2021-01-19] MEDS: CLONIDINE 0.1MG TABLET PO PRN (01:23)
[2021-01-19] MEDS: GUAIFENESIN 200MG/10ML SUGAR FREE UDC PO SCH ×4 (03:21→20:21)
[2021-01-19] MEDS: PREDNISOLONE ACETATE 1% OPHTH DROPS 5ML LEFTEYE SCH ×3 (05:07→17:31)
[2021-01-19] MEDS: LACTULOSE 20G/30ML UDC PO SCH ×3 (05:07→22:00)
[2021-01-19] MEDS: POLYVINYL ALCOHOL OPHTH DROPS 15ML BOTHEYE SCH ×3 (05:07→17:31)
[2021-01-19] MEDS: CLONIDINE 0.3MG TABLET PO SCH ×3 (05:08→22:43)
[2021-01-19] MEDS: DILTIAZEM HCL 90MG TABLET PO SCH (05:08)
[2021-01-19] MEDS: HYDRALAZINE HCL 100MG TABLET PO SCH ×3 (05:08→22:42)
[2021-01-19] MEDS: METOCLOPRAMIDE HCL 10MG/2ML VIAL IV SCH ×3 (05:18→17:30)
[2021-01-19 05:56] LABS: HEMATOCRIT. 21.1 % (42.0-52.0); MEAN CORPUSCULAR VOLUME 82.8 fL (80.0-94.0); MEAN PLATELET VOLUME 7.3 fl (7.4-10.4); PLATELET 460 x1000/uL (130-400); RED BLOOD CELL COUNT 2.54 mill/uL (4.7-6.1); RED CELL DISTRIBUTION WIDTH 13.5 % (11.6-14.6)
[2021-01-19] MEDS: INSULIN LISPRO 100 UNITS/ML SUBCUT SCH ×3 (06:00→17:20)
[2021-01-19 06:08] LABS: HEMOGLOBIN. 6.9 g/dL (14.0-18.0)
[2021-01-19 06:13] LABS: CHLORIDE 113 mEq/L (98-107)
[2021-01-19] MEDS: NICARDIPINE 50 MG in SODIUM CHLORIDE 0.9% 250 ML IV PRN ×4 (06:20→23:48)
[2021-01-19] MEDS: BLOOD SUGAR DIAGNOSTIC STRIP TEST SCH ×3 (06:31→17:20)
[2021-01-19] MEDS: CEFEPIME 1,000 MG in DEXTROSE 5% WATER 50 ML IV SCH (08:26)
[2021-01-19] MEDS: KCL 20MEQ/100ML PREMIX 100 ML IV SCH ×3 (08:26→13:19)
[2021-01-19] MEDS: PANTOPRAZOLE SODIUM 40 MG/VIAL IV SCH ×2 (08:27→17:30)
[2021-01-19] MEDS: LEVETIRACETAM 500MG/5ML CUP PO SCH ×2 (08:27→20:22)
[2021-01-19] MEDS: CITRIC ACID/SODIUM CITRATE SOLN 30ML UDC PO SCH ×3 (08:28→17:32)
[2021-01-19] MEDS: DOCUSATE SODIUM SUGAR FREE 100MG/10ML UDC NG SCH (08:28)
[2021-01-19] MEDS: METOPROLOL TARTRATE 100MG TABLET PO SCH ×2 (08:28→20:23)
[2021-01-19] MEDS: PHENYTOIN 100 MG/4 ML UDC NG SCH ×2 (08:28→17:30)
[2021-01-19] MEDS: BISACODYL 10MG SUPP PR SCH (08:29)
[2021-01-19] MEDS: DOXAZOSIN MESYLATE 4MG TABLET PO SCH ×2 (08:29→20:23)
[2021-01-19] MEDS: QUETIAPINE FUMARATE 25MG TABLET PO SCH (08:29)
[2021-01-19] MEDS: DILTIAZEM HCL 60MG TABLET PO SCH ×2 (11:42→17:30)
[2021-01-19] MEDS: IRON SUCROSE COMPLEX 100 MG/5 ML ML IV SCH (17:30)
[2021-01-19 17:55] LABS: PLATELET ESTIMATE INCREASED
[2021-01-19] MEDS ORDERED: POTASSIUM CHLORIDE 20MEQ/PACKET PO NR (19:00)
[2021-01-19] MEDS ORDERED: KCL 20MEQ/100ML PREMIX 100 ML IV NR (20:00)
[2021-01-19] MEDS: EPOETIN ALFA-EPBX 10,000 UNIT/ML VIAL SUBCUT SCH (20:23)
[2021-01-19] MEDS: SENNOSIDES/DOCUSATE SOD 8.6/50MG TABLET PO SCH (21:00)
[2021-01-19] MEDS ORDERED: EPOETIN ALFA 10000UNITS/ML VIAL SUBCUT SCH (21:00)
[2021-01-19] MEDS: CEFEPIME 2,000 MG in DEXT 5% WATER 100 ML IV SCH (21:10)
[2021-01-19] MEDS: VANCOMYCIN 750 MG PREMIX 150 ML IV SCH (22:42)
[2021-01-20] VITALS (97 sets, daily range): BP systolic 125–192; BP diastolic 64–142
[2021-01-20] MEDS: IPRATROPIUM/ALBUTEROL 0.5-3(2.5)MG/3ML NEB HHN SCH ×6 (00:28→20:56)
[2021-01-20] MEDS: METOCLOPRAMIDE HCL 10MG/2ML VIAL IV SCH ×4 (00:56→18:05)
[2021-01-20] MEDS: PREDNISOLONE ACETATE 1% OPHTH DROPS 5ML LEFTEYE SCH ×4 (00:56→18:08)
[2021-01-20] MEDS: POLYVINYL ALCOHOL OPHTH DROPS 15ML BOTHEYE SCH ×4 (00:56→18:08)
[2021-01-20] MEDS: DILTIAZEM HCL 60MG TABLET PO SCH ×4 (00:57→18:06)
[2021-01-20] MEDS: BLOOD SUGAR DIAGNOSTIC STRIP TEST SCH ×4 (00:57→17:59)
[2021-01-20] MEDS: GUAIFENESIN 200MG/10ML SUGAR FREE UDC PO SCH ×4 (02:21→20:22)
[2021-01-20] MEDS: NICARDIPINE 50 MG in SODIUM CHLORIDE 0.9% 250 ML IV PRN ×4 (05:01→18:07)
[2021-01-20 05:30] LABS: HEMATOCRIT. 23.4 % (42.0-52.0); HEMOGLOBIN. 7.8 g/dL (14.0-18.0); MEAN CORPUSCULAR HEMOGLOBIN 27.4 pg (28.0-32.0); MEAN CORPUSCULAR VOLUME 82.2 fL (80.0-94.0); MEAN PLATELET VOLUME 7.4 fl (7.4-10.4); PLATELET 516 x1000/uL (130-400); RED BLOOD CELL COUNT 2.84 mill/uL (4.7-6.1); RED CELL DISTRIBUTION WIDTH 13.4 % (11.6-14.6)
[2021-01-20 05:40] LABS: CHLORIDE 115 mEq/L (98-107)
[2021-01-20] MEDS: LACTULOSE 20G/30ML UDC PO SCH ×3 (06:00→21:56)
[2021-01-20] MEDS: INSULIN LISPRO 100 UNITS/ML SUBCUT SCH ×4 (06:00→17:59)
[2021-01-20] MEDS ORDERED: POTASSIUM CHLORIDE 20MEQ/PACKET PO SCH (06:00)
[2021-01-20] MEDS: CEFEPIME 2,000 MG in DEXT 5% WATER 100 ML IV SCH ×3 (06:46→21:56)
[2021-01-20] MEDS: HYDRALAZINE HCL 100MG TABLET PO SCH ×3 (06:48→21:57)
[2021-01-20] MEDS: CLONIDINE 0.3MG TABLET PO SCH ×3 (06:49→21:56)
[2021-01-20 08:22] LABS: PLATELET ESTIMATE INCREASED
[2021-01-20] MEDS: PHENYTOIN 100 MG/4 ML UDC NG SCH ×2 (08:49→18:06)
[2021-01-20] MEDS: CITRIC ACID/SODIUM CITRATE SOLN 30ML UDC PO SCH ×3 (08:49→18:06)
[2021-01-20] MEDS: DOCUSATE SODIUM SUGAR FREE 100MG/10ML UDC NG SCH (08:49)
[2021-01-20] MEDS: PANTOPRAZOLE SODIUM 40 MG/VIAL IV SCH ×2 (08:49→18:05)
[2021-01-20] MEDS: LEVETIRACETAM 500MG/5ML CUP PO SCH ×2 (08:50→20:21)
[2021-01-20] MEDS: DOXAZOSIN MESYLATE 4MG TABLET PO SCH ×2 (08:50→20:22)
[2021-01-20] MEDS: IRON SUCROSE COMPLEX 100 MG/5 ML ML IV SCH (08:51)
[2021-01-20] MEDS: QUETIAPINE FUMARATE 25MG TABLET PO SCH (08:51)
[2021-01-20] MEDS: BISACODYL 10MG SUPP PR SCH ×2 (08:51→09:00)
[2021-01-20] MEDS: METOPROLOL TARTRATE 100MG TABLET PO SCH ×2 (08:51→20:22)
[2021-01-20] MEDS: VANCOMYCIN 750 MG PREMIX 150 ML IV SCH (15:59)
[2021-01-20] MEDS: SENNOSIDES/DOCUSATE SOD 8.6/50MG TABLET PO SCH (20:23)
[2021-01-20] MEDS ORDERED: IOHEXOL-350 100 ML BOTTLE ONE (22:05)
[2021-01-21] VITALS (96 sets, daily range): BP systolic 121–176; BP diastolic 58–107
[2021-01-21] MEDS: DILTIAZEM HCL 60MG TABLET PO SCH ×5 (00:05→23:51)
[2021-01-21] MEDS: PREDNISOLONE ACETATE 1% OPHTH DROPS 5ML LEFTEYE SCH ×4 (00:05→17:30)
[2021-01-21] MEDS: METOCLOPRAMIDE HCL 10MG/2ML VIAL IV SCH ×5 (00:05→23:51)
[2021-01-21] MEDS: POLYVINYL ALCOHOL OPHTH DROPS 15ML BOTHEYE SCH ×4 (00:05→17:30)
[2021-01-21] MEDS: BLOOD SUGAR DIAGNOSTIC STRIP TEST SCH ×4 (00:06→17:55)
[2021-01-21] MEDS: IPRATROPIUM/ALBUTEROL 0.5-3(2.5)MG/3ML NEB HHN SCH ×6 (01:03→20:20)
[2021-01-21] MEDS: NICARDIPINE 50 MG in SODIUM CHLORIDE 0.9% 250 ML IV PRN ×4 (01:47→18:09)
[2021-01-21] MEDS: GUAIFENESIN 200MG/10ML SUGAR FREE UDC PO SCH ×4 (03:24→20:17)
[2021-01-21] MEDS: CEFEPIME 2,000 MG in DEXT 5% WATER 100 ML IV SCH ×3 (05:35→22:01)
[2021-01-21] MEDS: CLONIDINE 0.3MG TABLET PO SCH ×3 (05:35→22:02)
[2021-01-21] MEDS: HYDRALAZINE HCL 100MG TABLET PO SCH ×3 (05:36→22:02)
[2021-01-21] MEDS: INSULIN LISPRO 100 UNITS/ML SUBCUT SCH ×5 (05:37→20:21)
[2021-01-21] MEDS: LACTULOSE 20G/30ML UDC PO SCH ×3 (05:56→22:01)
[2021-01-21 07:22] LABS: HEMATOCRIT. 21.5 % (42.0-52.0); HEMOGLOBIN. 7.1 g/dL (14.0-18.0); MEAN PLATELET VOLUME 7.2 fl (7.4-10.4); PLATELET 434 x1000/uL (130-400); RED BLOOD CELL COUNT 2.62 mill/uL (4.7-6.1); RED CELL DISTRIBUTION WIDTH 13.6 % (11.6-14.6)
[2021-01-21 07:33] LABS: CHLORIDE 113 mEq/L (98-107)
[2021-01-21 07:39] LABS: PHOSPHORUS 1.6 mg/dL (2.5-4.9)
[2021-01-21] MEDS: LEVETIRACETAM 500MG/5ML CUP PO SCH ×2 (08:38→20:17)
[2021-01-21] MEDS: CITRIC ACID/SODIUM CITRATE SOLN 30ML UDC PO SCH ×3 (08:39→17:29)
[2021-01-21] MEDS: PHENYTOIN 100 MG/4 ML UDC NG SCH ×2 (08:39→17:29)
[2021-01-21] MEDS: PANTOPRAZOLE SODIUM 40 MG/VIAL IV SCH ×2 (08:39→17:29)
[2021-01-21] MEDS: IRON SUCROSE COMPLEX 100 MG/5 ML ML IV SCH (08:39)
[2021-01-21] MEDS: METOPROLOL TARTRATE 100MG TABLET PO SCH ×2 (08:40→20:18)
[2021-01-21] MEDS: DOXAZOSIN MESYLATE 4MG TABLET PO SCH ×2 (08:41→20:18)
[2021-01-21] MEDS: BISACODYL 10MG SUPP PR SCH (08:41)
[2021-01-21] MEDS: DOCUSATE SODIUM SUGAR FREE 100MG/10ML UDC NG SCH (08:42)
[2021-01-21 08:49] LABS: PLATELET ESTIMATE SLIGHTLY INCREASED
[2021-01-21] MEDS: VANCOMYCIN 750 MG PREMIX 150 ML IV SCH (09:31)
[2021-01-21] MEDS ORDERED: POTASSIUM PHOS,M-BASIC-D-BASIC 20 MMOL in DEXT 5% WATER 243.3333 ML IV SCH (11:00)
[2021-01-21] MEDS: MINOXIDIL 2.5MG TABLET PO SCH (13:56)
[2021-01-21] MEDS: EPOETIN ALFA-EPBX 10,000 UNIT/ML VIAL SUBCUT SCH (20:18)
[2021-01-21] MEDS: ACETAMINOPHEN 325MG TABLET PO PRN (20:33)
[2021-01-21] MEDS: SENNOSIDES/DOCUSATE SOD 8.6/50MG TABLET PO SCH (21:00)
[2021-01-22] VITALS (89 sets, daily range): BP systolic 128–191; BP diastolic 58–113
[2021-01-22] MEDS: IPRATROPIUM/ALBUTEROL 0.5-3(2.5)MG/3ML NEB HHN SCH ×5 (00:12→21:14)
[2021-01-22] MEDS: NICARDIPINE 50 MG in SODIUM CHLORIDE 0.9% 250 ML IV PRN ×3 (00:45→13:05)
[2021-01-22] MEDS: PREDNISOLONE ACETATE 1% OPHTH DROPS 5ML LEFTEYE SCH ×4 (00:46→18:04)
[2021-01-22] MEDS: POLYVINYL ALCOHOL OPHTH DROPS 15ML BOTHEYE SCH ×4 (00:47→18:04)
[2021-01-22] MEDS: GUAIFENESIN 200MG/10ML SUGAR FREE UDC PO SCH ×4 (03:24→22:16)
[2021-01-22] MEDS: HYDRALAZINE HCL 100MG TABLET PO SCH ×3 (05:17→22:15)
[2021-01-22] MEDS: CLONIDINE 0.3MG TABLET PO SCH ×3 (05:17→22:16)
[2021-01-22] MEDS: LACTULOSE 20G/30ML UDC PO SCH ×3 (05:17→21:08)
[2021-01-22] MEDS: METOCLOPRAMIDE HCL 10MG/2ML VIAL IV SCH ×3 (05:17→18:03)
[2021-01-22] MEDS: DILTIAZEM HCL 60MG TABLET PO SCH ×3 (05:17→18:03)
[2021-01-22] MEDS: CEFEPIME 2,000 MG in DEXT 5% WATER 100 ML IV SCH ×3 (05:18→23:49)
[2021-01-22 06:38] LABS: HEMATOCRIT. 22.5 % (42.0-52.0); HEMOGLOBIN. 7.4 g/dL (14.0-18.0); MEAN CORPUSCULAR VOLUME 82.7 fL (80.0-94.0); MEAN PLATELET VOLUME 7.3 fl (7.4-10.4); PLATELET 420 x1000/uL (130-400); RED BLOOD CELL COUNT 2.73 mill/uL (4.7-6.1); RED CELL DISTRIBUTION WIDTH 13.6 % (11.6-14.6)
[2021-01-22 06:39] LABS: CHLORIDE 113 mEq/L (98-107)
[2021-01-22 06:44] LABS: PHOSPHORUS 2.1 mg/dL (2.5-4.9)
[2021-01-22] MEDS: INSULIN LISPRO 100 UNITS/ML SUBCUT SCH ×4 (07:50→21:00)
[2021-01-22] MEDS: BLOOD SUGAR DIAGNOSTIC STRIP TEST SCH ×4 (08:00→21:00)
[2021-01-22] MEDS: CITRIC ACID/SODIUM CITRATE SOLN 30ML UDC PO SCH ×3 (08:50→16:04)
[2021-01-22] MEDS: PANTOPRAZOLE SODIUM 40 MG/VIAL IV SCH ×2 (08:51→16:04)
[2021-01-22] MEDS: MINOXIDIL 2.5MG TABLET PO SCH ×2 (08:51→21:09)
[2021-01-22] MEDS: DOCUSATE SODIUM SUGAR FREE 100MG/10ML UDC NG SCH (08:51)
[2021-01-22] MEDS: IRON SUCROSE COMPLEX 100 MG/5 ML ML IV SCH (08:51)
[2021-01-22] MEDS: PHENYTOIN 100 MG/4 ML UDC NG SCH ×2 (08:51→16:04)
[2021-01-22] MEDS: DOXAZOSIN MESYLATE 4MG TABLET PO SCH ×2 (08:52→22:15)
[2021-01-22] MEDS: METOPROLOL TARTRATE 100MG TABLET PO SCH ×2 (08:52→21:10)
[2021-01-22] MEDS: LEVETIRACETAM 500MG/5ML CUP PO SCH ×2 (08:55→21:08)
[2021-01-22] MEDS ORDERED: LIDOCAINE HCL 1% 10 MG/ML 10ML VIAL ONE (09:17)
[2021-01-22] MEDS ORDERED: MAGNESIUM 2 G PREMIX 50 ML IV NR (11:00)
[2021-01-22] MEDS ORDERED: POTASSIUM PHOS,M-BASIC-D-BASIC 20 MMOL in DEXT 5% WATER 243.3333 ML IV NR (11:30)
[2021-01-22 13:26] LABS: PLATELET ESTIMATE SLIGHTLY INCREASED
[2021-01-22] MEDS: VANCOMYCIN 750 MG PREMIX 150 ML IV SCH (15:47)
[2021-01-22] MEDS: SENNOSIDES/DOCUSATE SOD 8.6/50MG TABLET PO SCH (21:08)
[2021-01-23] VITALS (48 sets, daily range): BP systolic 124–180; BP diastolic 52–109
[2021-01-23] MEDS: METOCLOPRAMIDE HCL 10MG/2ML VIAL IV SCH ×5 (00:17→23:47)
[2021-01-23] MEDS: POLYVINYL ALCOHOL OPHTH DROPS 15ML BOTHEYE SCH ×5 (00:19→23:47)
[2021-01-23] MEDS: DILTIAZEM HCL 60MG TABLET PO SCH ×5 (00:19→23:48)
[2021-01-23] MEDS: PREDNISOLONE ACETATE 1% OPHTH DROPS 5ML LEFTEYE SCH ×5 (00:20→23:47)
[2021-01-23] MEDS: IPRATROPIUM/ALBUTEROL 0.5-3(2.5)MG/3ML NEB HHN SCH ×6 (00:22→21:08)
[2021-01-23] MEDS: GUAIFENESIN 200MG/10ML SUGAR FREE UDC PO SCH ×4 (03:47→20:31)
[2021-01-23] MEDS: CLONIDINE 0.1MG TABLET PO PRN ×2 (03:48→08:36)
[2021-01-23] MEDS: HYDRALAZINE HCL 100MG TABLET PO SCH ×3 (06:00→21:50)
[2021-01-23] MEDS: CEFEPIME 2,000 MG in DEXT 5% WATER 100 ML IV SCH ×3 (06:04→21:49)
[2021-01-23 06:05] LABS: CHLORIDE 112 mEq/L (98-107)
[2021-01-23] MEDS: LACTULOSE 20G/30ML UDC PO SCH ×3 (06:05→21:51)
[2021-01-23] MEDS: CLONIDINE 0.3MG TABLET PO SCH ×3 (06:05→21:49)
[2021-01-23 06:07] LABS: MEAN CORPUSCULAR HEMOGLOBIN 26.5 pg (28.0-32.0); MEAN CORPUSCULAR VOLUME 83.2 fL (80.0-94.0); MEAN PLATELET VOLUME 7.4 fl (7.4-10.4); PLATELET 378 x1000/uL (130-400); RED BLOOD CELL COUNT 2.52 mill/uL (4.7-6.1); RED CELL DISTRIBUTION WIDTH 13.9 % (11.6-14.6)
[2021-01-23 06:11] LABS: PHOSPHORUS 2.9 mg/dL (2.5-4.9)
[2021-01-23 06:13] LABS: HEMOGLOBIN. 6.7 g/dL (14.0-18.0)
[2021-01-23] MEDS: BLOOD SUGAR DIAGNOSTIC STRIP TEST SCH ×4 (07:41→20:31)
[2021-01-23] MEDS: INSULIN LISPRO 100 UNITS/ML SUBCUT SCH ×4 (07:41→20:31)
[2021-01-23] MEDS: LEVETIRACETAM 500MG/5ML CUP PO SCH ×2 (08:35→20:26)
[2021-01-23] MEDS: PANTOPRAZOLE SODIUM 40 MG/VIAL IV SCH ×2 (08:37→17:41)
[2021-01-23] MEDS: PHENYTOIN 100 MG/4 ML UDC NG SCH ×2 (08:37→17:41)
[2021-01-23] MEDS: DOXAZOSIN MESYLATE 4MG TABLET PO SCH ×2 (08:37→20:27)
[2021-01-23] MEDS: CITRIC ACID/SODIUM CITRATE SOLN 30ML UDC PO SCH ×3 (08:37→17:41)
[2021-01-23] MEDS: METOPROLOL TARTRATE 100MG TABLET PO SCH ×2 (08:38→20:27)
[2021-01-23] MEDS: MINOXIDIL 2.5MG TABLET PO SCH ×2 (08:38→20:26)
[2021-01-23] MEDS: DOCUSATE SODIUM SUGAR FREE 100MG/10ML UDC NG SCH (08:39)
[2021-01-23 10:47] LABS: NUCLEATED RED BLOOD CELLS 1 /100 WBC
[2021-01-23 10:48] LABS: PLATELET ESTIMATE NORMAL
[2021-01-23] MEDS: VANCOMYCIN 750 MG PREMIX 150 ML IV SCH (14:28)
[2021-01-23] MEDS: FERROUS SULFATE 325MG TABLET PO SCH (17:41)
[2021-01-23] MEDS: SENNOSIDES/DOCUSATE SOD 8.6/50MG TABLET PO SCH (20:28)
[2021-01-23] MEDS: ACETAMINOPHEN 325MG TABLET PO PRN (20:28)
[2021-01-23] MEDS ORDERED: DILTIAZEM HCL 120MG CAPSULE CD 24HR PO SCH (21:00)
[2021-01-23] MEDS ORDERED: LATANOPROST 0.005% OPHTH DROPS 2.5ML EACHEYE SCH (21:00)
[2021-01-23] MEDS ORDERED: LEVETIRACETAM 250MG TABLET PO SCH (21:00)
[2021-01-23] MEDS ORDERED: CLONIDINE 0.3MG TABLET PO SCH (22:00)
[2021-01-23] MEDS ORDERED: HYDRALAZINE HCL 100MG TABLET PO SCH (22:00)
[2021-01-23] MEDS: EPOETIN ALFA-EPBX 10,000 UNIT/ML VIAL SUBCUT SCH (22:29)
[2021-01-24] VITALS (12 sets, daily range): BP systolic 130–168; BP diastolic 61–82
[2021-01-24] MEDS: IPRATROPIUM/ALBUTEROL 0.5-3(2.5)MG/3ML NEB HHN SCH ×6 (01:30→21:08)
[2021-01-24] MEDS: GUAIFENESIN 200MG/10ML SUGAR FREE UDC PO SCH ×4 (03:17→21:38)
[2021-01-24] MEDS: METOCLOPRAMIDE HCL 10MG/2ML VIAL IV SCH ×3 (05:43→17:22)
[2021-01-24] MEDS: POLYVINYL ALCOHOL OPHTH DROPS 15ML BOTHEYE SCH ×3 (05:44→17:21)
[2021-01-24] MEDS: PREDNISOLONE ACETATE 1% OPHTH DROPS 5ML LEFTEYE SCH ×3 (05:44→17:21)
[2021-01-24] MEDS: HYDRALAZINE HCL 100MG TABLET PO SCH ×3 (05:45→21:38)
[2021-01-24] MEDS: DILTIAZEM HCL 60MG TABLET PO SCH ×3 (05:45→17:22)
[2021-01-24] MEDS: CLONIDINE 0.3MG TABLET PO SCH ×3 (05:46→21:39)
[2021-01-24] MEDS: LACTULOSE 20G/30ML UDC PO SCH ×3 (05:47→21:39)
[2021-01-24] MEDS: CEFEPIME 2,000 MG in DEXT 5% WATER 100 ML IV SCH ×3 (05:49→21:40)
[2021-01-24] MEDS: BLOOD SUGAR DIAGNOSTIC STRIP TEST SCH ×4 (06:25→21:08)
[2021-01-24] MEDS: INSULIN LISPRO 100 UNITS/ML SUBCUT SCH ×4 (07:20→21:00)
[2021-01-24 07:51] LABS: MEAN CORPUSCULAR HEMOGLOBIN 27.5 pg (28.0-32.0); MEAN CORPUSCULAR VOLUME 83.5 fL (80.0-94.0); MEAN PLATELET VOLUME 7.4 fl (7.4-10.4); PLATELET 355 x1000/uL (130-400); RED BLOOD CELL COUNT 2.29 mill/uL (4.7-6.1); RED CELL DISTRIBUTION WIDTH 13.7 % (11.6-14.6)
[2021-01-24] MEDS: DOCUSATE SODIUM SUGAR FREE 100MG/10ML UDC NG SCH (08:01)
[2021-01-24] MEDS: CITRIC ACID/SODIUM CITRATE SOLN 30ML UDC PO SCH ×3 (08:01→17:22)
[2021-01-24] MEDS: PANTOPRAZOLE SODIUM 40 MG/VIAL IV SCH ×2 (08:01→17:21)
[2021-01-24] MEDS: PHENYTOIN 100 MG/4 ML UDC NG SCH ×2 (08:01→17:22)
[2021-01-24] MEDS: METOPROLOL TARTRATE 100MG TABLET PO SCH ×2 (08:02→21:09)
[2021-01-24] MEDS: DOXAZOSIN MESYLATE 4MG TABLET PO SCH ×2 (08:02→21:10)
[2021-01-24] MEDS: FERROUS SULFATE 325MG TABLET PO SCH ×3 (08:02→17:22)
[2021-01-24] MEDS: MINOXIDIL 2.5MG TABLET PO SCH ×2 (08:03→21:09)
[2021-01-24 08:06] LABS: CHLORIDE 113 mEq/L (98-107)
[2021-01-24 08:14] LABS: HEMOGLOBIN. 6.3 g/dL (14.0-18.0)
[2021-01-24 08:15] LABS: HEMATOCRIT. 19.1 % (42.0-52.0)
[2021-01-24] MEDS ORDERED: ZONISAMIDE 100MG CAPSULE PO SCH (09:00)
[2021-01-24] MEDS ORDERED: LOSARTAN POTASSIUM 100 MG TABLET PO SCH (09:00)
[2021-01-24] MEDS ORDERED: POTASSIUM CHLORIDE 20MEQ TABLET SR PO NR (09:00)
[2021-01-24] MEDS ORDERED: CHLORTHALIDONE 25MG TABLET PO SCH (09:00)
[2021-01-24] MEDS ORDERED: DORZOLAMIDE 2% OPHTH 10 ML BOTTLE EACHEYE SCH (09:00)
[2021-01-24] MEDS: CITALOPRAM HYDROBROMIDE 10MG TABLET PO SCH (10:55)
[2021-01-24] MEDS: LEVETIRACETAM 500MG/5ML CUP PO SCH ×2 (10:55→21:07)
[2021-01-24] MEDS: ACETAMINOPHEN 325MG TABLET PO PRN (14:34)
[2021-01-24] MEDS: SENNOSIDES/DOCUSATE SOD 8.6/50MG TABLET PO SCH (21:07)
[2021-01-24 21:22] LABS: PLATELET ESTIMATE NORMAL
[2021-01-25] VITALS: BP 116/60
[2021-01-25] MEDS: POLYVINYL ALCOHOL OPHTH DROPS 15ML BOTHEYE SCH ×4 (00:26→17:10)
[2021-01-25] MEDS: METOCLOPRAMIDE HCL 10MG/2ML VIAL IV SCH ×4 (00:26→17:10)
[2021-01-25] MEDS: PREDNISOLONE ACETATE 1% OPHTH DROPS 5ML LEFTEYE SCH ×4 (00:26→12:33)
[2021-01-25] MEDS: DILTIAZEM HCL 60MG TABLET PO SCH ×4 (00:30→12:33)
[2021-01-25] MEDS: IPRATROPIUM/ALBUTEROL 0.5-3(2.5)MG/3ML NEB HHN SCH ×4 (00:55→21:08)
[2021-01-25 02:00] VITALS: BP 122/63
[2021-01-25] MEDS: GUAIFENESIN 200MG/10ML SUGAR FREE UDC PO SCH ×4 (03:18→21:00)
[2021-01-25 04:00] VITALS: BP 134/35
[2021-01-25] MEDS: CEFEPIME 2,000 MG in DEXT 5% WATER 100 ML IV SCH ×3 (05:43→22:26)
[2021-01-25] MEDS: HYDRALAZINE HCL 100MG TABLET PO SCH ×3 (05:50→22:00)
[2021-01-25] MEDS: CLONIDINE 0.3MG TABLET PO SCH ×3 (05:50→22:00)
[2021-01-25] MEDS: LACTULOSE 20G/30ML UDC PO SCH ×3 (05:50→22:00)
[2021-01-25 06:00] VITALS: BP 110/48
[2021-01-25] MEDS: BLOOD SUGAR DIAGNOSTIC STRIP TEST SCH ×4 (06:49→21:00)
[2021-01-25] MEDS: INSULIN LISPRO 100 UNITS/ML SUBCUT SCH ×4 (07:20→21:00)
[2021-01-25 07:24] LABS: MEAN CORPUSCULAR HEMOGLOBIN 27.5 pg (28.0-32.0); MEAN CORPUSCULAR VOLUME 84.3 fL (80.0-94.0); MEAN PLATELET VOLUME 7.1 fl (7.4-10.4); PLATELET 375 x1000/uL (130-400); RED BLOOD CELL COUNT 2.31 mill/uL (4.7-6.1); RED CELL DISTRIBUTION WIDTH 13.8 % (11.6-14.6)
[2021-01-25 07:31] LABS: CHLORIDE 113 mEq/L (98-107)
[2021-01-25 08:00] VITALS: BP 120/65
[2021-01-25 08:01] LABS: HEMATOCRIT. 19.4 % (42.0-52.0); HEMOGLOBIN. 6.3 g/dL (14.0-18.0)
[2021-01-25] MEDS: PANTOPRAZOLE SODIUM 40 MG/VIAL IV SCH ×2 (08:49→17:10)
[2021-01-25] MEDS: LEVETIRACETAM 500MG/5ML CUP PO SCH ×2 (08:49→21:00)
[2021-01-25] MEDS: DOCUSATE SODIUM SUGAR FREE 100MG/10ML UDC NG SCH (08:49)
[2021-01-25] MEDS: PHENYTOIN 100 MG/4 ML UDC NG SCH ×2 (08:49→17:10)
[2021-01-25] MEDS: VANCOMYCIN 1250MG in DEXTROSE 5% WATER 250ML IV SCH (08:49)
[2021-01-25] MEDS: CITRIC ACID/SODIUM CITRATE SOLN 30ML UDC PO SCH ×3 (08:49→12:33)
[2021-01-25] MEDS: FERROUS SULFATE 325MG TABLET PO SCH ×3 (08:49→12:32)
[2021-01-25] MEDS: METOPROLOL TARTRATE 100MG TABLET PO SCH ×2 (08:50→21:00)
[2021-01-25] MEDS: CITALOPRAM HYDROBROMIDE 10MG TABLET PO SCH (08:50)
[2021-01-25] MEDS: DOXAZOSIN MESYLATE 4MG TABLET PO SCH ×2 (08:50→21:00)
[2021-01-25] MEDS: MINOXIDIL 2.5MG TABLET PO SCH ×2 (08:50→21:00)
[2021-01-25] MEDS ORDERED: POTASSIUM CHLORIDE 20MEQ/PACKET PO NR (09:15)
[2021-01-25 13:37] LABS: PLATELET ESTIMATE NORMAL
[2021-01-25 20:00] VITALS: BP 137/68
[2021-01-25] MEDS: SENNOSIDES/DOCUSATE SOD 8.6/50MG TABLET PO SCH (21:00)
[2021-01-25] MEDS: EPOETIN ALFA-EPBX 10,000 UNIT/ML VIAL SUBCUT SCH (22:22)
[2021-01-26] VITALS: BP 126/45
[2021-01-26] MEDS: METOCLOPRAMIDE HCL 10MG/2ML VIAL IV SCH ×5 (01:20→23:43)
[2021-01-26] MEDS: GUAIFENESIN 200MG/10ML SUGAR FREE UDC PO SCH ×4 (03:00→20:55)
[2021-01-26 04:00] VITALS: BP 138/66
[2021-01-26] MEDS: IPRATROPIUM/ALBUTEROL 0.5-3(2.5)MG/3ML NEB HHN SCH ×8 (04:00→20:00)
[2021-01-26] MEDS: DILTIAZEM HCL 60MG TABLET PO SCH ×4 (06:00→17:06)
[2021-01-26] MEDS: HYDRALAZINE HCL 100MG TABLET PO SCH ×3 (06:00→21:13)
[2021-01-26] MEDS: LACTULOSE 20G/30ML UDC PO SCH ×3 (06:00→21:13)
[2021-01-26] MEDS: CLONIDINE 0.3MG TABLET PO SCH ×2 (06:00→14:00)
[2021-01-26] MEDS: INSULIN LISPRO 100 UNITS/ML SUBCUT SCH ×4 (06:21→20:56)
[2021-01-26] MEDS: BLOOD SUGAR DIAGNOSTIC STRIP TEST SCH ×4 (06:21→20:25)
[2021-01-26] MEDS: CEFEPIME 2,000 MG in DEXT 5% WATER 100 ML IV SCH ×3 (06:31→21:03)
[2021-01-26] MEDS: POLYVINYL ALCOHOL OPHTH DROPS 15ML BOTHEYE SCH ×5 (06:31→23:42)
[2021-01-26] MEDS: PREDNISOLONE ACETATE 1% OPHTH DROPS 5ML LEFTEYE SCH ×5 (06:31→23:43)
[2021-01-26 07:58] LABS: CHLORIDE 113 mEq/L (98-107)
[2021-01-26 08:00] VITALS: BP 161/74
[2021-01-26 08:11] LABS: PHOSPHORUS 1.8 mg/dL (2.5-4.9)
[2021-01-26 08:39] LABS: MEAN CORPUSCULAR HEMOGLOBIN 26.9 pg (28.0-32.0); MEAN CORPUSCULAR VOLUME 83.5 fL (80.0-94.0); MEAN PLATELET VOLUME 7.3 fl (7.4-10.4); PLATELET 384 x1000/uL (130-400); RED BLOOD CELL COUNT 2.43 mill/uL (4.7-6.1)
[2021-01-26] MEDS ORDERED: POTASSIUM CHLORIDE 20MEQ/PACKET PO NR (08:45)
[2021-01-26] MEDS: PHENYTOIN 100 MG/4 ML UDC NG SCH ×2 (08:52→17:00)
[2021-01-26] MEDS: CITRIC ACID/SODIUM CITRATE SOLN 30ML UDC PO SCH ×3 (08:52→17:00)
[2021-01-26] MEDS: LEVETIRACETAM 500MG/5ML CUP PO SCH ×2 (08:53→20:54)
[2021-01-26] MEDS: DOCUSATE SODIUM SUGAR FREE 100MG/10ML UDC NG SCH (08:54)
[2021-01-26] MEDS: PANTOPRAZOLE SODIUM 40 MG/VIAL IV SCH ×2 (08:54→17:27)
[2021-01-26] MEDS: MINOXIDIL 2.5MG TABLET PO SCH ×2 (08:54→20:54)
[2021-01-26] MEDS: METOPROLOL TARTRATE 100MG TABLET PO SCH ×2 (08:55→20:54)
[2021-01-26] MEDS: CITALOPRAM HYDROBROMIDE 10MG TABLET PO SCH (08:55)
[2021-01-26] MEDS: DOXAZOSIN MESYLATE 4MG TABLET PO SCH ×2 (08:55→20:53)
[2021-01-26] MEDS: FERROUS SULFATE 325MG TABLET PO SCH ×3 (08:55→17:06)
[2021-01-26 08:57] LABS: HEMATOCRIT. 20.3 % (42.0-52.0); HEMOGLOBIN. 6.5 g/dL (14.0-18.0)
[2021-01-26] MEDS ORDERED: POTASSIUM PHOS,M-BASIC-D-BASIC 20 MMOL in DEXT 5% WATER 243.3333 ML IV SCH (10:00)
[2021-01-26 12:00] VITALS: BP 175/89
[2021-01-26] MEDS: CLONIDINE HCL 0.2MG/24HR PATCH TD SCH (15:32)
[2021-01-26 16:00] VITALS: BP 145/70
[2021-01-26 16:31] LABS: NUCLEATED RED BLOOD CELLS 1 /100 WBC
[2021-01-26 16:32] LABS: PLATELET ESTIMATE NORMAL
[2021-01-26 20:35] VITALS: BP 147/78
[2021-01-26] MEDS: SENNOSIDES/DOCUSATE SOD 8.6/50MG TABLET PO SCH (20:55)
[2021-01-27 00:07] VITALS: BP 175/85
[2021-01-27] MEDS: GUAIFENESIN 200MG/10ML SUGAR FREE UDC PO SCH ×4 (03:00→21:00)
[2021-01-27 04:00] VITALS: BP 152/68
[2021-01-27] MEDS: METOCLOPRAMIDE HCL 10MG/2ML VIAL IV SCH ×4 (05:08→23:14)
[2021-01-27] MEDS: POLYVINYL ALCOHOL OPHTH DROPS 15ML BOTHEYE SCH ×4 (05:09→23:10)
[2021-01-27] MEDS: PREDNISOLONE ACETATE 1% OPHTH DROPS 5ML LEFTEYE SCH ×4 (05:09→23:11)
[2021-01-27] MEDS: HYDRALAZINE HCL 100MG TABLET PO SCH ×3 (05:48→21:17)
[2021-01-27] MEDS: DILTIAZEM HCL 60MG TABLET PO SCH ×4 (05:49→16:54)
[2021-01-27] MEDS: LACTULOSE 20G/30ML UDC PO SCH ×3 (05:50→21:17)
[2021-01-27] MEDS: BLOOD SUGAR DIAGNOSTIC STRIP TEST SCH ×4 (05:57→21:00)
[2021-01-27] MEDS: INSULIN LISPRO 100 UNITS/ML SUBCUT SCH ×4 (06:41→21:00)
[2021-01-27] MEDS: FERROUS SULFATE 325MG TABLET PO SCH ×3 (07:10→16:53)
[2021-01-27] MEDS: DOCUSATE SODIUM SUGAR FREE 100MG/10ML UDC NG SCH (07:52)
[2021-01-27] MEDS: PHENYTOIN 100 MG/4 ML UDC NG SCH ×2 (07:52→16:53)
[2021-01-27] MEDS: DOXAZOSIN MESYLATE 4MG TABLET PO SCH ×2 (07:52→21:00)
[2021-01-27] MEDS: CITRIC ACID/SODIUM CITRATE SOLN 30ML UDC PO SCH ×3 (07:52→16:53)
[2021-01-27] MEDS: CITALOPRAM HYDROBROMIDE 10MG TABLET PO SCH (07:53)
[2021-01-27] MEDS: METOPROLOL TARTRATE 100MG TABLET PO SCH ×2 (07:53→21:00)
[2021-01-27] MEDS: MINOXIDIL 2.5MG TABLET PO SCH ×2 (07:53→21:00)
[2021-01-27] MEDS: LEVETIRACETAM 500MG/5ML CUP PO SCH ×2 (07:53→21:00)
[2021-01-27 08:00] VITALS: BP 176/91
[2021-01-27] MEDS: PANTOPRAZOLE SODIUM 40 MG/VIAL IV SCH ×4 (08:39→21:10)
[2021-01-27] MEDS: VANCOMYCIN 1250MG in DEXTROSE 5% WATER 250ML IV SCH (08:39)
[2021-01-27] MEDS: IPRATROPIUM/ALBUTEROL 0.5-3(2.5)MG/3ML NEB HHN SCH ×4 (08:42→20:53)
[2021-01-27 09:37] LABS: MEAN CORPUSCULAR HEMOGLOBIN 27.7 pg (28.0-32.0); MEAN CORPUSCULAR VOLUME 83.4 fL (80.0-94.0); MEAN PLATELET VOLUME 6.7 fl (7.4-10.4); PLATELET 358 x1000/uL (130-400); RED BLOOD CELL COUNT 2.51 mill/uL (4.7-6.1)
[2021-01-27 09:58] LABS: CHLORIDE 115 mEq/L (98-107)
[2021-01-27 10:00] LABS: HEMATOCRIT. 20.9 % (42.0-52.0); HEMOGLOBIN. 6.9 g/dL (14.0-18.0)
[2021-01-27] MEDS: HYDRALAZINE 20MG/ML VIAL IV PRN ×2 (10:00→17:47)
[2021-01-27 10:13] LABS: PHOSPHORUS 1.8 mg/dL (2.5-4.9)
[2021-01-27 11:29] LABS: PLATELET ESTIMATE NORMAL
[2021-01-27 12:00] VITALS: BP 170/80
[2021-01-27 16:00] VITALS: BP 174/85
[2021-01-27] MEDS: SODIUM CHLORIDE 0.45% 1,000 ML IV SCH (17:26)
[2021-01-27] MEDS ORDERED: POTASSIUM CHLORIDE INJ 40 MEQ in DEXT 5% WATER 250 ML IV ONE (19:30)
[2021-01-27 20:00] VITALS: BP 141/65
[2021-01-27] MEDS ORDERED: MAGNESIUM 2 G PREMIX 50 ML IV NR (20:30)
[2021-01-27] MEDS: KCL 20MEQ/100ML PREMIX 100 ML IV SCH ×2 (20:55→23:05)
[2021-01-27] MEDS: SENNOSIDES/DOCUSATE SOD 8.6/50MG TABLET PO SCH (21:00)
[2021-01-27] MEDS: EPOETIN ALFA-EPBX 10,000 UNIT/ML VIAL SUBCUT SCH (21:11)
[2021-01-28] VITALS (7 sets, daily range): BP systolic 127–176; BP diastolic 69–87
[2021-01-28] MEDS: IPRATROPIUM/ALBUTEROL 0.5-3(2.5)MG/3ML NEB HHN SCH ×3 (02:05→21:07)
[2021-01-28] MEDS: GUAIFENESIN 200MG/10ML SUGAR FREE UDC PO SCH ×4 (03:00→22:11)
[2021-01-28] MEDS: LACTULOSE 20G/30ML UDC PO SCH ×3 (06:00→22:12)
[2021-01-28] MEDS: DILTIAZEM HCL 60MG TABLET PO SCH ×4 (06:00→23:46)
[2021-01-28] MEDS: HYDRALAZINE HCL 100MG TABLET PO SCH ×3 (06:00→22:10)
[2021-01-28] MEDS: METOCLOPRAMIDE HCL 10MG/2ML VIAL IV SCH ×4 (06:43→23:48)
[2021-01-28] MEDS: FERROUS SULFATE 325MG TABLET PO SCH ×3 (06:43→18:44)
[2021-01-28] MEDS: PREDNISOLONE ACETATE 1% OPHTH DROPS 5ML LEFTEYE SCH ×4 (06:45→23:46)
[2021-01-28] MEDS: POLYVINYL ALCOHOL OPHTH DROPS 15ML BOTHEYE SCH ×4 (06:45→23:46)
[2021-01-28] MEDS: INSULIN LISPRO 100 UNITS/ML SUBCUT SCH ×4 (06:45→21:00)
[2021-01-28] MEDS: BLOOD SUGAR DIAGNOSTIC STRIP TEST SCH ×4 (06:46→21:00)
[2021-01-28 06:55] LABS: INR 1.3; PARTIAL THROMBOPLASTIN TIME 37.3 sec (23.4-31.0); PROTHROMBIN TIME 13.6 sec (9.6-11.0)
[2021-01-28 06:57] LABS: HEMATOCRIT. 21.8 % (42.0-52.0); HEMOGLOBIN. 7.1 g/dL (14.0-18.0); MEAN CORPUSCULAR HEMOGLOBIN 27.4 pg (28.0-32.0); MEAN CORPUSCULAR VOLUME 83.5 fL (80.0-94.0); MEAN PLATELET VOLUME 6.7 fl (7.4-10.4); PLATELET 367 x1000/uL (130-400); RED BLOOD CELL COUNT 2.61 mill/uL (4.7-6.1); RED CELL DISTRIBUTION WIDTH 14.3 % (11.6-14.6)
[2021-01-28 07:11] LABS: CHLORIDE 115 mEq/L (98-107)
[2021-01-28] MEDS: CITRIC ACID/SODIUM CITRATE SOLN 30ML UDC PO SCH ×3 (09:00→18:46)
[2021-01-28] MEDS: PHENYTOIN 100 MG/4 ML UDC NG SCH ×2 (09:00→18:46)
[2021-01-28] MEDS: DOCUSATE SODIUM SUGAR FREE 100MG/10ML UDC NG SCH (09:00)
[2021-01-28] MEDS: LEVETIRACETAM 500MG/5ML CUP PO SCH ×2 (09:00→22:11)
[2021-01-28] MEDS: PANTOPRAZOLE SODIUM 40 MG/VIAL IV SCH ×3 (09:00→22:09)
[2021-01-28] MEDS: DOXAZOSIN MESYLATE 4MG TABLET PO SCH ×2 (09:00→22:10)
[2021-01-28] MEDS ORDERED: POTASSIUM CHLORIDE INJ 40 MEQ in DEXT 5% WATER 250 ML IV ONE (09:30)
[2021-01-28] MEDS: SODIUM CHLORIDE 0.45% 1,000 ML IV SCH (09:48)
[2021-01-28] MEDS ORDERED: POTASSIUM CHLORIDE 20MEQ/PACKET PO SCH (10:00)
[2021-01-28 10:07] LABS: NUCLEATED RED BLOOD CELLS 1 /100 WBC; PLATELET ESTIMATE NORMAL
[2021-01-28] MEDS: HYDRALAZINE 20MG/ML VIAL IV PRN (11:22)
[2021-01-28] MEDS ORDERED: KCL 20MEQ/100ML PREMIX 100 ML IV SCH (12:00)
[2021-01-28] MEDS ORDERED: CEFAZOLIN 1000MG PREMIX 50 ML IV SCH (12:00)
[2021-01-28] MEDS: MINOXIDIL 2.5MG TABLET PO SCH ×3 (18:45→23:47)
[2021-01-28] MEDS: CITALOPRAM HYDROBROMIDE 10MG TABLET PO SCH (18:45)
[2021-01-28] MEDS: METOPROLOL TARTRATE 100MG TABLET PO SCH ×2 (18:45→22:11)
[2021-01-28 20:19] LABS: INR 1.3
[2021-01-28] MEDS: ACETAMINOPHEN 325MG TABLET PO PRN (21:59)
[2021-01-28] MEDS: SENNOSIDES/DOCUSATE SOD 8.6/50MG TABLET PO SCH (22:11)
[2021-01-28] MEDS: DEXT 5%/0.45% NACL 1000ML 1,000 ML IV SCH (23:47)
[2021-01-29] VITALS (7 sets, daily range): BP systolic 131–164; BP diastolic 62–77
[2021-01-29] MEDS: GUAIFENESIN 200MG/10ML SUGAR FREE UDC PO SCH ×4 (03:28→21:28)
[2021-01-29] MEDS: PREDNISOLONE ACETATE 1% OPHTH DROPS 5ML LEFTEYE SCH ×4 (05:53→23:45)
[2021-01-29] MEDS: POLYVINYL ALCOHOL OPHTH DROPS 15ML BOTHEYE SCH ×4 (05:54→23:45)
[2021-01-29] MEDS: LACTULOSE 20G/30ML UDC PO SCH ×3 (05:54→21:28)
[2021-01-29] MEDS: BLOOD SUGAR DIAGNOSTIC STRIP TEST SCH ×4 (05:55→20:30)
[2021-01-29] MEDS: HYDRALAZINE HCL 100MG TABLET PO SCH ×3 (05:55→21:29)
[2021-01-29] MEDS: DILTIAZEM HCL 60MG TABLET PO SCH ×4 (05:55→23:43)
[2021-01-29] MEDS: METOCLOPRAMIDE HCL 10MG/2ML VIAL IV SCH ×4 (05:55→23:49)
[2021-01-29 06:16] LABS: BASOPHILS % 0.8 % (0.0-2.0); EOSINOPHILS % 2.5 % (0.0-5.0); HEMATOCRIT. 22.4 % (42.0-52.0); HEMOGLOBIN. 7.2 g/dL (14.0-18.0); LYMPHOCYTES % 8.5 % (20.0-50.0); MEAN CORPUSCULAR VOLUME 84.4 fL (80.0-94.0); NEUTROPHILS % 78.2 % (40.0-76.0); PLATELET 316 x1000/uL (130-400); RED BLOOD CELL COUNT 2.66 mill/uL (4.7-6.1); RED CELL DISTRIBUTION WIDTH 15.4 % (11.6-14.6)
[2021-01-29 06:22] LABS: CHLORIDE 113 mEq/L (98-107)
[2021-01-29] MEDS: FERROUS SULFATE 325MG TABLET PO SCH ×3 (06:25→18:13)
[2021-01-29] MEDS: INSULIN LISPRO 100 UNITS/ML SUBCUT SCH ×4 (06:25→21:00)
[2021-01-29] MEDS: VANCOMYCIN 1250MG in DEXTROSE 5% WATER 250ML IV SCH (08:50)
[2021-01-29] MEDS: DOXAZOSIN MESYLATE 4MG TABLET PO SCH ×2 (08:51→21:29)
[2021-01-29] MEDS: METOPROLOL TARTRATE 100MG TABLET PO SCH ×2 (08:51→20:29)
[2021-01-29] MEDS: MINOXIDIL 2.5MG TABLET PO SCH ×2 (08:51→21:30)
[2021-01-29] MEDS: DOCUSATE SODIUM SUGAR FREE 100MG/10ML UDC NG SCH (08:51)
[2021-01-29] MEDS: CITALOPRAM HYDROBROMIDE 10MG TABLET PO SCH (08:51)
[2021-01-29] MEDS: CITRIC ACID/SODIUM CITRATE SOLN 30ML UDC PO SCH ×3 (08:52→18:12)
[2021-01-29] MEDS: PANTOPRAZOLE SODIUM 40 MG/VIAL IV SCH ×2 (08:52→21:28)
[2021-01-29] MEDS: PHENYTOIN 100 MG/4 ML UDC NG SCH ×2 (08:52→18:12)
[2021-01-29] MEDS: LEVETIRACETAM 500MG/5ML CUP PO SCH ×2 (08:52→21:28)
[2021-01-29] MEDS: DEXT 5%/0.45% NACL 1000ML 1,000 ML IV SCH ×2 (13:06→23:49)
[2021-01-29] MEDS ORDERED: FENTANYL CITRATE/PF 50MCG/ML 2ML VIAL ONE (16:04)
[2021-01-29] MEDS ORDERED: MIDAZOLAM HCL 5 MG/5 ML VIAL ONE (16:04)
[2021-01-29] MEDS ORDERED: MIDAZOLAM HCL 5 MG/5 ML VIAL IV PRN (16:36)
[2021-01-29] MEDS ORDERED: FENTANYL CITRATE/PF 50MCG/ML 2ML VIAL IV PRN (16:38)
[2021-01-29] MEDS ORDERED: DIAZEPAM 5 MG/ML 2ML CPJ IV PRN (16:40)
[2021-01-29] MEDS ORDERED: DIAZEPAM 5 MG/ML 2ML CPJ ONE (16:49)
[2021-01-29] MEDS ORDERED: PHYTONADIONE 10MG/ML AMP SUBCUT NR (19:00)
[2021-01-29] MEDS: SENNOSIDES/DOCUSATE SOD 8.6/50MG TABLET PO SCH (21:29)
[2021-01-29] MEDS: IPRATROPIUM/ALBUTEROL 0.5-3(2.5)MG/3ML NEB HHN SCH (21:50)
[2021-01-30] VITALS: BP 139/72
[2021-01-30] MEDS: IPRATROPIUM/ALBUTEROL 0.5-3(2.5)MG/3ML NEB HHN SCH ×7 (01:06→21:28)
[2021-01-30] MEDS: GUAIFENESIN 200MG/10ML SUGAR FREE UDC PO SCH ×4 (03:37→20:57)
[2021-01-30 04:00] VITALS: BP 117/65
[2021-01-30] MEDS: LACTULOSE 20G/30ML UDC PO SCH ×3 (05:06→21:06)
[2021-01-30] MEDS: POLYVINYL ALCOHOL OPHTH DROPS 15ML BOTHEYE SCH ×3 (05:07→17:33)
[2021-01-30] MEDS: HYDRALAZINE HCL 100MG TABLET PO SCH ×3 (05:07→21:06)
[2021-01-30] MEDS: DILTIAZEM HCL 60MG TABLET PO SCH (05:07)
[2021-01-30] MEDS: METOCLOPRAMIDE HCL 10MG/2ML VIAL IV SCH ×3 (05:07→17:34)
[2021-01-30] MEDS: PREDNISOLONE ACETATE 1% OPHTH DROPS 5ML LEFTEYE SCH ×3 (05:07→17:33)
[2021-01-30] MEDS: BLOOD SUGAR DIAGNOSTIC STRIP TEST SCH ×4 (05:53→21:07)
[2021-01-30] MEDS: INSULIN LISPRO 100 UNITS/ML SUBCUT SCH ×4 (05:53→20:59)
[2021-01-30] MEDS: FERROUS SULFATE 325MG TABLET PO SCH ×3 (06:13→17:33)
[2021-01-30 07:54] LABS: BASOPHILS % 0.8 % (0.0-2.0); EOSINOPHILS % 2.4 % (0.0-5.0); HEMATOCRIT. 22.7 % (42.0-52.0); HEMOGLOBIN. 7.1 g/dL (14.0-18.0); LYMPHOCYTES % 7.7 % (20.0-50.0); MEAN CORPUSCULAR HEMOGLOBIN 26.5 pg (28.0-32.0); MEAN CORPUSCULAR VOLUME 84.5 fL (80.0-94.0); MEAN PLATELET VOLUME 6.9 fl (7.4-10.4); MONOCYTES % 9.2 % (2.0-8.0); NEUTROPHILS % 79.9 % (40.0-76.0); PLATELET 285 x1000/uL (130-400); RED BLOOD CELL COUNT 2.69 mill/uL (4.7-6.1); RED CELL DISTRIBUTION WIDTH 15.2 % (11.6-14.6)
[2021-01-30 07:59] LABS: CHLORIDE 110 mEq/L (98-107)
[2021-01-30 08:00] VITALS: BP 142/80
[2021-01-30] MEDS: METOPROLOL TARTRATE 100MG TABLET PO SCH (09:00)
[2021-01-30] MEDS ORDERED: PHYTONADIONE 10MG/ML AMP SUBCUT NR (09:00)
[2021-01-30] MEDS: PANTOPRAZOLE SODIUM 40 MG/VIAL IV SCH ×2 (09:53→20:57)
[2021-01-30] MEDS: DOCUSATE SODIUM SUGAR FREE 100MG/10ML UDC NG SCH (09:53)
[2021-01-30] MEDS: CITRIC ACID/SODIUM CITRATE SOLN 30ML UDC PO SCH ×3 (09:54→17:36)
[2021-01-30] MEDS: PHENYTOIN 100 MG/4 ML UDC NG SCH ×2 (09:54→17:36)
[2021-01-30] MEDS: CITALOPRAM HYDROBROMIDE 10MG TABLET PO SCH (09:55)
[2021-01-30] MEDS: DOXAZOSIN MESYLATE 4MG TABLET PO SCH ×2 (09:55→20:56)
[2021-01-30] MEDS: LEVETIRACETAM 500MG/5ML CUP PO SCH ×2 (09:55→20:58)
[2021-01-30] MEDS ORDERED: POTASSIUM CHLORIDE 20MEQ/PACKET PEG NR (10:00)
[2021-01-30] MEDS: MINOXIDIL 2.5MG TABLET PO SCH ×2 (10:11→20:57)
[2021-01-30 11:10] LABS: PHOSPHORUS 2.2 mg/dL (2.5-4.9)
[2021-01-30 12:00] VITALS: BP 139/74
[2021-01-30] MEDS ORDERED: MAGNESIUM 2 G PREMIX 50 ML IV SCH (13:00)
[2021-01-30] MEDS ORDERED: POTASSIUM PHOS,M-BASIC-D-BASIC 10 MMOL in DEXT 5% WATER 246.6667 ML IV SCH (13:00)
[2021-01-30] MEDS: DEXT 5%/0.45% NACL 1000ML 1,000 ML IV SCH (13:28)
[2021-01-30 16:00] VITALS: BP 128/63
[2021-01-30 20:00] VITALS: BP 124/60
[2021-01-30] MEDS: SENNOSIDES/DOCUSATE SOD 8.6/50MG TABLET PO SCH (21:06)
[2021-01-31] VITALS: BP 126/69
[2021-01-31] MEDS: PREDNISOLONE ACETATE 1% OPHTH DROPS 5ML LEFTEYE SCH ×5 (00:30→23:01)
[2021-01-31] MEDS: METOCLOPRAMIDE HCL 10MG/2ML VIAL IV SCH ×5 (00:30→23:01)
[2021-01-31] MEDS: POLYVINYL ALCOHOL OPHTH DROPS 15ML BOTHEYE SCH ×5 (00:30→23:01)
[2021-01-31] MEDS: DEXT 5%/0.45% NACL 1000ML 1,000 ML IV SCH ×2 (00:31→18:07)
[2021-01-31] MEDS: GUAIFENESIN 200MG/10ML SUGAR FREE UDC PO SCH ×4 (03:28→22:27)
[2021-01-31 04:00] VITALS: BP 129/70
[2021-01-31] MEDS: IPRATROPIUM/ALBUTEROL 0.5-3(2.5)MG/3ML NEB HHN SCH ×2 (04:54→13:14)
[2021-01-31] MEDS: HYDRALAZINE HCL 100MG TABLET PO SCH ×3 (05:42→22:29)
[2021-01-31] MEDS: LACTULOSE 20G/30ML UDC PO SCH ×3 (05:43→22:28)
[2021-01-31] MEDS: INSULIN LISPRO 100 UNITS/ML SUBCUT SCH ×4 (06:08→21:00)
[2021-01-31] MEDS: BLOOD SUGAR DIAGNOSTIC STRIP TEST SCH ×4 (06:08→21:00)
[2021-01-31] MEDS: FERROUS SULFATE 325MG TABLET PO SCH ×3 (06:13→18:02)
[2021-01-31 07:41] LABS: BASOPHILS % 0.9 % (0.0-2.0); HEMATOCRIT. 23.4 % (42.0-52.0); HEMOGLOBIN. 7.3 g/dL (14.0-18.0); MEAN CORPUSCULAR HEMOGLOBIN 26.8 pg (28.0-32.0); MEAN CORPUSCULAR VOLUME 86.3 fL (80.0-94.0); MEAN PLATELET VOLUME 7.1 fl (7.4-10.4); MONOCYTES % 11.2 % (2.0-8.0); NEUTROPHILS % 74.9 % (40.0-76.0); PLATELET 278 x1000/uL (130-400); RED BLOOD CELL COUNT 2.71 mill/uL (4.7-6.1); RED CELL DISTRIBUTION WIDTH 15.6 % (11.6-14.6)
[2021-01-31 08:00] VITALS: BP 132/68
[2021-01-31 08:07] LABS: CHLORIDE 110 mEq/L (98-107)
[2021-01-31] MEDS: CITRIC ACID/SODIUM CITRATE SOLN 30ML UDC PO SCH ×3 (09:38→18:02)
[2021-01-31] MEDS: PHENYTOIN 100 MG/4 ML UDC NG SCH ×2 (09:39→18:02)
[2021-01-31] MEDS: LEVETIRACETAM 500MG/5ML CUP PO SCH ×2 (09:39→22:27)
[2021-01-31] MEDS: CITALOPRAM HYDROBROMIDE 10MG TABLET PO SCH (09:40)
[2021-01-31] MEDS: MINOXIDIL 2.5MG TABLET PO SCH ×2 (09:40→22:29)
[2021-01-31] MEDS: DOXAZOSIN MESYLATE 4MG TABLET PO SCH ×2 (09:40→22:29)
[2021-01-31] MEDS: VANCOMYCIN 1250MG in DEXTROSE 5% WATER 250ML IV SCH (10:26)
[2021-01-31] MEDS: PANTOPRAZOLE SODIUM 40 MG/VIAL IV SCH ×2 (10:26→22:30)
[2021-01-31 12:00] VITALS: BP 153/76
[2021-01-31 16:00] VITALS: BP 141/79
[2021-01-31 20:00] VITALS: BP 135/49
[2021-01-31] MEDS: SENNOSIDES/DOCUSATE SOD 8.6/50MG TABLET PO SCH (22:29)
[2021-02-01] VITALS: BP 112/53
[2021-02-01] MEDS: GUAIFENESIN 200MG/10ML SUGAR FREE UDC PO SCH ×4 (03:00→22:01)
[2021-02-01 04:00] VITALS: BP 117/63
[2021-02-01] MEDS: DEXT 5%/0.45% NACL 1000ML 1,000 ML IV SCH ×2 (04:28→16:03)
[2021-02-01] MEDS: METOCLOPRAMIDE HCL 10MG/2ML VIAL IV SCH ×3 (06:43→17:09)
[2021-02-01] MEDS: PREDNISOLONE ACETATE 1% OPHTH DROPS 5ML LEFTEYE SCH ×3 (06:44→17:09)
[2021-02-01] MEDS: HYDRALAZINE HCL 100MG TABLET PO SCH ×3 (06:44→22:02)
[2021-02-01] MEDS: LACTULOSE 20G/30ML UDC PO SCH ×3 (06:44→22:00)
[2021-02-01] MEDS: FERROUS SULFATE 325MG TABLET PO SCH ×3 (06:44→17:09)
[2021-02-01] MEDS: INSULIN LISPRO 100 UNITS/ML SUBCUT SCH ×4 (06:45→21:00)
[2021-02-01] MEDS: BLOOD SUGAR DIAGNOSTIC STRIP TEST SCH ×4 (06:45→21:00)
[2021-02-01] MEDS: POLYVINYL ALCOHOL OPHTH DROPS 15ML BOTHEYE SCH ×3 (06:45→17:09)
[2021-02-01 08:00] VITALS: BP_SYST 128; BP_SYST 140; BP_DIAS 63; BP_DIAS 69
[2021-02-01] MEDS: CITALOPRAM HYDROBROMIDE 10MG TABLET PO SCH (09:29)
[2021-02-01] MEDS: MINOXIDIL 2.5MG TABLET PO SCH ×2 (09:29→22:02)
[2021-02-01] MEDS: LEVETIRACETAM 500MG/5ML CUP PO SCH ×2 (09:30→22:01)
[2021-02-01] MEDS: PANTOPRAZOLE SODIUM 40 MG/VIAL IV SCH ×2 (09:30→22:04)
[2021-02-01] MEDS: PHENYTOIN 100 MG/4 ML UDC NG SCH ×2 (09:30→17:09)
[2021-02-01] MEDS: CITRIC ACID/SODIUM CITRATE SOLN 30ML UDC PO SCH ×3 (09:30→17:09)
[2021-02-01] MEDS: DOXAZOSIN MESYLATE 4MG TABLET PO SCH ×2 (09:30→22:02)
[2021-02-01 12:00] VITALS: BP 128/69
[2021-02-01 16:00] VITALS: BP 143/65
[2021-02-01 20:00] VITALS: BP 147/61
[2021-02-01] MEDS: SENNOSIDES/DOCUSATE SOD 8.6/50MG TABLET PO SCH (22:02)
[2021-02-01] MEDS: ACETAMINOPHEN 325MG TABLET PO PRN (22:02)
[2021-02-01] MEDS: VANCOMYCIN 1250MG in DEXTROSE 5% WATER 250ML IV SCH (22:08)
[2021-02-02] VITALS: BP 130/67
[2021-02-02] MEDS: METOCLOPRAMIDE HCL 10MG/2ML VIAL IV SCH ×4 (00:37→18:30)
[2021-02-02] MEDS: PREDNISOLONE ACETATE 1% OPHTH DROPS 5ML LEFTEYE SCH ×4 (00:38→18:30)
[2021-02-02] MEDS: POLYVINYL ALCOHOL OPHTH DROPS 15ML BOTHEYE SCH ×4 (00:39→18:30)
[2021-02-02] MEDS: DEXT 5%/0.45% NACL 1000ML 1,000 ML IV SCH ×2 (03:43→18:27)
[2021-02-02] MEDS: GUAIFENESIN 200MG/10ML SUGAR FREE UDC PO SCH ×4 (03:43→21:13)
[2021-02-02 04:00] VITALS: BP 143/70
[2021-02-02] MEDS: LACTULOSE 20G/30ML UDC PO SCH ×3 (06:16→21:13)
[2021-02-02] MEDS: INSULIN LISPRO 100 UNITS/ML SUBCUT SCH ×4 (06:16→21:00)
[2021-02-02] MEDS: BLOOD SUGAR DIAGNOSTIC STRIP TEST SCH ×4 (06:16→21:00)
[2021-02-02] MEDS: FERROUS SULFATE 325MG TABLET PO SCH ×3 (06:17→18:26)
[2021-02-02] MEDS: HYDRALAZINE HCL 100MG TABLET PO SCH ×2 (06:17→13:07)
[2021-02-02 06:51] LABS: CHLORIDE 108 mEq/L (98-107)
[2021-02-02 06:54] LABS: BASOPHILS % 0.9 % (0.0-2.0); EOSINOPHILS % 4.2 % (0.0-5.0); HEMATOCRIT. 22.6 % (42.0-52.0); HEMOGLOBIN. 7.3 g/dL (14.0-18.0); LYMPHOCYTES % 11.9 % (20.0-50.0); MEAN CORPUSCULAR HEMOGLOBIN 27.1 pg (28.0-32.0); MEAN CORPUSCULAR VOLUME 83.4 fL (80.0-94.0); MONOCYTES % 12.6 % (2.0-8.0); NEUTROPHILS % 70.4 % (40.0-76.0); PLATELET 256 x1000/uL (130-400); RED BLOOD CELL COUNT 2.71 mill/uL (4.7-6.1); RED CELL DISTRIBUTION WIDTH 14.7 % (11.6-14.6)
[2021-02-02 08:00] VITALS: BP 147/52
[2021-02-02] MEDS: CITRIC ACID/SODIUM CITRATE SOLN 30ML UDC PO SCH ×3 (09:24→18:26)
[2021-02-02] MEDS: PHENYTOIN 100 MG/4 ML UDC NG SCH ×2 (09:24→18:27)
[2021-02-02] MEDS: PANTOPRAZOLE SODIUM 40 MG/VIAL IV SCH ×2 (09:24→21:00)
[2021-02-02] MEDS: LEVETIRACETAM 500MG/5ML CUP PO SCH ×2 (09:25→21:12)
[2021-02-02] MEDS: DOXAZOSIN MESYLATE 4MG TABLET PO SCH ×2 (09:26→21:00)
[2021-02-02] MEDS: MINOXIDIL 2.5MG TABLET PO SCH ×2 (09:26→21:12)
[2021-02-02] MEDS: CITALOPRAM HYDROBROMIDE 10MG TABLET PO SCH (09:30)
[2021-02-02] MEDS: CLONIDINE HCL 0.2MG/24HR PATCH TD SCH (09:32)
[2021-02-02 12:00] VITALS: BP 149/78
[2021-02-02 16:00] VITALS: BP 160/78
[2021-02-02 20:00] VITALS: BP 158/73
[2021-02-02] MEDS: SENNOSIDES/DOCUSATE SOD 8.6/50MG TABLET PO SCH (21:10)
[2021-02-03] MEDS: PREDNISOLONE ACETATE 1% OPHTH DROPS 5ML LEFTEYE SCH ×5 (01:40→23:43)
[2021-02-03] MEDS: METOCLOPRAMIDE HCL 10MG/2ML VIAL IV SCH ×5 (01:46→23:43)
[2021-02-03] MEDS: GUAIFENESIN 200MG/10ML SUGAR FREE UDC PO SCH ×4 (03:00→21:54)
[2021-02-03 04:00] VITALS: BP 147/76
[2021-02-03] MEDS: DEXT 5%/0.45% NACL 1000ML 1,000 ML IV SCH ×2 (04:45→17:20)
[2021-02-03 06:19] LABS: CHLORIDE 107 mEq/L (98-107)
[2021-02-03] MEDS: LACTULOSE 20G/30ML UDC PO SCH ×3 (06:41→21:54)
[2021-02-03] MEDS: POLYVINYL ALCOHOL OPHTH DROPS 15ML BOTHEYE SCH ×4 (06:41→17:20)
[2021-02-03] MEDS: INSULIN LISPRO 100 UNITS/ML SUBCUT SCH ×4 (06:42→21:00)
[2021-02-03] MEDS: FERROUS SULFATE 325MG TABLET PO SCH ×3 (06:43→17:20)
[2021-02-03] MEDS: BLOOD SUGAR DIAGNOSTIC STRIP TEST SCH ×4 (06:43→21:55)
[2021-02-03 08:00] VITALS: BP 162/80
[2021-02-03] MEDS: PHENYTOIN 100 MG/4 ML UDC NG SCH ×2 (09:35→17:20)
[2021-02-03] MEDS: VANCOMYCIN 1250MG in DEXTROSE 5% WATER 250ML IV SCH (09:35)
[2021-02-03] MEDS: CITRIC ACID/SODIUM CITRATE SOLN 30ML UDC PO SCH ×3 (09:36→17:20)
[2021-02-03] MEDS: LEVETIRACETAM 500MG/5ML CUP PO SCH ×2 (09:36→21:54)
[2021-02-03] MEDS: DOXAZOSIN MESYLATE 4MG TABLET PO SCH ×2 (09:38→21:54)
[2021-02-03] MEDS: CITALOPRAM HYDROBROMIDE 10MG TABLET PO SCH (09:39)
[2021-02-03] MEDS: PANTOPRAZOLE SODIUM 40 MG/VIAL IV SCH ×2 (09:39→21:54)
[2021-02-03] MEDS: MINOXIDIL 2.5MG TABLET PO SCH ×2 (09:40→21:55)
[2021-02-03] MEDS ORDERED: POTASSIUM CHLORIDE 20MEQ/PACKET GT NR (11:45)
[2021-02-03 12:00] VITALS: BP 159/86
[2021-02-03 16:00] VITALS: BP 182/84
[2021-02-03] MEDS: DILTIAZEM HCL 5MG/ML 5ML VIAL IV PRN (17:26)
[2021-02-03 20:00] VITALS: BP 172/95
[2021-02-03] MEDS: SENNOSIDES/DOCUSATE SOD 8.6/50MG TABLET PO SCH (21:54)
[2021-02-03] MEDS: HYDRALAZINE 20MG/ML VIAL IV PRN (21:55)
[2021-02-04] VITALS: BP 143/75
[2021-02-04] MEDS: POLYVINYL ALCOHOL OPHTH DROPS 15ML BOTHEYE SCH ×4 (00:05→17:28)
[2021-02-04] MEDS: GUAIFENESIN 200MG/10ML SUGAR FREE UDC PO SCH ×4 (03:24→21:17)
[2021-02-04 04:00] VITALS: BP 160/86
[2021-02-04] MEDS: BLOOD SUGAR DIAGNOSTIC STRIP TEST SCH ×4 (06:01→21:20)
[2021-02-04] MEDS: LACTULOSE 20G/30ML UDC PO SCH ×3 (06:01→21:17)
[2021-02-04] MEDS: DEXT 5%/0.45% NACL 1000ML 1,000 ML IV SCH ×2 (06:01→17:30)
[2021-02-04] MEDS: METOCLOPRAMIDE HCL 10MG/2ML VIAL IV SCH ×3 (06:01→17:29)
[2021-02-04] MEDS: PREDNISOLONE ACETATE 1% OPHTH DROPS 5ML LEFTEYE SCH ×3 (06:04→17:28)
[2021-02-04] MEDS: FERROUS SULFATE 325MG TABLET PO SCH ×3 (06:16→17:29)
[2021-02-04] MEDS: INSULIN LISPRO 100 UNITS/ML SUBCUT SCH ×4 (06:16→21:00)
[2021-02-04 08:00] VITALS: BP 182/93
[2021-02-04] MEDS: CITRIC ACID/SODIUM CITRATE SOLN 30ML UDC PO SCH ×3 (08:45→17:28)
[2021-02-04] MEDS: LEVETIRACETAM 500MG/5ML CUP PO SCH ×2 (08:45→21:17)
[2021-02-04] MEDS: PHENYTOIN 100 MG/4 ML UDC NG SCH ×2 (08:45→17:29)
[2021-02-04] MEDS: PANTOPRAZOLE SODIUM 40 MG/VIAL IV SCH ×2 (08:46→21:19)
[2021-02-04] MEDS: DOXAZOSIN MESYLATE 4MG TABLET PO SCH ×2 (08:47→21:18)
[2021-02-04] MEDS: MINOXIDIL 2.5MG TABLET PO SCH ×2 (08:48→21:19)
[2021-02-04] MEDS: CITALOPRAM HYDROBROMIDE 10MG TABLET PO SCH (08:53)
[2021-02-04 09:32] LABS: BASOPHILS % 1.4 % (0.0-2.0); EOSINOPHILS % 6.8 % (0.0-5.0); HEMATOCRIT. 23.9 % (42.0-52.0); HEMOGLOBIN. 7.5 g/dL (14.0-18.0); LYMPHOCYTES % 12.1 % (20.0-50.0); MEAN CORPUSCULAR VOLUME 82.9 fL (80.0-94.0); MEAN PLATELET VOLUME 6.7 fl (7.4-10.4); NEUTROPHILS % 66.7 % (40.0-76.0); PLATELET 286 x1000/uL (130-400); RED BLOOD CELL COUNT 2.89 mill/uL (4.7-6.1); RED CELL DISTRIBUTION WIDTH 14.3 % (11.6-14.6)
[2021-02-04 09:33] LABS: CHLORIDE 106 mEq/L (98-107)
[2021-02-04] MEDS ORDERED: POTASSIUM CHLORIDE 20MEQ/PACKET PO NR (10:30)
[2021-02-04 12:00] VITALS: BP 132/76
[2021-02-04] MEDS: CLONIDINE HCL 0.3MG/24HR PATCH TD SCH (15:30)
[2021-02-04 16:00] VITALS: BP 153/86
[2021-02-04 20:00] VITALS: BP 182/88
[2021-02-04] MEDS: SENNOSIDES/DOCUSATE SOD 8.6/50MG TABLET PO SCH (21:19)
[2021-02-04] MEDS: VANCOMYCIN 1250MG in DEXTROSE 5% WATER 250ML IV SCH (21:20)
[2021-02-05] VITALS: BP 143/80
[2021-02-05] MEDS: PREDNISOLONE ACETATE 1% OPHTH DROPS 5ML LEFTEYE SCH ×5 (01:08→23:06)
[2021-02-05] MEDS: METOCLOPRAMIDE HCL 10MG/2ML VIAL IV SCH ×5 (01:09→23:06)
[2021-02-05] MEDS: POLYVINYL ALCOHOL OPHTH DROPS 15ML BOTHEYE SCH ×5 (01:41→23:06)
[2021-02-05] MEDS: GUAIFENESIN 200MG/10ML SUGAR FREE UDC PO SCH ×4 (03:24→21:03)
[2021-02-05 04:00] VITALS: BP 154/76
[2021-02-05] MEDS: LACTULOSE 20G/30ML UDC PO SCH ×3 (06:00→21:05)
[2021-02-05] MEDS: FERROUS SULFATE 325MG TABLET PO SCH ×3 (06:05→16:11)
[2021-02-05] MEDS: BLOOD SUGAR DIAGNOSTIC STRIP TEST SCH ×4 (06:05→21:05)
[2021-02-05] MEDS: INSULIN LISPRO 100 UNITS/ML SUBCUT SCH ×4 (06:06→21:00)
[2021-02-05 06:44] LABS: BASOPHILS % 1.7 % (0.0-2.0); EOSINOPHILS % 9.8 % (0.0-5.0); HEMATOCRIT. 23.7 % (42.0-52.0); HEMOGLOBIN. 7.5 g/dL (14.0-18.0); LYMPHOCYTES % 15.5 % (20.0-50.0); MEAN CORPUSCULAR HEMOGLOBIN 26.3 pg (28.0-32.0); MEAN CORPUSCULAR VOLUME 83.1 fL (80.0-94.0); MEAN PLATELET VOLUME 6.8 fl (7.4-10.4); MONOCYTES % 14.6 % (2.0-8.0); NEUTROPHILS % 58.4 % (40.0-76.0); PLATELET 252 x1000/uL (130-400); RED BLOOD CELL COUNT 2.85 mill/uL (4.7-6.1); RED CELL DISTRIBUTION WIDTH 14.3 % (11.6-14.6)
[2021-02-05 07:15] LABS: CHLORIDE 106 mEq/L (98-107)
[2021-02-05 08:00] VITALS: BP 182/91
[2021-02-05] MEDS: PANTOPRAZOLE SODIUM 40 MG/VIAL IV SCH ×2 (09:25→21:01)
[2021-02-05] MEDS: CITALOPRAM HYDROBROMIDE 10MG TABLET PO SCH (09:26)
[2021-02-05] MEDS: LEVETIRACETAM 500MG/5ML CUP PO SCH ×2 (09:26→21:03)
[2021-02-05] MEDS: DOXAZOSIN MESYLATE 4MG TABLET PO SCH ×2 (09:26→21:04)
[2021-02-05] MEDS: MINOXIDIL 2.5MG TABLET PO SCH ×2 (09:26→21:04)
[2021-02-05] MEDS: PHENYTOIN 100 MG/4 ML UDC NG SCH ×2 (09:27→16:11)
[2021-02-05] MEDS: DEXT 5%/0.45% NACL 1000ML 1,000 ML IV SCH ×2 (09:28→21:05)
[2021-02-05] MEDS: CITRIC ACID/SODIUM CITRATE SOLN 30ML UDC PO SCH ×3 (11:47→21:03)
[2021-02-05] MEDS: HYDRALAZINE 20MG/ML VIAL IV PRN (11:56)
[2021-02-05 16:00] VITALS: BP 153/86
[2021-02-05 20:00] VITALS: BP 159/77
[2021-02-05] MEDS: SENNOSIDES/DOCUSATE SOD 8.6/50MG TABLET PO SCH (21:00)
[2021-02-06] VITALS: BP 144/77
[2021-02-06] MEDS: GUAIFENESIN 200MG/10ML SUGAR FREE UDC PO SCH ×4 (02:23→20:12)
[2021-02-06 04:00] VITALS: BP 133/79
[2021-02-06] MEDS: LACTULOSE 20G/30ML UDC PO SCH ×3 (06:00→22:00)
[2021-02-06] MEDS: CITRIC ACID/SODIUM CITRATE SOLN 30ML UDC PO SCH ×3 (06:32→22:34)
[2021-02-06] MEDS: FERROUS SULFATE 325MG TABLET PO SCH ×3 (06:32→17:04)
[2021-02-06] MEDS: INSULIN LISPRO 100 UNITS/ML SUBCUT SCH ×4 (06:32→20:51)
[2021-02-06] MEDS: BLOOD SUGAR DIAGNOSTIC STRIP TEST SCH ×4 (06:32→20:51)
[2021-02-06] MEDS: METOCLOPRAMIDE HCL 10MG/2ML VIAL IV SCH ×3 (06:32→17:04)
[2021-02-06] MEDS: POLYVINYL ALCOHOL OPHTH DROPS 15ML BOTHEYE SCH ×3 (06:33→17:05)
[2021-02-06] MEDS: PREDNISOLONE ACETATE 1% OPHTH DROPS 5ML LEFTEYE SCH ×3 (06:33→17:05)
[2021-02-06 07:03] LABS: BASOPHILS % 0.7 % (0.0-2.0); EOSINOPHILS % 9.1 % (0.0-5.0); HEMATOCRIT. 23.3 % (42.0-52.0); HEMOGLOBIN. 7.6 g/dL (14.0-18.0); LYMPHOCYTES % 15.1 % (20.0-50.0); MEAN CORPUSCULAR HEMOGLOBIN 27.1 pg (28.0-32.0); MEAN CORPUSCULAR VOLUME 82.6 fL (80.0-94.0); MEAN PLATELET VOLUME 6.9 fl (7.4-10.4); MONOCYTES % 13.6 % (2.0-8.0); NEUTROPHILS % 61.5 % (40.0-76.0); PLATELET 243 x1000/uL (130-400); RED BLOOD CELL COUNT 2.82 mill/uL (4.7-6.1); RED CELL DISTRIBUTION WIDTH 13.9 % (11.6-14.6)
[2021-02-06 07:29] LABS: CHLORIDE 104 mEq/L (98-107)
[2021-02-06 08:00] VITALS: BP 156/84
[2021-02-06] MEDS: LEVETIRACETAM 500MG/5ML CUP PO SCH ×2 (09:05→20:13)
[2021-02-06] MEDS: PHENYTOIN 100 MG/4 ML UDC NG SCH ×2 (09:05→17:05)
[2021-02-06] MEDS: DEXT 5%/0.45% NACL 1000ML 1,000 ML IV SCH ×2 (09:05→19:56)
[2021-02-06] MEDS: PANTOPRAZOLE SODIUM 40 MG/VIAL IV SCH ×2 (09:05→20:11)
[2021-02-06] MEDS: CITALOPRAM HYDROBROMIDE 10MG TABLET PO SCH (09:06)
[2021-02-06] MEDS: DOXAZOSIN MESYLATE 4MG TABLET PO SCH ×2 (09:06→20:12)
[2021-02-06] MEDS: MINOXIDIL 2.5MG TABLET PO SCH ×2 (09:06→20:12)
[2021-02-06] MEDS: VANCOMYCIN 1250MG in DEXTROSE 5% WATER 250ML IV SCH (09:21)
[2021-02-06 12:00] VITALS: BP 159/77
[2021-02-06 16:00] VITALS: BP 150/90
[2021-02-06 20:00] VITALS: BP 165/87
[2021-02-06] MEDS: SENNOSIDES/DOCUSATE SOD 8.6/50MG TABLET PO SCH (20:13)
[2021-02-07] VITALS: BP 157/81
[2021-02-07] MEDS: METOCLOPRAMIDE HCL 10MG/2ML VIAL IV SCH ×5 (00:32→23:21)
[2021-02-07] MEDS: GUAIFENESIN 200MG/10ML SUGAR FREE UDC PO SCH ×4 (03:00→20:24)
[2021-02-07 04:00] VITALS: BP 156/76
[2021-02-07 05:25] LABS: CHLORIDE 103 mEq/L (98-107)
[2021-02-07] MEDS: LACTULOSE 20G/30ML UDC PO SCH ×3 (06:00→21:28)
[2021-02-07 06:21] LABS: BASOPHILS % 0.8 % (0.0-2.0); HEMATOCRIT. 23.3 % (42.0-52.0); HEMOGLOBIN. 7.7 g/dL (14.0-18.0); LYMPHOCYTES % 13.2 % (20.0-50.0); MEAN CORPUSCULAR HEMOGLOBIN 27.3 pg (28.0-32.0); MEAN CORPUSCULAR VOLUME 82.2 fL (80.0-94.0); MEAN PLATELET VOLUME 6.9 fl (7.4-10.4); MONOCYTES % 11.2 % (2.0-8.0); NEUTROPHILS % 63.8 % (40.0-76.0); PLATELET 271 x1000/uL (130-400); RED BLOOD CELL COUNT 2.83 mill/uL (4.7-6.1); RED CELL DISTRIBUTION WIDTH 13.5 % (11.6-14.6)
[2021-02-07] MEDS: BLOOD SUGAR DIAGNOSTIC STRIP TEST SCH ×4 (06:40→20:13)
[2021-02-07] MEDS: CITRIC ACID/SODIUM CITRATE SOLN 30ML UDC PO SCH ×3 (06:45→21:39)
[2021-02-07] MEDS: INSULIN LISPRO 100 UNITS/ML SUBCUT SCH ×4 (06:48→20:32)
[2021-02-07 08:00] VITALS: BP 158/86
[2021-02-07] MEDS: LEVETIRACETAM 500MG/5ML CUP PO SCH ×2 (08:57→20:23)
[2021-02-07] MEDS: PANTOPRAZOLE SODIUM 40 MG/VIAL IV SCH ×2 (08:57→20:24)
[2021-02-07] MEDS: PHENYTOIN 100 MG/4 ML UDC NG SCH ×2 (08:58→18:53)
[2021-02-07] MEDS: DOXAZOSIN MESYLATE 4MG TABLET PO SCH ×3 (08:59→20:31)
[2021-02-07] MEDS: CITALOPRAM HYDROBROMIDE 10MG TABLET PO SCH (08:59)
[2021-02-07] MEDS: MINOXIDIL 2.5MG TABLET PO SCH ×2 (08:59→20:24)
[2021-02-07] MEDS: FERROUS SULFATE 325MG TABLET PO SCH ×3 (09:00→18:53)
[2021-02-07] MEDS: DEXT 5%/0.45% NACL 1000ML 1,000 ML IV SCH ×2 (09:00→20:25)
[2021-02-07] MEDS ORDERED: POTASSIUM CHLORIDE 20MEQ TABLET SR PO NR (10:30)
[2021-02-07 12:00] VITALS: BP 138/79
[2021-02-07 16:00] VITALS: BP 168/87
[2021-02-07 20:00] VITALS: BP 165/73
[2021-02-07] MEDS: SENNOSIDES/DOCUSATE SOD 8.6/50MG TABLET PO SCH (20:25)
[2021-02-07] MEDS: VANCOMYCIN 1250MG in DEXTROSE 5% WATER 250ML IV SCH (21:39)
[2021-02-08] VITALS: BP 163/84
[2021-02-08] MEDS: GUAIFENESIN 200MG/10ML SUGAR FREE UDC PO SCH ×4 (03:40→22:29)
[2021-02-08 04:00] VITALS: BP 154/77
[2021-02-08] MEDS: BLOOD SUGAR DIAGNOSTIC STRIP TEST SCH ×4 (05:50→21:00)
[2021-02-08] MEDS: LACTULOSE 20G/30ML UDC PO SCH ×3 (05:51→22:28)
[2021-02-08] MEDS: METOCLOPRAMIDE HCL 10MG/2ML VIAL IV SCH ×3 (05:55→18:26)
[2021-02-08] MEDS: CITRIC ACID/SODIUM CITRATE SOLN 30ML UDC PO SCH ×3 (05:55→22:27)
[2021-02-08 06:29] LABS: CHLORIDE 102 mEq/L (98-107)
[2021-02-08 06:55] LABS: BASOPHILS % 0.8 % (0.0-2.0); EOSINOPHILS % 13.8 % (0.0-5.0); HEMATOCRIT. 24.3 % (42.0-52.0); LYMPHOCYTES % 12.3 % (20.0-50.0); MEAN CORPUSCULAR HEMOGLOBIN 26.9 pg (28.0-32.0); MEAN CORPUSCULAR VOLUME 81.2 fL (80.0-94.0); MEAN PLATELET VOLUME 6.9 fl (7.4-10.4); MONOCYTES % 11.2 % (2.0-8.0); NEUTROPHILS % 61.9 % (40.0-76.0); PLATELET 257 x1000/uL (130-400); RED BLOOD CELL COUNT 2.99 mill/uL (4.7-6.1); RED CELL DISTRIBUTION WIDTH 13.7 % (11.6-14.6)
[2021-02-08] MEDS: FERROUS SULFATE 325MG TABLET PO SCH ×3 (07:10→18:25)
[2021-02-08] MEDS: INSULIN LISPRO 100 UNITS/ML SUBCUT SCH ×4 (07:10→21:00)
[2021-02-08 08:00] VITALS: BP 180/95
[2021-02-08] MEDS: MINOXIDIL 2.5MG TABLET PO SCH ×2 (10:48→22:28)
[2021-02-08] MEDS: DOXAZOSIN MESYLATE 4MG TABLET PO SCH ×2 (10:48→22:29)
[2021-02-08] MEDS: CITALOPRAM HYDROBROMIDE 10MG TABLET PO SCH (10:48)
[2021-02-08] MEDS: PHENYTOIN 100 MG/4 ML UDC NG SCH (10:49)
[2021-02-08] MEDS: PANTOPRAZOLE SODIUM 40 MG/VIAL IV SCH ×2 (10:49→22:29)
[2021-02-08] MEDS: DEXT 5%/0.45% NACL 1000ML 1,000 ML IV SCH ×2 (10:50→22:31)
[2021-02-08 12:00] VITALS: BP 180/95
[2021-02-08] MEDS: AMITRIPTYLINE 25MG TABLET PO SCH ×2 (14:43→22:29)
[2021-02-08 16:00] VITALS: BP 171/89
[2021-02-08] MEDS ORDERED: LACT10SO7 PO (17:01)
[2021-02-08] MEDS ORDERED: LEVE1000 MT (17:01)
[2021-02-08] MEDS ORDERED: SENN1TAB35 PO (17:01)
[2021-02-08] MEDS ORDERED: PANT40TA51 MT (17:01)
[2021-02-08] MEDS ORDERED: METO-293 MT (17:01)
[2021-02-08] MEDS ORDERED: PHEN100C4 MT (17:01)
[2021-02-08] MEDS ORDERED: CLON1PAT12 TD (17:01)
[2021-02-08] MEDS ORDERED: DOXA4TAB2 PO (17:01)
[2021-02-08] MEDS ORDERED: MINO2.5T19 PO (17:01)
[2021-02-08] MEDS ORDERED: AMIT25TA9 PO (17:01)
[2021-02-08 20:00] VITALS: BP 175/91
[2021-02-08] MEDS: SENNOSIDES/DOCUSATE SOD 8.6/50MG TABLET PO SCH (21:00)
[2021-02-09] VITALS: BP 137/66
[2021-02-09] MEDS: METOCLOPRAMIDE HCL 10MG/2ML VIAL IV SCH ×4 (00:05→17:15)
[2021-02-09] MEDS: GUAIFENESIN 200MG/10ML SUGAR FREE UDC PO SCH ×4 (02:54→21:00)
[2021-02-09 04:00] VITALS: BP 168/86
[2021-02-09] MEDS: AMITRIPTYLINE 25MG TABLET PO SCH ×3 (05:47→21:58)
[2021-02-09] MEDS: CITRIC ACID/SODIUM CITRATE SOLN 30ML UDC PO SCH ×3 (05:47→21:58)
[2021-02-09] MEDS: LACTULOSE 20G/30ML UDC PO SCH ×3 (05:47→21:58)
[2021-02-09] MEDS: INSULIN LISPRO 100 UNITS/ML SUBCUT SCH ×3 (06:00→17:17)
[2021-02-09] MEDS: BLOOD SUGAR DIAGNOSTIC STRIP TEST SCH ×3 (06:14→17:03)
[2021-02-09] MEDS: FERROUS SULFATE 325MG TABLET PO SCH ×3 (06:23→17:14)
[2021-02-09 08:00] VITALS: BP 155/89
[2021-02-09] MEDS: DOXAZOSIN MESYLATE 4MG TABLET PO SCH (09:23)
[2021-02-09] MEDS: MINOXIDIL 2.5MG TABLET PO SCH ×2 (09:24→20:45)
[2021-02-09] MEDS: VANCOMYCIN 1250MG in DEXTROSE 5% WATER 250ML IV SCH (09:28)
[2021-02-09] MEDS: PANTOPRAZOLE SODIUM 40 MG/VIAL IV SCH ×2 (10:30→20:45)
[2021-02-09] MEDS ORDERED: METO25TA6 MT (11:20)
[2021-02-09 12:00] VITALS: BP 168/89
[2021-02-09] MEDS: DEXT 5%/0.45% NACL 1000ML 1,000 ML IV SCH (14:17)
[2021-02-09 16:00] VITALS: BP 163/82
[2021-02-09] MEDS: LORAZEPAM 0.5MG TABLET PO PRN (17:15)
[2021-02-09 20:00] VITALS: BP 186/93
[2021-02-09] MEDS: SENNOSIDES/DOCUSATE SOD 8.6/50MG TABLET PO SCH (20:45)
[2021-02-09] MEDS: METOPROLOL TARTRATE 25MG TABLET PO SCH (20:46)
[2021-02-10] VITALS (7 sets, daily range): BP systolic 131–203; BP diastolic 70–106
[2021-02-10] MEDS: BLOOD SUGAR DIAGNOSTIC STRIP TEST SCH ×5 (00:26→23:38)
[2021-02-10] MEDS: LORAZEPAM 0.5MG TABLET PO PRN ×2 (00:27→21:05)
[2021-02-10] MEDS: METOCLOPRAMIDE HCL 10MG/2ML VIAL IV SCH (00:34)
[2021-02-10] MEDS: INSULIN LISPRO 100 UNITS/ML SUBCUT SCH ×5 (06:00→23:38)
[2021-02-10] MEDS: GUAIFENESIN 200MG/10ML SUGAR FREE UDC PO SCH ×4 (06:41→21:05)
[2021-02-10] MEDS: AMITRIPTYLINE 25MG TABLET PO SCH ×3 (06:41→21:06)
[2021-02-10] MEDS: CITRIC ACID/SODIUM CITRATE SOLN 30ML UDC PO SCH ×3 (06:41→21:05)
[2021-02-10] MEDS: FERROUS SULFATE 325MG TABLET PO SCH ×3 (06:41→17:20)
[2021-02-10] MEDS: DEXT 5%/0.45% NACL 1000ML 1,000 ML IV SCH ×3 (06:43→23:38)
[2021-02-10 08:31] LABS: CHLORIDE 100 mEq/L (98-107)
[2021-02-10] MEDS: MINOXIDIL 2.5MG TABLET PO SCH ×2 (09:01→21:14)
[2021-02-10] MEDS: METOPROLOL TARTRATE 25MG TABLET PO SCH ×2 (09:01→21:14)
[2021-02-10] MEDS: PANTOPRAZOLE SODIUM 40 MG/VIAL IV SCH ×2 (09:06→21:05)
[2021-02-10] MEDS: VANCOMYCIN 1250MG in DEXTROSE 5% WATER 250ML IV SCH (21:05)
[2021-02-10] MEDS: SENNOSIDES/DOCUSATE SOD 8.6/50MG TABLET PO SCH (21:06)
[2021-02-10] MEDS: DILTIAZEM HCL 5MG/ML 5ML VIAL IV PRN (22:26)
[2021-02-11] VITALS (7 sets, daily range): BP systolic 155–191; BP diastolic 78–142
[2021-02-11] MEDS: HYDRALAZINE 20MG/ML VIAL IV PRN ×2 (01:21→17:26)
[2021-02-11] MEDS: LORAZEPAM 0.5MG TABLET PO PRN ×3 (01:21→21:29)
[2021-02-11] MEDS: GUAIFENESIN 200MG/10ML SUGAR FREE UDC PO SCH ×4 (03:13→21:29)
[2021-02-11] MEDS: INSULIN LISPRO 100 UNITS/ML SUBCUT SCH ×4 (06:00→23:35)
[2021-02-11] MEDS: BLOOD SUGAR DIAGNOSTIC STRIP TEST SCH ×4 (06:21→23:36)
[2021-02-11] MEDS: FERROUS SULFATE 325MG TABLET PO SCH ×3 (06:22→17:24)
[2021-02-11] MEDS: DEXT 5%/0.45% NACL 1000ML 1,000 ML IV SCH ×2 (06:22→23:36)
[2021-02-11] MEDS: AMITRIPTYLINE 25MG TABLET PO SCH ×3 (06:22→21:29)
[2021-02-11] MEDS: CITRIC ACID/SODIUM CITRATE SOLN 30ML UDC PO SCH ×3 (06:22→21:31)
[2021-02-11] MEDS: PANTOPRAZOLE SODIUM 40 MG/VIAL IV SCH ×2 (08:07→21:34)
[2021-02-11] MEDS: METOPROLOL TARTRATE 25MG TABLET PO SCH ×2 (08:08→21:29)
[2021-02-11] MEDS: MINOXIDIL 2.5MG TABLET PO SCH ×2 (08:08→21:29)
[2021-02-11] MEDS: CLONIDINE HCL 0.3MG/24HR PATCH TD SCH (08:09)
[2021-02-11 17:48] LABS: CHLORIDE 98 mEq/L (98-107)
[2021-02-11] MEDS: LEVETIRACETAM 500MG/5ML CUP PO SCH (21:29)
[2021-02-11] MEDS: PHENYTOIN 100 MG/4 ML UDC NG SCH (21:31)
[2021-02-12] VITALS: BP 184/103
[2021-02-12] MEDS: DILTIAZEM HCL 5MG/ML 5ML VIAL IV PRN ×6 (00:27→20:50)
[2021-02-12] MEDS: LORAZEPAM 0.5MG TABLET PO PRN ×4 (02:25→20:51)
[2021-02-12] MEDS: GUAIFENESIN 200MG/10ML SUGAR FREE UDC PO SCH ×4 (02:25→20:50)
[2021-02-12 04:00] VITALS: BP 205/117
[2021-02-12] MEDS: INSULIN LISPRO 100 UNITS/ML SUBCUT SCH ×4 (04:48→23:37)
[2021-02-12] MEDS: BLOOD SUGAR DIAGNOSTIC STRIP TEST SCH ×4 (04:48→23:37)
[2021-02-12] MEDS: AMITRIPTYLINE 25MG TABLET PO SCH ×3 (04:59→20:51)
[2021-02-12] MEDS: CITRIC ACID/SODIUM CITRATE SOLN 30ML UDC PO SCH ×3 (04:59→20:50)
[2021-02-12] MEDS: PHENYTOIN 100 MG/4 ML UDC NG SCH ×3 (04:59→20:50)
[2021-02-12] MEDS: FERROUS SULFATE 325MG TABLET PO SCH ×3 (04:59→16:13)
[2021-02-12 08:00] VITALS: BP 194/103
[2021-02-12] MEDS: PANTOPRAZOLE SODIUM 40 MG/VIAL IV SCH ×2 (08:31→20:50)
[2021-02-12] MEDS: MINOXIDIL 2.5MG TABLET PO SCH ×2 (08:32→20:51)
[2021-02-12] MEDS: METOPROLOL TARTRATE 25MG TABLET PO SCH ×2 (08:32→20:51)
[2021-02-12] MEDS: LEVETIRACETAM 500MG/5ML CUP PO SCH ×2 (08:32→20:50)
[2021-02-12 12:00] VITALS: BP 161/116
[2021-02-12] MEDS: DEXT 5%/0.45% NACL 1000ML 1,000 ML IV SCH (12:15)
[2021-02-12 12:45] LABS: BASOPHILS % 0.8 % (0.0-2.0); EOSINOPHILS % 7.2 % (0.0-5.0); HEMOGLOBIN. 7.7 g/dL (14.0-18.0); MEAN CORPUSCULAR HEMOGLOBIN 25.8 pg (28.0-32.0); MEAN CORPUSCULAR VOLUME 80.4 fL (80.0-94.0); MEAN PLATELET VOLUME 6.5 fl (7.4-10.4); MONOCYTES % 11.8 % (2.0-8.0); NEUTROPHILS % 70.2 % (40.0-76.0); PLATELET 360 x1000/uL (130-400); RED BLOOD CELL COUNT 2.99 mill/uL (4.7-6.1); RED CELL DISTRIBUTION WIDTH 13.9 % (11.6-14.6)
[2021-02-12 12:53] LABS: CHLORIDE 96 mEq/L (98-107)
[2021-02-12 16:00] VITALS: BP 184/105
[2021-02-12] MEDS: VANCOMYCIN 1 G PREMIX 200 ML IV SCH (16:14)
[2021-02-12 20:00] VITALS: BP 193/115
[2021-02-13] VITALS (7 sets, daily range): BP systolic 156–223; BP diastolic 89–132
[2021-02-13] MEDS: GUAIFENESIN 200MG/10ML SUGAR FREE UDC PO SCH ×3 (02:40→14:35)
[2021-02-13] MEDS: DEXT 5%/0.45% NACL 1000ML 1,000 ML IV SCH ×2 (02:41→14:35)
[2021-02-13] MEDS: FERROUS SULFATE 325MG TABLET PO SCH ×3 (05:02→17:09)
[2021-02-13] MEDS: PHENYTOIN 100 MG/4 ML UDC NG SCH ×3 (05:02→21:55)
[2021-02-13] MEDS: DILTIAZEM HCL 5MG/ML 5ML VIAL IV PRN ×2 (05:02→17:10)
[2021-02-13] MEDS: HYDRALAZINE 20MG/ML VIAL IV PRN (05:02)
[2021-02-13] MEDS: CITRIC ACID/SODIUM CITRATE SOLN 30ML UDC PO SCH ×3 (05:03→21:55)
[2021-02-13] MEDS: INSULIN LISPRO 100 UNITS/ML SUBCUT SCH ×3 (05:03→16:57)
[2021-02-13] MEDS: BLOOD SUGAR DIAGNOSTIC STRIP TEST SCH ×3 (05:03→16:57)
[2021-02-13] MEDS: AMITRIPTYLINE 25MG TABLET PO SCH ×3 (05:03→21:55)
[2021-02-13] MEDS: LEVETIRACETAM 500MG/5ML CUP PO SCH ×2 (08:50→21:55)
[2021-02-13] MEDS: PANTOPRAZOLE SODIUM 40 MG/VIAL IV SCH ×2 (08:50→21:55)
[2021-02-13] MEDS: MINOXIDIL 2.5MG TABLET PO SCH ×2 (08:52→21:56)
[2021-02-13] MEDS: METOPROLOL TARTRATE 25MG TABLET PO SCH ×2 (08:52→21:56)
[2021-02-13] MEDS: HYDRALAZINE HCL 100MG TABLET PO SCH ×2 (13:12→21:56)
[2021-02-13] MEDS: LORAZEPAM 0.5MG TABLET PO PRN (19:13)
[2021-02-13] MEDS: DOXAZOSIN MESYLATE 4MG TABLET PO SCH (21:55)
[2021-02-14] VITALS: BP 119/74
[2021-02-14] MEDS: BLOOD SUGAR DIAGNOSTIC STRIP TEST SCH ×4 (00:18→17:45)
[2021-02-14] MEDS: LORAZEPAM 0.5MG TABLET PO PRN ×2 (02:40→09:42)
[2021-02-14 04:00] VITALS: BP 169/67
[2021-02-14] MEDS: PHENYTOIN 100 MG/4 ML UDC NG SCH ×3 (05:45→22:43)
[2021-02-14] MEDS: CITRIC ACID/SODIUM CITRATE SOLN 30ML UDC PO SCH (05:45)
[2021-02-14] MEDS: VANCOMYCIN 1 G PREMIX 200 ML IV SCH (05:45)
[2021-02-14] MEDS: AMITRIPTYLINE 25MG TABLET PO SCH ×3 (05:45→22:42)
[2021-02-14] MEDS: HYDRALAZINE HCL 100MG TABLET PO SCH ×3 (05:46→22:41)
[2021-02-14] MEDS: FERROUS SULFATE 325MG TABLET PO SCH ×3 (05:48→18:15)
[2021-02-14] MEDS: INSULIN LISPRO 100 UNITS/ML SUBCUT SCH ×4 (06:00→17:45)
[2021-02-14 08:00] VITALS: BP 146/83
[2021-02-14] MEDS: MINOXIDIL 2.5MG TABLET PO SCH ×2 (09:41→22:41)
[2021-02-14] MEDS: PANTOPRAZOLE SODIUM 40 MG/VIAL IV SCH ×2 (09:41→22:43)
[2021-02-14] MEDS: LEVETIRACETAM 500MG/5ML CUP PO SCH ×2 (09:42→22:43)
[2021-02-14] MEDS: METOPROLOL TARTRATE 25MG TABLET PO SCH ×2 (09:42→22:42)
[2021-02-14 12:00] VITALS: BP 135/81
[2021-02-14 16:00] VITALS: BP 178/84
[2021-02-14] MEDS: HYDRALAZINE 20MG/ML VIAL IV PRN (16:32)
[2021-02-14 20:00] VITALS: BP 176/114
[2021-02-14] MEDS: DOXAZOSIN MESYLATE 4MG TABLET PO SCH (22:41)
[2021-02-15] VITALS: BP 138/82
[2021-02-15] MEDS: INSULIN LISPRO 100 UNITS/ML SUBCUT SCH
[2021-02-15] MEDS: METOCLOPRAMIDE HCL 10MG/2ML VIAL IV SCH ×2 (03:00→09:18)
[2021-02-15 04:00] VITALS: BP 109/72
[2021-02-15] MEDS: PHENYTOIN 100 MG/4 ML UDC NG SCH (05:38)
[2021-02-15] MEDS: DEXT 5%/0.45% NACL 1000ML 1,000 ML IV SCH (05:38)
[2021-02-15] MEDS: HYDRALAZINE HCL 100MG TABLET PO SCH (05:44)
[2021-02-15] MEDS: AMITRIPTYLINE 25MG TABLET PO SCH (05:44)
[2021-02-15] MEDS: BLOOD SUGAR DIAGNOSTIC STRIP TEST SCH ×2 (05:45)
[2021-02-15 06:44] LABS: BASOPHILS % 1.8 % (0.0-2.0); EOSINOPHILS % 6.9 % (0.0-5.0); LYMPHOCYTES % 11.8 % (20.0-50.0); MEAN CORPUSCULAR HEMOGLOBIN 26.1 pg (28.0-32.0); MEAN CORPUSCULAR VOLUME 79.2 fL (80.0-94.0); MEAN PLATELET VOLUME 6.9 fl (7.4-10.4); MONOCYTES % 14.9 % (2.0-8.0); NEUTROPHILS % 64.6 % (40.0-76.0); PLATELET 361 x1000/uL (130-400); RED BLOOD CELL COUNT 2.68 mill/uL (4.7-6.1); RED CELL DISTRIBUTION WIDTH 13.8 % (11.6-14.6)
[2021-02-15 07:51] LABS: HEMATOCRIT. 21.2 % (42.0-52.0)
[2021-02-15 08:00] VITALS: BP 143/84
[2021-02-15 09:05] LABS: PHOSPHORUS 3.5 mg/dL (2.5-4.9)
[2021-02-15] MEDS: LEVETIRACETAM 500MG/5ML CUP PO SCH (09:18)
[2021-02-15] MEDS: FERROUS SULFATE 325MG TABLET PO SCH (09:18)
[2021-02-15] MEDS: PANTOPRAZOLE SODIUM 40 MG/VIAL IV SCH (09:18)
[2021-02-15] MEDS: MINOXIDIL 2.5MG TABLET PO SCH (09:19)
[2021-02-15] MEDS: METOPROLOL TARTRATE 25MG TABLET PO SCH (09:19)
[2021-02-15] MEDS: LORAZEPAM 0.5MG TABLET PO PRN (09:27)
[2021-02-15] MEDS ORDERED: SODIUM CHLORIDE 0.45% 1,000 ML IV SCH (10:15)
[2021-02-15] MEDS ORDERED: LACTULOSE 20G/30ML UDC PO SCH (10:30)
[2021-02-15 10:39] LABS: CREATINE KINASE 38 IU/L (39-308)
[2021-02-15 10:45] VITALS: BP 143/84
[2021-02-15] MEDS ORDERED: MAGNESIUM 2 G PREMIX 50 ML IV SCH (11:00)
[2021-02-15] MEDS ORDERED: POLYETHYLENE GLYCOL 3350 (17GM) 1 DOSE PACK GT SCH (12:00)
[2021-02-15] MEDS ORDERED: EPOETIN ALFA 10000UNITS/ML VIAL SUBCUT SCH (21:00)
[2021-02-15] MEDS ORDERED: SENNOSIDES 8.6MG TABLET GT SCH (21:00)
== END 2021-02-15 13:27 | DRG 870 ==
LOC: ER 15:11 → MICUSO 19:06 → EDBEDREQTM 19:08 → EDBEDREQ 19:08 → CANRESERV 12-31 01:59 → ENRESERV 12-31 01:59 → EDBEDREQSVC 12-31 03:05 → EDBEDREQTM 12-31 03:05 → CVICU 01-01 07:20 → 3WST 01-23 14:52 → 7EST 01-25 09:43
PROVIDERS: ADMIT Internal Medicine; ATTEND Internal Medicine
PROC: 0D9670Z Drainage of Stomach with Drainage Device, Via Natural or Artificial Opening (ICD-10-PCS; 2021-01-02)
PROC: 05HN33Z Insertion of Infusion Device into Left Internal Jugular Vein, Percutaneous Approach (ICD-10-PCS; 2021-01-03)
PROC: B544ZZA Ultrasonography of Left Jugular Veins, Guidance (ICD-10-PCS; 2021-01-03)
PROC: 02HV33Z Insertion of Infusion Device into Superior Vena Cava, Percutaneous Approach (ICD-10-PCS; 2021-01-22)
PROC: B548ZZA Ultrasonography of Superior Vena Cava, Guidance (ICD-10-PCS; 2021-01-22)
PROC: 0DH63UZ Insertion of Feeding Device into Stomach, Percutaneous Approach (ICD-10-PCS; 2021-01-29)
PROC: 0DB68ZX Excision of Stomach, Via Natural or Artificial Opening Endoscopic, Diagnostic (ICD-10-PCS; 2021-01-29)
PROC: 5A1955Z Respiratory Ventilation, Greater than 96 Consecutive Hours (ICD-10-PCS; principal; 2021-01-31)
PROC: 0BH17EZ Insertion of Endotracheal Airway into Trachea, Via Natural or Artificial Opening (ICD-10-PCS; 2021-01-31)
DX: A41.02 Sepsis due to Methicillin resistant Staphylococcus aureus (principal); J96.01 Acute respiratory failure with hypoxia; G93.41 Metabolic encephalopathy; J69.0 Pneumonitis due to inhalation of food and vomit; J15.1 Pneumonia due to Pseudomonas; K29.71 Gastritis, unspecified, with bleeding; N17.9 Acute kidney failure, unspecified; E44.0 Moderate protein-calorie malnutrition; Z68.41 Body mass index [BMI] 40.0-44.9, adult; I13.0 Hypertensive heart and chronic kidney disease with heart failure and stage 1 through stage 4 chronic kidney disease, or unspecified chronic kidney disease; I16.1 Hypertensive emergency; R45.851 Suicidal ideations; K56.7 Ileus, unspecified; Z20.822 Contact with and (suspected) exposure to COVID-19; N18.30 Chronic kidney disease, stage 3 unspecified; D50.9 Iron deficiency anemia, unspecified; B19.20 Unspecified viral hepatitis C without hepatic coma; E87.5 Hyperkalemia; E11.22 Type 2 diabetes mellitus with diabetic chronic kidney disease; E11.40 Type 2 diabetes mellitus with diabetic neuropathy, unspecified; E78.1 Pure hyperglyceridemia; E78.5 Hyperlipidemia, unspecified; E83.39 Other disorders of phosphorus metabolism; E83.42 Hypomagnesemia; E87.6 Hypokalemia; F03.90 Unspecified dementia, unspecified severity, without behavioral disturbance, psychotic disturbance, mood disturbance, and anxiety; F32.A Depression, unspecified; G40.909 Epilepsy, unspecified, not intractable, without status epilepticus; H11.422 Conjunctival edema, left eye; I50.9 Heart failure, unspecified; R13.12 Dysphagia, oropharyngeal phase; G62.9 Polyneuropathy, unspecified; H57.89 Other specified disorders of eye and adnexa; R00.1 Bradycardia, unspecified; R00.0 Tachycardia, unspecified; Z91.011 Allergy to milk products; Z79.899 Other long term (current) drug therapy; Z91.19 Patient's noncompliance with other medical treatment and regimen; Z91.14 Patient's other noncompliance with medication regimen
CPT/HCPCS: 36415; 36600; 70486; 70551; 71045; 71275; 74018; 74176; 76700; 76937; 80048; 80053; 80185; 80202; 80305; 81003; 82040; 82140; 82270; 82375; 82542; 82550; 82553; 82607; 82728; 82746; 82805; 82962; 83036; 83540; 83550; 83735; 84100; 84132; 84145; 84443; 84478; 84484; 85014; 85018; 85025; 85044; 86850; 86900; 86920; 87070; 87077; 87186; 87426; 88305; 88312; 88313; 92610; 93005; 93306; 93970; 94002; 94003; 94640; 97116; 97162; 97166; 97530; 99285; A6261; C1725; C9113; J0360; J0690; J0692; J0885; J1165; J1650; J1815; J1953; J2060; J2250; J2310; J2405; J2704; J2765; J2920; J2930; J3010; J3370; J3430; J3475; J3480; J3490; J7030; J7040; J7042; J7050; J7060; J7070; P9041; Q9963; Q9967; A4315

== ENCOUNTER 2021-02-16 00:32 | Inpatient (IN) | payer MEDICARE, MEDICAID ==
[~2021-02-16] VITALS: Ht 165.1 cm; Wt 117.2 kg
[~2021-02-16 00:32] MED LIST changes: +AMIT25TA9 PO; -CEPH500T MT; -CHLO25TA2 PO; -CLON0.3T PO; +CLON1PAT12 TD; -DORZ10DR8 EACHEYE; +DOXA4TAB2 PO; -GABA-290 PO; -HUM100IN SUBCUT; -KEPP250 PO; +LACT10SO7 PO; +LEVE1000 MT; -LEVE750T4 MT; -LOSA100T3 PO; +METO-293 MT; +METO25TA6 MT; +MINO2.5T19 PO; -NIFE60TA78 MT; +PANT40TA51 MT; +PHEN100C4 MT; +SENN1TAB35 PO; -ZONI100C34 PO
[2021-02-16] MEDS ORDERED: NITROGLYCERIN OINT 1GM/INCH UDPKT TD ONE (01:00)
[2021-02-16] MEDS ORDERED: ASPIRIN 81MG TABLET PO ONE (01:00)
[2021-02-16] MEDS ORDERED: FUROSEMIDE 40MG/4ML VIAL IV ONE (01:00)
[2021-02-16 01:29] LABS: HEMATOCRIT. 21.9 % (42.0-52.0); HEMOGLOBIN. 7.2 g/dL (14.0-18.0); MEAN CORPUSCULAR HEMOGLOBIN 25.9 pg (28.0-32.0); MEAN PLATELET VOLUME 6.6 fl (7.4-10.4); PLATELET 467 x1000/uL (130-400); RED BLOOD CELL COUNT 2.77 mill/uL (4.7-6.1); RED CELL DISTRIBUTION WIDTH 13.9 % (11.6-14.6)
[2021-02-16 01:37] LABS: CHLORIDE 95 mEq/L (98-107)
[2021-02-16 01:50] LABS: CLARITY URINE CLOUDY (CLEAR); COLOR URINE YELLOW (YELLOW); KETONES URINE TRACE (NEGATIVE); LEUKOCYTE ESTERASE URINE TRACE (NEGATIVE); NITRITE URINE NEGATIVE (NEGATIVE); OCCULT BLOOD URINE TRACE (NEGATIVE); PROTEIN URINE 3+ (NEGATIVE); SPECIFIC GRAVITY URINE 1.019 (1.005-1.030)
[2021-02-16] MEDS ORDERED: CEFTRIAXONE 1 G PREMIX 50 ML IV ONE (03:00)
[2021-02-16 04:24] LABS: PLATELET ESTIMATE INCREASED
[2021-02-16] MEDS ORDERED: IPRATROPIUM/ALBUTEROL 0.5-3(2.5)MG/3ML NEB HHN PRN (07:30)
[2021-02-16] MEDS ORDERED: ONDANSETRON HCL 4MG/2ML INJ IV PRN (08:30)
[2021-02-16 10:00] VITALS: BP 181/81
[2021-02-16] MEDS: FUROSEMIDE 40MG/4ML VIAL IVP SCH (10:22)
[2021-02-16] MEDS: HYDRALAZINE 20MG/ML VIAL IV PRN ×2 (10:22→20:33)
[2021-02-16] MEDS: LEVETIRACETAM 500MG TABLET PO SCH ×2 (11:04→20:32)
[2021-02-16] MEDS: AMLODIPINE 10MG TABLET PO SCH (11:05)
[2021-02-16 12:00] VITALS: BP 165/91
[2021-02-16] MEDS: LORAZEPAM 2MG/ML CPJ IM PRN ×2 (12:17→20:33)
[2021-02-16] MEDS: IPRATROPIUM/ALBUTEROL 0.5-3(2.5)MG/3ML NEB HHN SCH ×4 (12:51→20:42)
[2021-02-16 14:16] VITALS: BP 165/91
[2021-02-16 15:56] VITALS: BP 187/88
[2021-02-16] MEDS ORDERED: METOPROLOL TARTRATE 25MG TABLET PO SCH (17:00)
[2021-02-16 20:00] VITALS: BP 171/86
[2021-02-16] MEDS: HYDRALAZINE HCL 100MG TABLET PO SCH (23:53)
[2021-02-16] MEDS: CLONIDINE 0.2MG TABLET PO SCH (23:54)
[2021-02-17] VITALS: BP 178/89
[2021-02-17] MEDS: IPRATROPIUM/ALBUTEROL 0.5-3(2.5)MG/3ML NEB HHN SCH ×6 (00:28→21:04)
[2021-02-17] MEDS: GUAIFENESIN 200MG/10ML SUGAR FREE UDC PO PRN (02:37)
[2021-02-17] MEDS: LORAZEPAM 2MG/ML CPJ IM PRN ×2 (03:25→18:29)
[2021-02-17 04:00] VITALS: BP 181/80
[2021-02-17] MEDS: HYDRALAZINE HCL 100MG TABLET PO SCH ×3 (05:09→21:42)
[2021-02-17] MEDS: CLONIDINE 0.2MG TABLET PO SCH ×3 (05:10→21:42)
[2021-02-17 06:05] LABS: HEMOGLOBIN. 7.3 g/dL (14.0-18.0); MEAN CORPUSCULAR HEMOGLOBIN 26.7 pg (28.0-32.0); MEAN PLATELET VOLUME 6.8 fl (7.4-10.4); PLATELET 470 x1000/uL (130-400); RED BLOOD CELL COUNT 2.75 mill/uL (4.7-6.1); RED CELL DISTRIBUTION WIDTH 14.1 % (11.6-14.6)
[2021-02-17 08:00] VITALS: BP 173/83
[2021-02-17] MEDS: LEVETIRACETAM 500MG TABLET PO SCH ×2 (08:22→21:41)
[2021-02-17] MEDS: FUROSEMIDE 40MG/4ML VIAL IVP SCH (08:22)
[2021-02-17] MEDS: AMLODIPINE 10MG TABLET PO SCH (08:23)
[2021-02-17] MEDS: METOPROLOL TARTRATE 100MG TABLET PO SCH ×2 (08:36→16:20)
[2021-02-17] MEDS ORDERED: METOPROLOL TARTRATE 25MG TABLET PO SCH (09:00)
[2021-02-17 11:23] LABS: PLATELET ESTIMATE INCREASED
[2021-02-17 12:00] VITALS: BP 160/90
[2021-02-17 16:00] VITALS: BP 163/97
[2021-02-17 20:00] VITALS: BP 154/81
[2021-02-17] MEDS: CITALOPRAM HYDROBROMIDE 10MG TABLET PO SCH (21:41)
[2021-02-17] MEDS: AMITRIPTYLINE 25MG TABLET PO SCH (21:58)
[2021-02-18] VITALS (7 sets, daily range): BP systolic 152–189; BP diastolic 82–96
[2021-02-18] MEDS: IPRATROPIUM/ALBUTEROL 0.5-3(2.5)MG/3ML NEB HHN SCH ×3 (00:28→13:55)
[2021-02-18] MEDS: CLONIDINE 0.2MG TABLET PO SCH ×2 (05:27→15:14)
[2021-02-18] MEDS: GUAIFENESIN 200MG/10ML SUGAR FREE UDC PO PRN (05:27)
[2021-02-18] MEDS: HYDRALAZINE HCL 100MG TABLET PO SCH ×2 (05:28→15:15)
[2021-02-18] MEDS: FUROSEMIDE 40MG/4ML VIAL IVP SCH (09:18)
[2021-02-18] MEDS: LEVETIRACETAM 500MG TABLET PO SCH (09:18)
[2021-02-18] MEDS: CITALOPRAM HYDROBROMIDE 10MG TABLET PO SCH (09:19)
[2021-02-18] MEDS: AMITRIPTYLINE 25MG TABLET PO SCH ×2 (09:19→15:15)
[2021-02-18] MEDS: METOPROLOL TARTRATE 100MG TABLET PO SCH (09:22)
[2021-02-18] MEDS: AMLODIPINE 10MG TABLET PO SCH (09:22)
[2021-02-18 10:13] LABS: BASOPHILS % 1.2 % (0.0-2.0); EOSINOPHILS % 4.4 % (0.0-5.0); HEMATOCRIT. 21.8 % (42.0-52.0); HEMOGLOBIN. 7.1 g/dL (14.0-18.0); LYMPHOCYTES % 10.2 % (20.0-50.0); MEAN CORPUSCULAR HEMOGLOBIN 25.8 pg (28.0-32.0); MEAN CORPUSCULAR VOLUME 79.1 fL (80.0-94.0); MEAN PLATELET VOLUME 6.7 fl (7.4-10.4); MONOCYTES % 14.2 % (2.0-8.0); PLATELET 443 x1000/uL (130-400); RED BLOOD CELL COUNT 2.76 mill/uL (4.7-6.1); RED CELL DISTRIBUTION WIDTH 14.3 % (11.6-14.6)
[2021-02-18] MEDS: HYDRALAZINE 20MG/ML VIAL IV PRN (15:15)
[2021-02-18] MEDS ORDERED: MINOXIDIL 2.5MG TABLET PO SCH (21:00)
[2021-03-08] MEDS ORDERED: AMIT25TA9 PO (15:37)
[2021-03-08] MEDS ORDERED: MINO2.5T19 PO (15:37)
[2021-03-08] MEDS ORDERED: NEBI5TAB3 PO (15:37)
[2021-03-08] MEDS ORDERED: METO2.5T2 PO (15:37)
== END 2021-02-18 16:45 | DRG 189 ==
LOC: ER 00:32 → MICUSO 02:56 → 8WST 09:40
PROVIDERS: ADMIT Internal Medicine; ATTEND Internal Medicine
DX: J96.01 Acute respiratory failure with hypoxia (principal); I13.0 Hypertensive heart and chronic kidney disease with heart failure and stage 1 through stage 4 chronic kidney disease, or unspecified chronic kidney disease; N17.9 Acute kidney failure, unspecified; F33.1 Major depressive disorder, recurrent, moderate; Z68.41 Body mass index [BMI] 40.0-44.9, adult; E44.1 Mild protein-calorie malnutrition; E11.22 Type 2 diabetes mellitus with diabetic chronic kidney disease; G40.909 Epilepsy, unspecified, not intractable, without status epilepticus; E66.01 Morbid (severe) obesity due to excess calories; N18.9 Chronic kidney disease, unspecified; Z20.822 Contact with and (suspected) exposure to COVID-19; F41.9 Anxiety disorder, unspecified; I50.9 Heart failure, unspecified; Z91.011 Allergy to milk products; Z87.01 Personal history of pneumonia (recurrent); Z79.899 Other long term (current) drug therapy; Z71.3 Dietary counseling and surveillance
CPT/HCPCS: 36415; 71045; 80048; 80053; 81003; 83880; 84484; 85025; 87426; 93005; 93970; 94640; 97161; 99285; A6261; J0360; J0696; J1940; J2060; A4315

== ENCOUNTER 2021-02-21 10:26 | Inpatient (IN) | payer MEDICARE, MEDICAID ==
[~2021-02-21] VITALS: Ht 165.1 cm; Wt 122.9 kg
[2021-02-21 11:27] LABS: BASOPHILS % 1.5 % (0.0-2.0); EOSINOPHILS % 3.8 % (0.0-5.0); HEMATOCRIT. 22.9 % (42.0-52.0); HEMOGLOBIN. 7.4 g/dL (14.0-18.0); LYMPHOCYTES % 7.9 % (20.0-50.0); MEAN CORPUSCULAR HEMOGLOBIN 25.7 pg (28.0-32.0); MEAN CORPUSCULAR VOLUME 79.3 fL (80.0-94.0); MEAN PLATELET VOLUME 6.6 fl (7.4-10.4); MONOCYTES % 14.5 % (2.0-8.0); NEUTROPHILS % 72.3 % (40.0-76.0); PLATELET 482 x1000/uL (130-400); RED BLOOD CELL COUNT 2.88 mill/uL (4.7-6.1); RED CELL DISTRIBUTION WIDTH 14.7 % (11.6-14.6)
[2021-02-21] MEDS ORDERED: FUROSEMIDE 40MG/4ML VIAL IVP ONE (11:30)
[2021-02-21] MEDS ORDERED: ENALAPRIL 2.5MG/2ML VIAL 2ML IV ONE (11:30)
[2021-02-21 11:35] LABS: CHLORIDE 99 mEq/L (98-107)
[2021-02-21] MEDS ORDERED: ENALAPRIL 1.25MG/ML VIAL 1ML IV NR (12:00)
[2021-02-21] MEDS ORDERED: NA PHOS,M-B/NA PHOS,DI-BA ENEMA 118ML PR PRN (13:15)
[2021-02-21] MEDS ORDERED: ONDANSETRON HCL 4MG/2ML INJ IV PRN (13:15)
[2021-02-21] MEDS ORDERED: IPRATROPIUM/ALBUTEROL 0.5-3(2.5)MG/3ML NEB HHN PRN (13:15)
[2021-02-21] MEDS: HYDRALAZINE HCL 100MG TABLET PO SCH ×2 (15:51→22:00)
[2021-02-21] MEDS: AMITRIPTYLINE 25MG TABLET PO SCH ×2 (15:52→23:57)
[2021-02-21] MEDS: FUROSEMIDE 40MG/4ML VIAL IV SCH (18:48)
[2021-02-21] MEDS: METOPROLOL TARTRATE 25MG TABLET PO SCH (18:48)
[2021-02-21] MEDS: PHENYTOIN SODIUM EXTENDED 100MG CAPSULE PO SCH (18:55)
[2021-02-21 21:00] VITALS: BP 140/93
[2021-02-21] MEDS: MINOXIDIL 2.5MG TABLET PO SCH (21:00)
[2021-02-21] MEDS: DILTIAZEM HCL 120MG CAPSULE CD 24HR PO SCH (21:00)
[2021-02-21] MEDS: DOXAZOSIN MESYLATE 4MG TABLET PO SCH (21:00)
[2021-02-21] MEDS: TIMOLOL MALEATE 0.25% OPHTH DROPS 5ML EACHEYE SCH (22:00)
[2021-02-21] MEDS: LEVETIRACETAM 250MG TABLET PO SCH (23:57)
[2021-02-21] MEDS: ATORVASTATIN CALCIUM 40MG TABLET PO SCH (23:57)
[2021-02-22] VITALS (7 sets, daily range): BP systolic 100–192; BP diastolic 63–110
[2021-02-22] MEDS: PANTOPRAZOLE 40MG DR TABLET PO SCH (06:54)
[2021-02-22] MEDS: AMITRIPTYLINE 25MG TABLET PO SCH ×3 (06:55→21:58)
[2021-02-22] MEDS: HYDRALAZINE HCL 100MG TABLET PO SCH ×3 (06:55→21:57)
[2021-02-22] MEDS: FUROSEMIDE 40MG/4ML VIAL IV SCH ×2 (06:56→17:40)
[2021-02-22 07:13] LABS: CHLORIDE 101 mEq/L (98-107)
[2021-02-22 07:17] LABS: BASOPHILS % 0.9 % (0.0-2.0); EOSINOPHILS % 5.4 % (0.0-5.0); HEMATOCRIT. 22.6 % (42.0-52.0); HEMOGLOBIN. 7.4 g/dL (14.0-18.0); LYMPHOCYTES % 7.2 % (20.0-50.0); MEAN CORPUSCULAR HEMOGLOBIN 25.9 pg (28.0-32.0); MEAN CORPUSCULAR VOLUME 79.6 fL (80.0-94.0); MONOCYTES % 11.9 % (2.0-8.0); NEUTROPHILS % 74.6 % (40.0-76.0); PLATELET 518 x1000/uL (130-400); RED BLOOD CELL COUNT 2.84 mill/uL (4.7-6.1); RED CELL DISTRIBUTION WIDTH 14.7 % (11.6-14.6)
[2021-02-22] MEDS: MINOXIDIL 2.5MG TABLET PO SCH ×2 (09:18→21:57)
[2021-02-22] MEDS: DILTIAZEM HCL 120MG CAPSULE CD 24HR PO SCH ×2 (09:19→21:57)
[2021-02-22] MEDS: PHENYTOIN SODIUM EXTENDED 100MG CAPSULE PO SCH ×2 (09:19→17:41)
[2021-02-22] MEDS: METOPROLOL TARTRATE 25MG TABLET PO SCH ×2 (09:19→17:00)
[2021-02-22] MEDS: DOXAZOSIN MESYLATE 4MG TABLET PO SCH ×2 (09:19→21:57)
[2021-02-22] MEDS: LEVETIRACETAM 250MG TABLET PO SCH ×2 (09:19→21:57)
[2021-02-22] MEDS: TIMOLOL MALEATE 0.25% OPHTH DROPS 5ML EACHEYE SCH (09:20)
[2021-02-22] MEDS: FERROUS SULFATE 325MG TABLET PO SCH ×4 (09:20→17:38)
[2021-02-22] MEDS: NEO/POLYMYX B SULF/DEXAMETH 0.1% OPHTH SUSP 5ML LEFTEYE SCH ×3 (14:30→23:07)
[2021-02-22] MEDS: PREDNISOLONE ACETATE 1% OPHTH DROPS 5ML LEFTEYE SCH ×3 (14:30→23:07)
[2021-02-22] MEDS ORDERED: DEXTROSE 50% WATER 50ML SYRINGE IV PRN (20:15)
[2021-02-22] MEDS: INSULIN LISPRO 100 UNITS/ML SUBCUT SCH (21:00)
[2021-02-22] MEDS ORDERED: NALOXONE HCL 0.4MG/ML VIAL IV PRN (21:45)
[2021-02-22] MEDS: ATORVASTATIN CALCIUM 40MG TABLET PO SCH (21:58)
[2021-02-22] MEDS: BLOOD SUGAR DIAGNOSTIC STRIP TEST SCH (21:58)
[2021-02-22] MEDS: HYDROCODONE/ACETAMINOPHEN 5/325MG TABLET PO PRN (21:58)
[2021-02-23] VITALS: BP 112/65
[2021-02-23 04:00] VITALS: BP 103/66
[2021-02-23] MEDS: HYDRALAZINE HCL 100MG TABLET PO SCH ×3 (06:00→22:09)
[2021-02-23] MEDS: PREDNISOLONE ACETATE 1% OPHTH DROPS 5ML LEFTEYE SCH ×3 (06:13→18:58)
[2021-02-23] MEDS: NEO/POLYMYX B SULF/DEXAMETH 0.1% OPHTH SUSP 5ML LEFTEYE SCH ×3 (06:14→18:58)
[2021-02-23] MEDS: AMITRIPTYLINE 25MG TABLET PO SCH ×3 (06:14→22:09)
[2021-02-23] MEDS: PANTOPRAZOLE 40MG DR TABLET PO SCH (06:18)
[2021-02-23] MEDS: FUROSEMIDE 40MG/4ML VIAL IV SCH ×2 (06:18→18:58)
[2021-02-23 06:25] LABS: BASOPHILS % 0.8 % (0.0-2.0); EOSINOPHILS % 7.2 % (0.0-5.0); HEMATOCRIT. 21.6 % (42.0-52.0); LYMPHOCYTES % 15.9 % (20.0-50.0); MEAN CORPUSCULAR HEMOGLOBIN 26.1 pg (28.0-32.0); MEAN CORPUSCULAR VOLUME 80.1 fL (80.0-94.0); MONOCYTES % 14.9 % (2.0-8.0); NEUTROPHILS % 61.2 % (40.0-76.0); PLATELET 426 x1000/uL (130-400); RED CELL DISTRIBUTION WIDTH 14.7 % (11.6-14.6)
[2021-02-23] MEDS: BLOOD SUGAR DIAGNOSTIC STRIP TEST SCH ×4 (06:58→21:00)
[2021-02-23] MEDS: INSULIN LISPRO 100 UNITS/ML SUBCUT SCH ×4 (07:50→21:00)
[2021-02-23 07:56] VITALS: BP 138/72
[2021-02-23] MEDS: METOPROLOL TARTRATE 25MG TABLET PO SCH (08:18)
[2021-02-23] MEDS: MINOXIDIL 2.5MG TABLET PO SCH ×2 (08:19→22:23)
[2021-02-23] MEDS: PHENYTOIN SODIUM EXTENDED 100MG CAPSULE PO SCH ×2 (08:19→18:58)
[2021-02-23] MEDS: DOXAZOSIN MESYLATE 4MG TABLET PO SCH ×2 (08:20→22:09)
[2021-02-23] MEDS: HYDROCODONE/ACETAMINOPHEN 5/325MG TABLET PO PRN ×3 (08:20→22:24)
[2021-02-23] MEDS: LEVETIRACETAM 250MG TABLET PO SCH ×2 (08:21→22:08)
[2021-02-23] MEDS: FERROUS SULFATE 325MG TABLET PO SCH ×3 (08:21→18:58)
[2021-02-23] MEDS: DILTIAZEM HCL 120MG CAPSULE CD 24HR PO SCH ×2 (10:03→22:08)
[2021-02-23 11:46] VITALS: BP 113/62
[2021-02-23 16:00] VITALS: BP 123/67
[2021-02-23 20:00] VITALS: BP 126/83
[2021-02-23] MEDS: ATORVASTATIN CALCIUM 40MG TABLET PO SCH (22:09)
[2021-02-23] MEDS: METOPROLOL TARTRATE 50MG TABLET PO SCH (22:09)
[2021-02-23] MEDS: EPOETIN ALFA 10000UNITS/ML VIAL SUBCUT SCH (22:23)
[2021-02-24] VITALS: BP 124/68
[2021-02-24] MEDS: PREDNISOLONE ACETATE 1% OPHTH DROPS 5ML LEFTEYE SCH ×5 (00:54→23:31)
[2021-02-24] MEDS: NEO/POLYMYX B SULF/DEXAMETH 0.1% OPHTH SUSP 5ML LEFTEYE SCH ×5 (00:54→23:31)
[2021-02-24 04:00] VITALS: BP 137/73
[2021-02-24] MEDS: HYDROCODONE/ACETAMINOPHEN 5/325MG TABLET PO PRN ×3 (05:02→21:18)
[2021-02-24] MEDS: AMITRIPTYLINE 25MG TABLET PO SCH ×3 (05:02→22:11)
[2021-02-24] MEDS: HYDRALAZINE HCL 100MG TABLET PO SCH ×3 (05:02→22:00)
[2021-02-24] MEDS: BLOOD SUGAR DIAGNOSTIC STRIP TEST SCH ×4 (06:26→21:08)
[2021-02-24] MEDS: PANTOPRAZOLE 40MG DR TABLET PO SCH (06:26)
[2021-02-24] MEDS: FUROSEMIDE 40MG/4ML VIAL IV SCH ×2 (06:26→11:10)
[2021-02-24 06:30] LABS: HEMATOCRIT. 23.1 % (42.0-52.0); HEMOGLOBIN. 7.4 g/dL (14.0-18.0); MEAN CORPUSCULAR HEMOGLOBIN 25.3 pg (28.0-32.0); PLATELET 349 x1000/uL (130-400); RED BLOOD CELL COUNT 2.92 mill/uL (4.7-6.1); RED CELL DISTRIBUTION WIDTH 14.7 % (11.6-14.6)
[2021-02-24] MEDS: INSULIN LISPRO 100 UNITS/ML SUBCUT SCH ×4 (07:50→21:00)
[2021-02-24 08:00] VITALS: BP 125/69
[2021-02-24] MEDS: FERROUS SULFATE 325MG TABLET PO SCH ×3 (10:27→17:20)
[2021-02-24] MEDS: DOXAZOSIN MESYLATE 4MG TABLET PO SCH ×2 (10:28→21:07)
[2021-02-24] MEDS: PHENYTOIN SODIUM EXTENDED 100MG CAPSULE PO SCH ×2 (10:29→17:20)
[2021-02-24] MEDS: LEVETIRACETAM 250MG TABLET PO SCH ×2 (10:29→21:07)
[2021-02-24] MEDS: DILTIAZEM HCL 120MG CAPSULE CD 24HR PO SCH ×2 (10:30→21:07)
[2021-02-24] MEDS: MINOXIDIL 2.5MG TABLET PO SCH ×2 (10:30→21:18)
[2021-02-24] MEDS: METOPROLOL TARTRATE 50MG TABLET PO SCH ×2 (10:31→21:08)
[2021-02-24 12:00] VITALS: BP 107/80
[2021-02-24 13:26] LABS: PLATELET ESTIMATE NORMAL
[2021-02-24 16:00] VITALS: BP 109/88
[2021-02-24 20:00] VITALS: BP 111/61
[2021-02-24] MEDS: ATORVASTATIN CALCIUM 40MG TABLET PO SCH (21:08)
[2021-02-25] VITALS: BP 108/59
[2021-02-25 04:00] VITALS: BP 117/65
[2021-02-25] MEDS: HYDROCODONE/ACETAMINOPHEN 5/325MG TABLET PO PRN ×3 (04:56→20:41)
[2021-02-25] MEDS: NEO/POLYMYX B SULF/DEXAMETH 0.1% OPHTH SUSP 5ML LEFTEYE SCH ×4 (06:06→23:01)
[2021-02-25] MEDS: PREDNISOLONE ACETATE 1% OPHTH DROPS 5ML LEFTEYE SCH ×4 (06:06→23:01)
[2021-02-25] MEDS: AMITRIPTYLINE 25MG TABLET PO SCH ×3 (06:06→21:33)
[2021-02-25] MEDS: BLOOD SUGAR DIAGNOSTIC STRIP TEST SCH ×4 (06:07→20:21)
[2021-02-25] MEDS: HYDRALAZINE HCL 100MG TABLET PO SCH ×3 (06:07→21:33)
[2021-02-25] MEDS: PANTOPRAZOLE 40MG DR TABLET PO SCH (06:10)
[2021-02-25 06:52] LABS: PHOSPHORUS 4.3 mg/dL (2.5-4.9)
[2021-02-25 07:10] LABS: EOSINOPHILS % 5.3 % (0.0-5.0); HEMATOCRIT. 26.8 % (42.0-52.0); HEMOGLOBIN. 8.1 g/dL (14.0-18.0); LYMPHOCYTES % 16.5 % (20.0-50.0); MEAN CORPUSCULAR HEMOGLOBIN 24.5 pg (28.0-32.0); MEAN CORPUSCULAR VOLUME 80.9 fL (80.0-94.0); MEAN PLATELET VOLUME 7.2 fl (7.4-10.4); MONOCYTES % 13.8 % (2.0-8.0); NEUTROPHILS % 63.4 % (40.0-76.0); PLATELET 389 x1000/uL (130-400); RED BLOOD CELL COUNT 3.31 mill/uL (4.7-6.1); RED CELL DISTRIBUTION WIDTH 15.1 % (11.6-14.6)
[2021-02-25] MEDS: INSULIN LISPRO 100 UNITS/ML SUBCUT SCH ×4 (07:50→20:21)
[2021-02-25 08:00] VITALS: BP 117/55
[2021-02-25] MEDS: FERROUS SULFATE 325MG TABLET PO SCH ×3 (08:48→18:05)
[2021-02-25] MEDS: PHENYTOIN SODIUM EXTENDED 100MG CAPSULE PO SCH ×2 (08:48→18:06)
[2021-02-25] MEDS: METOPROLOL TARTRATE 50MG TABLET PO SCH ×2 (08:49→20:21)
[2021-02-25] MEDS: MINOXIDIL 2.5MG TABLET PO SCH ×2 (08:49→20:21)
[2021-02-25] MEDS: LEVETIRACETAM 250MG TABLET PO SCH ×2 (08:49→20:20)
[2021-02-25] MEDS: DILTIAZEM HCL 120MG CAPSULE CD 24HR PO SCH ×2 (08:50→20:20)
[2021-02-25] MEDS: FUROSEMIDE 40MG/4ML VIAL IV SCH (08:50)
[2021-02-25] MEDS: DOXAZOSIN MESYLATE 4MG TABLET PO SCH ×2 (08:50→20:20)
[2021-02-25 11:45] LABS: CREATINE KINASE 40 IU/L (39-308)
[2021-02-25 12:00] VITALS: BP 93/50
[2021-02-25] MEDS ORDERED: FUROSEMIDE 100MG/10ML VIAL IVP NR (12:45)
[2021-02-25] MEDS: GUAIFENESIN 200MG/10ML SUGAR FREE UDC PO PRN (14:13)
[2021-02-25 16:00] VITALS: BP 109/64
[2021-02-25 20:00] VITALS: BP 107/56
[2021-02-25] MEDS: ATORVASTATIN CALCIUM 40MG TABLET PO SCH (20:20)
[2021-02-25] MEDS: EPOETIN ALFA 10000UNITS/ML VIAL SUBCUT SCH (20:41)
[2021-02-26] VITALS: BP 109/60
[2021-02-26 04:00] VITALS: BP 125/65
[2021-02-26] MEDS: HYDROCODONE/ACETAMINOPHEN 5/325MG TABLET PO PRN ×2 (04:58→12:14)
[2021-02-26] MEDS: NEO/POLYMYX B SULF/DEXAMETH 0.1% OPHTH SUSP 5ML LEFTEYE SCH ×3 (05:00→17:12)
[2021-02-26] MEDS: PREDNISOLONE ACETATE 1% OPHTH DROPS 5ML LEFTEYE SCH ×3 (05:00→17:13)
[2021-02-26] MEDS: AMITRIPTYLINE 25MG TABLET PO SCH ×3 (05:03→22:02)
[2021-02-26] MEDS: HYDRALAZINE HCL 100MG TABLET PO SCH ×3 (05:03→22:01)
[2021-02-26] MEDS: PANTOPRAZOLE 40MG DR TABLET PO SCH (06:42)
[2021-02-26] MEDS: BLOOD SUGAR DIAGNOSTIC STRIP TEST SCH ×4 (06:42→21:58)
[2021-02-26 06:54] LABS: BASOPHILS % 0.9 % (0.0-2.0); EOSINOPHILS % 3.1 % (0.0-5.0); HEMATOCRIT. 23.9 % (42.0-52.0); HEMOGLOBIN. 7.8 g/dL (14.0-18.0); LYMPHOCYTES % 12.5 % (20.0-50.0); MEAN CORPUSCULAR HEMOGLOBIN 25.6 pg (28.0-32.0); MEAN CORPUSCULAR VOLUME 78.5 fL (80.0-94.0); MEAN PLATELET VOLUME 7.7 fl (7.4-10.4); MONOCYTES % 11.3 % (2.0-8.0); NEUTROPHILS % 72.2 % (40.0-76.0); PLATELET 460 x1000/uL (130-400); RED BLOOD CELL COUNT 3.05 mill/uL (4.7-6.1)
[2021-02-26] MEDS: INSULIN LISPRO 100 UNITS/ML SUBCUT SCH ×4 (07:50→21:00)
[2021-02-26 08:21] VITALS: BP 127/75
[2021-02-26] MEDS: FUROSEMIDE 40MG/4ML VIAL IV SCH (08:23)
[2021-02-26] MEDS: LEVETIRACETAM 250MG TABLET PO SCH ×2 (08:24→22:00)
[2021-02-26] MEDS: FERROUS SULFATE 325MG TABLET PO SCH ×3 (08:24→17:12)
[2021-02-26] MEDS: PHENYTOIN SODIUM EXTENDED 100MG CAPSULE PO SCH ×2 (08:24→17:12)
[2021-02-26] MEDS: DILTIAZEM HCL 120MG CAPSULE CD 24HR PO SCH ×2 (08:24→22:01)
[2021-02-26] MEDS: MINOXIDIL 2.5MG TABLET PO SCH ×2 (08:25→22:01)
[2021-02-26] MEDS: METOPROLOL TARTRATE 50MG TABLET PO SCH ×2 (08:25→22:02)
[2021-02-26] MEDS: DOXAZOSIN MESYLATE 4MG TABLET PO SCH ×2 (08:25→22:01)
[2021-02-26 11:55] VITALS: BP 111/67
[2021-02-26 15:40] VITALS: BP 102/67
[2021-02-26] MEDS: FUROSEMIDE 100MG/10ML VIAL IVP SCH (17:12)
[2021-02-26 20:00] VITALS: BP 114/70
[2021-02-26] MEDS: ATORVASTATIN CALCIUM 40MG TABLET PO SCH (22:10)
[2021-02-27] VITALS: BP 130/81
[2021-02-27] MEDS: NEO/POLYMYX B SULF/DEXAMETH 0.1% OPHTH SUSP 5ML LEFTEYE SCH ×4 (00:32→17:17)
[2021-02-27] MEDS: PREDNISOLONE ACETATE 1% OPHTH DROPS 5ML LEFTEYE SCH ×4 (00:33→17:17)
[2021-02-27] MEDS: GUAIFENESIN 200MG/10ML SUGAR FREE UDC PO PRN (02:42)
[2021-02-27] MEDS: HYDROCODONE/ACETAMINOPHEN 5/325MG TABLET PO PRN (03:20)
[2021-02-27 04:00] VITALS: BP 129/63
[2021-02-27] MEDS: HYDRALAZINE HCL 100MG TABLET PO SCH ×3 (06:00→21:53)
[2021-02-27] MEDS: AMITRIPTYLINE 25MG TABLET PO SCH ×3 (06:47→21:53)
[2021-02-27] MEDS: PANTOPRAZOLE 40MG DR TABLET PO SCH (06:47)
[2021-02-27] MEDS: BLOOD SUGAR DIAGNOSTIC STRIP TEST SCH ×4 (06:47→20:46)
[2021-02-27 06:53] LABS: EOSINOPHILS % 6.3 % (0.0-5.0); HEMATOCRIT. 21.9 % (42.0-52.0); HEMOGLOBIN. 7.2 g/dL (14.0-18.0); LYMPHOCYTES % 10.1 % (20.0-50.0); MEAN CORPUSCULAR HEMOGLOBIN 25.4 pg (28.0-32.0); MEAN CORPUSCULAR VOLUME 77.6 fL (80.0-94.0); MEAN PLATELET VOLUME 7.4 fl (7.4-10.4); MONOCYTES % 11.3 % (2.0-8.0); NEUTROPHILS % 71.3 % (40.0-76.0); PLATELET 405 x1000/uL (130-400); RED BLOOD CELL COUNT 2.82 mill/uL (4.7-6.1); RED CELL DISTRIBUTION WIDTH 14.9 % (11.6-14.6)
[2021-02-27] MEDS: INSULIN LISPRO 100 UNITS/ML SUBCUT SCH ×4 (07:26→20:46)
[2021-02-27 08:00] VITALS: BP 124/71
[2021-02-27] MEDS: FUROSEMIDE 100MG/10ML VIAL IVP SCH (08:02)
[2021-02-27] MEDS: PHENYTOIN SODIUM EXTENDED 100MG CAPSULE PO SCH ×2 (08:04→17:16)
[2021-02-27] MEDS: LEVETIRACETAM 250MG TABLET PO SCH ×2 (08:04→20:44)
[2021-02-27] MEDS: FERROUS SULFATE 325MG TABLET PO SCH ×3 (08:05→17:15)
[2021-02-27] MEDS: MINOXIDIL 2.5MG TABLET PO SCH ×2 (08:05→20:46)
[2021-02-27] MEDS: DILTIAZEM HCL 120MG CAPSULE CD 24HR PO SCH ×2 (08:05→20:45)
[2021-02-27] MEDS: DOXAZOSIN MESYLATE 4MG TABLET PO SCH ×2 (08:05→20:45)
[2021-02-27] MEDS: METOPROLOL TARTRATE 50MG TABLET PO SCH ×2 (08:11→20:45)
[2021-02-27 10:12] LABS: CREATININE URINE 24 HR 790.6 mg/24hr (800-2000)
[2021-02-27 12:57] VITALS: BP 100/60
[2021-02-27 15:45] VITALS: BP 106/60
[2021-02-27 20:00] VITALS: BP 120/70
[2021-02-27] MEDS: ATORVASTATIN CALCIUM 40MG TABLET PO SCH (20:45)
[2021-02-28] VITALS: BP 115/71
[2021-02-28] MEDS: PREDNISOLONE ACETATE 1% OPHTH DROPS 5ML LEFTEYE SCH ×4 (00:05→17:44)
[2021-02-28] MEDS: NEO/POLYMYX B SULF/DEXAMETH 0.1% OPHTH SUSP 5ML LEFTEYE SCH ×4 (00:05→17:44)
[2021-02-28] MEDS: ACETAMINOPHEN 325MG TABLET PO PRN ×2 (00:40→12:09)
[2021-02-28] MEDS: GUAIFENESIN 200MG/10ML SUGAR FREE UDC PO PRN (02:57)
[2021-02-28 04:24] VITALS: BP 109/61
[2021-02-28] MEDS ORDERED: HYDROCODONE/ACETAMINOPHEN 5/325MG TABLET PO PRN ×2 (04:45→23:30)
[2021-02-28] MEDS: HYDRALAZINE HCL 100MG TABLET PO SCH ×3 (06:00→22:46)
[2021-02-28] MEDS: PANTOPRAZOLE 40MG DR TABLET PO SCH (06:24)
[2021-02-28] MEDS: AMITRIPTYLINE 25MG TABLET PO SCH ×3 (06:24→22:46)
[2021-02-28] MEDS: BLOOD SUGAR DIAGNOSTIC STRIP TEST SCH ×4 (06:26→21:45)
[2021-02-28] MEDS: INSULIN LISPRO 100 UNITS/ML SUBCUT SCH ×4 (07:50→21:00)
[2021-02-28 08:00] VITALS: BP 136/73
[2021-02-28] MEDS: LEVETIRACETAM 250MG TABLET PO SCH ×2 (09:56→21:42)
[2021-02-28] MEDS: DOXAZOSIN MESYLATE 4MG TABLET PO SCH ×2 (09:57→21:44)
[2021-02-28] MEDS: PHENYTOIN SODIUM EXTENDED 100MG CAPSULE PO SCH ×2 (09:58→17:43)
[2021-02-28] MEDS: DILTIAZEM HCL 120MG CAPSULE CD 24HR PO SCH ×2 (09:59→21:43)
[2021-02-28] MEDS: METOPROLOL TARTRATE 50MG TABLET PO SCH ×2 (10:00→21:44)
[2021-02-28] MEDS: MINOXIDIL 2.5MG TABLET PO SCH ×2 (10:00→21:43)
[2021-02-28] MEDS: FUROSEMIDE 100MG/10ML VIAL IVP SCH (10:01)
[2021-02-28] MEDS: FERROUS SULFATE 325MG TABLET PO SCH ×3 (10:03→17:43)
[2021-02-28 11:08] LABS: BASOPHILS % 0.9 % (0.0-2.0); EOSINOPHILS % 6.6 % (0.0-5.0); HEMATOCRIT. 22.3 % (42.0-52.0); HEMOGLOBIN. 7.4 g/dL (14.0-18.0); LYMPHOCYTES % 8.4 % (20.0-50.0); MEAN CORPUSCULAR HEMOGLOBIN 25.9 pg (28.0-32.0); MEAN CORPUSCULAR VOLUME 78.1 fL (80.0-94.0); MEAN PLATELET VOLUME 6.8 fl (7.4-10.4); MONOCYTES % 11.8 % (2.0-8.0); NEUTROPHILS % 72.3 % (40.0-76.0); PLATELET 400 x1000/uL (130-400); RED BLOOD CELL COUNT 2.86 mill/uL (4.7-6.1); RED CELL DISTRIBUTION WIDTH 15.2 % (11.6-14.6)
[2021-02-28 12:00] VITALS: BP 127/71
[2021-02-28 16:00] VITALS: BP 138/71
[2021-02-28 20:00] VITALS: BP 125/64
[2021-02-28] MEDS: ATORVASTATIN CALCIUM 40MG TABLET PO SCH (21:44)
[2021-02-28] MEDS: EPOETIN ALFA-EPBX 10,000 UNIT/ML VIAL SUBCUT SCH (22:03)
[2021-03-01] VITALS: BP 118/65
[2021-03-01] MEDS: GUAIFENESIN 200MG/10ML SUGAR FREE UDC PO PRN (00:10)
[2021-03-01] MEDS: PREDNISOLONE ACETATE 1% OPHTH DROPS 5ML LEFTEYE SCH ×4 (00:12→17:54)
[2021-03-01] MEDS: NEO/POLYMYX B SULF/DEXAMETH 0.1% OPHTH SUSP 5ML LEFTEYE SCH ×3 (00:12→12:12)
[2021-03-01 04:00] VITALS: BP 101/69
[2021-03-01] MEDS: HYDRALAZINE HCL 100MG TABLET PO SCH ×3 (06:00→21:44)
[2021-03-01] MEDS: AMITRIPTYLINE 25MG TABLET PO SCH ×3 (06:28→21:43)
[2021-03-01] MEDS: PANTOPRAZOLE 40MG DR TABLET PO SCH (06:31)
[2021-03-01 07:01] LABS: BASOPHILS % 0.8 % (0.0-2.0); EOSINOPHILS % 6.7 % (0.0-5.0); LYMPHOCYTES % 8.3 % (20.0-50.0); MEAN CORPUSCULAR HEMOGLOBIN 25.4 pg (28.0-32.0); MEAN CORPUSCULAR VOLUME 78.4 fL (80.0-94.0); MEAN PLATELET VOLUME 7.4 fl (7.4-10.4); MONOCYTES % 11.6 % (2.0-8.0); NEUTROPHILS % 72.6 % (40.0-76.0); PLATELET 313 x1000/uL (130-400); RED BLOOD CELL COUNT 2.76 mill/uL (4.7-6.1); RED CELL DISTRIBUTION WIDTH 15.4 % (11.6-14.6)
[2021-03-01] MEDS: BLOOD SUGAR DIAGNOSTIC STRIP TEST SCH ×4 (07:16→21:39)
[2021-03-01] MEDS: INSULIN LISPRO 100 UNITS/ML SUBCUT SCH ×4 (07:25→21:00)
[2021-03-01 07:47] LABS: HEMATOCRIT. 21.6 % (42.0-52.0)
[2021-03-01 08:00] VITALS: BP 107/60
[2021-03-01] MEDS: MINOXIDIL 2.5MG TABLET PO SCH ×2 (08:27→21:42)
[2021-03-01] MEDS: DILTIAZEM HCL 120MG CAPSULE CD 24HR PO SCH ×2 (08:29→21:52)
[2021-03-01] MEDS: METOPROLOL TARTRATE 50MG TABLET PO SCH ×2 (08:31→21:45)
[2021-03-01] MEDS: DOXAZOSIN MESYLATE 4MG TABLET PO SCH ×2 (09:17→21:44)
[2021-03-01] MEDS: LEVETIRACETAM 250MG TABLET PO SCH ×2 (09:17→21:43)
[2021-03-01] MEDS: PHENYTOIN SODIUM EXTENDED 100MG CAPSULE PO SCH ×2 (09:17→17:54)
[2021-03-01] MEDS: FERROUS SULFATE 325MG TABLET PO SCH ×3 (09:17→17:54)
[2021-03-01] MEDS: FUROSEMIDE 100MG/10ML VIAL IVP SCH (09:18)
[2021-03-01] MEDS ORDERED: MAGNESIUM 2 G PREMIX 50 ML IV NR (11:00)
[2021-03-01 12:00] VITALS: BP 132/77
[2021-03-01] MEDS: HYDROCODONE/ACETAMINOPHEN 5/325MG TABLET PO PRN ×2 (12:12→21:47)
[2021-03-01 16:00] VITALS: BP 128/68
[2021-03-01 20:00] VITALS: BP 144/80
[2021-03-01] MEDS: ATORVASTATIN CALCIUM 40MG TABLET PO SCH (21:43)
[2021-03-02] VITALS: BP 140/81
[2021-03-02] MEDS: PREDNISOLONE ACETATE 1% OPHTH DROPS 5ML LEFTEYE SCH ×5 (00:26→23:00)
[2021-03-02 04:00] VITALS: BP 117/72
[2021-03-02] MEDS: HYDRALAZINE HCL 100MG TABLET PO SCH ×3 (05:25→21:50)
[2021-03-02] MEDS: AMITRIPTYLINE 25MG TABLET PO SCH ×3 (05:25→21:50)
[2021-03-02] MEDS: HYDROCODONE/ACETAMINOPHEN 5/325MG TABLET PO PRN ×3 (05:26→18:58)
[2021-03-02 06:47] LABS: BASOPHILS % 0.7 % (0.0-2.0); EOSINOPHILS % 5.9 % (0.0-5.0); HEMATOCRIT. 22.2 % (42.0-52.0); HEMOGLOBIN. 7.2 g/dL (14.0-18.0); LYMPHOCYTES % 8.2 % (20.0-50.0); MEAN CORPUSCULAR HEMOGLOBIN 25.5 pg (28.0-32.0); MEAN CORPUSCULAR VOLUME 78.2 fL (80.0-94.0); MEAN PLATELET VOLUME 7.2 fl (7.4-10.4); MONOCYTES % 11.6 % (2.0-8.0); NEUTROPHILS % 73.6 % (40.0-76.0); PLATELET 369 x1000/uL (130-400); RED BLOOD CELL COUNT 2.84 mill/uL (4.7-6.1); RED CELL DISTRIBUTION WIDTH 15.4 % (11.6-14.6)
[2021-03-02] MEDS: BLOOD SUGAR DIAGNOSTIC STRIP TEST SCH ×4 (07:29→20:59)
[2021-03-02] MEDS: INSULIN LISPRO 100 UNITS/ML SUBCUT SCH ×4 (07:29→20:59)
[2021-03-02 08:00] VITALS: BP 124/69
[2021-03-02] MEDS: LEVETIRACETAM 250MG TABLET PO SCH ×2 (08:46→20:59)
[2021-03-02] MEDS: FUROSEMIDE 100MG/10ML VIAL IVP SCH (08:46)
[2021-03-02] MEDS: PANTOPRAZOLE 40MG DR TABLET PO SCH (08:47)
[2021-03-02] MEDS: ACETAMINOPHEN 325MG TABLET PO PRN (08:47)
[2021-03-02] MEDS: MINOXIDIL 2.5MG TABLET PO SCH ×2 (08:47→20:58)
[2021-03-02] MEDS: PHENYTOIN SODIUM EXTENDED 100MG CAPSULE PO SCH ×2 (08:47→18:15)
[2021-03-02] MEDS: DILTIAZEM HCL 120MG CAPSULE CD 24HR PO SCH ×2 (08:48→20:58)
[2021-03-02] MEDS: METOPROLOL TARTRATE 50MG TABLET PO SCH ×2 (08:48→20:59)
[2021-03-02] MEDS: DOXAZOSIN MESYLATE 4MG TABLET PO SCH ×2 (08:48→20:59)
[2021-03-02] MEDS: FERROUS SULFATE 325MG TABLET PO SCH ×3 (08:48→18:14)
[2021-03-02 12:00] VITALS: BP 101/69
[2021-03-02] MEDS ORDERED: METOLAZONE 5MG TABLET PO SCH (12:30)
[2021-03-02 16:00] VITALS: BP 105/60
[2021-03-02 20:00] VITALS: BP 116/68
[2021-03-02] MEDS: ATORVASTATIN CALCIUM 40MG TABLET PO SCH (20:59)
[2021-03-02] MEDS: EPOETIN ALFA-EPBX 10,000 UNIT/ML VIAL SUBCUT SCH (21:00)
[2021-03-03] VITALS: BP 108/60
[2021-03-03 03:43] VITALS: BP 111/61
[2021-03-03] MEDS: HYDROCODONE/ACETAMINOPHEN 5/325MG TABLET PO PRN ×2 (03:49→08:40)
[2021-03-03] MEDS: AMITRIPTYLINE 25MG TABLET PO SCH ×3 (06:16→22:45)
[2021-03-03] MEDS: HYDRALAZINE HCL 100MG TABLET PO SCH ×3 (06:26→22:45)
[2021-03-03] MEDS: PANTOPRAZOLE 40MG DR TABLET PO SCH (06:26)
[2021-03-03] MEDS: PREDNISOLONE ACETATE 1% OPHTH DROPS 5ML LEFTEYE SCH ×3 (06:26→16:50)
[2021-03-03] MEDS: BLOOD SUGAR DIAGNOSTIC STRIP TEST SCH ×4 (06:26→21:00)
[2021-03-03 07:23] LABS: BASOPHILS % 0.9 % (0.0-2.0); EOSINOPHILS % 5.7 % (0.0-5.0); HEMATOCRIT. 21.7 % (42.0-52.0); HEMOGLOBIN. 7.1 g/dL (14.0-18.0); LYMPHOCYTES % 11.7 % (20.0-50.0); MEAN CORPUSCULAR HEMOGLOBIN 25.7 pg (28.0-32.0); MEAN CORPUSCULAR VOLUME 78.5 fL (80.0-94.0); MONOCYTES % 12.3 % (2.0-8.0); NEUTROPHILS % 69.4 % (40.0-76.0); PLATELET 342 x1000/uL (130-400); RED BLOOD CELL COUNT 2.76 mill/uL (4.7-6.1); RED CELL DISTRIBUTION WIDTH 15.7 % (11.6-14.6)
[2021-03-03] MEDS: INSULIN LISPRO 100 UNITS/ML SUBCUT SCH ×4 (07:50→21:00)
[2021-03-03 08:00] VITALS: BP 133/72
[2021-03-03] MEDS: DOXAZOSIN MESYLATE 4MG TABLET PO SCH ×2 (08:40→22:46)
[2021-03-03] MEDS: PHENYTOIN SODIUM EXTENDED 100MG CAPSULE PO SCH ×2 (08:40→16:11)
[2021-03-03] MEDS: FERROUS SULFATE 325MG TABLET PO SCH ×3 (08:40→16:50)
[2021-03-03] MEDS: LEVETIRACETAM 250MG TABLET PO SCH ×2 (08:40→22:43)
[2021-03-03] MEDS: MINOXIDIL 2.5MG TABLET PO SCH ×2 (08:41→22:45)
[2021-03-03] MEDS: DILTIAZEM HCL 120MG CAPSULE CD 24HR PO SCH ×2 (08:41→22:42)
[2021-03-03] MEDS: FUROSEMIDE 100MG/10ML VIAL IVP SCH ×3 (08:41→16:11)
[2021-03-03] MEDS: METOPROLOL TARTRATE 50MG TABLET PO SCH ×2 (08:41→22:44)
[2021-03-03] MEDS: GUAIFENESIN 200MG/10ML SUGAR FREE UDC PO PRN ×2 (11:15→18:24)
[2021-03-03 12:00] VITALS: BP 121/71
[2021-03-03 16:00] VITALS: BP 116/68
[2021-03-03 20:00] VITALS: BP 147/69
[2021-03-03] MEDS: ATORVASTATIN CALCIUM 40MG TABLET PO SCH (22:43)
[2021-03-04] VITALS: BP 133/67
[2021-03-04 04:00] VITALS: BP 147/72
[2021-03-04] MEDS: PREDNISOLONE ACETATE 1% OPHTH DROPS 5ML LEFTEYE SCH ×5 (06:00→23:09)
[2021-03-04] MEDS: BLOOD SUGAR DIAGNOSTIC STRIP TEST SCH ×4 (06:49→20:59)
[2021-03-04] MEDS: PANTOPRAZOLE 40MG DR TABLET PO SCH (07:11)
[2021-03-04] MEDS: AMITRIPTYLINE 25MG TABLET PO SCH ×3 (07:11→23:09)
[2021-03-04] MEDS: HYDRALAZINE HCL 100MG TABLET PO SCH ×3 (07:11→23:09)
[2021-03-04] MEDS: INSULIN LISPRO 100 UNITS/ML SUBCUT SCH ×4 (07:50→21:00)
[2021-03-04 08:00] VITALS: BP 147/78
[2021-03-04 08:40] LABS: BASOPHILS % 0.7 % (0.0-2.0); HEMATOCRIT. 23.4 % (42.0-52.0); HEMOGLOBIN. 7.8 g/dL (14.0-18.0); LYMPHOCYTES % 12.9 % (20.0-50.0); MEAN CORPUSCULAR HEMOGLOBIN 25.8 pg (28.0-32.0); MEAN CORPUSCULAR VOLUME 77.7 fL (80.0-94.0); MEAN PLATELET VOLUME 7.2 fl (7.4-10.4); MONOCYTES % 11.7 % (2.0-8.0); NEUTROPHILS % 68.7 % (40.0-76.0); PLATELET 385 x1000/uL (130-400); RED BLOOD CELL COUNT 3.01 mill/uL (4.7-6.1); RED CELL DISTRIBUTION WIDTH 15.8 % (11.6-14.6)
[2021-03-04] MEDS: MINOXIDIL 2.5MG TABLET PO SCH ×2 (08:51→21:32)
[2021-03-04] MEDS: FUROSEMIDE 100MG/10ML VIAL IVP SCH ×3 (08:52→16:58)
[2021-03-04] MEDS: PHENYTOIN SODIUM EXTENDED 100MG CAPSULE PO SCH ×2 (08:52→16:58)
[2021-03-04] MEDS: LEVETIRACETAM 250MG TABLET PO SCH ×2 (08:53→21:32)
[2021-03-04] MEDS: DILTIAZEM HCL 120MG CAPSULE CD 24HR PO SCH ×2 (08:53→21:32)
[2021-03-04] MEDS: METOPROLOL TARTRATE 50MG TABLET PO SCH ×2 (08:53→21:33)
[2021-03-04] MEDS: FERROUS SULFATE 325MG TABLET PO SCH ×3 (08:53→16:58)
[2021-03-04] MEDS: DOXAZOSIN MESYLATE 4MG TABLET PO SCH ×2 (08:54→21:33)
[2021-03-04] MEDS: HYDROCODONE/ACETAMINOPHEN 5/325MG TABLET PO PRN ×2 (09:05→16:59)
[2021-03-04 12:00] VITALS: BP 144/79
[2021-03-04] MEDS: GUAIFENESIN 200MG/10ML SUGAR FREE UDC PO PRN (12:26)
[2021-03-04 16:30] VITALS: BP 157/78
[2021-03-04 20:00] VITALS: BP 136/71
[2021-03-04] MEDS: ATORVASTATIN CALCIUM 40MG TABLET PO SCH (21:33)
[2021-03-04] MEDS: EPOETIN ALFA-EPBX 10,000 UNIT/ML VIAL SUBCUT SCH (21:33)
[2021-03-05] VITALS: BP 167/92
[2021-03-05 04:00] VITALS: BP 141/72
[2021-03-05] MEDS: PREDNISOLONE ACETATE 1% OPHTH DROPS 5ML LEFTEYE SCH ×3 (06:05→17:16)
[2021-03-05] MEDS: AMITRIPTYLINE 25MG TABLET PO SCH ×3 (06:05→22:34)
[2021-03-05] MEDS: PANTOPRAZOLE 40MG DR TABLET PO SCH (06:05)
[2021-03-05] MEDS: HYDRALAZINE HCL 100MG TABLET PO SCH ×3 (06:05→22:34)
[2021-03-05] MEDS: BLOOD SUGAR DIAGNOSTIC STRIP TEST SCH ×4 (06:34→21:00)
[2021-03-05] MEDS: INSULIN LISPRO 100 UNITS/ML SUBCUT SCH ×4 (06:34→21:00)
[2021-03-05 08:00] VITALS: BP 122/67
[2021-03-05] MEDS: FUROSEMIDE 100MG/10ML VIAL IVP SCH ×3 (08:08→17:14)
[2021-03-05] MEDS: PHENYTOIN SODIUM EXTENDED 100MG CAPSULE PO SCH ×2 (08:08→17:15)
[2021-03-05] MEDS: METOPROLOL TARTRATE 50MG TABLET PO SCH (08:08)
[2021-03-05] MEDS: LEVETIRACETAM 250MG TABLET PO SCH ×2 (08:08→22:33)
[2021-03-05] MEDS: MINOXIDIL 2.5MG TABLET PO SCH ×2 (08:09→22:33)
[2021-03-05] MEDS: DILTIAZEM HCL 120MG CAPSULE CD 24HR PO SCH ×2 (08:09→22:35)
[2021-03-05] MEDS: FERROUS SULFATE 325MG TABLET PO SCH ×3 (08:09→17:15)
[2021-03-05] MEDS: DOXAZOSIN MESYLATE 4MG TABLET PO SCH ×2 (08:10→22:33)
[2021-03-05] MEDS: HYDROCODONE/ACETAMINOPHEN 5/325MG TABLET PO PRN (08:10)
[2021-03-05 12:00] VITALS: BP 129/75
[2021-03-05 16:00] VITALS: BP 110/67
[2021-03-05] MEDS: NEBIVOLOL HCL 5 MG TABLET PO SCH (17:00)
[2021-03-05 20:00] VITALS: BP 141/85
[2021-03-05] MEDS: ATORVASTATIN CALCIUM 40MG TABLET PO SCH (22:34)
[2021-03-06] VITALS: BP 123/69
[2021-03-06] MEDS: PREDNISOLONE ACETATE 1% OPHTH DROPS 5ML LEFTEYE SCH ×4 (00:17→17:31)
[2021-03-06 04:00] VITALS: BP 124/63
[2021-03-06] MEDS: HYDRALAZINE HCL 100MG TABLET PO SCH ×3 (06:36→21:47)
[2021-03-06] MEDS: AMITRIPTYLINE 25MG TABLET PO SCH ×3 (06:36→21:47)
[2021-03-06] MEDS: BLOOD SUGAR DIAGNOSTIC STRIP TEST SCH ×4 (07:20→21:41)
[2021-03-06 07:33] LABS: BASOPHILS % 0.3 % (0.0-2.0); EOSINOPHILS % 7.7 % (0.0-5.0); HEMATOCRIT. 22.9 % (42.0-52.0); HEMOGLOBIN. 7.6 g/dL (14.0-18.0); LYMPHOCYTES % 14.1 % (20.0-50.0); MEAN CORPUSCULAR VOLUME 78.7 fL (80.0-94.0); MONOCYTES % 12.2 % (2.0-8.0); NEUTROPHILS % 65.7 % (40.0-76.0); PLATELET 338 x1000/uL (130-400); RED BLOOD CELL COUNT 2.91 mill/uL (4.7-6.1); RED CELL DISTRIBUTION WIDTH 16.5 % (11.6-14.6)
[2021-03-06] MEDS: INSULIN LISPRO 100 UNITS/ML SUBCUT SCH ×4 (07:46→21:00)
[2021-03-06 08:30] VITALS: BP 166/87
[2021-03-06] MEDS: FUROSEMIDE 100MG/10ML VIAL IVP SCH ×3 (09:17→17:12)
[2021-03-06] MEDS: DOXAZOSIN MESYLATE 4MG TABLET PO SCH ×2 (09:18→21:41)
[2021-03-06] MEDS: DILTIAZEM HCL 120MG CAPSULE CD 24HR PO SCH ×2 (09:18→21:39)
[2021-03-06] MEDS: PHENYTOIN SODIUM EXTENDED 100MG CAPSULE PO SCH ×2 (09:18→17:12)
[2021-03-06] MEDS: PANTOPRAZOLE 40MG DR TABLET PO SCH (09:19)
[2021-03-06] MEDS: MINOXIDIL 2.5MG TABLET PO SCH ×2 (09:19→21:47)
[2021-03-06] MEDS: NEBIVOLOL HCL 5 MG TABLET PO SCH ×2 (09:19→21:38)
[2021-03-06] MEDS: LEVETIRACETAM 250MG TABLET PO SCH ×2 (09:19→21:41)
[2021-03-06] MEDS: FERROUS SULFATE 325MG TABLET PO SCH ×3 (09:20→17:12)
[2021-03-06 12:00] VITALS: BP 145/78
[2021-03-06 16:30] VITALS: BP 135/77
[2021-03-06] MEDS: ACETAMINOPHEN 325MG TABLET PO PRN (17:13)
[2021-03-06] MEDS: HYDROCODONE/ACETAMINOPHEN 5/325MG TABLET PO PRN ×2 (17:33→21:40)
[2021-03-06 20:00] VITALS: BP 131/66
[2021-03-06] MEDS: ATORVASTATIN CALCIUM 40MG TABLET PO SCH (21:41)
[2021-03-06] MEDS: GUAIFENESIN 200MG/10ML SUGAR FREE UDC PO PRN (22:59)
[2021-03-07] VITALS: BP 116/63
[2021-03-07] MEDS: PREDNISOLONE ACETATE 1% OPHTH DROPS 5ML LEFTEYE SCH ×4 (00:48→18:19)
[2021-03-07] MEDS: ACETAMINOPHEN 325MG TABLET PO PRN ×2 (00:49→22:41)
[2021-03-07 04:00] VITALS: BP 136/67
[2021-03-07] MEDS: HYDROCODONE/ACETAMINOPHEN 5/325MG TABLET PO PRN ×2 (04:00→10:07)
[2021-03-07] MEDS: HYDRALAZINE HCL 100MG TABLET PO SCH ×3 (06:30→22:45)
[2021-03-07] MEDS: AMITRIPTYLINE 25MG TABLET PO SCH ×3 (06:30→22:39)
[2021-03-07] MEDS: BLOOD SUGAR DIAGNOSTIC STRIP TEST SCH ×4 (07:20→21:00)
[2021-03-07 07:29] LABS: BASOPHILS % 0.8 % (0.0-2.0); EOSINOPHILS % 4.7 % (0.0-5.0); HEMATOCRIT. 23.1 % (42.0-52.0); HEMOGLOBIN. 7.4 g/dL (14.0-18.0); LYMPHOCYTES % 15.5 % (20.0-50.0); MEAN CORPUSCULAR HEMOGLOBIN 24.9 pg (28.0-32.0); MEAN CORPUSCULAR VOLUME 77.8 fL (80.0-94.0); MEAN PLATELET VOLUME 7.1 fl (7.4-10.4); MONOCYTES % 13.1 % (2.0-8.0); NEUTROPHILS % 65.9 % (40.0-76.0); PLATELET 344 x1000/uL (130-400); RED BLOOD CELL COUNT 2.97 mill/uL (4.7-6.1); RED CELL DISTRIBUTION WIDTH 16.6 % (11.6-14.6)
[2021-03-07] MEDS: INSULIN LISPRO 100 UNITS/ML SUBCUT SCH ×4 (07:50→21:00)
[2021-03-07 08:15] VITALS: BP 123/69
[2021-03-07] MEDS: FUROSEMIDE 40MG/4ML VIAL IVP SCH ×3 (08:40→17:19)
[2021-03-07] MEDS: DILTIAZEM HCL 120MG CAPSULE CD 24HR PO SCH ×2 (08:41→22:38)
[2021-03-07] MEDS: MINOXIDIL 2.5MG TABLET PO SCH ×2 (08:41→22:40)
[2021-03-07] MEDS: PHENYTOIN SODIUM EXTENDED 100MG CAPSULE PO SCH ×2 (08:41→17:12)
[2021-03-07] MEDS: FERROUS SULFATE 325MG TABLET PO SCH ×3 (08:42→17:12)
[2021-03-07] MEDS: NEBIVOLOL HCL 5 MG TABLET PO SCH ×2 (08:42→22:39)
[2021-03-07] MEDS: LEVETIRACETAM 250MG TABLET PO SCH ×2 (08:42→22:39)
[2021-03-07] MEDS: DOXAZOSIN MESYLATE 4MG TABLET PO SCH ×2 (08:42→22:40)
[2021-03-07] MEDS: PANTOPRAZOLE 40MG DR TABLET PO SCH (08:42)
[2021-03-07 12:52] VITALS: BP 133/64
[2021-03-07 16:00] VITALS: BP 153/78
[2021-03-07 20:00] VITALS: BP 135/73
[2021-03-07] MEDS: ATORVASTATIN CALCIUM 40MG TABLET PO SCH (22:39)
[2021-03-08] VITALS: BP 168/79
[2021-03-08] MEDS: PREDNISOLONE ACETATE 1% OPHTH DROPS 5ML LEFTEYE SCH ×4 (00:21→17:49)
[2021-03-08 04:00] VITALS: BP 128/78
[2021-03-08] MEDS: HYDRALAZINE HCL 100MG TABLET PO SCH ×3 (06:24→23:13)
[2021-03-08] MEDS: AMITRIPTYLINE 25MG TABLET PO SCH ×3 (06:24→21:38)
[2021-03-08] MEDS: BLOOD SUGAR DIAGNOSTIC STRIP TEST SCH ×4 (07:47→21:55)
[2021-03-08] MEDS: INSULIN LISPRO 100 UNITS/ML SUBCUT SCH ×4 (07:48→21:55)
[2021-03-08 08:00] VITALS: BP 127/66
[2021-03-08 08:04] LABS: BASOPHILS % 1.3 % (0.0-2.0); EOSINOPHILS % 4.6 % (0.0-5.0); HEMATOCRIT. 23.6 % (42.0-52.0); HEMOGLOBIN. 7.8 g/dL (14.0-18.0); LYMPHOCYTES % 12.5 % (20.0-50.0); MEAN CORPUSCULAR HEMOGLOBIN 25.8 pg (28.0-32.0); MEAN CORPUSCULAR VOLUME 77.9 fL (80.0-94.0); MEAN PLATELET VOLUME 7.4 fl (7.4-10.4); MONOCYTES % 11.4 % (2.0-8.0); NEUTROPHILS % 70.2 % (40.0-76.0); PLATELET 350 x1000/uL (130-400); RED BLOOD CELL COUNT 3.03 mill/uL (4.7-6.1); RED CELL DISTRIBUTION WIDTH 16.6 % (11.6-14.6)
[2021-03-08] MEDS: FERROUS SULFATE 325MG TABLET PO SCH ×3 (10:18→16:21)
[2021-03-08] MEDS: LEVETIRACETAM 250MG TABLET PO SCH ×2 (10:19→21:38)
[2021-03-08] MEDS: MINOXIDIL 2.5MG TABLET PO SCH ×2 (10:19→21:44)
[2021-03-08] MEDS: PHENYTOIN SODIUM EXTENDED 100MG CAPSULE PO SCH ×2 (10:19→16:21)
[2021-03-08] MEDS: PANTOPRAZOLE 40MG DR TABLET PO SCH (10:19)
[2021-03-08] MEDS: HYDROCODONE/ACETAMINOPHEN 5/325MG TABLET PO PRN (10:20)
[2021-03-08] MEDS: DILTIAZEM HCL 120MG CAPSULE CD 24HR PO SCH ×2 (10:20→21:39)
[2021-03-08] MEDS: NEBIVOLOL HCL 5 MG TABLET PO SCH ×2 (10:21→21:00)
[2021-03-08] MEDS: DOXAZOSIN MESYLATE 4MG TABLET PO SCH ×2 (10:21→21:39)
[2021-03-08] MEDS: FUROSEMIDE 40MG/4ML VIAL IVP SCH ×3 (10:21→16:23)
[2021-03-08 12:00] VITALS: BP 130/70
[2021-03-08] MEDS ORDERED: AMIT25TA9 PO ×2 (15:37)
[2021-03-08] MEDS ORDERED: IPRA3AMP9 HHN (15:37)
[2021-03-08] MEDS ORDERED: INSLIS SUBCUT (15:37)
[2021-03-08] MEDS ORDERED: MINO2.5T19 PO ×2 (15:37)
[2021-03-08] MEDS ORDERED: NEBI5TAB3 PO ×2 (15:37)
[2021-03-08] MEDS ORDERED: METO2.5T2 PO ×2 (15:37)
[2021-03-08 16:00] VITALS: BP 115/65
[2021-03-08] MEDS: METOLAZONE 2.5MG TABLET PO SCH (16:21)
[2021-03-08 20:00] VITALS: BP 135/71
[2021-03-08] MEDS: ATORVASTATIN CALCIUM 40MG TABLET PO SCH (21:37)
[2021-03-09] VITALS: BP 148/72
[2021-03-09] MEDS: PREDNISOLONE ACETATE 1% OPHTH DROPS 5ML LEFTEYE SCH ×5 (00:26→23:18)
[2021-03-09] MEDS: AMITRIPTYLINE 25MG TABLET PO SCH ×3 (06:50→21:48)
[2021-03-09] MEDS: HYDRALAZINE HCL 100MG TABLET PO SCH ×3 (06:51→23:13)
[2021-03-09] MEDS: PANTOPRAZOLE 40MG DR TABLET PO SCH (06:53)
[2021-03-09] MEDS: BLOOD SUGAR DIAGNOSTIC STRIP TEST SCH ×4 (07:05→21:18)
[2021-03-09] MEDS: INSULIN LISPRO 100 UNITS/ML SUBCUT SCH ×4 (07:50→21:00)
[2021-03-09 08:00] VITALS: BP 147/73
[2021-03-09] MEDS: MINOXIDIL 2.5MG TABLET PO SCH ×2 (08:45→21:48)
[2021-03-09] MEDS: NEBIVOLOL HCL 5 MG TABLET PO SCH ×2 (08:45→21:47)
[2021-03-09] MEDS: LEVETIRACETAM 250MG TABLET PO SCH ×2 (08:45→21:47)
[2021-03-09] MEDS: PHENYTOIN SODIUM EXTENDED 100MG CAPSULE PO SCH ×2 (08:45→17:19)
[2021-03-09] MEDS: DILTIAZEM HCL 120MG CAPSULE CD 24HR PO SCH ×2 (08:46→21:48)
[2021-03-09] MEDS: DOXAZOSIN MESYLATE 4MG TABLET PO SCH ×2 (08:46→21:47)
[2021-03-09] MEDS: FUROSEMIDE 40MG/4ML VIAL IVP SCH ×3 (08:46→17:18)
[2021-03-09] MEDS: FERROUS SULFATE 325MG TABLET PO SCH ×3 (08:49→17:19)
[2021-03-09] MEDS: METOLAZONE 2.5MG TABLET PO SCH (08:49)
[2021-03-09 11:56] LABS: BASOPHILS % 0.8 % (0.0-2.0); EOSINOPHILS % 9.6 % (0.0-5.0); HEMOGLOBIN. 7.6 g/dL (14.0-18.0); LYMPHOCYTES % 8.9 % (20.0-50.0); MEAN CORPUSCULAR HEMOGLOBIN 25.1 pg (28.0-32.0); MEAN CORPUSCULAR VOLUME 79.1 fL (80.0-94.0); MEAN PLATELET VOLUME 6.9 fl (7.4-10.4); MONOCYTES % 10.4 % (2.0-8.0); NEUTROPHILS % 70.3 % (40.0-76.0); PLATELET 346 x1000/uL (130-400); RED BLOOD CELL COUNT 3.03 mill/uL (4.7-6.1); RED CELL DISTRIBUTION WIDTH 16.8 % (11.6-14.6)
[2021-03-09 12:00] VITALS: BP 144/70
[2021-03-09 15:48] VITALS: BP 150/69
[2021-03-09 20:00] VITALS: BP 129/70
[2021-03-09] MEDS: ATORVASTATIN CALCIUM 40MG TABLET PO SCH (21:48)
[2021-03-10] VITALS: BP 141/68
[2021-03-10 04:00] VITALS: BP 142/75
[2021-03-10] MEDS: PREDNISOLONE ACETATE 1% OPHTH DROPS 5ML LEFTEYE SCH ×3 (06:11→17:38)
[2021-03-10] MEDS: AMITRIPTYLINE 25MG TABLET PO SCH ×3 (06:11→21:23)
[2021-03-10] MEDS: PANTOPRAZOLE 40MG DR TABLET PO SCH (06:12)
[2021-03-10] MEDS: HYDRALAZINE HCL 100MG TABLET PO SCH ×3 (06:12→21:23)
[2021-03-10] MEDS: HYDROCODONE/ACETAMINOPHEN 5/325MG TABLET PO PRN (06:18)
[2021-03-10] MEDS: BLOOD SUGAR DIAGNOSTIC STRIP TEST SCH ×4 (06:24→21:15)
[2021-03-10] MEDS: INSULIN LISPRO 100 UNITS/ML SUBCUT SCH ×4 (07:50→21:00)
[2021-03-10 08:00] VITALS: BP 137/76
[2021-03-10] MEDS: LEVETIRACETAM 250MG TABLET PO SCH ×2 (09:21→21:23)
[2021-03-10] MEDS: MINOXIDIL 2.5MG TABLET PO SCH ×2 (09:21→21:23)
[2021-03-10] MEDS: NEBIVOLOL HCL 5 MG TABLET PO SCH ×2 (09:22→21:23)
[2021-03-10] MEDS: PHENYTOIN SODIUM EXTENDED 100MG CAPSULE PO SCH ×2 (09:22→17:36)
[2021-03-10] MEDS: METOLAZONE 2.5MG TABLET PO SCH (09:22)
[2021-03-10] MEDS: FERROUS SULFATE 325MG TABLET PO SCH ×3 (09:22→17:36)
[2021-03-10] MEDS: DOXAZOSIN MESYLATE 4MG TABLET PO SCH ×2 (09:22→21:23)
[2021-03-10] MEDS: DILTIAZEM HCL 120MG CAPSULE CD 24HR PO SCH ×2 (09:23→21:22)
[2021-03-10] MEDS: FUROSEMIDE 40MG/4ML VIAL IVP SCH ×3 (09:24→17:36)
[2021-03-10] MEDS ORDERED: MAGNESIUM 1 G PREMIX 100 ML IV SCH (11:00)
[2021-03-10 12:00] VITALS: BP 150/72
[2021-03-10 16:00] VITALS: BP 155/72
[2021-03-10 20:00] VITALS: BP 159/86
[2021-03-10] MEDS: ATORVASTATIN CALCIUM 40MG TABLET PO SCH (21:23)
[2021-03-11] VITALS: BP 142/76
[2021-03-11] MEDS: PREDNISOLONE ACETATE 1% OPHTH DROPS 5ML LEFTEYE SCH ×5 (01:30→23:30)
[2021-03-11 04:00] VITALS: BP 137/58
[2021-03-11] MEDS: LORAZEPAM 0.5MG TABLET PO PRN (04:04)
[2021-03-11] MEDS: AMITRIPTYLINE 25MG TABLET PO SCH ×3 (06:24→21:39)
[2021-03-11] MEDS: HYDRALAZINE HCL 100MG TABLET PO SCH ×3 (06:24→21:40)
[2021-03-11] MEDS: PANTOPRAZOLE 40MG DR TABLET PO SCH (06:24)
[2021-03-11] MEDS: BLOOD SUGAR DIAGNOSTIC STRIP TEST SCH ×4 (06:45→21:38)
[2021-03-11] MEDS: INSULIN LISPRO 100 UNITS/ML SUBCUT SCH ×4 (07:50→21:00)
[2021-03-11 08:00] VITALS: BP 133/68
[2021-03-11] MEDS: PHENYTOIN SODIUM EXTENDED 100MG CAPSULE PO SCH ×2 (08:52→17:27)
[2021-03-11] MEDS: DILTIAZEM HCL 120MG CAPSULE CD 24HR PO SCH ×2 (08:52→21:39)
[2021-03-11] MEDS: LEVETIRACETAM 250MG TABLET PO SCH ×2 (08:52→21:39)
[2021-03-11] MEDS: MINOXIDIL 2.5MG TABLET PO SCH ×2 (08:53→21:40)
[2021-03-11] MEDS: FERROUS SULFATE 325MG TABLET PO SCH ×3 (08:54→17:27)
[2021-03-11] MEDS: METOLAZONE 2.5MG TABLET PO SCH (08:54)
[2021-03-11] MEDS: FUROSEMIDE 40MG/4ML VIAL IVP SCH ×3 (08:54→16:41)
[2021-03-11] MEDS: NEBIVOLOL HCL 5 MG TABLET PO SCH ×2 (08:54→21:40)
[2021-03-11] MEDS: DOXAZOSIN MESYLATE 4MG TABLET PO SCH ×2 (08:54→21:39)
[2021-03-11 12:00] VITALS: BP 131/68
[2021-03-11 12:10] LABS: BASOPHILS % 0.7 % (0.0-2.0); EOSINOPHILS % 8.9 % (0.0-5.0); HEMATOCRIT. 24.2 % (42.0-52.0); HEMOGLOBIN. 7.6 g/dL (14.0-18.0); LYMPHOCYTES % 11.1 % (20.0-50.0); MEAN CORPUSCULAR HEMOGLOBIN 24.7 pg (28.0-32.0); MEAN CORPUSCULAR VOLUME 78.2 fL (80.0-94.0); MEAN PLATELET VOLUME 7.1 fl (7.4-10.4); MONOCYTES % 11.1 % (2.0-8.0); NEUTROPHILS % 68.2 % (40.0-76.0); PLATELET 319 x1000/uL (130-400); RED BLOOD CELL COUNT 3.09 mill/uL (4.7-6.1); RED CELL DISTRIBUTION WIDTH 16.9 % (11.6-14.6)
[2021-03-11 16:00] VITALS: BP 134/74
[2021-03-11 20:00] VITALS: BP 128/76
[2021-03-11] MEDS: ATORVASTATIN CALCIUM 40MG TABLET PO SCH (21:39)
[2021-03-12] VITALS: BP 137/81
[2021-03-12 04:00] VITALS: BP 128/79
[2021-03-12] MEDS: PANTOPRAZOLE 40MG DR TABLET PO SCH (05:52)
[2021-03-12] MEDS: AMITRIPTYLINE 25MG TABLET PO SCH ×3 (05:52→22:07)
[2021-03-12] MEDS: HYDRALAZINE HCL 100MG TABLET PO SCH ×3 (05:52→22:06)
[2021-03-12] MEDS: PREDNISOLONE ACETATE 1% OPHTH DROPS 5ML LEFTEYE SCH ×3 (05:54→18:10)
[2021-03-12] MEDS: BLOOD SUGAR DIAGNOSTIC STRIP TEST SCH ×4 (06:50→21:00)
[2021-03-12] MEDS: INSULIN LISPRO 100 UNITS/ML SUBCUT SCH ×4 (06:51→21:00)
[2021-03-12 08:00] VITALS: BP 132/81
[2021-03-12] MEDS: PHENYTOIN SODIUM EXTENDED 100MG CAPSULE PO SCH ×2 (11:23→18:05)
[2021-03-12] MEDS: LEVETIRACETAM 250MG TABLET PO SCH ×2 (11:23→22:07)
[2021-03-12] MEDS: METOLAZONE 2.5MG TABLET PO SCH (11:26)
[2021-03-12] MEDS: NEBIVOLOL HCL 5 MG TABLET PO SCH ×2 (11:26→22:07)
[2021-03-12] MEDS: DOXAZOSIN MESYLATE 4MG TABLET PO SCH ×2 (11:27→22:07)
[2021-03-12] MEDS: FERROUS SULFATE 325MG TABLET PO SCH ×3 (11:27→18:06)
[2021-03-12] MEDS: FUROSEMIDE 40MG/4ML VIAL IVP SCH ×3 (11:27→18:06)
[2021-03-12] MEDS: DILTIAZEM HCL 120MG CAPSULE CD 24HR PO SCH ×2 (11:28→22:08)
[2021-03-12] MEDS: MINOXIDIL 2.5MG TABLET PO SCH ×2 (11:29→22:07)
[2021-03-12 12:00] VITALS: BP 126/75
[2021-03-12] MEDS ORDERED: NALOXONE HCL 0.4MG/ML VIAL IV PRN (12:15)
[2021-03-12] MEDS: HYDROCODONE/ACETAMINOPHEN 5/325MG TABLET PO PRN (15:15)
[2021-03-12 16:00] VITALS: BP 129/78
[2021-03-12 20:00] VITALS: BP 149/81
[2021-03-12] MEDS: ATORVASTATIN CALCIUM 40MG TABLET PO SCH (22:06)
[2021-03-13] VITALS: BP 141/73
[2021-03-13] MEDS: LORAZEPAM 0.5MG TABLET PO PRN (00:51)
[2021-03-13] MEDS: PREDNISOLONE ACETATE 1% OPHTH DROPS 5ML LEFTEYE SCH ×4 (00:51→17:35)
[2021-03-13 04:00] VITALS: BP 142/74
[2021-03-13] MEDS: AMITRIPTYLINE 25MG TABLET PO SCH ×3 (06:39→22:24)
[2021-03-13] MEDS: HYDRALAZINE HCL 100MG TABLET PO SCH ×3 (06:39→22:24)
[2021-03-13] MEDS: BLOOD SUGAR DIAGNOSTIC STRIP TEST SCH ×4 (06:39→21:00)
[2021-03-13] MEDS: PANTOPRAZOLE 40MG DR TABLET PO SCH (06:39)
[2021-03-13] MEDS: INSULIN LISPRO 100 UNITS/ML SUBCUT SCH ×4 (06:40→21:00)
[2021-03-13 08:00] VITALS: BP_SYST 140; BP_SYST 148; BP_DIAS 84
[2021-03-13] MEDS: FUROSEMIDE 40MG/4ML VIAL IVP SCH ×3 (09:54→17:25)
[2021-03-13] MEDS: DILTIAZEM HCL 120MG CAPSULE CD 24HR PO SCH ×2 (09:55→22:23)
[2021-03-13] MEDS: LEVETIRACETAM 250MG TABLET PO SCH ×2 (09:56→22:24)
[2021-03-13] MEDS: FERROUS SULFATE 325MG TABLET PO SCH ×3 (09:56→17:25)
[2021-03-13] MEDS: DOXAZOSIN MESYLATE 4MG TABLET PO SCH ×2 (09:56→22:24)
[2021-03-13] MEDS: NEBIVOLOL HCL 5 MG TABLET PO SCH ×2 (09:57→21:00)
[2021-03-13] MEDS: PHENYTOIN SODIUM EXTENDED 100MG CAPSULE PO SCH ×2 (09:57→17:24)
[2021-03-13] MEDS: METOLAZONE 2.5MG TABLET PO SCH (09:58)
[2021-03-13] MEDS: MINOXIDIL 2.5MG TABLET PO SCH ×2 (09:58→21:00)
[2021-03-13 12:00] VITALS: BP 148/84
[2021-03-13 16:00] VITALS: BP 140/80
[2021-03-13] MEDS: HYDROCODONE/ACETAMINOPHEN 5/325MG TABLET PO PRN (17:25)
[2021-03-13 20:00] VITALS: BP 111/60
[2021-03-13] MEDS: ATORVASTATIN CALCIUM 40MG TABLET PO SCH (22:24)
[2021-03-14] VITALS: BP 119/64
[2021-03-14] MEDS: PREDNISOLONE ACETATE 1% OPHTH DROPS 5ML LEFTEYE SCH ×4 (00:07→18:08)
[2021-03-14] MEDS: HYDROCODONE/ACETAMINOPHEN 5/325MG TABLET PO PRN ×2 (00:07→09:45)
[2021-03-14 04:00] VITALS: BP 142/74
[2021-03-14 06:28] LABS: EOSINOPHILS % 9.3 % (0.0-5.0); HEMATOCRIT. 24.2 % (42.0-52.0); HEMOGLOBIN. 7.8 g/dL (14.0-18.0); LYMPHOCYTES % 18.6 % (20.0-50.0); MEAN CORPUSCULAR HEMOGLOBIN 25.7 pg (28.0-32.0); MONOCYTES % 12.6 % (2.0-8.0); NEUTROPHILS % 58.5 % (40.0-76.0); PLATELET 308 x1000/uL (130-400); RED BLOOD CELL COUNT 3.03 mill/uL (4.7-6.1); RED CELL DISTRIBUTION WIDTH 16.9 % (11.6-14.6)
[2021-03-14] MEDS: PANTOPRAZOLE 40MG DR TABLET PO SCH (06:36)
[2021-03-14] MEDS: HYDRALAZINE HCL 100MG TABLET PO SCH ×3 (06:36→21:20)
[2021-03-14] MEDS: AMITRIPTYLINE 25MG TABLET PO SCH ×3 (06:36→21:20)
[2021-03-14] MEDS: BLOOD SUGAR DIAGNOSTIC STRIP TEST SCH ×4 (06:36→21:18)
[2021-03-14] MEDS: INSULIN LISPRO 100 UNITS/ML SUBCUT SCH ×4 (07:50→21:00)
[2021-03-14 08:25] LABS: PHOSPHORUS 3.7 mg/dL (2.5-4.9)
[2021-03-14 09:39] VITALS: BP 147/81
[2021-03-14] MEDS: FUROSEMIDE 40MG/4ML VIAL IVP SCH ×3 (09:45→18:08)
[2021-03-14] MEDS: PHENYTOIN SODIUM EXTENDED 100MG CAPSULE PO SCH ×2 (09:46→18:08)
[2021-03-14] MEDS: LEVETIRACETAM 250MG TABLET PO SCH ×2 (09:46→21:19)
[2021-03-14] MEDS: DILTIAZEM HCL 120MG CAPSULE CD 24HR PO SCH ×2 (09:47→21:21)
[2021-03-14] MEDS: DOXAZOSIN MESYLATE 4MG TABLET PO SCH ×2 (09:47→21:20)
[2021-03-14] MEDS: MINOXIDIL 2.5MG TABLET PO SCH ×2 (09:47→21:20)
[2021-03-14] MEDS: FERROUS SULFATE 325MG TABLET PO SCH ×3 (09:48→18:08)
[2021-03-14] MEDS: METOLAZONE 2.5MG TABLET PO SCH ×2 (09:48→09:49)
[2021-03-14] MEDS: NEBIVOLOL HCL 5 MG TABLET PO SCH ×2 (09:55→21:20)
[2021-03-14 12:59] VITALS: BP 140/89
[2021-03-14 16:21] VITALS: BP 136/82
[2021-03-14 20:00] VITALS: BP 128/61
[2021-03-14] MEDS: ATORVASTATIN CALCIUM 40MG TABLET PO SCH (21:21)
[2021-03-15] VITALS: BP 114/58
[2021-03-15] MEDS: HYDROCODONE/ACETAMINOPHEN 5/325MG TABLET PO PRN ×2 (01:54→11:40)
[2021-03-15] MEDS: PREDNISOLONE ACETATE 1% OPHTH DROPS 5ML LEFTEYE SCH ×3 (01:55→14:47)
[2021-03-15 04:00] VITALS: BP 145/75
[2021-03-15] MEDS: BLOOD SUGAR DIAGNOSTIC STRIP TEST SCH ×2 (06:36→11:41)
[2021-03-15] MEDS: AMITRIPTYLINE 25MG TABLET PO SCH ×2 (06:36→14:49)
[2021-03-15] MEDS: HYDRALAZINE HCL 100MG TABLET PO SCH ×2 (06:36→14:48)
[2021-03-15] MEDS: PANTOPRAZOLE 40MG DR TABLET PO SCH (06:36)
[2021-03-15] MEDS: INSULIN LISPRO 100 UNITS/ML SUBCUT SCH ×2 (07:48→12:50)
[2021-03-15 08:00] VITALS: BP 133/71
[2021-03-15] MEDS: FUROSEMIDE 40MG/4ML VIAL IVP SCH ×2 (10:28→14:49)
[2021-03-15] MEDS: PHENYTOIN SODIUM EXTENDED 100MG CAPSULE PO SCH (10:29)
[2021-03-15] MEDS: LEVETIRACETAM 250MG TABLET PO SCH (10:29)
[2021-03-15] MEDS: DILTIAZEM HCL 120MG CAPSULE CD 24HR PO SCH (10:29)
[2021-03-15] MEDS: DOXAZOSIN MESYLATE 4MG TABLET PO SCH (10:30)
[2021-03-15] MEDS: FERROUS SULFATE 325MG TABLET PO SCH ×2 (10:31→14:48)
[2021-03-15] MEDS: MINOXIDIL 2.5MG TABLET PO SCH (10:31)
[2021-03-15] MEDS: NEBIVOLOL HCL 5 MG TABLET PO SCH (10:31)
[2021-03-15 11:39] VITALS: BP 143/73
[2021-03-15] MEDS ORDERED: KEPP250 PO (14:47)
[2021-03-15 16:48] VITALS: BP 135/63
[2021-03-15 17:50] VITALS: BP 135/63
== END 2021-03-15 18:31 | disposition home or self-care (01) | DRG 291 ==
LOC: ER 10:26 → 6WST 12:50 → EDBEDREQTM 13:05 → EDBEDREQ 13:05 → ENRESERV 20:10
PROVIDERS: ADMIT Internal Medicine; ATTEND Internal Medicine
DX: I13.0 Hypertensive heart and chronic kidney disease with heart failure and stage 1 through stage 4 chronic kidney disease, or unspecified chronic kidney disease (principal); J96.00 Acute respiratory failure, unspecified whether with hypoxia or hypercapnia; I50.33 Acute on chronic diastolic (congestive) heart failure; N17.9 Acute kidney failure, unspecified; Z68.42 Body mass index [BMI] 45.0-49.9, adult; L03.314 Cellulitis of groin; D50.9 Iron deficiency anemia, unspecified; E11.22 Type 2 diabetes mellitus with diabetic chronic kidney disease; F03.90 Unspecified dementia, unspecified severity, without behavioral disturbance, psychotic disturbance, mood disturbance, and anxiety; F41.9 Anxiety disorder, unspecified; I27.21 Secondary pulmonary arterial hypertension; N18.9 Chronic kidney disease, unspecified; N50.819 Testicular pain, unspecified; G40.909 Epilepsy, unspecified, not intractable, without status epilepticus; Z20.822 Contact with and (suspected) exposure to COVID-19; F32.A Depression, unspecified; E11.42 Type 2 diabetes mellitus with diabetic polyneuropathy; R13.10 Dysphagia, unspecified; N50.89 Other specified disorders of the male genital organs; E66.01 Morbid (severe) obesity due to excess calories; F41.0 Panic disorder [episodic paroxysmal anxiety]; Z91.011 Allergy to milk products; Z79.899 Other long term (current) drug therapy; Z93.1 Gastrostomy status; Z82.49 Family history of ischemic heart disease and other diseases of the circulatory system; R41.0 Disorientation, unspecified; H11.429 Conjunctival edema, unspecified eye
CPT/HCPCS: 36415; 70551; 71045; 76870; 80048; 80053; 82550; 82570; 82962; 83036; 83735; 83880; 84100; 84145; 84443; 84484; 85025; 87426; 92610; 93005; 93306; 93970; 93976; 97116; 97162; 97530; 99285; A6261; C1893; J0885; J1815; J1940; J3475; J3490

== ENCOUNTER 2021-08-15 11:16 | Emergency (ER) | payer MEDICARE, MEDICAID ==
[~2021-08-15] VITALS: Ht 175.3 cm; Wt 75.0 kg
[~2021-08-15 11:16] MED LIST changes: +AMLO5TAB88 PO; +CLON0.2T PO; -CLON1PAT12 TD; -DILT120C88 PO; -DOCU250C14 MT; +DOXA4TAB2 MT; -FERR325T23 PO; +GABA-529 PO; +IPRA3AMP9 HHN; +KEPP250 PO; -KETO15CR2 TP; -LACT10SO7 PO; -LEVE1000 MT; -METO-293 MT; -METO25TA6 MT; -MINO2.5T19 PO; -PANT40TA51 MT; -SENN1TAB35 PO
[2021-08-15] MEDS ORDERED: lasix (11:21)
[2021-08-15] MEDS ORDERED: SODIUM CHLORIDE 0.9% 1,000 ML IV ONE (12:30)
[2021-08-15 12:39] LABS: BASOPHILS % 0.9 % (0.0-2.0); EOSINOPHILS % 2.9 % (0.0-5.0); HEMATOCRIT. 25.8 % (42.0-52.0); HEMOGLOBIN. 8.4 g/dL (14.0-18.0); LYMPHOCYTES % 22.5 % (20.0-50.0); MEAN CORPUSCULAR HEMOGLOBIN 27.5 pg (28.0-32.0); MEAN CORPUSCULAR VOLUME 84.7 fL (80.0-94.0); MEAN PLATELET VOLUME 7.6 fl (7.4-10.4); MONOCYTES % 8.1 % (2.0-8.0); NEUTROPHILS % 65.6 % (40.0-76.0); PLATELET 254 x1000/uL (130-400); RED BLOOD CELL COUNT 3.05 mill/uL (4.7-6.1); RED CELL DISTRIBUTION WIDTH 14.1 % (11.6-14.6)
[2021-08-15 16:00] VITALS: BP 143/80
== END 2021-08-15 16:45 | disposition home or self-care (01) ==
LOC: ER 11:16
DX: I95.89 Other hypotension (principal); E86.0 Dehydration; E11.22 Type 2 diabetes mellitus with diabetic chronic kidney disease; I13.0 Hypertensive heart and chronic kidney disease with heart failure and stage 1 through stage 4 chronic kidney disease, or unspecified chronic kidney disease; N18.9 Chronic kidney disease, unspecified; I50.9 Heart failure, unspecified; D63.1 Anemia in chronic kidney disease; G40.909 Epilepsy, unspecified, not intractable, without status epilepticus; Z93.1 Gastrostomy status; Z91.011 Allergy to milk products
CPT/HCPCS: 36415; 80048; 85025; 96360; 99283; J7030